=== PATIENT | female | born 1945 | race Caucasian/White ===

== ENCOUNTER 2022-10-14 15:45 | Observation (INO) ==
[2022-10-14] MEDS ORDERED: hydrOXYzine HCl 25 MG TAB PO STA (16:46)
--- NOTE | 2022-10-14 16:49 | Emergency Department Note ---
Impression & Plan Bipolar 2 disorder, Elevated troponin, UTI (urinary tract infection), uncomplicated, HTN (hypertension) ED Provider Note Provider: Thong Hurt MD DATE OF SERVICE: 10/14/2022 CHIEF COMPLAINT: Anxiety, hypertension HISTORY OF PRESENT ILLNESS: Patient is a 76-year-old female history of bipolar disorder as well as hypothyroidism presenting here today with her daughter reporting that since Nexium anxious increased episodes of anxiety. Has been eating well and losing some weight. Is a bit forgetful at times as well. No falls recently reported. Seen here yesterday in the emergency department. Daughter arrived from [place] today and brought her here for evaluation. Patient is unsure if she took a dose of the Atarax given yesterday at home. States her blood pressure is notably normal. States has had a few palpitations states this has been longstanding. Denies any suicidal or homicidal ideation right now. Recently about 2 weeks ago started on BuSpar and increased about a week ago initially thought it helped but not so sure now. More distant history of inpatient hospitalizations and suicide attempts. Denies again suicidal ideation now. Daughter later relates that the patient's apartment is in a very distal rate and unkept state. Daughter also relays short-term memory has been worsening PAST MEDICAL HISTORY: As noted above MEDICATIONS: Reviewed home medications at bedside SOCIAL HISTORY: Lives alone in [place] PHYSICAL EXAM: GENERAL: alert and oriented in no acute distress on stretcher Head: normocephalic and atraumatic EYES: No injection, discharge or icterus. NECK: Trachea midline. ENT: Mucous membranes pink and moist. LUNGS: Airway patent. No retractions. Breath sounds clear HEART: Regular rate and rhythm. No chest wall tenderness ABDOMEN: Soft and non-tender, without guarding or rebound. SKIN: Acyanotic, warm, dry, without rashes EXTREMITIES: Without swelling, tenderness or deformity NEUROLOGICAL: No focal deficits. No aphasia. No facial droop or slurred speech. Ambulatory. Psych: Somewhat anxious. Tearful at times. Denies SI or HI. Not responding to external stimuli. EK bpm normal sinus rhythm. No PVC or PAC. No acute ST segment elevation or depression with a QTC of 449. Patient's laboratory studies reviewed. Differential includes Mood disorder, infection, electrolyte abnormalities, cardiac sources, toxicologic, trauma, neurologic, as well as other pathologies. IMPRESSION/MEDICAL DECISION MAKING: Patient without any significant pain at this time and is well-appearing. Anxious however. Denies SI or HI. Seen with case resource manager. Daughter provides additional history at bedside. Dr. Alonso called during the H&P and offers to provide the patient with an appointment tomorrow morning to see her in the office if she goes home. Daughter questions the need for inpatient treatment. Reviewed blood work from yesterday and we completed some here today. Given some Atarax since her she took some earlier she does appear anxious. Thyroid function checked. EKG and troponin sent but I doubt this represents ACS only completed given her report of some palpitations. Doubt any significant ar rhythmia given evaluation today as well as yesterday. Urinalysis sent to exclude UTI contributing to symptoms. Not having focal neurological deficit or severe headache and no significant reported falls or anticoagulants do not feel that we need additional imaging of the head at this time. Blood pressure may be elevated some component also of her stress and anxiety she states she is not sleeping that well as well. Want to be cautious in this 76-year-old with too strong of antianxiety medications. Urinalysis could be contaminated but possibly represents a urinary tract infection. We will treat at this point. Given the troponin elevation with UTI and hypertension discussed with patient a nd daughter further medical evaluation here as well as possibly proceeding with psychiatric consultation while here. They were in agreement this plan. DIAGNOSIS: Anxiety, hypertension, UTI, elevated troponin DISPOSITION: Discharge Patient was agreeable with this plan. Discussed return precautions and advised follow up. Past Med/Surg History Medical History (Updated 10/14/22 @ 23:49 by Thong Hurt M.D.) Bipolar 2 disorder CKD (chronic kidney disease), stage III COPD (chronic obstructive pulmonary disease) Depression Emphysema lung "MILD" Glaucoma Herniated disc IN BACK Hypothyroidism Surgical History History of back surgery History of colonoscopy History of eye surgery CLOGGED TEAR DUCT / LEFT ? History of hysterectomy History of tonsillectomy Social History Smoking Status: Former smoker Tobacco Type: Cigarettes Cigarettes Per Day: 22 YRS AGO; Hx Alcohol Use: Yes (VERY MINIMAL) Preferred Language: Paraguayan Communication Ability: Effective Sheet [employer]inter Required: No Beliefs That Will Affect Care: None Current Living Situation: Alone Feels Safe at Home: Yes Assistive Devices: Contacts, Denture - Upper and Denture - Lower Allergies Allergies Allergy/AdvReac Type Severity Reaction Status Date / Time aripiprazole Allergy Unknown PARKINSON Verified 06/14/20 14:17 SYMPTOMS cortisone Allergy Unknown PRECIPITATED Verified 06/14/20 14:17 MANIC EPISODE/ STEROID PSYCHOSIS lithium Allergy Unknown SKIN Verified 06/14/20 14:17 RASHES, EXTREME DROWSINESS AND LETHARGY moxifloxacin Allergy Unknown HIVES/ Verified 06/14/20 14:17 DIARRHEA brimonidine AdvReac Unknown Verified 06/14/20 14:17 Home Meds Home Medications Medication Instructions Recorded Confirmed albuterol sulfate 90 mcg/actuation 2 inh inhalation Q4H PRN COPD 05/07/20 10/14/22 aerosol inhaler (ProAir HFA) aspirin 81 mg tablet,delayed 81 mg PO HS 05/07/20 10/14/22 release (Aspir-) atorvastatin 20 mg tablet 20 mg PO HS 05/07/20 10/14/22 benzonatate 100 mg capsule 100 mg PO UD PRN COUGHING 05/07/20 10/14/22 bimatoprost 0.01 % eye drops 1 drp ophthalmic (eye) HS 05/07/20 10/14/22 (Lumigan) calcium carbonate 600 mg-vitamin 1 tab PO BID 05/07/20 10/14/22 D3 20 mcg (800 unit) chewable tablet (Caltrate 600 plus D) dorzolamide 2 % eye drops 1 drp ophthalmic (eye) BID 05/07/20 10/14/22 fluoxetine 20 mg capsule (Prozac) 20 mg PO QAM 05/07/20 10/14/22 lamotrigine 200 mg tablet 200 mg PO HS 05/07/20 10/14/22 levothyroxine 25 mcg tablet 25 mcg PO QAM 05/07/20 10/14/22 trazodone 50 mg tablet 50 mg PO HS 05/07/20 10/14/22 umeclidinium 62.5 mcg-vilanterol 1 inh inhalation DAILY 05/07/20 10/14/22 25 mcg/actuation powdr for inhalation (Anoro Ellipta) acetaminophen 500 mg tablet 1,000 mg PO Q6H PRN Pain 06/14/20 10/14/22 (Tylenol Extra Strength) buspirone 10 mg tablet 10 mg PO BID 10/14/22 10/14/22 Previous Rx's Medication Instructions Recorded hydroxyzine HCl 25 mg tablet 25 mg PO TID PRN itching #30 tabs 10/13/22 Results & Data (ED) Vital Signs Vital Signs - 24 hr 10/14/22 15:52 10/14/22 16:01 10/14/22 16:01 Temperature 36.6 C Temperature Source Temporal Artery Scan Pulse Rate 82 Pulse Rate [Apical] Pulse Rate [Right Finger] Pulse Rhythm [Right Finger] Pulse Strength [Right Finger] Respiratory Rate 18 18 Respiratory Effort / Characteristics Non-Labored Spontaneous Non-Labored Respiratory Depth Normal Normal Respiratory Pattern Regular Regular Blood Pressure 199/96 H Blood Pressure [Left Arm] Blood Pressure Mean 130 Blood Pressure Mean [Left Arm] Blood Pressure Position Sitting Blood Pressure Position [Left Arm] Pulse Oximetry 97 Oxygen Delivery Method Room Air Room Air Sepsis Recent Fever Within 48 Hours No Sepsis New/Unexplained Change in Mental Status N/A Sepsis Action Taken by Nursing No Action Required 10/14/22 17:29 10/14/22 18:29 Temperature Temperature Source Pulse Rate Pulse Rate [Apical] 68 Pulse Rate [Right Finger] 57 L Pulse Rhythm [Right Finger] Regular Pulse Strength [Right Finger] Normal Respiratory Rate 16 16 Respiratory Effort / Characteristics Non-Labored Non-Labored Spontaneous Respiratory Depth Normal Normal Respiratory Pattern Regular Regular Blood Pressure Blood Pressure [Left Arm] 176/65 H 177/74 H Blood Pressure Mean Blood Pressure Mean [Left Arm] 102 108 Blood Pressure Position Blood Pressure Position [Left Arm] Lying Lying Pulse Oximetry 97 99 Oxygen Delivery Method Room Air Room Air Sepsis Recent Fever Within 48 Hours Sepsis New/Unexplained Change in Mental Status Sepsis Action Taken by Nursing Laboratory Data 10/14/22 17:05 10/14/22 17:05 Lab Results 10/14/22 10/14/22 10/14/22 Range/Units 16:08 16:08 17:05 WBC (4.8-10.8) K/ul RBC (3.93-5.22) M/uL Hgb (12.0-16.0) g/dl Hct (34.1-44.9) % MCV (80.0-100.0) fL MCH (25.0-34.0) pg MCHC (32.0-36.0) g/dL RDW Std Deviation (36.4-46.3) fL RDW Coeff of Isabella (11.5-14.5) % Plt Count (130-400) K/uL MPV (9.4-12.3) fL Immature Gran % (Auto) % Neut % (Auto) % Lymph % (Auto) % Roosevelt % (Auto) % Eos % (Auto) % Baso % (Auto) % Neut # (Auto) (1.4-6.5) K/uL Lymph # (Auto) (1.2-3.4) K/uL Roosevelt # (Auto) (0.24-0.82) K/uL Eos # (Auto) (0-0.50) K/uL Baso # (Auto) (0-0.2) K/uL Immature Gran # (Auto) (0.00-0.02) K/uL Sodium (136-145) mmol/L Potassium (3.5-5.1) mmol/L Chloride (98-107) mmol/L Carbon Dioxide (21-32) mmol/L Anion Gap (3-11) BUN (6-23) mg/dl Creatinine (0.6-1.2) mg/dl Est Cr Clr Drug Dosing ml/min Est GFR ( Amer) ml/min Est GFR (Non-Af Amer) ml/min BUN/Creatinine Ratio (10-20) Glucose (70-99(Fasting)) mg/dl Calcium (8.5-10.1) mg/dl Total Bilirubin (0.2-1.0) mg/dl AST (13-39) U/L ALT (7-52) U/L Alkaline Phosphatase (34-104) U/L Troponin I High Sens (0-14) pg/ml Total Protein (6.0-8.3) gm/dl Albumin (3.4-5.0) gm/dl Globulin (2.5-4.0) gm/dl Albumin/Globulin Ratio (0.9-2) TSH 1.774 (0.300-4.500) uIu/ml Urine Color Yellow Urine Appearance Clear (Clear) Urine pH 6.0 (4.5-7.5) Ur Specific F[place]on 1.021 (1.000-1.030) Urine Protein Trace H (Negative) Urine Glucose (UA) Negative (Negative) Urine Ketones Negative (Negative) Urine Blood Negative (Negative) Urine Nitrite Negative (Negative) Urine Bilirubin Negative (Negative) Urine Urobilinogen Negative (Negative) Ur Leukocyte Esterase 2+ H (Negative) Urine WBC (Auto) >30 H (0-5) /hpf Urine RBC (Auto) 0-4 (0-4) /hpf U Hyaline Cast (Auto) 10-30 H (0-5) /lpf U Epithel Cells (Auto) >30 H (0-5) /lpf Urine Bacteria (Auto) Negative (Negative) Salicylates (3.0-30) mg/dl Urine Opiates Screen Neg (Neg) Ur Methadone, Qual Neg (Neg) Acetaminophen (10-30) ug/ml Urine Barbiturates Neg (Neg) Ur Phencyclidine (PCP) Neg (Neg) U Amphetamin/Meth Scrn Neg (Neg) MDMA (Ecstasy) Screen Neg (Neg) U Benzodiazepines Scrn Neg (Neg) Ur Cocaine Metabolite Neg (Neg) U Marijuana (THC) Screen Neg (Neg) Ethyl Alcohol mg/dL (<10.0) mg/dl SARS-CoV-2, RNA, NAAT (NEGATIVE) 10/14/22 10/14/22 10/14/22 Range/Units 17:05 17:05 17:05 WBC 4.45 L (4.8-10.8) K/ul RBC 3.99 (3.93-5.22) M/uL Hgb 12.5 (12.0-16.0) g/dl Hct 37.6 (34.1-44.9) % MCV 94.2 (80.0-100.0) fL MCH 31.3 (25.0-34.0) pg MCHC 33.2 (32.0-36.0) g/dL RDW Std Deviation 39.2 (36.4-46.3) fL RDW Coeff of Isabella 11.5 (11.5-14.5) % Plt Count 225 (130-400) K/uL MPV 9.9 (9.4-12.3) fL Immature Gran % (Auto) 0.2 % Neut % (Auto) 65.0 % Lymph % (Auto) 25.2 % Roosevelt % (Auto) 9.2 % Eos % (Auto) 0.0 % Baso % (Auto) 0.4 % Neut # (Auto) 2.89 (1.4-6.5) K/uL Lymph # (Auto) 1.12 L (1.2-3.4) K/uL Roosevelt # (Auto) 0.41 (0.24-0.82) K/uL Eos # (Auto) 0.00 (0-0.50) K/uL Baso # (Auto) 0.02 (0-0.2) K/uL Immature Gran # (Auto) 0.01 (0.00-0.02) K/uL Sodium 137 (136-145) mmol/L Potassium 3.7 (3.5-5.1) mmol/L Chloride 102 (98-107) mmol/L Carbon Dioxide 26 (21-32) mmol/L Anion Gap 9 (3-11) BUN 15 (6-23) mg/dl Creatinine 1.10 (0.6-1.2) mg/dl Est Cr Clr Drug Dosing 36.4 ml/min Est GFR ( Amer) 55.7 ml/min Est GFR (Non-Af Amer) 48.1 ml/min BUN/Creatinine Ratio 13.6 (10-20) Glucose 139 H (70-99(Fasting)) mg/dl Calcium 9.4 (8.5-10.1) mg/dl Total Bilirubin 0.6 (0.2-1.0) mg/dl AST 28 (13-39) U/L ALT 19 (7-52) U/L Alkaline Phosphatase 68 (34-104) U/L Troponin I High Sens 53.3 H* (0-14) pg/ml Total Protein 7.3 (6.0-8.3) gm/dl Albumin 4.4 (3.4-5.0) gm/dl Globulin 2.9 (2.5-4.0) gm/dl Albumin/Globulin Ratio 1.5 (0.9-2) TSH (0.300-4.500) uIu/ml Urine Color Urine Appearance (Clear) Urine pH (4.5-7.5) Ur Specific [place] (1.000-1.030) Urine Protein (Negative) Urine Glucose (UA) (Negative) Urine Ketones (Negative) Urine Blood (Negative) Urine Nitrite (Negative) Urine Bilirubin (Negative) Urine Urobilinogen (Negative) Ur Leukocyte Esterase (Negative) Urine WBC (Auto) (0-5) /hpf Urine RBC (Auto) (0-4) /hpf U Hyaline Cast (Auto) (0-5) /lpf U Epithel Cells (Auto) (0-5) /lpf Urine Bacteria (Auto) (Negative) Salicylates < 3.0 L (3.0-30) mg/dl Urine Opiates Screen (Neg) Ur Methadone, Qual (Neg) Acetaminophen < 3 L (10-30) ug/ml Urine Barbiturates (Neg) Ur Phencyclidine (PCP) (Neg) U Amphetamin/Meth Scrn (Neg) MDMA (Ecstasy) Screen (Neg) U Benzodiazepines Scrn (Neg) Ur Cocaine Metabolite (Neg) U Marijuana (THC) Screen (Neg) Ethyl Alcohol mg/dL (<10.0) mg/dl SARS-CoV-2, RNA, NAAT (NEGATIVE) 10/14/22 10/14/22 Range/Units 17:05 17:05 WBC (4.8-10.8) K/ul RBC (3.93-5.22) M/uL Hgb (12.0-16.0) g/dl Hct (34.1-44.9) % MCV (80.0-100.0) fL MCH (25.0-34.0) pg MCHC (32.0-36.0) g/dL RDW Std Deviation (36.4-46.3) fL RDW Coeff of Isabella (11.5-14.5) % Plt Count (130-400) K/uL MPV (9.4-12.3) fL Immature Gran % (Auto) % Neut % (Auto) % Lymph % (Auto) % Roosevelt % (Auto) % Eos % (Auto) % Baso % (Auto) % Neut # (Auto) (1.4-6.5) K/uL Lymph # (Auto) (1.2-3.4) K/uL Roosevelt # (Auto) (0.24-0.82) K/uL Eos # (Auto) (0-0.50) K/uL Baso # (Auto) (0-0.2) K/uL Immature Gran # (Auto) (0.00-0.02) K/uL Sodium (136-145) mmol/L Potassium (3.5-5.1) mmol/L Chloride (98-107) mmol/L Carbon Dioxide (21-32) mmol/L Anion Gap (3-11) BUN (6-23) mg/dl Creatinine (0.6-1.2) mg/dl Est Cr Clr Drug Dosing ml/min Est GFR ( Amer) ml/min Est GFR (Non-Af Amer) ml/min BUN/Creatinine Ratio (10-20) Glucose (70-99(Fasting)) mg/dl Calcium (8.5-10.1) mg/dl Total Bilirubin (0.2-1.0) mg/dl AST (13-39) U/L ALT (7-52) U/L Alkaline Phosphatase (34-104) U/L Troponin I High Sens (0-14) pg/ml Total Protein (6.0-8.3) gm/dl Albumin (3.4-5.0) gm/dl Globulin (2.5-4.0) gm/dl Albumin/Globulin Ratio (0.9-2) TSH (0.300-4.500) uIu/ml Urine Color Urine Appearance (Clear) Urine pH (4.5-7.5) Ur Specific [place] (1.000-1.030) Urine Protein (Negative) Urine Glucose (UA) (Negative) Urine Ketones (Negative) Urine Blood (Negative) Urine Nitrite (Negative) Urine Bilirubin (Negative) Urine Urobilinogen (Negative) Ur Leukocyte Esterase (Negative) Urine WBC (Auto) (0-5) /hpf Urine RBC (Auto) (0-4) /hpf U Hyaline Cast (Auto) (0-5) /lpf U Epithel Cells (Auto) (0-5) /lpf Urine Bacteria (Auto) (Negative) Salicylates (3.0-30) mg/dl Urine Opiates Screen (Neg) Ur Methadone, Qual (Neg) Acetaminophen (10-30) ug/ml Urine Barbiturates (Neg) Ur Phencyclidine (PCP) (Neg) U Amphetamin/Meth Scrn (Neg) MDMA (Ecstasy) Screen (Neg) U Benzodiazepines Scrn (Neg) Ur Cocaine Metabolite (Neg) U Marijuana (THC) Screen (Neg) Ethyl Alcohol mg/dL < 10.0 (<10.0) mg/dl SARS-CoV-2, RNA, NAAT NEGATIVE (NEGATIVE) Administered Medications Aspirin (Aspirin 81 Mg Ectab) 81 mg PO HS [facility] Stop: 11/13/22 21:29 Last Admin: 10/14/22 22:16 Dose: 81 mg Documented By: ML Atorvastatin Calcium (Atorvastatin 20 Mg Tab) 20 mg PO HS [facility] Stop: 11/13/22 21:29 Last Admin: 10/14/22 22:16 Dose: 20 mg Documented By: ML Bimatoprost (Bimatoprost 0.01% Op Soln 2.5 Ml Btl) 1 drops OP HS [facility] Stop: 11/13/22 21:29 Last Admin: 10/14/22 22:16 Dose: 1 drops Documented By: ML Buspirone HCl (Buspirone 5 Mg Tab) 10 mg PO BID [facility] Stop: 11/13/22 21:59 Last Admin: 10/14/22 23:13 Dose: 10 mg Documented By: ML Dorzolamide HCl (Dorzolamide Hcl 2% Oph Soln 10 Ml Btl) 1 drops OP BID [facility] Stop: 11/13/22 21:29 Last Admin: 10/14/22 22:17 Dose: 1 drops Documented By: ML Enoxaparin Sodium (Enoxaparin Inj 40 Mg/0.4 Ml Syr) 40 mg SQ Q24H [facility] Stop: 11/13/22 21:59 Last Admin: 10/14/22 23:12 Dose: 40 mg Documented By: ML Lamotrigine (Lamotrigine 100 Mg Tab) 200 mg PO [facility] Stop: 11/13/22 21:29 Last Admin: 10/14/22 22:17 Dose: 200 mg Documented By: ML Trazodone HCl (Trazodone Hcl 50 Mg Tab) 50 mg PO [facility] Stop: 11/13/22 21:29 Last Admin: 10/14/22 22:18 Dose: 50 mg Documented By: ML Discontinued Medications Aspirin (Aspirin Chew 324 Mg) 324 mg PO NOW STA Stop: 10/14/22 18:38 Last Admin: 10/14/22 19:11 Dose: 324 mg Documented By: ML Hydralazine HCl (Hydralazine Hcl 20 Mg/Ml Vial) 10 mg IV NOW STA Stop: 01/03/23 20:29 Last Admin: 10/14/22 20:57 Dose: 10 mg Documented By: ML Hydroxyzine HCl (Hydroxyzine Hcl 25 Mg Tab) 25 mg PO NOW STA Stop: 10/14/22 16:47 Last Admin: 10/14/22 17:11 Dose: 25 mg Documented By: SR Ceftriaxone Sodium 1,000 mg/ (Dextrose) 50 mls @ 100 mls/hr IV NOW STA Stop: 10/14/22 19:06 Last Infusion: 10/14/22 20:49 Dose: 0 mls/hr Documented By: Admin: 10/14/22 20:00 Dose: 100 mls/hr Documented By: ML Discharge Plan Visit Data Chief Complaint: Anxiety Stated Complaint: ANXIETY, HIGH BLOOD PRESSURE, COGNITIVE IMPAIRMENT ED Provider: Thong Hurt Discharge Problem: Bipolar 2 disorder, Elevated troponin, UTI (urinary tract infection), uncomplicated, HTN (hypertension) Patient Disposition: Being Evaluated by Hospitalist Discharge Instructions Interventions: ED Discharge Assessment Last Done: 10/14/22 22:06
[2022-10-14 17:29] LABS: Basophils # (auto) 0.02 K/uL (0-0.2); Basophils % (auto) 0.4 %; Hematocrit (blood only) 37.6 % (34.1-44.9); Hemoglobin 12.5 g/dl (12.0-16.0); Immature Granulocytes # (auto) 0.01 K/uL (0.00-0.02); Immature Granulocytes % (auto) 0.2 %; Lymphocytes # (auto) 1.12 K/uL (1.2-3.4); Lymphocytes % (auto) 25.2 %; Mean Corpuscular Hemoglobin 31.3 pg (25.0-34.0); Mean Corpuscular Hgb Conc 33.2 g/dL (32.0-36.0); Mean Corpuscular Volume 94.2 fL (80.0-100.0); Mean Platelet Volume 9.9 fL (9.4-12.3); Monocytes # (auto) 0.41 K/uL (0.24-0.82); Monocytes % (auto) 9.2 %; Neutrophils # (auto) 2.89 K/uL (1.4-6.5); Platelet Count 225 K/uL (130-400); RDW Coefficient of Variation 11.5 % (11.5-14.5); RDW Standard Deviation 39.2 fL (36.4-46.3); Red Blood Count 3.99 M/uL (3.93-5.22); White Blood Count 4.45 K/ul (4.8-10.8)
[2022-10-14 17:38] LABS: Appearance Urine Clear (Clear); Bacteria Urine Automated Negative (Negative); Bilirubin Urine Negative (Negative); Blood Urine Negative (Negative); Color Urine Yellow; Epithelial Cell Urine Auto >30 /lpf (0-5); Glucose Urine UA Negative (Negative); Ketones Urine Negative (Negative); Leukocyte Esterase Urine 2+ (Negative); Nitrite Urine Negative (Negative); Protein Urine Trace (Negative); RBC Urine Automated 0-4 /hpf (0-4); Specific Gravity Urine 1.021 (1.000-1.030); Urobilinogen Urine Negative (Negative); WBC Urine Automated >30 /hpf (0-5)
[2022-10-14 17:59] LABS: Acetaminophen < 3 ug/ml (10-30); Salicylate < 3.0 mg/dl (3.0-30)
[2022-10-14 18:00] LABS: Albumin Globulin Ratio 1.5 (0.9-2); Albumin Level 4.4 gm/dl (3.4-5.0); BUN Creatinine Ratio 13.6 (10-20); Bilirubin,Total 0.6 mg/dl (0.2-1.0); Calcium 9.4 mg/dl (8.5-10.1); Creatinine Clr Calc Pharmacy 36.4 ml/min; Est GFR (African American) 55.7 ml/min; Est GFR (Non-African American) 48.1 ml/min; Globulin 2.9 gm/dl (2.5-4.0); Potassium 3.7 mmol/L (3.5-5.1); Total Protein 7.3 gm/dl (6.0-8.3)
[2022-10-14 18:05] LABS: Amphetamines+Metham, Urine Neg (Neg); Barbiturates, Urine Neg (Neg); Benzodiazepine, Urine Neg (Neg); Cocaine, Urine Neg (Neg); MDMA (Ecstacy), Urine Neg (Neg); Methadone, Urine Neg (Neg); Opiate, Urine Neg (Neg); Phencyclidine, Urine Neg (Neg)
[2022-10-14 18:14] LABS: Troponin I High Sensitivity 53.3 pg/ml (0-14)
[2022-10-14] MEDS ORDERED: ASPIRIN CHEW 324 MG PO STA (18:37)
[2022-10-14] MEDS ORDERED: cefTRIAXone SODIUM 1,000 MG in DEXTROSE 5% AD-VAN 50 ML IV STA (18:37)
--- NOTE | 2022-10-14 19:55 | History & Physical Report ---
Date of Service October 14, 2022 Assessment & Plan (1) Anxiety: (2) Bipolar 2 disorder: Plan: This is a 76-year-old female with PMH of hypothyroidism, COPD, CKD 3, bipolar 2 disorder, hyperlipidemia and other medical problems listed below who presents with increased episodes of anxiety over the past month. Anxiety exacerbated by computer hacking 5 weeks ago. Daughter concerned about her mother's state, ability to leave alone, control of bipolar d/o On lamictal 200mg HS, Prozac 20mg daily, Hydroxyzine 25mg TID PRN, Buspar 10mg BID newly added Consulting psychiatry to evaluate condition, medication. Discussed this with daughter. Patient without SI/HI or a/v hallucinations (3) Elevated blood pressure reading: Plan: No history of hypertension per patient or chart review BP initially 188/92 in setting of significant anxiety. Improved to 157/83 following 1 dose of hydralazine Continue to monitor BP closely, consider starting on hydrochlorothiazide or lisinopril in the a.m. (4) UTI (urinary tract infection), uncomplicated: (5) Elevated troponin: Plan: High-sensitivity troponin elevated at 53 in setting of uncontrolled blood pressure. Denies radha chest pain. No ST elevation on EKG. Trend troponin, monitor on telemetry (6) COPD (chronic obstructive pulmonary disease): Plan: Stable. Continue Anoro Ellipta, rescue albuterol inhaler as needed (7) Hypothyroidism: Plan: Continue levothyroxine (8) CKD (chronic kidney disease), stage III: Plan: Creatinine at baseline at 1.10. Monitor daily BMP DVT Ppx: SQ lovenox Code status: FULL PCP: Adam Dispo: Admitted to [facility]. Patient seen in collaboration with Dr. Jeter. Please see addendum. History of Present Illness Chief Complaint: Worsened anxiety, urinary symptoms Primary Care Provider: Kamille Medina MD This is a 76-year-old female with PMH of hypothyroidism, COPD, CKD 3, bipolar 2 disorder, hyperlipidemia and other medical problems listed below who presents with increased episodes of anxiety over the past month. The day after [employer], patient's computer was hacked which has given her considerable anxiety, particularly about her finances. Was seen in the ED yesterday due to having heart fluttering and feeling short of breath but was discharged home. Continue to feel poorly at home and daughter from [place] visited, bring her mom back for further evaluation. States that her mom lives alone and is usually more self-sufficient, clearer with her thinking and less forgetful. Is concerned about a general decline over the past few months and this is the first time she is seen in person. Patient endorses increased anxiety, poor appetite, more forgetfulness, feeling of her heart fluttering and some chest tightness. Denies any fever, chills, recent illness, lightheadedness, radha chest pain, nausea, vomiting, anjana pain, diarrhea or constipation. Does have increased urinary frequency and urine is darker in color, per daughter. History of bipolar disorder and follows with psychiatrist. Was started on BuSpar a few weeks ago and initially noted improvement but is not so sure now. Allergies Allergy/AdvReac Type Severity Reaction Status Date / Time aripiprazole Allergy Unknown PARKINSON Verified 06/14/20 14:17 SYMPTOMS cortisone Allergy Unknown PRECIPITATED Verified 06/14/20 14:17 MANIC EPISODE/ STEROID PSYCHOSIS lithium Allergy Unknown SKIN Verified 06/14/20 14:17 RASHES, EXTREME DROWSINESS AND LETHARGY moxifloxacin Allergy Unknown HIVES/ Verified 06/14/20 14:17 DIARRHEA brimonidine AdvReac Unknown Verified 06/14/20 14:17 Home Medications Medication Instructions Recorded Confirmed Type albuterol sulfate 90 mcg/actuation 2 inh inhalation Q4H PRN COPD 05/07/20 10/14/22 History aerosol inhaler (ProAir HFA) aspirin 81 mg tablet,delayed 81 mg PO HS 05/07/20 10/14/22 History release (Aspir-) atorvastatin 20 mg tablet 20 mg PO HS 05/07/20 10/14/22 History benzonatate 100 mg capsule 100 mg PO UD PRN COUGHING 05/07/20 10/14/22 History bimatoprost 0.01 % eye drops 1 drp ophthalmic (eye) HS 05/07/20 10/14/22 History (Boris) calcium carbonate 600 mg-vitamin 1 tab PO BID 05/07/20 10/14/22 History D3 20 mcg (800 unit) chewable tablet (Caltrate 600 plus D) dorzolamide 2 % eye drops 1 drp ophthalmic (eye) BID 05/07/20 10/14/22 History fluoxetine 20 mg capsule (Prozac) 20 mg PO QAM 05/07/20 10/14/22 History lamotrigine 200 mg tablet 200 mg PO HS 05/07/20 10/14/22 History levothyroxine 25 mcg tablet 25 mcg PO QAM 05/07/20 10/14/22 History trazodone 50 mg tablet 50 mg PO HS 05/07/20 10/14/22 History umeclidinium 62.5 mcg-vilanterol 1 inh inhalation DAILY 05/07/20 10/14/22 History 25 mcg/actuation powdr for inhalation (Anoro Ellipta) acetaminophen 500 mg tablet 1,000 mg PO Q6H PRN Pain 06/14/20 10/14/22 History (Tylenol Extra Strength) hydroxyzine HCl 25 mg tablet 25 mg PO TID PRN itching #30 tabs 10/13/22 10/14/22 Rx buspirone 10 mg tablet 10 mg PO BID 10/14/22 10/14/22 History Past Med/Surg History Medical History (Updated 10/14/22 @ 21:01 by Kita Zepeda PA-C) Bipolar 2 disorder CKD (chronic kidney disease), stage III COPD (chronic obstructive pulmonary disease) Depression Emphysema lung "MILD" Glaucoma Herniated disc IN BACK Hypothyroidism Surgical History History of back surgery History of colonoscopy History of eye surgery CLOGGED TEAR DUCT / LEFT ? History of hysterectomy History of tonsillectomy Social History Smoking Status: Former smoker Tobacco Type: Cigarettes Cigarettes Per Day: 22 YRS AGO; Hx Alcohol Use: Yes (VERY MINIMAL) Preferred Language: [place] Communication Ability: Effective Bowl Turner Required: No Beliefs That Will Affect Care: None Current Living Situation: Alone Feels Safe at Home: Yes Assistive Devices: Contacts, Denture - Upper and Denture - Lower Review of Systems Review of Systems: At least ten systems reviewed and negative except as noted in the HPI. Physical Exam Physical Exam: Please see Dr. Jeter's addendum for physical exam. Results & Data Results & Data ([facility]) Vital Signs (Past 12 Hours) Vital Signs Temp Pulse Pulse Pulse Resp BP BP 10/14/22 18:29 57 L 16 177/74 H 10/14/22 17:29 68 16 176/65 H 10/14/22 16:01 18 10/14/22 16:01 10/14/22 15:52 36.6 C 82 18 199/96 H Pulse Ox O2 Del Method 10/14/22 18:29 99 Room Air 10/14/22 17:29 97 Room Air 10/14/22 16:01 10/14/22 16:01 Room Air 10/14/22 15:52 97 Room Air Laboratory Results Short CBC 10/14/22 Range/Units 17:05 WBC 4.45 L (4.8-10.8) K/ul Hgb 12.5 (12.0-16.0) g/dl Hct 37.6 (34.1-44.9) % Plt Count 225 (130-400) K/uL BMP 10/14/22 17:05 Sodium 137 Potassium 3.7 Chloride 102 Carbon Dioxide 26 BUN 15 Creatinine 1.10 Glucose 139 H Calcium 9.4 Liver Function 10/14/22 Range/Units 17:05 Total Bilirubin 0.6 (0.2-1.0) mg/dl AST 28 (13-39) U/L ALT 19 (7-52) U/L Alkaline Phosphatase 68 (34-104) U/L Albumin 4.4 (3.4-5.0) gm/dl Urine 10/14/22 Range/Units 16:08 Urine Color Yellow Urine Appearance Clear (Clear) Urine pH 6.0 (4.5-7.5) Ur Specific [place] 1.021 (1.000-1.030) Urine Protein Trace H (Negative) Urine Glucose (UA) Negative (Negative) ECG Additional Comments: ECG reviewed. NSR, no significant change from ECG yesterday Supervising Physician Co-Signing Physician Notes Pt is a 76 y/o F with hx of Hypothyroidism, CKD III, Prediabetes, Bipolar II, COPD, HLD, Psoriasis admitted for elevated BP with worsening anxiety symptoms and elevated trop. PE: NAD, well developed Cardiac: Normal S1/S2, no murmur Lungs: CTA, no wheezing or crackles Abd: ND, NT,soft MSK: no LE edema Psych: AAOX3, appeared anxious A/P: Elevated BP with tropinemia: -pt does not take any HTN meds -EKG: no acute change -trend trop -admit to tele -EKG AM - if BP elevated then will consider starting ACEI or ARBs UTI: -UCx send -continue ceftriaxone Anxiety/Bipolar: -continue current meds and psych consultation Other chronic conditions: plan as above Agree with A/P by Kita Zepeda PA-C
[2022-10-14] MEDS ORDERED: hydrALAZINE HCL 20 MG/ML VIAL IV STA (20:28)
[2022-10-14] MEDS ORDERED: hydrOXYzine HCl 25 MG TAB PO PRN ×2 (21:07→22:00)
[2022-10-14] MEDS ORDERED: ALBUTEROL HFA 8 GM INHALER INH PRN (21:07)
[2022-10-14] MEDS ORDERED: BENZONATATE 100 MG CAPSULE PO PRN (21:07)
[2022-10-14] MEDS ORDERED: POLYETHYLENE (MIRALAX) 17 GM PACK PO PRN (22:05)
[2022-10-14] MEDS ORDERED: ACETAMINOPHEN 325 MG TAB PO PRN (22:05)
[2022-10-14] MEDS ORDERED: hydrALAZINE HCL 20 MG/ML VIAL IV PRN (22:14)
[2022-10-14] MEDS: ASPIRIN 81 MG ECTAB PO SCH (22:16)
[2022-10-14] MEDS: BIMATOPROST 0.01% OP SOLN 2.5 ML BTL OP SCH (22:16)
[2022-10-14] MEDS: ATORVASTATIN 20 MG TAB PO SCH (22:16)
[2022-10-14] MEDS: lamoTRIgine 100 MG TAB PO SCH (22:17)
[2022-10-14] MEDS: DORZOLAMIDE HCL 2% OPH SOLN 10 ML BTL OP SCH (22:17)
[2022-10-14] MEDS: traZODone HCL 50 MG TAB PO SCH (22:18)
[2022-10-14] MEDS: ENOXAPARIN INJ 40 MG/0.4 ML SYR SQ SCH (23:12)
[2022-10-14] MEDS: busPIRone 5 MG TAB PO SCH (23:13)
[2022-10-15] MEDS: LEVOTHYROXINE SODIUM 25 MCG TABLET PO SCH (06:29)
[2022-10-15 07:19] LABS: Hematocrit (blood only) 34.2 % (34.1-44.9); Hemoglobin 11.7 g/dl (12.0-16.0); Mean Corpuscular Hemoglobin 31.5 pg (25.0-34.0); Mean Corpuscular Hgb Conc 34.2 g/dL (32.0-36.0); Mean Corpuscular Volume 92.2 fL (80.0-100.0); Platelet Count 185 K/uL (130-400); RDW Coefficient of Variation 11.4 % (11.5-14.5); RDW Standard Deviation 38.7 fL (36.4-46.3); Red Blood Count 3.71 M/uL (3.93-5.22); White Blood Count 3.49 K/ul (4.8-10.8)
[2022-10-15 07:46] LABS: BUN Creatinine Ratio 11.2 (10-20); Calcium 8.8 mg/dl (8.5-10.1); Creatinine Clr Calc Pharmacy 40.9 ml/min; Est GFR (Non-African American) 55.3 ml/min; Potassium 3.3 mmol/L (3.5-5.1)
[2022-10-15] MEDS ORDERED: busPIRone 5 MG TAB PO SCH (09:00)
[2022-10-15] MEDS: FLUoxetine HCL 20 MG CAP PO SCH (09:27)
[2022-10-15] MEDS: CALCIUM 600MG + VIT D 400 IU TAB PO SCH ×2 (09:27→22:02)
[2022-10-15] MEDS: busPIRone 5 MG TAB PO SCH (09:28)
[2022-10-15] MEDS: DORZOLAMIDE HCL 2% OPH SOLN 10 ML BTL OP SCH ×2 (09:29→22:04)
[2022-10-15] MEDS: UMECLIDINIUM/VILANTEROL 62.5/25MCG 7 PUFFS/INHALER INH SCH (09:30)
--- NOTE | 2022-10-15 14:50 | Electrocardiogram Report ---
Test Reason : Blood Pressure : / mmHG Vent. Rate : 065 BPM Atrial Rate : 065 BPM P-R Int : 160 ms QRS Dur : 090 ms QT Int : 432 ms P-R-T Axes : 045 000 043 degrees QTc Int : 449 ms Normal sinus rhythm Cannot rule out Anterior infarct (cited on or before 14-OCT-2022) Abnormal ECG When compared with ECG of 13-OCT-2022 12:10, No significant change was found Confirmed by Chris Tello ([id number]) on 10/15/2022 2:49:50 PM Referred By: REFERRED SELF Confirmed By:Chris Tello
--- NOTE | 2022-10-15 15:16 | Hospitalist Progress Note ---
Date of Service October 15, 2022 Assessment & Plan (1) Anxiety: (2) Bipolar 2 disorder: Plan: This is a 76-year-old female with PMH of hypothyroidism, COPD, CKD 3, bipolar 2 disorder, hyperlipidemia and other medical problems listed below who presents with increased episodes of anxiety over the past month. Anxiety exacerbated by computer hacking 5 weeks ago. Daughter concerned about her mother's state, ability to leave alone, control of bipolar d/o On lamictal 200mg HS, Prozac 20mg daily, Hydroxyzine 25mg TID PRN, Buspar 10mg BID newly added Consulting psychiatry to evaluate condition, medication. Discussed this with daughter. Patient without SI/HI or a/v hallucinations (3) Elevated blood pressure reading: Plan: No history of hypertension per patient or chart review BP initially 188/92 in setting of significant anxiety. Improved to 157/83 following 1 dose of hydralazine Blood pressure continues to be high. Will start on losartan and hydrochlorothiazide combination. (4) UTI (urinary tract infection), uncomplicated: Plan: Urine culture positive for group B strep On ceftriaxone. Will complete 3 to 5-day course (5) Elevated troponin: Plan: High-sensitivity troponin 50s on admission; up trended to 150s and down trended. No complaint of chest pain. Will obtain echocardiogram. (6) COPD (chronic obstructive pulmonary disease): Plan: Stable. Continue Anoro Ellipta, rescue albuterol inhaler as needed (7) Hypothyroidism: Plan: Continue levothyroxine TSH within normal limits (8) CKD (chronic kidney disease), stage III: Plan: Creatinine at baseline at 1.10. Monitor daily BMP DVT Ppx: SQ lovenox Code status: FULL PCP: Adam Dispo: Admitted to [facility]. PT OT evaluation ordered. Discussed with daughter at bedside. Answered questions/queries. Admission and Anticipated Discharge Date Admission Date: October 14, 2022 Subjective Patient seen and examined in the emergency department. She is comfortably lying on the bed; not in any distress. Denies any chest pain or shortness of breath. Review of Systems Review of Systems: All systems reviewed & are unremarkable except as noted in Subjective Physical Exam Physical Exam: Constitutional: WD/WN, vitals as above, NAD, sitting up in bed, pleasant, conversing easily Respiratory: normal respiratory effort, lungs clear to auscultation, no wheeze, rales, rhonchi. Normal insp/exp effort, no accessory muscle use Cardiovascular: RRR, no murmur, no edema Vessels: no JVD or carotid bruit Chest: normal inspection of chest Abdomen: normal bowel sounds, soft, nontender, no hepatosplenomegaly Musculoskeletal: no cyanosis or clubbing, extremities motor strength 5/5 Skin: no rashes, warm and dry normal turgor Neurologic: PERRL, EOMI, accommodation nl, no face palsy, no dysarthria CN's II- XI intact bilaterally and moves all extremities Psychiatric: A+Ox3, euthymic affect Lymphatic: no cervical or axillary lymphadenopathy : deferred Results & Data Results & Data ([facility]) Vital Signs (Past 12 Hours) Vital Signs Temp Pulse Pulse Resp BP BP Pulse Ox 10/15/22 14:52 37.1 C 60 18 161/83 H 96 10/15/22 14:27 10/15/22 09:22 155/72 H 10/15/22 09:22 64 24 155/72 H 96 10/15/22 09:00 74 16 10/15/22 09:05 10/15/22 08:00 59 L 19 91 10/15/22 08:00 130/68 10/15/22 07:00 53 L 17 91 10/15/22 06:00 63 16 96 10/15/22 05:00 52 L 17 95 10/15/22 04:00 52 L 17 120/65 95 O2 Del Method 10/15/22 14:52 Room Air 10/15/22 14:27 Room Air 10/15/22 09:22 10/15/22 09:22 10/15/22 09:00 10/15/22 09:05 Room Air 10/15/22 08:00 10/15/22 08:00 10/15/22 07:00 10/15/22 06:00 10/15/22 05:00 10/15/22 04:00 Laboratory Results Laboratory Results WBC 3.49 K/ul (4.8-10.8) L 10/15/22 06:49 RBC 3.71 M/uL (3.93-5.22) L 10/15/22 06:49 Hgb 11.7 g/dl (12.0-16.0) L 10/15/22 06:49 Hct 34.2 % (34.1-44.9) 10/15/22 06:49 MCV 92.2 fL (80.0-100.0) 10/15/22 06:49 MCH 31.5 pg (25.0-34.0) 10/15/22 06:49 MCHC 34.2 g/dL (32.0-36.0) 10/15/22 06:49 RDW Std Deviation 38.7 fL (36.4-46.3) 10/15/22 06:49 RDW Coeff of [place]abella 11.4 % (11.5-14.5) L 10/15/22 06:49 Plt Count 185 K/uL (130-400) 10/15/22 06:49 MPV 10.0 fL (9.4-12.3) 10/15/22 06:49 Immature Gran % (Auto) 0.2 % 10/14/22 17:05 Neut % (Auto) 65.0 % 10/14/22 17:05 Lymph % (Auto) 25.2 % 10/14/22 17:05 [place] % (Auto) 9.2 % 10/14/22 17:05 Eos % (Auto) 0.0 % 10/14/22 17:05 Baso % (Auto) 0.4 % 10/14/22 17:05 Neut # (Auto) 2.89 K/uL (1.4-6.5) 10/14/22 17:05 Lymph # (Auto) 1.12 K/uL (1.2-3.4) L 10/14/22 17:05 [place] # (Auto) 0.41 K/uL (0.24-0.82) 10/14/22 17:05 Eos # (Auto) 0.00 K/uL (0-0.50) 10/14/22 17:05 Baso # (Auto) 0.02 K/uL (0-0.2) 10/14/22 17:05 Immature Gran # (Auto) 0.01 K/uL (0.00-0.02) 10/14/22 17:05 Sodium 138 mmol/L (136-145) 10/15/22 06:49 Potassium 3.3 mmol/L (3.5-5.1) L 10/15/22 06:49 Chloride 105 mmol/L (98-107) 10/15/22 06:49 Carbon Dioxide 26 mmol/L (21-32) 10/15/22 06:49 Anion Gap 7 (3-11) 10/15/22 06:49 BUN 11 mg/dl (6-23) 10/15/22 06:49 Creatinine 0.98 mg/dl (0.6-1.2) 10/15/22 06:49 Est Cr Clr Drug Dosing 40.9 ml/min 10/15/22 06:49 Est GFR ( Amer) 64.0 ml/min 10/15/22 06:49 Est GFR (Non-Af Amer) 55.3 ml/min 10/15/22 06:49 BUN/Creatinine Ratio 11.2 (10-20) 10/15/22 06:49 Glucose 99 mg/dl (70-99(Fasting)) 10/15/22 06:49 Calcium 8.8 mg/dl (8.5-10.1) 10/15/22 06:49 Total Bilirubin 0.6 mg/dl (0.2-1.0) 10/14/22 17:05 AST 28 U/L (13-39) 10/14/22 17:05 ALT 19 U/L (7-52) 10/14/22 17:05 Alkaline Phosphatase 68 U/L (34-104) 10/14/22 17:05 Troponin I High Sens 71.7 pg/ml (0-14) H* D 10/15/22 11:54 Total Protein 7.3 gm/dl (6.0-8.3) 10/14/22 17:05 Albumin 4.4 gm/dl (3.4-5.0) 10/14/22 17:05 Globulin 2.9 gm/dl (2.5-4.0) 10/14/22 17:05 Albumin/Globulin Ratio 1.5 (0.9-2) 10/14/22 17:05 TSH 1.774 uIu/ml (0.300-4.500) 10/14/22 17:05 Urine Color Yellow 10/14/22 16:08 Urine Appearance Clear (Clear) 10/14/22 16:08 Urine pH 6.0 (4.5-7.5) 10/14/22 16:08 Ur Specific [place] 1.021 (1.000-1.030) 10/14/22 16:08 Urine Protein Trace (Negative) H 10/14/22 16:08 Urine Glucose (UA) Negative (Negative) 10/14/22 16:08 Urine Ketones Negative (Negative) 10/14/22 16:08 Urine Blood Negative (Negative) 10/14/22 16:08 Urine Nitrite Negative (Negative) 10/14/22 16:08 Urine Bilirubin Negative (Negative) 10/14/22 16:08 Urine Urobilinogen Negative (Negative) 10/14/22 16:08 Ur Leukocyte Esterase 2+ (Negative) H 10/14/22 16:08 Urine WBC (Auto) >30 /hpf (0-5) H 10/14/22 16:08 Urine RBC (Auto) 0-4 /hpf (0-4) 10/14/22 16:08 U Hyaline Cast (Auto) 10-30 /lpf (0-5) H 10/14/22 16:08 U Epithel Cells (Auto) >30 /lpf (0-5) H 10/14/22 16:08 Urine Bacteria (Auto) Negative (Negative) 10/14/22 16:08 Salicylates < 3.0 mg/dl (3.0-30) L 10/14/22 17:05 Urine Opiates Screen Neg (Neg) 10/14/22 16:08 Ur Methadone, Qual Neg (Neg) 10/14/22 16:08 Acetaminophen < 3 ug/ml (10-30) L 10/14/22 17:05 Urine Barbiturates Neg (Neg) 10/14/22 16:08 Ur Phencyclidine (PCP) Neg (Neg) 10/14/22 16:08 U Amphetamin/Meth Scrn Neg (Neg) 10/14/22 16:08 MDMA (Ecstasy) Screen Neg (Neg) 10/14/22 16:08 U Benzodiazepines Scrn Neg (Neg) 10/14/22 16:08 Ur Cocaine Metabolite Neg (Neg) 10/14/22 16:08 U Marijuana (THC) Screen Neg (Neg) 10/14/22 16:08 Ethyl Alcohol mg/dL < 10.0 mg/dl (<10.0) 10/14/22 17:05 SARS-CoV-2, RNA, NAAT NEGATIVE (NEGATIVE) 10/14/22 17:05
[2022-10-15] MEDS ORDERED: LOSARTAN/HCTZ 50/12.5MG TAB PO SCH (15:30)
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
[2022-10-15] MEDS: ONDANSETRON INJ 2 MG/ML 2 ML VIAL IV PRN (19:33)
[2022-10-15] MEDS: cefTRIAXone SODIUM 1,000 MG in DEXTROSE 5% AD-VAN 50 ML IV SCH (19:33)
[2022-10-15] MEDS: ENOXAPARIN INJ 40 MG/0.4 ML SYR SQ SCH (22:01)
[2022-10-15] MEDS: traZODone HCL 50 MG TAB PO SCH (22:02)
[2022-10-15] MEDS: ATORVASTATIN 20 MG TAB PO SCH (22:02)
[2022-10-15] MEDS: lamoTRIgine 100 MG TAB PO SCH (22:02)
[2022-10-15] MEDS: BIMATOPROST 0.01% OP SOLN 2.5 ML BTL OP SCH (22:04)
[2022-10-15] MEDS: ASPIRIN 81 MG ECTAB PO SCH (23:08)
[2022-10-16] MEDS: LEVOTHYROXINE SODIUM 25 MCG TABLET PO SCH (05:42)
[2022-10-16 07:05] LABS: Basophils # (auto) 0.02 K/uL (0-0.2); Basophils % (auto) 0.6 %; Hemoglobin 11.7 g/dl (12.0-16.0); Immature Granulocytes # (auto) 0.01 K/uL (0.00-0.02); Immature Granulocytes % (auto) 0.3 %; Lymphocytes # (auto) 1.36 K/uL (1.2-3.4); Lymphocytes % (auto) 37.6 %; Mean Corpuscular Hemoglobin 30.9 pg (25.0-34.0); Mean Corpuscular Hgb Conc 33.4 g/dL (32.0-36.0); Mean Corpuscular Volume 92.3 fL (80.0-100.0); Mean Platelet Volume 10.3 fL (9.4-12.3); Monocytes # (auto) 0.33 K/uL (0.24-0.82); Monocytes % (auto) 9.1 %; Neutrophils % (auto) 52.4 %; Platelet Count 199 K/uL (130-400); RDW Coefficient of Variation 11.7 % (11.5-14.5); RDW Standard Deviation 39.6 fL (36.4-46.3); Red Blood Count 3.79 M/uL (3.93-5.22); White Blood Count 3.62 K/ul (4.8-10.8)
[2022-10-16 07:41] LABS: BUN Creatinine Ratio 10.7 (10-20); Calcium 9.9 mg/dl (8.5-10.1); Creatinine Clr Calc Pharmacy 33.1 ml/min; Est GFR (African American) 49.6 ml/min; Est GFR (Non-African American) 42.8 ml/min; Potassium 3.4 mmol/L (3.5-5.1)
[2022-10-16] MEDS: DORZOLAMIDE HCL 2% OPH SOLN 10 ML BTL OP SCH ×2 (10:19→19:55)
[2022-10-16] MEDS: UMECLIDINIUM/VILANTEROL 62.5/25MCG 7 PUFFS/INHALER INH SCH (10:20)
[2022-10-16] MEDS: CALCIUM 600MG + VIT D 400 IU TAB PO SCH ×2 (10:20→19:54)
[2022-10-16] MEDS: FLUoxetine HCL 20 MG CAP PO SCH (10:20)
--- NOTE | 2022-10-16 11:45 | Communication Note ---
Date of Service: October 16, 2022 patient has been cooperative with care, had some N over night. does not appear to have needed prn Ativan up to this point. Will follow.
--- NOTE | 2022-10-16 13:28 | Hospitalist Progress Note ---
Date of Service October 16, 2022 Assessment & Plan (1) Anxiety: (2) Bipolar 2 disorder: Plan: This is a 76-year-old female with PMH of hypothyroidism, COPD, CKD 3, bipolar 2 disorder, hyperlipidemia and other medical problems listed below who presents with increased episodes of anxiety over the past month. Anxiety exacerbated by computer hacking 5 weeks ago. Daughter concerned about her mother's state, ability to leave alone, control of bipolar d/o Was on lamictal 200mg HS, Prozac 20mg daily, Hydroxyzine 25mg TID PRN, Buspar 10mg BID newly added Psych on board; recommended to discontinue BuSpar and hydroxyzine; add Ativan as needed for anxiety. (3) Elevated blood pressure reading: Plan: No history of hypertension per patient or chart review BP initially 188/92 in setting of significant anxiety. Was given a dose of losartan/hydrochlorothiazide yesterday; slight bump in the creatinine. Blood pressure currently normal. Will monitor for now (4) UTI (urinary tract infection), uncomplicated: Plan: Urine culture positive for group B strep On ceftriaxone. Will complete 3 to 5-day course (5) Elevated troponin: Plan: High-sensitivity troponin 50s on admission; up trended to 150s and down trended. No complaint of chest pain. Echocardiogram was done which showed EF of 65 to 70% with grade 1 diastolic dysfunction. (6) COPD (chronic obstructive pulmonary disease): Plan: Stable. Continue Anoro Ellipta, rescue albuterol inhaler as needed (7) Hypothyroidism: Plan: Continue levothyroxine TSH within normal limits (8) CKD (chronic kidney disease), stage III: Plan: Creatinine at baseline at 1.10. Monitor daily BMP DVT Ppx: SQ lovenox Code status: FULL PCP: Adam Dispo: Admitted to [facility]. PT OT evaluation ordered. Discussed with daughter at bedside. Answered questions/queries. Admission and Anticipated Discharge Date Admission Date: October 14, 2022 Subjective Patient seen and examined at bedside. She is comfortable; not in any distress. She denies any fever, chills, chest pain or shortness of breath. Review of Systems Review of Systems: All systems reviewed & are unremarkable except as noted in Subjective Physical Exam Physical Exam: Constitutional: WD/WN, vitals as above, NAD, sitting up in bed, pleasant, conversing easily Respiratory: normal respiratory effort, lungs clear to auscultation, no wheeze, rales, rhonchi. Normal insp/exp effort, no accessory muscle use Cardiovascular: RRR, no murmur, no edema Vessels: no JVD or carotid bruit Chest: normal inspection of chest Abdomen: normal bowel sounds, soft, nontender, no hepatosplenomegaly Musculoskeletal: no cyanosis or clubbing, extremities motor strength 5/5 Skin: no rashes, warm and dry normal turgor Neurologic: PERRL, EOMI, accommodation nl, no face palsy, no dysarthria CN's II- XI intact bilaterally and moves all extremities Psychiatric: A+Ox3, euthymic affect Lymphatic: no cervical or axillary lymphadenopathy : deferred Results & Data Results & Data ([facility]) Vital Signs (Past 12 Hours) Vital Signs Temp Pulse Pulse Resp BP Pulse Ox O2 Del Method 10/16/22 12:05 36.8 C 66 18 127/81 93 Room Air 10/16/22 07:53 37.0 C 62 18 107/68 92 Room Air 10/16/22 05:38 68 18 111/58 L 93 Room Air 10/16/22 04:12 36.7 C 61 18 108/69 93 Room Air Laboratory Results Laboratory Results WBC 3.62 K/ul (4.8-10.8) L 10/16/22 06:08 RBC 3.79 M/uL (3.93-5.22) L 10/16/22 06:08 Hgb 11.7 g/dl (12.0-16.0) L 10/16/22 06:08 Hct 35.0 % (34.1-44.9) 10/16/22 06:08 MCV 92.3 fL (80.0-100.0) 10/16/22 06:08 MCH 30.9 pg (25.0-34.0) 10/16/22 06:08 MCHC 33.4 g/dL (32.0-36.0) 10/16/22 06:08 RDW Std Deviation 39.6 fL (36.4-46.3) 10/16/22 06:08 RDW Coeff of [place]abella 11.7 % (11.5-14.5) 10/16/22 06:08 Plt Count 199 K/uL (130-400) 10/16/22 06:08 MPV 10.3 fL (9.4-12.3) 10/16/22 06:08 Immature Gran % (Auto) 0.3 % 10/16/22 06:08 Neut % (Auto) 52.4 % 10/16/22 06:08 Lymph % (Auto) 37.6 % 10/16/22 06:08 [place] % (Auto) 9.1 % 10/16/22 06:08 Eos % (Auto) 0.0 % 10/16/22 06:08 Baso % (Auto) 0.6 % 10/16/22 06:08 Neut # (Auto) 1.90 K/uL (1.4-6.5) 10/16/22 06:08 Lymph # (Auto) 1.36 K/uL (1.2-3.4) 10/16/22 06:08 [place] # (Auto) 0.33 K/uL (0.24-0.82) 10/16/22 06:08 Eos # (Auto) 0.00 K/uL (0-0.50) 10/16/22 06:08 Baso # (Auto) 0.02 K/uL (0-0.2) 10/16/22 06:08 Immature Gran # (Auto) 0.01 K/uL (0.00-0.02) 10/16/22 06:08 Sodium 137 mmol/L (136-145) 10/16/22 06:08 Potassium 3.4 mmol/L (3.5-5.1) L 10/16/22 06:08 Chloride 104 mmol/L (98-107) 10/16/22 06:08 Carbon Dioxide 24 mmol/L (21-32) 10/16/22 06:08 Anion Gap 9 (3-11) 10/16/22 06:08 BUN 13 mg/dl (6-23) 10/16/22 06:08 Creatinine 1.21 mg/dl (0.6-1.2) H 10/16/22 06:08 Est Cr Clr Drug Dosing 33.1 ml/min 10/16/22 06:08 Est GFR ( Amer) 49.6 ml/min 10/16/22 06:08 Est GFR (Non-Af Amer) 42.8 ml/min 10/16/22 06:08 BUN/Creatinine Ratio 10.7 (10-20) 10/16/22 06:08 Glucose 94 mg/dl (70-99(Fasting)) 10/16/22 06:08 POC Glucose 96 mg/dl (70-99) 10/16/22 07:47 Calcium 9.9 mg/dl (8.5-10.1) 10/16/22 06:08 Total Bilirubin 0.6 mg/dl (0.2-1.0) 10/14/22 17:05 AST 28 U/L (13-39) 10/14/22 17:05 ALT 19 U/L (7-52) 10/14/22 17:05 Alkaline Phosphatase 68 U/L (34-104) 10/14/22 17:05 Troponin I High Sens 64.4 pg/ml (0-14) H* 10/15/22 18:44 Total Protein 7.3 gm/dl (6.0-8.3) 10/14/22 17:05 Albumin 4.4 gm/dl (3.4-5.0) 10/14/22 17:05 Globulin 2.9 gm/dl (2.5-4.0) 10/14/22 17:05 Albumin/Globulin Ratio 1.5 (0.9-2) 10/14/22 17:05 TSH 1.774 uIu/ml (0.300-4.500) 10/14/22 17:05 Urine Color Yellow 10/14/22 16:08 Urine Appearance Clear (Clear) 10/14/22 16:08 Urine pH 6.0 (4.5-7.5) 10/14/22 16:08 Ur Specific [place] 1.021 (1.000-1.030) 10/14/22 16:08 Urine Protein Trace (Negative) H 10/14/22 16:08 Urine Glucose (UA) Negative (Negative) 10/14/22 16:08 Urine Ketones Negative (Negative) 10/14/22 16:08 Urine Blood Negative (Negative) 10/14/22 16:08 Urine Nitrite Negative (Negative) 10/14/22 16:08 Urine Bilirubin Negative (Negative) 10/14/22 16:08 Urine Urobilinogen Negative (Negative) 10/14/22 16:08 Ur Leukocyte Esterase 2+ (Negative) H 10/14/22 16:08 Urine WBC (Auto) >30 /hpf (0-5) H 10/14/22 16:08 Urine RBC (Auto) 0-4 /hpf (0-4) 10/14/22 16:08 U Hyaline Cast (Auto) 10-30 /lpf (0-5) H 10/14/22 16:08 U Epithel Cells (Auto) >30 /lpf (0-5) H 10/14/22 16:08 Urine Bacteria (Auto) Negative (Negative) 10/14/22 16:08 Salicylates < 3.0 mg/dl (3.0-30) L 10/14/22 17:05 Urine Opiates Screen Neg (Neg) 10/14/22 16:08 Ur Methadone, Qual Neg (Neg) 10/14/22 16:08 Acetaminophen < 3 ug/ml (10-30) L 10/14/22 17:05 Urine Barbiturates Neg (Neg) 10/14/22 16:08 Ur Phencyclidine (PCP) Neg (Neg) 10/14/22 16:08 U Amphetamin/Meth Scrn Neg (Neg) 10/14/22 16:08 MDMA (Ecstasy) Screen Neg (Neg) 10/14/22 16:08 U Benzodiazepines Scrn Neg (Neg) 10/14/22 16:08 Ur Cocaine Metabolite Neg (Neg) 10/14/22 16:08 U Marijuana (THC) Screen Neg (Neg) 10/14/22 16:08 Ethyl Alcohol mg/dL < 10.0 mg/dl (<10.0) 10/14/22 17:05 SARS-CoV-2, RNA, NAAT NEGATIVE (NEGATIVE) 10/14/22 17:05
[2022-10-16] MEDS: cefTRIAXone SODIUM 1,000 MG in DEXTROSE 5% AD-VAN 50 ML IV SCH (19:53)
[2022-10-16] MEDS: lamoTRIgine 100 MG TAB PO SCH (19:54)
[2022-10-16] MEDS: ENOXAPARIN INJ 40 MG/0.4 ML SYR SQ SCH (19:55)
[2022-10-16] MEDS: BIMATOPROST 0.01% OP SOLN 2.5 ML BTL OP SCH (19:55)
[2022-10-16] MEDS: ASPIRIN 81 MG ECTAB PO SCH (19:55)
[2022-10-16] MEDS: ATORVASTATIN 20 MG TAB PO SCH (19:55)
[2022-10-16] MEDS: traZODone HCL 50 MG TAB PO SCH (19:58)
[2022-10-16] MEDS: ONDANSETRON INJ 2 MG/ML 2 ML VIAL IV PRN (22:28)
[2022-10-17] MEDS: LEVOTHYROXINE SODIUM 25 MCG TABLET PO SCH (06:29)
[2022-10-17 07:52] LABS: Basophils # (auto) 0.01 K/uL (0-0.2); Basophils % (auto) 0.3 %; Hemoglobin 11.2 g/dl (12.0-16.0); Immature Granulocytes # (auto) 0.01 K/uL (0.00-0.02); Immature Granulocytes % (auto) 0.3 %; Lymphocytes # (auto) 1.26 K/uL (1.2-3.4); Lymphocytes % (auto) 32.2 %; Mean Corpuscular Hemoglobin 31.4 pg (25.0-34.0); Mean Corpuscular Hgb Conc 33.9 g/dL (32.0-36.0); Mean Corpuscular Volume 92.4 fL (80.0-100.0); Monocytes # (auto) 0.41 K/uL (0.24-0.82); Monocytes % (auto) 10.5 %; Neutrophils # (auto) 2.22 K/uL (1.4-6.5); Neutrophils % (auto) 56.7 %; Platelet Count 162 K/uL (130-400); RDW Coefficient of Variation 11.4 % (11.5-14.5); RDW Standard Deviation 38.9 fL (36.4-46.3); Red Blood Count 3.57 M/uL (3.93-5.22); White Blood Count 3.91 K/ul (4.8-10.8)
[2022-10-17 08:14] LABS: BUN Creatinine Ratio 15.6 (10-20); Creatinine Clr Calc Pharmacy 36.7 ml/min; Est GFR (African American) 56.3 ml/min; Est GFR (Non-African American) 48.6 ml/min; Potassium 3.3 mmol/L (3.5-5.1)
[2022-10-17] MEDS: DORZOLAMIDE HCL 2% OPH SOLN 10 ML BTL OP SCH ×2 (09:48→20:27)
[2022-10-17] MEDS: CYANOCOBALAMIN (B-12) 500 MCG TABLET PO SCH (09:49)
[2022-10-17] MEDS: UMECLIDINIUM/VILANTEROL 62.5/25MCG 7 PUFFS/INHALER INH SCH (09:50)
[2022-10-17] MEDS: CALCIUM 600MG + VIT D 400 IU TAB PO SCH ×2 (09:50→20:27)
[2022-10-17] MEDS: FLUoxetine HCL 20 MG CAP PO SCH (09:51)
[2022-10-17] MEDS: LORazepam 0.5 MG TAB PO PRN ×2 (09:57→20:29)
--- NOTE | 2022-10-17 11:56 | Hospitalist Progress Note ---
Date of Service October 17, 2022 Assessment & Plan (1) Anxiety: (2) Bipolar 2 disorder: Plan: This is a 76-year-old female with PMH of hypothyroidism, COPD, CKD 3, bipolar 2 disorder, hyperlipidemia who presents with increased episodes of anxiety over the past month. Anxiety exacerbated by computer hacking 5 weeks ago. Daughter concerned about her mother's state, ability to leave alone, control of bipolar d/o Was on lamictal 200mg HS, Prozac 20mg daily, Hydroxyzine 25mg TID PRN, Buspar 10mg BID newly added Psych on board; recommended to discontinue BuSpar and hydroxyzine; add Ativan as needed for anxiety. (3) Elevated blood pressure reading: Plan: No history of hypertension per patient or chart review BP initially 188/92 in setting of significant anxiety. Blood pressure normalized. We will hold off on any antihypertensive at the moment (4) UTI (urinary tract infection), uncomplicated: Plan: Urine culture positive for group B strep On ceftriaxone. Will complete 5-day course (5) Elevated troponin: Plan: High-sensitivity troponin 50s on admission; up trended to 150s and down trended. No complaint of chest pain. Echocardiogram was done which showed EF of 65 to 70% with grade 1 diastolic dysfunction. Follow-up with primary care doctor. (6) COPD (chronic obstructive pulmonary disease): Plan: Stable. Continue Anoro Ellipta, rescue albuterol inhaler as needed (7) Hypothyroidism: Plan: Continue levothyroxine TSH within normal limits (8) Vitamin B12 deficiency: Plan: Serum vitamin B 12 level is 193. Can contribute to cognitive dysfunction. Started on oral vitamin B12 supplement with 2000 mcg. (9) CKD (chronic kidney disease), stage III: Plan: Creatinine at baseline at 1.10. Monitor daily BMP DVT Ppx: SQ lovenox Code status: FULL PCP: Adam Dispo: Patient is medically ready to be discharged. Unsafe condition at home as per daughter and case management. Her daughter is looking at personal correction. Plan to discharge when placement is available. Admission and Anticipated Discharge Date Admission Date: October 14, 2022 Subjective Patient seen and examined at bedside. She is comfortable; not in any distress. No complaint of fever, chills, chest pain, shortness of breath, abdominal pain or urinary symptoms. No overnight events. Review of Systems Review of Systems: All systems reviewed & are unremarkable except as noted in Subjective Physical Exam Physical Exam: Constitutional: WD/WN, vitals as above, NAD, sitting up in bed, pleasant, conversing easily Respiratory: normal respiratory effort, lungs clear to auscultation, no wheeze, rales, rhonchi. Normal insp/exp effort, no accessory muscle use Cardiovascular: RRR, no murmur, no edema Vessels: no JVD or carotid bruit Chest: normal inspection of chest Abdomen: normal bowel sounds, soft, nontender, no hepatosplenomegaly Musculoskeletal: no cyanosis or clubbing, extremities motor strength 5/5 Skin: no rashes, warm and dry normal turgor Neurologic: PERRL, EOMI, accommodation nl, no face palsy, no dysarthria CN's II- XI intact bilaterally and moves all extremities Psychiatric: A+Ox3, euthymic affect Lymphatic: no cervical or axillary lymphadenopathy : deferred Results & Data Results & Data ([facility]) Vital Signs (Past 12 Hours) Vital Signs Temp Pulse Pulse Resp BP Pulse Ox O2 Del Method 10/17/22 11:50 36.8 C 55 L 18 140/87 97 Room Air 10/17/22 07:58 36.8 C 58 L 18 113/55 L 93 Room Air 10/17/22 06:16 54 L 10/17/22 03:13 36.8 C 60 18 117/71 93 Room Air Laboratory Results Laboratory Results WBC 3.91 K/ul (4.8-10.8) L 10/17/22 07:36 RBC 3.57 M/uL (3.93-5.22) L 10/17/22 07:36 Hgb 11.2 g/dl (12.0-16.0) L 10/17/22 07:36 Hct 33.0 % (34.1-44.9) L 10/17/22 07:36 MCV 92.4 fL (80.0-100.0) 10/17/22 07:36 MCH 31.4 pg (25.0-34.0) 10/17/22 07:36 MCHC 33.9 g/dL (32.0-36.0) 10/17/22 07:36 RDW Std Deviation 38.9 fL (36.4-46.3) 10/17/22 07:36 RDW Coeff of Isabella 11.4 % (11.5-14.5) L 10/17/22 07:36 Plt Count 162 K/uL (130-400) 10/17/22 07:36 MPV 10.0 fL (9.4-12.3) 10/17/22 07:36 Immature Gran % (Auto) 0.3 % 10/17/22 07:36 Neut % (Auto) 56.7 % 10/17/22 07:36 Lymph % (Auto) 32.2 % 10/17/22 07:36 [place] % (Auto) 10.5 % 10/17/22 07:36 Eos % (Auto) 0.0 % 10/17/22 07:36 Baso % (Auto) 0.3 % 10/17/22 07:36 Neut # (Auto) 2.22 K/uL (1.4-6.5) 10/17/22 07:36 Lymph # (Auto) 1.26 K/uL (1.2-3.4) 10/17/22 07:36 [place] # (Auto) 0.41 K/uL (0.24-0.82) 10/17/22 07:36 Eos # (Auto) 0.00 K/uL (0-0.50) 10/17/22 07:36 Baso # (Auto) 0.01 K/uL (0-0.2) 10/17/22 07:36 Immature Gran # (Auto) 0.01 K/uL (0.00-0.02) 10/17/22 07:36 Sodium 136 mmol/L (136-145) 10/17/22 07:36 Potassium 3.3 mmol/L (3.5-5.1) L 10/17/22 07:36 Chloride 102 mmol/L (98-107) 10/17/22 07:36 Carbon Dioxide 27 mmol/L (21-32) 10/17/22 07:36 Anion Gap 7 (3-11) 10/17/22 07:36 BUN 17 mg/dl (6-23) 10/17/22 07:36 Creatinine 1.09 mg/dl (0.6-1.2) 10/17/22 07:36 Est Cr Clr Drug Dosing 36.7 ml/min 10/17/22 07:36 Est GFR ( Amer) 56.3 ml/min 10/17/22 07:36 Est GFR (Non-Af Amer) 48.6 ml/min 10/17/22 07:36 BUN/Creatinine Ratio 15.6 (10-20) 10/17/22 07:36 Glucose 100 mg/dl (70-99(Fasting)) H 10/17/22 07:36 POC Glucose 96 mg/dl (70-99) 10/16/22 07:47 Calcium 9.0 mg/dl (8.5-10.1) 10/17/22 07:36 Total Bilirubin 0.6 mg/dl (0.2-1.0) 10/14/22 17:05 AST 28 U/L (13-39) 10/14/22 17:05 ALT 19 U/L (7-52) 10/14/22 17:05 Alkaline Phosphatase 68 U/L (34-104) 10/14/22 17:05 Troponin I High Sens 64.4 pg/ml (0-14) H* 10/15/22 18:44 Total Protein 7.3 gm/dl (6.0-8.3) 10/14/22 17:05 Albumin 4.4 gm/dl (3.4-5.0) 10/14/22 17:05 Globulin 2.9 gm/dl (2.5-4.0) 10/14/22 17:05 Albumin/Globulin Ratio 1.5 (0.9-2) 10/14/22 17:05 Vitamin B12 193 pg/ml (180-914) 10/17/22 07:36 TSH 1.774 uIu/ml (0.300-4.500) 10/14/22 17:05 Urine Color Yellow 10/14/22 16:08 Urine Appearance Clear (Clear) 10/14/22 16:08 Urine pH 6.0 (4.5-7.5) 10/14/22 16:08 Ur Specific [place] 1.021 (1.000-1.030) 10/14/22 16:08 Urine Protein Trace (Negative) H 10/14/22 16:08 Urine Glucose (UA) Negative (Negative) 10/14/22 16:08 Urine Ketones Negative (Negative) 10/14/22 16:08 Urine Blood Negative (Negative) 10/14/22 16:08 Urine Nitrite Negative (Negative) 10/14/22 16:08 Urine Bilirubin Negative (Negative) 10/14/22 16:08 Urine Urobilinogen Negative (Negative) 10/14/22 16:08 Ur Leukocyte Esterase 2+ (Negative) H 10/14/22 16:08 Urine WBC (Auto) >30 /hpf (0-5) H 10/14/22 16:08 Urine RBC (Auto) 0-4 /hpf (0-4) 10/14/22 16:08 U Hyaline Cast (Auto) 10-30 /lpf (0-5) H 10/14/22 16:08 U Epithel Cells (Auto) >30 /lpf (0-5) H 10/14/22 16:08 Urine Bacteria (Auto) Negative (Negative) 10/14/22 16:08 Salicylates < 3.0 mg/dl (3.0-30) L 10/14/22 17:05 Urine Opiates Screen Neg (Neg) 10/14/22 16:08 Ur Methadone, Qual Neg (Neg) 10/14/22 16:08 Acetaminophen < 3 ug/ml (10-30) L 10/14/22 17:05 Urine Barbiturates Neg (Neg) 10/14/22 16:08 Ur Phencyclidine (PCP) Neg (Neg) 10/14/22 16:08 U Amphetamin/Meth Scrn Neg (Neg) 10/14/22 16:08 MDMA (Ecstasy) Screen Neg (Neg) 10/14/22 16:08 U Benzodiazepines Scrn Neg (Neg) 10/14/22 16:08 Ur Cocaine Metabolite Neg (Neg) 10/14/22 16:08 U Marijuana (THC) Screen Neg (Neg) 10/14/22 16:08 Ethyl Alcohol mg/dL < 10.0 mg/dl (<10.0) 10/14/22 17:05 SARS-CoV-2, RNA, NAAT NEGATIVE (NEGATIVE) 10/14/22 17:05
[2022-10-17] MEDS: ONDANSETRON INJ 2 MG/ML 2 ML VIAL IV PRN (15:37)
[2022-10-17] MEDS: cefTRIAXone SODIUM 1,000 MG in DEXTROSE 5% AD-VAN 50 ML IV SCH (20:25)
[2022-10-17] MEDS: ATORVASTATIN 20 MG TAB PO SCH (20:26)
[2022-10-17] MEDS: ASPIRIN 81 MG ECTAB PO SCH (20:26)
[2022-10-17] MEDS: lamoTRIgine 100 MG TAB PO SCH (20:27)
[2022-10-17] MEDS: BIMATOPROST 0.01% OP SOLN 2.5 ML BTL OP SCH (20:27)
[2022-10-17] MEDS: ENOXAPARIN INJ 40 MG/0.4 ML SYR SQ SCH (20:29)
[2022-10-17] MEDS: traZODone HCL 50 MG TAB PO SCH (20:29)
[2022-10-18] MEDS: LEVOTHYROXINE SODIUM 25 MCG TABLET PO SCH (07:31)
[2022-10-18 07:41] LABS: Basophils # (auto) 0.01 K/uL (0-0.2); Basophils % (auto) 0.3 %; Hematocrit (blood only) 32.1 % (34.1-44.9); Hemoglobin 10.8 g/dl (12.0-16.0); Immature Granulocytes # (auto) 0.01 K/uL (0.00-0.02); Immature Granulocytes % (auto) 0.3 %; Lymphocytes # (auto) 1.36 K/uL (1.2-3.4); Lymphocytes % (auto) 43.5 %; Mean Corpuscular Hemoglobin 31.6 pg (25.0-34.0); Mean Corpuscular Hgb Conc 33.6 g/dL (32.0-36.0); Mean Corpuscular Volume 93.9 fL (80.0-100.0); Mean Platelet Volume 10.1 fL (9.4-12.3); Monocytes # (auto) 0.29 K/uL (0.24-0.82); Monocytes % (auto) 9.3 %; Neutrophils # (auto) 1.46 K/uL (1.4-6.5); Neutrophils % (auto) 46.6 %; Platelet Count 150 K/uL (130-400); RDW Coefficient of Variation 11.5 % (11.5-14.5); RDW Standard Deviation 39.6 fL (36.4-46.3); Red Blood Count 3.42 M/uL (3.93-5.22); White Blood Count 3.13 K/ul (4.8-10.8)
[2022-10-18 08:02] LABS: Potassium 3.5 mmol/L (3.5-5.1)
[2022-10-18 08:28] LABS: BUN Creatinine Ratio 10.7 (10-20); Calcium 9.3 mg/dl (8.5-10.1); Creatinine Clr Calc Pharmacy 35.7 ml/min; Est GFR (African American) 54.5 ml/min
[2022-10-18] MEDS: CALCIUM 600MG + VIT D 400 IU TAB PO SCH ×2 (09:45→21:08)
[2022-10-18] MEDS: UMECLIDINIUM/VILANTEROL 62.5/25MCG 7 PUFFS/INHALER INH SCH (09:45)
[2022-10-18] MEDS: CYANOCOBALAMIN (B-12) 500 MCG TABLET PO SCH (09:45)
[2022-10-18] MEDS: FLUoxetine HCL 20 MG CAP PO SCH (09:45)
[2022-10-18] MEDS: DORZOLAMIDE HCL 2% OPH SOLN 10 ML BTL OP SCH ×2 (09:45→21:07)
[2022-10-18] MEDS: LORazepam 0.5 MG TAB PO PRN ×2 (09:46→21:06)
--- NOTE | 2022-10-18 10:30 | Hospitalist Progress Note ---
Date of Service October 18, 2022 Assessment & Plan (1) Anxiety: (2) Bipolar 2 disorder: Plan: This is a 76-year-old female with PMH of hypothyroidism, COPD, CKD 3, bipolar 2 disorder, hyperlipidemia who presents with increased episodes of anxiety over the past month. Anxiety exacerbated by computer hacking 5 weeks ago. Daughter concerned about her mother's state, ability to leave alone, control of bipolar d/o Was on lamictal 200mg HS, Prozac 20mg daily, Hydroxyzine 25mg TID PRN, Buspar 10mg BID newly added Psych on board; recommended to discontinue BuSpar and hydroxyzine; add Ativan as needed for anxiety. (3) Elevated blood pressure reading: Plan: No history of hypertension per patient or chart review BP initially 188/92 in setting of significant anxiety. Blood pressure normalized. We will hold off on any antihypertensive at the moment (4) UTI (urinary tract infection), uncomplicated: Plan: Urine culture positive for group B strep On ceftriaxone. Will complete 5-day course (5) Elevated troponin: Plan: High-sensitivity troponin 50s on admission; up trended to 150s and down trended. No complaint of chest pain. Echocardiogram was done which showed EF of 65 to 70% with grade 1 diastolic dysfunction. Follow-up with primary care doctor. (6) COPD (chronic obstructive pulmonary disease): Plan: Stable. Continue Anoro Ellipta, rescue albuterol inhaler as needed (7) Hypothyroidism: Plan: Continue levothyroxine TSH within normal limits (8) Vitamin B12 deficiency: Plan: Serum vitamin B 12 level is 193. Can contribute to cognitive dysfunction. Started on oral vitamin B12 supplement with 2000 mcg. (9) CKD (chronic kidney disease), stage III: Plan: Creatinine at baseline at 1.10. Monitor daily BMP DVT Ppx: SQ lovenox Code status: FULL PCP: Adam Dispo: Patient is medically ready to be discharged. Unsafe condition at home as per daughter and case management. Her daughter is looking at personal [facility]. Plan to discharge when placement is available. Admission and Anticipated Discharge Date Admission Date: October 14, 2022 Subjective Patient seen and examined at bedside. She is comfortably sitting up; not in any distress. She is alert oriented x3. No complaint of fever, chills, chest pain, abdomen pain or urinary symptoms. Review of Systems Review of Systems: All systems reviewed & are unremarkable except as noted in Subjective Physical Exam Physical Exam: Constitutional: WD/WN, vitals as above, NAD, sitting up in bed, pleasant, conversing easily Respiratory: normal respiratory effort, lungs clear to auscultation, no wheeze, rales, rhonchi. Normal insp/exp effort, no accessory muscle use Cardiovascular: RRR, no murmur, no edema Vessels: no JVD or carotid bruit Chest: normal inspection of chest Abdomen: normal bowel sounds, soft, nontender, no hepatosplenomegaly Musculoskeletal: no cyanosis or clubbing, extremities motor strength 5/5 Skin: no rashes, warm and dry normal turgor Neurologic: PERRL, EOMI, accommodation nl, no face palsy, no dysarthria CN's II- XI intact bilaterally and moves all extremities Psychiatric: A+Ox3, euthymic affect Lymphatic: no cervical or axillary lymphadenopathy : deferred Results & Data Results & Data ([facility]) Vital Signs (Past 12 Hours) Vital Signs Temp Pulse Pulse Resp BP BP Pulse Ox 10/18/22 07:55 36.9 C 70 19 135/75 91 10/18/22 06:00 51 L 10/18/22 03:24 36.4 C L 60 16 121/71 95 10/18/22 00:00 54 L O2 Del Method 10/18/22 07:55 Room Air 10/18/22 06:00 10/18/22 03:24 Room Air 10/18/22 00:00
[2022-10-18] MEDS: cefTRIAXone SODIUM 1,000 MG in DEXTROSE 5% AD-VAN 50 ML IV SCH (21:05)
[2022-10-18] MEDS: ENOXAPARIN INJ 40 MG/0.4 ML SYR SQ SCH (21:06)
[2022-10-18] MEDS: BIMATOPROST 0.01% OP SOLN 2.5 ML BTL OP SCH (21:07)
[2022-10-18] MEDS: ASPIRIN 81 MG ECTAB PO SCH (21:07)
[2022-10-18] MEDS: ATORVASTATIN 20 MG TAB PO SCH (21:08)
[2022-10-18] MEDS: lamoTRIgine 100 MG TAB PO SCH (21:09)
[2022-10-18] MEDS: traZODone HCL 50 MG TAB PO SCH (21:10)
[2022-10-18] MEDS: ONDANSETRON INJ 2 MG/ML 2 ML VIAL IV PRN (21:40)
[2022-10-19] MEDS: LEVOTHYROXINE SODIUM 25 MCG TABLET PO SCH (05:20)
[2022-10-19 06:14] LABS: Basophils # (auto) 0.01 K/uL (0-0.2); Basophils % (auto) 0.3 %; Hematocrit (blood only) 31.1 % (34.1-44.9); Hemoglobin 10.4 g/dl (12.0-16.0); Immature Granulocytes # (auto) 0.01 K/uL (0.00-0.02); Immature Granulocytes % (auto) 0.3 %; Lymphocytes % (auto) 39.3 %; Mean Corpuscular Hemoglobin 31.2 pg (25.0-34.0); Mean Corpuscular Hgb Conc 33.4 g/dL (32.0-36.0); Mean Corpuscular Volume 93.4 fL (80.0-100.0); Mean Platelet Volume 10.3 fL (9.4-12.3); Monocytes # (auto) 0.34 K/uL (0.24-0.82); Monocytes % (auto) 10.3 %; Neutrophils # (auto) 1.65 K/uL (1.4-6.5); Neutrophils % (auto) 49.8 %; Platelet Count 162 K/uL (130-400); RDW Coefficient of Variation 11.3 % (11.5-14.5); RDW Standard Deviation 38.6 fL (36.4-46.3); Red Blood Count 3.33 M/uL (3.93-5.22); White Blood Count 3.31 K/ul (4.8-10.8)
[2022-10-19 06:35] LABS: Calcium 9.3 mg/dl (8.5-10.1); Creatinine Clr Calc Pharmacy 36.7 ml/min; Est GFR (African American) 56.3 ml/min; Est GFR (Non-African American) 48.6 ml/min; Potassium 3.3 mmol/L (3.5-5.1)
[2022-10-19] MEDS: CALCIUM 600MG + VIT D 400 IU TAB PO SCH ×2 (09:34→20:18)
[2022-10-19] MEDS: CYANOCOBALAMIN (B-12) 500 MCG TABLET PO SCH (09:34)
[2022-10-19] MEDS: UMECLIDINIUM/VILANTEROL 62.5/25MCG 7 PUFFS/INHALER INH SCH (09:35)
[2022-10-19] MEDS: FLUoxetine HCL 20 MG CAP PO SCH (09:35)
[2022-10-19] MEDS: DORZOLAMIDE HCL 2% OPH SOLN 10 ML BTL OP SCH ×2 (09:35→20:19)
--- NOTE | 2022-10-19 10:21 | Hospitalist Progress Note ---
Date of Service October 19, 2022 Assessment & Plan (1) Anxiety: (2) Bipolar 2 disorder: Plan: This is a 76-year-old female with PMH of hypothyroidism, COPD, CKD 3, bipolar 2 disorder, hyperlipidemia who presents with increased episodes of anxiety over the past month. Anxiety exacerbated by computer hacking 5 weeks ago. Daughter concerned about her mother's state, ability to leave alone, control of bipolar d/o Was on lamictal 200mg HS, Prozac 20mg daily, Hydroxyzine 25mg TID PRN, Buspar 10mg BID newly added Psych on board; recommended to discontinue BuSpar and hydroxyzine; add Ativan as needed for anxiety. (3) Elevated blood pressure reading: Plan: No history of hypertension per patient or chart review BP initially 188/92 in setting of significant anxiety. Blood pressure normalized. We will hold off on any antihypertensive at the moment (4) UTI (urinary tract infection), uncomplicated: Plan: Urine culture positive for group B strep Completed 5 days of antibiotic (5) Elevated troponin: Plan: High-sensitivity troponin 50s on admission; up trended to 150s and down trended. No complaint of chest pain. Echocardiogram was done which showed EF of 65 to 70% with grade 1 diastolic dysfunction. Follow-up with primary care doctor. (6) COPD (chronic obstructive pulmonary disease): Plan: Stable. Continue Anoro Ellipta, rescue albuterol inhaler as needed (7) Hypothyroidism: Plan: Continue levothyroxine TSH within normal limits (8) Vitamin B12 deficiency: Plan: Serum vitamin B 12 level is 193. Can contribute to cognitive dysfunction. Started on oral vitamin B12 supplement with 2000 mcg. (9) Dementia: Plan: Seen by neurology on 10/19. Recommend MRI brain without contrast to rule out vascular dementia Obtain CK, ESR and Lyme antibody titer. Follow-up on results (10) CKD (chronic kidney disease), stage III: Plan: Creatinine at baseline at 1.10. Monitor daily BMP DVT Ppx: SQ lovenox Code status: FULL PCP: Adam Dispo: Patient undergoing neurological evaluation for dementia. She has MRI and other lab test pending. We will follow-up on results. Possible discharge tomorrow morning based on clinical, lab finding. Admission and Anticipated Discharge Date Admission Date: October 14, 2022 Subjective Patient seen and examined at bedside. She is alert oriented x3; not in any distress. Review of Systems Review of Systems: All systems reviewed & are unremarkable except as noted in Subjective Physical Exam Physical Exam: Constitutional: WD/WN, vitals as above, NAD, sitting up in bed, pleasant, conversing easily Respiratory: normal respiratory effort, lungs clear to auscultation, no wheeze, rales, rhonchi. Normal insp/exp effort, no accessory muscle use Cardiovascular: RRR, no murmur, no edema Vessels: no JVD or carotid bruit Chest: normal inspection of chest Abdomen: normal bowel sounds, soft, nontender, no hepatosplenomegaly Musculoskeletal: no cyanosis or clubbing, extremities motor strength 5/5 Skin: no rashes, warm and dry normal turgor Neurologic: PERRL, EOMI, accommodation nl, no face palsy, no dysarthria CN's II- XI intact bilaterally and moves all extremities Psychiatric: A+Ox3, euthymic affect Lymphatic: no cervical or axillary lymphadenopathy : deferred Results & Data Results & Data ([facility]) Vital Signs (Past 12 Hours) Vital Signs Temp Pulse Pulse Resp BP BP Pulse Ox 10/19/22 05:56 49 L 10/19/22 06:05 36.5 C 55 L 16 114/72 94 10/19/22 04:57 36.5 C 58 L 16 115/65 95 10/19/22 00:00 58 L 10/18/22 22:58 36.7 C 60 18 129/74 98 O2 Del Method 10/19/22 05:56 10/19/22 06:05 Room Air 10/19/22 04:57 Room Air 10/19/22 00:00 10/18/22 22:58 Room Air Laboratory Results Laboratory Results WBC 3.31 K/ul (4.8-10.8) L 10/19/22 05:21 RBC 3.33 M/uL (3.93-5.22) L 10/19/22 05:21 Hgb 10.4 g/dl (12.0-16.0) L 10/19/22 05:21 Hct 31.1 % (34.1-44.9) L 10/19/22 05:21 MCV 93.4 fL (80.0-100.0) 10/19/22 05:21 MCH 31.2 pg (25.0-34.0) 10/19/22 05:21 MCHC 33.4 g/dL (32.0-36.0) 10/19/22 05:21 RDW Std Deviation 38.6 fL (36.4-46.3) 10/19/22 05:21 RDW Coeff of Isabella 11.3 % (11.5-14.5) L 10/19/22 05:21 Plt Count 162 K/uL (130-400) 10/19/22 05:21 MPV 10.3 fL (9.4-12.3) 10/19/22 05:21 Immature Gran % (Auto) 0.3 % 10/19/22 05:21 Neut % (Auto) 49.8 % 10/19/22 05:21 Lymph % (Auto) 39.3 % 10/19/22 05:21 [place] % (Auto) 10.3 % 10/19/22 05:21 Eos % (Auto) 0.0 % 10/19/22 05:21 Baso % (Auto) 0.3 % 10/19/22 05:21 Neut # (Auto) 1.65 K/uL (1.4-6.5) 10/19/22 05:21 Lymph # (Auto) 1.30 K/uL (1.2-3.4) 10/19/22 05:21 Durham # (Auto) 0.34 K/uL (0.24-0.82) 10/19/22 05:21 Eos # (Auto) 0.00 K/uL (0-0.50) 10/19/22 05:21 Baso # (Auto) 0.01 K/uL (0-0.2) 10/19/22 05:21 Immature Gran # (Auto) 0.01 K/uL (0.00-0.02) 10/19/22 05:21 Sodium 138 mmol/L (136-145) 10/19/22 05:21 Potassium 3.3 mmol/L (3.5-5.1) L 10/19/22 05:21 Chloride 102 mmol/L (98-107) 10/19/22 05:21 Carbon Dioxide 30 mmol/L (21-32) 10/19/22 05:21 Anion Gap 6 (3-11) 10/19/22 05:21 BUN 12 mg/dl (6-23) 10/19/22 05:21 Creatinine 1.09 mg/dl (0.6-1.2) 10/19/22 05:21 Est Cr Clr Drug Dosing 36.7 ml/min 10/19/22 05:21 Est GFR ( Amer) 56.3 ml/min 10/19/22 05:21 Est GFR (Non-Af Amer) 48.6 ml/min 10/19/22 05:21 BUN/Creatinine Ratio 11.0 (10-20) 10/19/22 05:21 Glucose 91 mg/dl (70-99(Fasting)) 10/19/22 05:21 POC Glucose 96 mg/dl (70-99) 10/16/22 07:47 Calcium 9.3 mg/dl (8.5-10.1) 10/19/22 05:21 Total Bilirubin 0.6 mg/dl (0.2-1.0) 10/14/22 17:05 AST 28 U/L (13-39) 10/14/22 17:05 ALT 19 U/L (7-52) 10/14/22 17:05 Alkaline Phosphatase 68 U/L (34-104) 10/14/22 17:05 Troponin I High Sens 64.4 pg/ml (0-14) H* 10/15/22 18:44 Total Protein 7.3 gm/dl (6.0-8.3) 10/14/22 17:05 Albumin 4.4 gm/dl (3.4-5.0) 10/14/22 17:05 Globulin 2.9 gm/dl (2.5-4.0) 10/14/22 17:05 Albumin/Globulin Ratio 1.5 (0.9-2) 10/14/22 17:05 Vitamin B12 193 pg/ml (180-914) 10/17/22 07:36 TSH 1.774 uIu/ml (0.300-4.500) 10/14/22 17:05 Urine Color Yellow 10/14/22 16:08 Urine Appearance Clear (Clear) 10/14/22 16:08 Urine pH 6.0 (4.5-7.5) 10/14/22 16:08 Ur Specific Page 1.021 (1.000-1.030) 10/14/22 16:08 Urine Protein Trace (Negative) H 10/14/22 16:08 Urine Glucose (UA) Negative (Negative) 10/14/22 16:08 Urine Ketones Negative (Negative) 10/14/22 16:08 Urine Blood Negative (Negative) 10/14/22 16:08 Urine Nitrite Negative (Negative) 10/14/22 16:08 Urine Bilirubin Negative (Negative) 10/14/22 16:08 Urine Urobilinogen Negative (Negative) 10/14/22 16:08 Ur Leukocyte Esterase 2+ (Negative) H 10/14/22 16:08 Urine WBC (Auto) >30 /hpf (0-5) H 10/14/22 16:08 Urine RBC (Auto) 0-4 /hpf (0-4) 10/14/22 16:08 U Hyaline Cast (Auto) 10-30 /lpf (0-5) H 10/14/22 16:08 U Epithel Cells (Auto) >30 /lpf (0-5) H 10/14/22 16:08 Urine Bacteria (Auto) Negative (Negative) 10/14/22 16:08 Salicylates < 3.0 mg/dl (3.0-30) L 10/14/22 17:05 Urine Opiates Screen Neg (Neg) 10/14/22 16:08 Ur Methadone, Qual Neg (Neg) 10/14/22 16:08 Acetaminophen < 3 ug/ml (10-30) L 10/14/22 17:05 Urine Barbiturates Neg (Neg) 10/14/22 16:08 Ur Phencyclidine (PCP) Neg (Neg) 10/14/22 16:08 U Amphetamin/Meth Scrn Neg (Neg) 10/14/22 16:08 MDMA (Ecstasy) Screen Neg (Neg) 10/14/22 16:08 U Benzodiazepines Scrn Neg (Neg) 10/14/22 16:08 Ur Cocaine Metabolite Neg (Neg) 10/14/22 16:08 U Marijuana (THC) Screen Neg (Neg) 10/14/22 16:08 Ethyl Alcohol mg/dL < 10.0 mg/dl (<10.0) 10/14/22 17:05 SARS-CoV-2, RNA, NAAT NEGATIVE (NEGATIVE) 10/14/22 17:05
--- NOTE | 2022-10-19 11:01 | Neurology Consultation ---
Date of Consultation October 19, 2022 Assessment & Plan (1) Dementia: (2) Vitamin B12 deficiency: (3) Bipolar 2 disorder: (4) Anxiety: (5) HTN (hypertension): Plan this patient has a [id number] dementia on examination. The etiology of the dementia is not readily apparent but I suspect vascular. A senile dementia of the Alzheimer's type cannot be excluded particularly given the daughter's history that this has progressed rapidly. She went from taking care of herself very well to not being able to take care of herself much recently. On neurologic examination she has no focal findings, meningeal signs, or obvious encephalopathy. She has a history of bipolar 2 disorder and anxiety but I believe this is much improved today. She does not seem overly anxious. She has a history of hypertension which is controlled. Recommendations: 1. MRI of the brain with without contrast. 2. consider CK, ESR, Lyme antibody titer 3. Depending on the results I may consider a medication for memory such as memantine (which would not give her GI symptoms, and may actually help her mood). 4. I can follow up as an outpatient (in several weeks with PA ) Overall, I spent a total of 90 minutes with this case including review of records, direct evaluation patient at bedside, and discussion of the case with the patient and RN at bedside, patient's daughter via telephone, and doctor Dr. Aguilar including differential diagnosis and treatment options. History of Present Illness Reason for Consultation: Patient is a 76-year-old, who I was asked to see at the request of Dr. Aguilar, for neurologic consultation regarding possible dementia. Requesting Physician: Dr. Aguilar Attending Physician: Jhon Aguilar MD History of Present Illness Patient has a history of COPD ( former cigarette smoker quitting in her 50s), bipolar 2 disorder (which she claims started right after she got ), hypothyroidism, and chronic kidney disease. patient apparently was supposed to be on 81 milligram aspirin tablet daily but she tells me she has not taken that for quite a while. The patient knows her memory is not as good. I spoke to the patient's daughter, Jazzmine, via telephone (who lives in [place]), who says the patient has gone "downhill" for the last several months and most particularly in the last several weeks or so. She is not taking care of herself as much as she used to and she is getting more easily confused and forgetful. Patient tells me she cannot seem to operate her cell phone. She stopped driving several years ago. Currently he has no pain or headache, balance issues or incontinence of urine. She does not feel necessarily weak or numb in any particular limb although she has lost weight because she is not eating as much. She feels nauseated and a lack of appetite. The patient has been more anxious recently which triggered the admission October 14. Her blood pressure on admission was 199/96 and this has been controlled. Laboratory studies have been largely unremarkable except for urinary tract infection treated and B12 deficiency Apparently the patient has had a hard time chewing and swallowing and had decreased concentration recently. Nursing does not note any eating issues. Patient has seen Psychiatry who have made adjustments to medications. Allergies Allergy/AdvReac Type Severity Reaction Status Date / Time aripiprazole Allergy Unknown PARKINSON Verified 06/14/20 14:17 SYMPTOMS cortisone Allergy Unknown PRECIPITATED Verified 06/14/20 14:17 MANIC EPISODE/ STEROID PSYCHOSIS lithium Allergy Unknown SKIN Verified 06/14/20 14:17 RASHES, EXTREME DROWSINESS AND LETHARGY moxifloxacin Allergy Unknown HIVES/ Verified 06/14/20 14:17 DIARRHEA brimonidine AdvReac Unknown Verified 06/14/20 14:17 Home Medications Medication Instructions Recorded Confirmed Type albuterol sulfate 90 mcg/actuation 2 inh inhalation Q4H PRN COPD 05/07/20 10/14/22 History aerosol inhaler (ProAir HFA) aspirin 81 mg tablet,delayed 81 mg PO HS 05/07/20 10/14/22 History release (Aspir-) atorvastatin 20 mg tablet 20 mg PO HS 05/07/20 10/14/22 History benzonatate 100 mg capsule 100 mg PO UD PRN COUGHING 05/07/20 10/14/22 History bimatoprost 0.01 % eye drops 1 drp ophthalmic (eye) HS 05/07/20 10/14/22 History (Boris) calcium carbonate 600 mg-vitamin 1 tab PO BID 05/07/20 10/14/22 History D3 20 mcg (800 unit) chewable tablet (Caltrate 600 plus D) dorzolamide 2 % eye drops 1 drp ophthalmic (eye) BID 05/07/20 10/14/22 History fluoxetine 20 mg capsule (Prozac) 20 mg PO QAM 05/07/20 10/14/22 History lamotrigine 200 mg tablet 200 mg PO HS 05/07/20 10/14/22 History levothyroxine 25 mcg tablet 25 mcg PO QAM 05/07/20 10/14/22 History trazodone 50 mg tablet 50 mg PO HS 05/07/20 10/14/22 History umeclidinium 62.5 mcg-vilanterol 1 inh inhalation DAILY 05/07/20 10/14/22 History 25 mcg/actuation powdr for inhalation (Anoro Ellipta) acetaminophen 500 mg tablet 1,000 mg PO Q6H PRN Pain 06/14/20 10/14/22 History (Tylenol Extra Strength) hydroxyzine HCl 25 mg tablet 25 mg PO TID PRN itching #30 tabs 10/13/22 10/14/22 Rx buspirone 10 mg tablet 10 mg PO BID 10/14/22 10/14/22 History Patient History Medical History Bipolar 2 disorder CKD (chronic kidney disease), stage III COPD (chronic obstructive pulmonary disease) Depression Emphysema lung "MILD" Glaucoma Herniated disc IN BACK Hypothyroidism Surgical History History of back surgery History of colonoscopy History of eye surgery CLOGGED TEAR DUCT / LEFT ? History of hysterectomy History of tonsillectomy Family History Mother , in her late 70s of heart issues Heart disease Father , in his mid 70s of heart issues No problems noted. 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 Other Information That Helps Us Care for You: No Feels Safe at Home: Yes Safety Concerns: Feels Safe At This Time Assistive Devices: None Review of Systems Constitutional: + fatigue, + anorexia and + weight loss; no fever and no w eakness Eyes: no diplopia, no eye pain and no worsening vision Ear, Nose, Mouth, Throat: no ear pain, no tinnitus, no hearing loss, no dizzi ness, no snoring, no hoarseness and no dysphagia Respiratory: no cough and no dyspnea Cardiovascular: no chest pain, no palpitations and no lightheadedness Gastrointestinal: no abdominal pain, no nausea and no vomiting Genitourinary: no dysuria, no urinary frequency and no urinary incontinence Musculoskeletal: no back pain, no neck pain, no radicular pain, no joint pain and no myalgia Integumentary: no rash and no lesions Neurologic: + memory loss; no gait abnormality, no localized weakness, no generalized weakness, no tingling, no numbness, no tremor(s), no abnormal movements, no headache(s), no abnormal speech and no confusion Psychiatric: + anxiety; no depression, no irritability, no difficulty concentrating, no confusion and no hallucinations Endocrine: no fatigue and no flushing Hematologic / Lymphatic: no easy bleeding and no easy bruising Allergy / Immunological: no urticaria and no problem reported Exam (Neuro) Physical Exam: The patient is right-handed. The patient is awake, alert, and attentive. Speech is normal without any aphasia or dysarthria. The patient can name objects, repeat phrases, and has normal spontaneous speech. mood and affect are normal appropriate. Patient is oriented to name, age, place but does have trouble with fax both long-term, medium term, and short-term, showing a mild to moderate dementia. She is not significantly anxious currently. Pupils are 3 mm bilaterally and reactive to light. Extraocular eye muscles are intact without nystagmus. Visual acuity and visual ortiz seem normal grossly to confrontation. There are no deficits to sensation in the face in all 3 distributions of the fifth cranial nerve bilaterally. Corneal reflexes are positive bilaterally. Facial strength and symmetry was normal bilaterally. Hearing seems normal bilaterally. Palate moves well without asymmetry. There is normal sternocleidomastoid and trapezius (shoulder shrug) strength bilaterally. Tongue is midline with good strength bilaterally. Neck has a full range of motion without discomfort. There are no cervical bruits bilaterally. There are no cranial or ocular bruits. Heart is without murmur. There is a regular rhythm and rate. Cervical, thoracic, and lumbar spine are nontender to palpation. Gait is narrow based and slowed/cautious. She has arm swing and turns are reasonable. Stance with eyes open is normal. With outstretched arms there is no drift. There are no resting, postural, or action tremors. There is no ataxia with finger to nose testing. There is good facility in the hands. No other abnormal involuntary movements are noted. Motor strength is 5/5 diffusely in the arms bilaterally including deltoids, biceps, triceps, brachioradialis, wrist flexors and extensors, industrial ecologist, and intrinsic hand muscles. Motor strength is 5/5 diffusely in the legs bilaterally including hip flexors, quadriceps, hamstrings, gastrocnemius, tibialis anterior, tibialis posterior, and Peroneii muscles. Toe extensors are normal and there is good bulk in the extensor digitorum brevis muscles bilaterally. The limbs have good tone without rigidity or spasticity. There is no atrophy noted in the muscles. Muscle bulk is normal, there is no tenderness to palpation, no myotonia to percussion, and no fasciculations seen. Sensory examination is intact to touch and pin throughout all 4 limbs diffusely. Reflexes are 2/4 in the biceps, triceps, brachioradialis, and quadriceps tendons bilaterally. Achilles tendon reflexes are absent bilaterally. There is no clonus bilaterally. Toes are downgoing with plantar stimulation bilaterally. Peripheral pulses are present and of normal quality distally in all 4 limbs. There is no peripheral edema noted in the limbs. Results & Data ([facility]) Vital Signs (Past 12 Hours) Vital Signs Temp Pulse Pulse Resp BP BP Pulse Ox 10/19/22 05:56 49 L 10/19/22 06:05 36.5 C 55 L 16 114/72 94 10/19/22 04:57 36.5 C 58 L 16 115/65 95 10/19/22 00:00 58 L O2 Del Method 10/19/22 05:56 10/19/22 06:05 Room Air 10/19/22 04:57 Room Air 10/19/22 00:00 PG Care Time/CCT Total # of Minutes Spent Total Time Spent with Patient: Total time spent is greater than 50% in coordination of care (as documented) at patient's floor/unit and/or counseling patient: Coding Level of Care Code 92890 INT INP/OBS CARE MIN Diagnoses Dementia F03.90 Vitamin B12 deficiency E53.8 Bipolar 2 disorder F31.81 Anxiety F41.9 HTN (hypertension) I10 Time Spent (min) 90
--- NOTE | 2022-10-19 13:21 | Magnetic Resonance Report ---
Brain MRI WITHOUT CONTRAST HISTORY: Cognitive dysfunction, rule out vascular dementia TECHNIQUE: Multiplanar multisequence MRI of the brain was performed without the use of contrast. COMPARISON STUDY: Head CT 06/14/2020. FINDINGS: There is no mass, hematoma, midline shift, or acute infarct. The paranasal sinuses are hyun r. The mastoid air cells are clear. The ventricles and sulci demonstrate moderate age-related involut ional changes. Scattered foci of T2 hyperintensity seen within the periventricular and subcortical wh ite matter are nonspecific but suggestive of moderate microvascular ischemic changes. The major vascu lar flow voids at the skull base are well-maintained. 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 Evidence for prior bilateral lens replacement.. IMPRESSION: 1. No acute infarct or intracranial hemorrhage. 2. Moderate atrophy and microvascular ischemic changes. 3. 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 ACT 112: Negative or not required by law. Electronically signed by: Brennan Diamond M.D. 10/19/2022 1:19 PM
[2022-10-19 16:00] LABS: Lyme Ab IgG w/WB Rflx Negative (Negative); Lyme Ab IgM w/WB Rflx Negative (Negative)
[2022-10-19] MEDS: POTASSIUM CHLORIDE CRTAB 20 MEQ TABCR PO STA ×2 (16:29→16:35)
[2022-10-19] MEDS: ONDANSETRON INJ 2 MG/ML 2 ML VIAL IV PRN (17:25)
[2022-10-19] MEDS: ASPIRIN 81 MG ECTAB PO SCH (20:18)
[2022-10-19] MEDS: lamoTRIgine 100 MG TAB PO SCH (20:18)
[2022-10-19] MEDS: BIMATOPROST 0.01% OP SOLN 2.5 ML BTL OP SCH (20:19)
[2022-10-19] MEDS: traZODone HCL 50 MG TAB PO SCH (20:19)
[2022-10-19] MEDS: ATORVASTATIN 20 MG TAB PO SCH (20:19)
[2022-10-19] MEDS: ENOXAPARIN INJ 40 MG/0.4 ML SYR SQ SCH (21:54)
[2022-10-20] MEDS: LEVOTHYROXINE SODIUM 25 MCG TABLET PO SCH (06:09)
[2022-10-20] MEDS: CYANOCOBALAMIN (B-12) 500 MCG TABLET PO SCH (08:39)
[2022-10-20] MEDS: FLUoxetine HCL 20 MG CAP PO SCH (08:39)
[2022-10-20] MEDS: DORZOLAMIDE HCL 2% OPH SOLN 10 ML BTL OP SCH (08:39)
[2022-10-20] MEDS: CALCIUM 600MG + VIT D 400 IU TAB PO SCH (08:39)
[2022-10-20 08:40] LABS: Estimated Average Glucose 123 mg/dl; Hemoglobin A1C 5.9 % (4.5-5.6)
[2022-10-20] MEDS: UMECLIDINIUM/VILANTEROL 62.5/25MCG 7 PUFFS/INHALER INH SCH (08:40)
[2022-10-20 08:50] LABS: Chol HDL Ratio 3.9 (0-5)
--- NOTE | 2022-10-20 12:02 | Discharge Summary ---
Date of Service October 20, 2022 Admission HPI Per Admitting Provider This is a 76-year-old female with PMH of hypothyroidism, COPD, CKD 3, bipolar 2 disorder, hyperlipidemia and other medical problems listed below who presents with increased episodes of anxiety over the past month. The day after Thanksgiving, patient's computer was hacked which has given her considerable anxiety, particularly about her finances. Was seen in the ED yesterday due to having heart fluttering and feeling short of breath but was discharged home. Continue to feel poorly at home and daughter from [place] visited, bring her mom back for further evaluation. States that her mom lives alone and is usually more self-sufficient, clearer with her thinking and less forgetful. Is concerned about a general decline over the past few months and this is the first time she is seen in person. Patient endorses increased anxiety, poor appetite, more forgetfulness, feeling of her heart fluttering and some chest tightness. Denies any fever, chills, recent illness, lightheadedness, radha chest pain, nausea, vomiting, anjana pain, diarrhea or constipation. Does have increased urinary frequency and urine is darker in color, per daughter. History of bipolar disorder and follows with psychiatrist. Was started on BuSpar a few weeks ago and initially noted improvement but is not so sure now. Admission Exam Per Admitting Provider NAD, well developed Cardiac: Normal S1/S2, no murmur Lungs: CTA, no wheezing or crackles Abd: ND, NT,soft MSK: no LE edema Psych: AAOX3, appeared anxious Principal Diagnosis Anxiety Bipolar 2 disorder Urinary tract infection Demand ischemia Vitamin B12 deficiency Discharge Exam Constitutional: WD/WN, vitals as above, NAD, sitting up in bed, pleasant, conversing easily Respiratory: normal respiratory effort, lungs clear to auscultation, no wheeze, rales, rhonchi. Normal insp/exp effort, no accessory muscle use Cardiovascular: RRR, no murmur, no edema Vessels: no JVD or carotid bruit Chest: normal inspection of chest Abdomen: normal bowel sounds, soft, nontender, no hepatosplenomegaly Musculoskeletal: no cyanosis or clubbing, extremities motor strength 5/5 Skin: no rashes, warm and dry normal turgor Neurologic: PERRL, EOMI, accommodation nl, no face palsy, no dysarthria CN's II- XI intact bilaterally and moves all extremities Psychiatric: A+Ox3, euthymic affect Lymphatic: no cervical or axillary lymphadenopathy : deferred Discharge Data Allergies Allergy/AdvReac Type Severity Reaction Status Date / Time aripiprazole Allergy Unknown PARKINSON Verified 06/14/20 14:17 SYMPTOMS cortisone Allergy Unknown PRECIPITATED Verified 06/14/20 14:17 MANIC EPISODE/ STEROID PSYCHOSIS lithium Allergy Unknown SKIN Verified 06/14/20 14:17 RASHES, EXTREME DROWSINESS AND LETHARGY moxifloxacin Allergy Unknown HIVES/ Verified 06/14/20 14:17 DIARRHEA brimonidine AdvReac Unknown Verified 06/14/20 14:17 Consultations 10/14/22 18:37 ED Decision to Admit Stat 10/15/22 07:00 Consult Psychiatry Routine 10/19/22 08:00 Consult Neurology Routine Ordered Studies 10/19/22 11:29 MRI Brain [MR brain wo con] Routine Hospital Course (1) Anxiety: (2) Bipolar 2 disorder: This is a 76-year-old female with PMH of hypothyroidism, COPD, CKD 3, bipolar 2 disorder, hyperlipidemia who presents with increased episodes of anxiety over the past month. Anxiety exacerbated by computer hacking 5 weeks ago. Was on lamictal 200mg HS, Prozac 20mg daily, Hydroxyzine 25mg TID PRN, Buspar 10mg BID newly added Psych evaluated the patient during the hospitalization; recommended to discontinue BuSpar and hydroxyzine; add Ativan 0.25 mg daily as needed for anxiety. (3) Elevated blood pressure reading: No history of hypertension per patient or chart review BP initially 188/92 in setting of significant anxiety. Blood pressure normalized. later during the hospitalization. Need home blood pressure monitoring with primary care doctor. (4) UTI (urinary tract infection), uncomplicated: Urine culture positive for group B strep Completed 5 days of antibiotic (5) Elevated troponin: High-sensitivity troponin 50s on admission; up trended to 150s and down trended. No complaint of chest pain. Echocardiogram was done which showed EF of 65 to 70% with grade 1 diastolic dysfunction. Follow-up with primary care doctor. (6) Vitamin B12 deficiency: Serum vitamin B 12 level is 193. Can contribute to cognitive dysfunction. Started on oral vitamin B12 supplement with 2000 mcg. Need to repeat serum vitamin B12 level in 4 to 6 weeks. (7) Hypothyroidism: Continue levothyroxine TSH within normal limits (8) Dementia: Seen by neurology on 10/19. Recommend MRI brain without contrast to rule out vascular dementia MRI brain done on 10/19 did not show any acute infarct or hemorrhage. Moderate atrophy and microvascular ischemic changes noted. 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 Lyme disease test was negative. ESR within normal limits. Continue on aspirin and Lipitor. Follow-up with neurology as outpatient. (9) Prediabetes: Found to have A1c percentage of 5.9. Recommended dietary modification. Follow-up with primary care doctor. Patient discharged to [facility]. Prescription sent to the pharmacy. Total Time Total Time Spent Total Time Spent (In Minutes): 40 Total Time Includes: Examination of the Patient, Discharge Planning, Medication Reconciliation, Communication With Other Providers and Other Discharge Plan Discharge Items Patient Disposition: Personal Mcfp Reason For Visit: ANXIETY, TROP ELEVATION, BP Discharge Diagnosis: Anxiety Bipolar disorder Demand ischemia Urinary tract infection Vitamin B12 deficiency Mild cognitive dysfunction Activity: Resume your previous activity Non-emergency contact: Primary Care Provider Call non-emergency contact if: you have any medication questions and your symptoms worsen Follow-up/Referrals: Kamille Medina MD [Primary Care Provider] - (Date & Time 10/24/2022 11:00 AM Provider Bhargavi Anderson MD Department General Internal Medicine [facility] ) Diet: Regular Addtl Attending Provider Instructions: You were admitted here with anxiety. Medication changes are made as per recommendation by the psychiatric doctor. Please stop taking BuSpar and hydroxyzine. You are prescribed Ativan 0.25 mg daily as needed for anxiety. You are also found to have vitamin B12 deficiency for which you are prescribed the supplements. Your evaluated by neurology for dementia. Please continue to take aspirin and Lipitor. You were found to have prediabetes with A1c of 5.9%. Please decrease the intake of sugar in your diet. Need to follow-up with her primary care doctor to repeat HbA1c in the future. Please follow-up with your primary care doctor. You will have appointment set up for sometime later this week. Pending Studies at Discharge: No Stand-Alone Forms: [employer], Smoking Cessation Skilled Items Patient informed of condition?: Yes DNR: No Discharge Level of Care: Other Communicable Disease: No Discharge Prognosis: Stable Lines: None Urinary Catheter: No Medications and DC Order Prescriptions: New aspirin 81 mg Tablet,Delayed Release (Dr/Ec) 81 mg PO HS Qty: 30 0RF lorazepam 0.5 mg Tablet 0.25 mg PO DAILY PRN (Reason: anxiety) Qty: 10 0RF cyanocobalamin (vitamin B-12) 500 mcg Tablet 2,000 mcg PO QAM Qty: 120 0RF Continued atorvastatin 20 mg Tablet 20 mg PO HS Qty: 30 0RF lamotrigine 200 mg Tablet 200 mg PO HS Qty: 30 0RF trazodone 50 mg Tablet 50 mg PO HS Qty: 30 0RF levothyroxine 25 mcg Tablet 25 mcg PO QAM Qty: 30 0RF benzonatate 100 mg Capsule 100 mg PO UD PRN (Reason: COUGHING) Qty: 20 0RF albuterol sulfate [ProAir HFA] 90 mcg/actuation Hfa Aerosol Inhaler 2 inh INHALATION Q4H PRN (Reason: COPD) Qty: 8.5 0RF fluoxetine [Prozac] 20 mg Capsule 20 mg PO QAM Qty: 30 0RF dorzolamide 2 % Drops 1 drp OPHTHALMIC (EYE) BID Qty: 10 0RF Lumigan 0.01 % Drops 1 drp OPHTHALMIC (EYE) HS Qty: 7.5 0RF Caltrate 600 plus D 600 mg (1,500 mg)-800 unit Tablet,Chewable 1 tab PO BID Qty: 30 0RF Anoro Ellipta 62.5-25 mcg/actuation Blister With Device 1 inh INHALATION DAILY Qty: 60 0RF Discontinued aspirin [Aspir-81] 81 mg Tablet,Delayed Release (Dr/Ec) 81 mg PO HS acetaminophen [Tylenol Extra Strength] 500 mg Tablet 1,000 mg PO Q6H PRN (Reason: Pain) hydroxyzine HCl 25 mg tablet 25 mg PO TID PRN (Reason: itching) Qty: 30 0RF buspirone 10 mg tablet 10 mg PO BID Discharge Orders: Discharge Order (Routine); Ordered 10/20/22 Ordered By: Jhon Aguilar Admission Data Admit Date/Time: 10/14/22 19:54 Attending Provider: Jhon Aguilar Admit Provider: Chip Jeter Primary Care Provider: Kamille Medina Other Providers: Adelaida Hudson ; Jade Lund ; Chip Jeter ; Guero Whitfield Other Interventions: Discharge Summary Assessment (RN) Last Done: 10/20/22 13:08
[2022-10-23 19:58] LABS: CK Total 71 U/L (29-143); CK-MB 0 % (<5); CK-MM 100 % (95-100)
== END 2022-10-20 15:30 | disposition home or self-care (01) ==
LOC: ED 15:45 → INTOOBSV 19:54 → EDINP 19:54 → SUATTDRO 19:54 → 2N 22:06

== ENCOUNTER 2023-10-08 18:50 | Observation (INO) ==
--- NOTE | 2023-10-08 19:41 | ED Triage Note ---
Date of Service October 08, 2023 Provider in Triage Author: Alejo Butler A History of Present Illness This patient was briefly evaluated while in triage. An abbreviated physical exam was performed. This patient is a 77-year-old Female who presents to the ED for evaluation of elevated blood pressure. Has hx of HTN and CKD. Has anxiety with the elevated BP. Recently started on new meds. Symptoms for 2 or 3 weeks. Physical Exam Limited Triage Exam: VITALS: Vitals are noted on the nurse's note and reviewed by myself. Vital signs stable. GENERAL: Well-developed, well-nourished, white female, who is in no acute distress and resting comfortably. Patient is cooperative with the examination. HEART: Regular rate and rhythm without murmurs gallops or rubs. LUNGS: Clear to auscultation bilaterally without wheezes, rales or rhonchi. No retractions or accessory muscle use. NEURO: Patient was alert and oriented to person place and time. CN II through XII grossly intact. Initial orders for labs and / or imaging were placed and patient was placed in the waiting area until a bed is available. Please see further documentation for the full ED course. MDM / Impression Impression Impression: HTN (hypertension), Anxiety
--- NOTE | 2023-10-08 21:06 | XRay Report ---
SINGLE VIEW CHEST CLINICAL HISTORY: Atypical chest pain FINDINGS: A PA chest radiograph is compared to study dated 03/12/2010. The cardiomediastinal silhouette is unremarkable noting atherosclerotic calcification of the thoracic aorta. The lungs and pleural sp aces are clear. No pneumothorax is seen. The skeletal structures are osteopenic. The bony thorax is g rossly intact. Cholecystectomy clips are noted in the right upper quadrant. IMPRESSION: No active disease in the chest. ACT 112: Negative or not required by law. Electronically signed by: Shahbaz Watkins M.D. 10/08/2023 9:05 PM
[2023-10-08 21:07] LABS: Appearance Urine Clear (Clear); Bilirubin Urine Negative (Negative); Blood Urine Negative (Negative); Color Urine Yellow; Glucose Urine UA Negative (Negative); Ketones Urine Negative (Negative); Leukocyte Esterase Urine Negative (Negative); Nitrite Urine Negative (Negative); Protein Urine Negative (Negative); Specific Gravity Urine 1.009 (1.000-1.030); Urobilinogen Urine Negative (Negative)
[2023-10-08 21:25] LABS: Basophils # (auto) 0.01 K/uL (0.00-0.20); Basophils % (auto) 0.2 %; Hematocrit (blood only) 36.4 % (37.0-47.0); Hemoglobin 12.2 g/dl (12.0-16.0); Immature Granulocytes # (auto) 0.01 K/uL (0.01-0.20); Immature Granulocytes % (auto) 0.2 %; Lymphocytes # (auto) 1.43 K/uL (1.20-3.40); Mean Corpuscular Hemoglobin 31.4 pg (25.0-34.0); Mean Corpuscular Hgb Conc 33.5 g/dL (32.0-36.0); Mean Corpuscular Volume 93.6 fL (80.0-100.0); Mean Platelet Volume 9.3 fL (9.4-12.4); Monocytes # (auto) 0.43 K/uL (0.11-0.59); Neutrophils # (auto) 2.88 K/uL (1.40-6.50); Neutrophils % (auto) 60.6 %; Platelet Count 216 K/uL (130-400); RDW Coefficient of Variation 11.4 % (11.5-14.5); RDW Standard Deviation 38.8 fL (36.4-46.3); Red Blood Count 3.89 M/uL (4.20-5.40); White Blood Count 4.76 K/ul (4.8-10.8)
[2023-10-08 21:36] LABS: Albumin Globulin Ratio 1.6 (0.9-2); Albumin Level 4.7 gm/dl (3.4-5.0); BUN Creatinine Ratio 19.8 (10-20); Bilirubin,Total 0.5 mg/dl (0.2-1.0); Calcium 9.8 mg/dl (8.6-10.3); Creatinine Clr Calc Pharmacy 43.3 ml/min; Est GFR (African American) 69.5 ml/min; Globulin 2.9 gm/dl (2.5-4.0); Potassium 3.7 mmol/L (3.5-5.1); Total Protein 7.6 gm/dl (6.0-8.3)
[2023-10-08 21:42] LABS: Troponin I High Sensitivity 14.9 pg/ml (0-14)
[2023-10-08 21:51] LABS: Thyroid Stimulating Hormone 2.164 uIu/ml (0.300-4.500)
--- NOTE | 2023-10-09 00:26 | Emergency Department Note ---
Impression & Plan HTN (hypertension), Anxiety ED Provider Note ED Provider Note NAME: JUNE CASTILLO AGE:77 SEX: Female : 1945 ARRIVES VIA: Private vehicle INFORMANT: Patient, caregiver ED PROVIDER(s): Falguni Nur DO CHIEF COMPLAINT: High blood pressure, increased anxiety HPI: This is a 77-year-old female presents emergency department with caregiver at bedside due to concern for elevated blood pressure readings and increased anxiety. Caregiver states patient was recently started on clonidine in the hopes that would help with both blood pressure and anxiety, however after week of taking this medication they have not noticed any improvement in both. They state over the course of the last month checks of her blood pressure have shown numbers of 200s/100s fairly regularly. Patient is also had some triggering events that have increased her anxiety which is likely contributed to the elevated blood pressure, however now she seems anxious over knowing that her blood pressure is high additionally. No other change in medications or diet. No recent trauma, no recent illness. Patient states she has noticed some dizziness and feeling unsteady when she walks however that seems most noticeable after she takes the clonidine and they thought perhaps could be an adverse reaction. She has also noticed some urinary frequency although admits to trying to increase her water intake. PAST MEDICAL HISTORY:See Below PAST SURGICAL HISTORY:See Below FAMILY HISTORY:See Below SOCIAL HISTORY:See Below HOME MEDICATIONS:See Below ALLERGIES:See Below VITALS:See Below PHYSICAL EXAMINATION: GENERAL: alert, anxious appearing, well nourished, no distress, non-toxic EYE EXAM: normal conjunctiva, PERRL and EOM's grossly intact, no nystagmus OROPHARYNX: no exudate, no erythema, lips, buccal mucosa, and tongue normal and mucous membranes are moist NECK: supple, no nuchal rigidity, no adenopathy, non-tender LUNGS: Clear to auscultation. Normal chest wall mechanics, no w/r/r HEART: no murmurs, S1 normal and S2 normal ABDOMEN: abdomen soft, non-tender, normo-active bowel sounds, no masses, no rebound or guarding. BACK: Back is symmetrical on inspection and there is no deformity, no midline tenderness, no CVA tenderness. SKIN: no rashes, petechiae, orbruising UPPER EXTREMITIES: upper extremities are grossly normal. FROM, nml pulses b/l. LOWER EXTREMITIES: No pitting edema. FROM, nml pulses b/l. NEURO EXAM: Able to answer simple questions, confused to chronology of events and recent medical history, cranial nerves II-XII grossly intact, normal speech, no facial droop,nogross weakness of arms, no gross weakness of legs. Gross sensation intact. No ataxia. Vital Signs: reviewed and remarkable Differential Diagnosis: Hypertensive Urgency/Emergency, ACS, CHF, MOMO, nephrotic syndrome, noncompliance, medication ADR, ICH, CVA, dietary indiscretion, as well as others were considered MEDICAL DECISION MAKING: This is a 77-year-old female who presents emergency department due to concern for increased blood pressure. Caregiver at bedside states patient with elevated blood pressure readings over the course of the last month. Patient recently started on clonidine without improvement. Patient able to provide some history although does have some cognitive dysfunction. Patient noted to be hypertensive here although other vital signs stable. Labs drawn and sent, IV established, EKG and chest x-ray performed bedside interpreted by me and patient monitored on telemetry once a room was available. After discussion patient sent for CT of the head. Patient was given amlodipine to aid in blood pressure management and calls were made to [facility] to confirm her current blood pressure regimen. Records accompanying the patient indicated that she had also been started on lisinopril however this has not yet been given to the patient prior to her arrival here. Patient was then given a dose of lisinopril with marginal improvement in her blood pressure. While patient was largely asymptomatic she continued to have markedly elevated blood pressure readings. Due to advanced age and comorbidities, I discussed the case with the [facility] team for additional evaluation and management. Patient denied any other focal or ongoing complaints while monitored in the ER, no ectopy or dysrhythmia noted, and patient was ambulatory to the bathroom. Consultation(s): 0535: Discussed with Dr. Zepeda, [facility] team, for additional evaluation and mgmt. ER Treatment Provided: See below Diagnostics Interpreted By Me: -ECG: Sinus bradycardia 53, normal axis, normal intervals, biphasic appearing T wave in V2 and V3, slight ST depression noted in I, II, aVL; this is slightly more exaggerated compared to April 23, 2023 although these changes were present at that time -Cardiac Monitoring: An order was placed for continuous cardiac monitoring. The monitor shows a rate of 56 with sinus bradycardia rhythm. -Laboratory studies: As stated above and show below. -Imaging studies: X-ray Chest: A single view study of the chest was reviewed and was negative for cardiomegaly, focal infiltrate, effusion, pulmonary edema, or wide mediastinum. Triage Nursing Note Reviewed Prior/Outside Records Reviewed -facility records including medication list and recent blood pressure readings Past Med/Surg History Medical History CKD (chronic kidney disease), stage III Hypothyroidism Glaucoma Herniated disc IN BACK Bipolar 2 disorder Depression Emphysema lung "MILD" COPD (chronic obstructive pulmonary disease) Surgical History History of colonoscopy History of eye surgery CLOGGED TEAR DUCT / LEFT ? History of back surgery History of hysterectomy History of tonsillectomy Family History Mother , in her late 70s of heart issues Heart disease Father , in his mid 70s of heart issues No problems noted. 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 Feels Safe at Home: Yes Assistive Devices: None Allergies Allergies Allergy/AdvReac Type Severity Reaction Status Date / Time aripiprazole Allergy Unknown PARKINSON Verified 08/05/23 11:36 SYMPTOMS cortisone Allergy Unknown PRECIPITATED Verified 08/05/23 11:36 MANIC EPISODE/ STEROID PSYCHOSIS lithium Allergy Unknown SKIN Verified 08/05/23 11:36 RASHES, EXTREME DROWSINESS AND LETHARGY moxifloxacin Allergy Unknown HIVES/ Verified 08/05/23 11:36 DIARRHEA brimonidine AdvReac Unknown Verified 08/05/23 11:36 Home Meds Home Medications Medication Instructions Recorded Confirmed acetaminophen 650 mg 1,300 mg PO DAILY 11/17/22 10/09/23 tablet,extended release (Mapap Arthritis Pain) docusate sodium 100 mg capsule 100 mg PO DAILY PRN Constipation 11/17/22 04/23/23 famotidine 20 mg tablet 20 mg PO DAILY 11/17/22 10/09/23 fluocinonide 0.05 % topical 1 applic topical BID PRN as 11/17/22 10/09/23 solution directed wheat dextrin 3 gram/3.8 gram oral 1.5 g PO DAILY 11/17/22 04/23/23 powder (Benefiber Sugar Free (dextrin)) fluoxetine 10 mg capsule 10 mg PO DAILY 04/23/23 10/09/23 hydrochlorothiazide 12.5 mg tablet 12.5 mg PO DAILY 04/23/23 04/23/23 clonidine HCl 0.1 mg tablet 0.1 mg PO BID 10/09/23 10/09/23 lisinopril 10 mg tablet 10 mg PO DAILY 10/09/23 10/09/23 lisinopril 10 mg tablet mg 10/09/23 Previous Rx's Medication Instructions Recorded albuterol sulfate 90 mcg/actuation 2 inh inhalation Q4H PRN COPD #8.5 10/20/22 aerosol inhaler (ProAir HFA) grams aspirin 81 mg tablet,delayed 81 mg PO HS #30 tabs 10/20/22 release atorvastatin 20 mg tablet 20 mg PO HS #30 tabs 10/20/22 benzonatate 100 mg capsule 100 mg PO UD PRN COUGHING #20 caps 10/20/22 bimatoprost 0.01 % eye drops 1 drp ophthalmic (eye) HS #7.5 mL 10/20/22 (Lumigan) calcium carbonate 600 mg-vitamin 1 tab PO BID #30 tabs 10/20/22 D3 20 mcg (800 unit) chewable tablet (Caltrate 600 plus D) cyanocobalamin (vitamin B-12) 500 2,000 mcg (4 x 500 mcg) PO QAM 10/20/22 mcg tablet #120 tabs dorzolamide 2 % eye drops 1 drp ophthalmic (eye) BID #10 mL 10/20/22 fluoxetine 20 mg capsule (Prozac) 20 mg PO QAM #30 caps 10/20/22 lamotrigine 200 mg tablet 200 mg PO HS #30 tabs 10/20/22 levothyroxine 25 mcg tablet 25 mcg PO QAM #30 tabs 10/20/22 lorazepam 0.5 mg tablet 0.25 mg (1/2 x 0.5 mg) PO DAILY 10/20/22 PRN anxiety #10 tabs trazodone 50 mg tablet 50 mg PO HS #30 tabs 10/20/22 umeclidinium 62.5 mcg-vilanterol 1 inh inhalation DAILY #60 ea 10/20/22 25 mcg/actuation powdr for inhalation (Anoro Ellipta) memantine 5 mg tablet 5 mg PO BID #60 tabs 11/17/22 Results & Data (ED) Vital Signs Vital Signs - 24 hr 10/08/23 19:39 10/08/23 23:50 10/08/23 23:51 Temperature 37 C Temperature Source Temporal Artery Scan Pulse Rate 63 51 L 53 L Pulse Rate [Apical] Pulse Rate from SpO2 Sensor Respiratory Rate 18 16 Respiratory Effort / Characteristics Respiratory Depth Normal Blood Pressure 193/86 H Blood Pressure [Right Arm] Blood Pressure Mean 121 Blood Pressure Mean [Right Arm] Pulse Oximetry 96 100 Oxygen Delivery Method Room Air Room Air Sepsis Recent Fever Within 48 Hours No Sepsis New/Unexplained Change in Mental Status No Sepsis Action Taken by Nursing No Action Required 10/09/23 00:00 10/09/23 00:10 10/09/23 00:42 Temperature Temperature Source Pulse Rate 51 L 59 L Pulse Rate [Apical] Pulse Rate from SpO2 Sensor Respiratory Rate 16 15 Respiratory Effort / Characteristics Respiratory Depth Blood Pressure 218/106 H Blood Pressure [Right Arm] Blood Pressure Mean 143 Blood Pressure Mean [Right Arm] Pulse Oximetry 99 99 100 Oxygen Delivery Method Room Air Room Air Room Air Sepsis Recent Fever Within 48 Hours Sepsis New/Unexplained Change in Mental Status Sepsis Action Taken by Nursing 10/09/23 00:54 10/09/23 01:00 10/09/23 01:56 Temperature Temperature Source Pulse Rate 53 L 54 L Pulse Rate [Apical] Pulse Rate from SpO2 Sensor 75 Respiratory Rate 15 16 16 Respiratory Effort / Characteristics Respiratory Depth Blood Pressure 237/99 H 225/111 H 199/104 H Blood Pressure [Right Arm] Blood Pressure Mean 145 149 135 Blood Pressure Mean [Right Arm] Pulse Oximetry 99 99 94 Oxygen Delivery Method Room Air Room Air Room Air Sepsis Recent Fever Within 48 Hours Sepsis New/Unexplained Change in Mental Status Sepsis Action Taken by Nursing 10/09/23 02:00 10/09/23 02:30 10/09/23 03:00 Temperature Temperature Source Pulse Rate Pulse Rate [Apical] Pulse Rate from SpO2 Sensor 54 L 55 L Respiratory Rate 16 15 18 Respiratory Effort / Characteristics Respiratory Depth Blood Pressure 218/95 H 214/97 H 200/95 H Blood Pressure [Right Arm] Blood Pressure Mean 136 136 130 Blood Pressure Mean [Right Arm] Pulse Oximetry 98 97 Oxygen Delivery Method Room Air Room Air Sepsis Recent Fever Within 48 Hours Sepsis New/Unexplained Change in Mental Status Sepsis Action Taken by Nursing 10/09/23 03:50 10/09/23 03:51 10/09/23 04:00 Temperature Temperature Source Pulse Rate 59 L 62 Pulse Rate [Apical] 78 Pulse Rate from SpO2 Sensor Respiratory Rate 23 14 19 Respiratory Effort / Characteristics Non-Labored Respiratory Depth Normal Blood Pressure 190/105 H 196/94 H Blood Pressure [Right Arm] 190/105 H Blood Pressure Mean 133 128 Blood Pressure Mean [Right Arm] 133 Pulse Oximetry 97 98 98 Oxygen Delivery Method Room Air Room Air Room Air Sepsis Recent Fever Within 48 Hours Sepsis New/Unexplained Change in Mental Status Sepsis Action Taken by Nursing 10/09/23 04:30 10/09/23 04:49 10/09/23 04:50 Temperature Temperature Source Pulse Rate 60 62 Pulse Rate [Apical] 65 Pulse Rate from SpO2 Sensor Respiratory Rate 18 19 16 Respiratory Effort / Characteristics Respiratory Depth Blood Pressure 185/97 H 204/101 H Blood Pressure [Right Arm] 204/101 H Blood Pressure Mean 126 135 Blood Pressure Mean [Right Arm] 135 Pulse Oximetry 97 97 97 Oxygen Delivery Method Room Air Room Air Room Air Sepsis Recent Fever Within 48 Hours Sepsis New/Unexplained Change in Mental Status Sepsis Action Taken by Nursing 10/09/23 05:00 10/09/23 05:30 10/09/23 06:05 Temperature Temperature Source Pulse Rate 63 71 79 Pulse Rate [Apical] Pulse Rate from SpO2 Sensor Respiratory Rate 19 14 Respiratory Effort / Characteristics Respiratory Depth Blood Pressure 200/124 H 198/96 H Blood Pressure [Right Arm] Blood Pressure Mean 149 130 Blood Pressure Mean [Right Arm] Pulse Oximetry 97 97 Oxygen Delivery Method Room Air Room Air Sepsis Recent Fever Within 48 Hours Sepsis New/Unexplained Change in Mental Status Sepsis Action Taken by Nursing Laboratory Data 10/08/23 Unknown 10/08/23 Unknown Lab Results 10/08/23 10/09/23 Range/Units Unknown 00:47 WBC 4.76 L (4.8-10.8) K/ul RBC 3.89 L (4.20-5.40) M/uL Hgb 12.2 (12.0-16.0) g/dl Hct 36.4 L (37.0-47.0) % MCV 93.6 (80.0-100.0) fL MCH 31.4 (25.0-34.0) pg MCHC 33.5 (32.0-36.0) g/dL RDW Std Deviation 38.8 (36.4-46.3) fL RDW Coeff of Isabella 11.4 L (11.5-14.5) % Plt Count 216 (130-400) K/uL MPV 9.3 L (9.4-12.4) fL Immature Gran % (Auto) 0.2 % Neut % (Auto) 60.6 % Lymph % (Auto) 30.0 % Crittenden % (Auto) 9.0 % Eos % (Auto) 0.0 % Baso % (Auto) 0.2 % Neut # (Auto) 2.88 (1.40-6.50) K/uL Lymph # (Auto) 1.43 (1.20-3.40) K/uL Cr[place]enden # (Auto) 0.43 (0.11-0.59) K/uL Eos # (Auto) 0.00 (0.00-0.50) K/uL Baso # (Auto) 0.01 (0.00-0.20) K/uL Immature Gran # (Auto) 0.01 (0.01-0.20) K/uL Sodium 135 L (136-145) mmol/L Potassium 3.7 (3.5-5.1) mmol/L Chloride 101 (98-107) mmol/L Carbon Dioxide 23 (21-32) mmol/L Anion Gap 11 (3-11) BUN 18 (6-23) mg/dl Creatinine 0.91 (0.6-1.2) mg/dl Est Cr Clr Drug Dosing 43.3 ml/min Est GFR ( Amer) 69.5 ml/min Est GFR (Non-Af Amer) 60.0 ml/min BUN/Creatinine Ratio 19.8 (10-20) Glucose 94 (70-99(Fasting)) mg/dl Calcium 9.8 (8.6-10.3) mg/dl Total Bilirubin 0.5 (0.2-1.0) mg/dl AST 19 (13-39) U/L ALT 15 (7-52) U/L Alkaline Phosphatase 65 (34-104) U/L Troponin I High Sens 14.9 H 19.2 H D (0-14) pg/ml Total Protein 7.6 (6.0-8.3) gm/dl Albumin 4.7 (3.4-5.0) gm/dl Globulin 2.9 (2.5-4.0) gm/dl Albumin/Globulin Ratio 1.6 (0.9-2) Lipase 79 (11-82) U/L TSH 2.164 (0.300-4.500) uIu/ml Urine Color Yellow Urine Appearance Clear (Clear) Urine pH 7.0 (4.5-7.5) Ur Specific Dix 1.009 (1.000-1.030) Urine Protein Negative (Negative) Urine Glucose (UA) Negative (Negative) Urine Ketones Negative (Negative) Urine Blood Negative (Negative) Urine Nitrite Negative (Negative) Urine Bilirubin Negative (Negative) Urine Urobilinogen Negative (Negative) Ur Leukocyte Esterase Negative (Negative) Adenovirus (PCR) Not Detected (NotDetected) B. pertussis DNA (PCR) Not Detected (NotDetected) B.parapertussis DNA PCR Not Detected (NotDetected) C. pneumoniae DNA (PCR) Not Detected (NotDetected) Coronavirus OC43 (PCR) Not Detected (NotDetected) Coronavirus HKU1 (PCR) Not Detected (NotDetected) Coronavirus 229E (PCR) Not Detected (NotDetected) SARS-CoV-2 (PCR) Not Detected (NotDetected) Coronavirus NL63 (PCR) Not Detected (NotDetected) Human Metapneumovir PCR Not Detected (NotDetected) Influenza Type A (PCR) Not Detected (NotDetected) Influenza Type B (PCR) Not Detected (NotDetected) M. pneumoniae (PCR) Not Detected (NotDetected) Parainfluenza 1 (PCR) Not Detected (NotDetected) Parainfluenza 2 (PCR) Not Detected (NotDetected) Parainfluenza 3 (PCR) Not Detected (NotDetected) Parainfluenza 4 (PCR) Not Detected (NotDetected) RSV (PCR) Not Detected (NotDetected) Entero/Rhino (PCR) Not Detected (NotDetected) Administered Medications Sodium Chloride (Nss) 500 mls @ 80 mls/hr IV .[id number] AVELINA Stop: 11/08/23 02:59 Last Admin: 10/09/23 04:38 Dose: 80 mls/hr Documented By: KANCHAN Discontinued Medications Amlodipine Besylate (Amlodipine Besylate 5 Mg Tab) 5 mg PO NOW ONE Stop: 10/09/23 01:01 Last Admin: 10/09/23 01:24 Dose: 5 mg Documented By: KANCHAN Lisinopril (Lisinopril 10 Mg Tab) 10 mg PO NOW STA Stop: 10/09/23 03:01 Last Admin: 10/09/23 03:51 Dose: 10 mg Documented By: JUAN RAMON Imaging Data Radiologist's Impression: Chest X-Ray 10/08/23 19:42 SINGLE VIEW CHEST CLINICAL HISTORY: Atypical chest pain FINDINGS: A PA chest radiograph is compared to study dated 03/12/2010. The cardiomediastinal silhouette is unremarkable noting atherosclerotic calcification of the thoracic aorta. The lungs and pleural spaces are clear. No pneumothorax is seen. The skeletal structures are osteopenic. The bony thorax is grossly intact. Cholecystectomy clips are noted in the right upper quadrant. IMPRESSION: No active disease in the chest. ACT 112: Negative or not required by law. Electronically signed by: Shahbaz Watkins M.D. 10/08/2023 9:[address] 10/09/23 00:10 Exam(s): CT HEAD Without Contrast EXAM: CT Head Without Intravenous Contrast CLINICAL HISTORY: Reason for exam: dizzy,htn. TECHNIQUE: Axial computed tomography images of the head/brain without intravenous contrast. CTDI is 38.17 mGy and DLP is 624.41 mGy-cm. Automated exposure control was utilized for the study. A dose lowering technique was utilized adhering to the principles of ALARA. COMPARISON: Comparison made to prior brain MRI from October 19, 2022. FINDINGS: Brain: Unremarkable. No hemorrhage. Moderate nonspecific white matter changes. No edema. Ventricles: Unremarkable. No ventriculomegaly. Bones/joints: Hyperostosis frontalis interna. No acute fracture. Soft tissues: Bilateral lens replacements. Sinuses: Unremarkable as visualized. No acute sinusitis. Mastoid air cells: Unremarkable as visualized. No mastoid effusion. IMPRESSION: No evidence of acute intracranial pathology. Electronically signed by: Susan Polanco MD 10/09/23 04:05 AM Discharge Plan Visit Data Chief Complaint: Hypertension Stated Complaint: HYPERTENSION ED Provider: Falguni Nur Discharge Problem: HTN (hypertension), Anxiety Forms Stand Alone Forms: My [facility] Prescriptions Prescriptions: No Action docusate sodium 100 mg capsule 100 mg PO DAILY PRN (Reason: Constipation) fluocinonide 0.05 % solution 1 applic topical BID PRN (Reason: as directed) Benefiber Sugar Free (dextrin) 3 gram/3.8 gram powder 1.5 g PO DAILY Rx Instructions: mix into at least 4 oz water or juice before administering famotidine 20 mg tablet 20 mg PO DAILY acetaminophen [Mapap Arthritis Pain] 650 mg tablet extended release 1,300 mg PO DAILY memantine 5 mg tablet 5 mg PO BID Qty: 60 5RF clonidine HCl 0.1 mg tablet 0.1 mg PO BID lisinopril 10 mg tablet lisinopril 10 mg tablet 10 mg PO DAILY Rx Instructions: Has not yet started aspirin 81 mg Tablet,Delayed Release (Dr/Ec) 81 mg PO HS Qty: 30 0RF lorazepam 0.5 mg Tablet 0.25 mg PO DAILY PRN (Reason: anxiety) Qty: 10 0RF cyanocobalamin (vitamin B-12) 500 mcg Tablet 2,000 mcg PO QAM Qty: 120 0RF atorvastatin 20 mg Tablet 20 mg PO HS Qty: 30 0RF lamotrigine 200 mg Tablet 200 mg PO HS Qty: 30 0RF trazodone 50 mg Tablet 50 mg PO HS Qty: 30 0RF levothyroxine 25 mcg Tablet 25 mcg PO QAM Qty: 30 0RF benzonatate 100 mg Capsule 100 mg PO UD PRN (Reason: COUGHING) Qty: 20 0RF albuterol sulfate [ProAir HFA] 90 mcg/actuation Hfa Aerosol Inhaler 2 inh INHALATION Q4H PRN (Reason: COPD) Qty: 8.5 0RF fluoxetine [Prozac] 20 mg Capsule 20 mg PO QAM Qty: 30 0RF dorzolamide 2 % Drops 1 drp OPHTHALMIC (EYE) BID Qty: 10 0RF Lumigan 0.01 % Drops 1 drp OPHTHALMIC (EYE) HS Qty: 7.5 0RF Caltrate 600 plus D 600 mg (1,500 mg)-800 unit Tablet,Chewable 1 tab PO BID Qty: 30 0RF Anoro Ellipta 62.5-25 mcg/actuation Blister With Device 1 inh INHALATION DAILY Qty: 60 0RF fluoxetine 10 mg capsule 10 mg PO DAILY hydrochlorothiazide 12.5 mg tablet 12.5 mg PO DAILY Referrals Referrals: Keely [email or web address] [Primary Care Provider] -
[2023-10-09] MEDS ORDERED: amLODIPine BESYLATE 5 MG TAB PO ONE (01:00)
[2023-10-09 01:49] LABS: Adenovirus PCR Not Detected (NotDetected); Bordetella parapertussis PCR Not Detected (NotDetected); Bordetella pertussis PCR Not Detected (NotDetected); Chlamydia pneumoniae PCR Not Detected (NotDetected); Coronavirus 229E PCR Not Detected (NotDetected); Coronavirus CoV-2 (COVID19)PCR Not Detected (NotDetected); Coronavirus HKU1 PCR Not Detected (NotDetected); Coronavirus NL63 PCR Not Detected (NotDetected); Coronavirus OC43PCR Not Detected (NotDetected); Human Metapneumovirus PCR Not Detected (NotDetected); Influenza A PCR Not Detected (NotDetected); Influenza B PCR Not Detected (NotDetected); Mycoplasma pneumoniae PCR Not Detected (NotDetected); Parainfluenza Virus 1 PCR Not Detected (NotDetected); Parainfluenza Virus 2 PCR Not Detected (NotDetected); Parainfluenza Virus 3 PCR Not Detected (NotDetected); Parainfluenza Virus 4 PCR Not Detected (NotDetected); Respiratory Syncytial VirusPCR Not Detected (NotDetected); Rhinovirus/Enterovirus PCR Not Detected (NotDetected)
[2023-10-09] MEDS ORDERED: lisinopril 10 MG TAB PO STA (03:00)
--- NOTE | 2023-10-09 04:06 | CT Scan Report ---
Exam(s): CT HEAD Without Contrast EXAM: CT Head Without Intravenous Contrast CLINICAL HISTORY: Reason for exam: dizzy,htn. TECHNIQUE: Axial computed tomography images of the head/brain without intravenous contrast. CTDI is 38.17 mGy and DLP is 624.41 mGy-cm. Automated exposure control was utilized for the study. A dose lowering technique was utilized adhering to the principles of ALARA. COMPARISON: Comparison made to prior brain MRI from October 19, 2022. FINDINGS: Brain: Unremarkable. No hemorrhage. Moderate nonspecific white matter changes. No edema. Ventricles: Unremarkable. No ventriculomegaly. Bones/joints: Hyperostosis frontalis interna. No acute fracture. Soft tissues: Bilateral lens replacements. Sinuses: Unremarkable as visualized. No acute sinusitis. Mastoid air cells: Unremarkable as visualized. No mastoid effusion. IMPRESSION: No evidence of acute intracranial pathology. Electronically signed by: Susan Polanco MD 10/09/23 04:05 AM
[2023-10-09] MEDS: SODIUM CHLORIDE 0.9% 500 ML IV SCH ×2 (04:38→09:29)
[2023-10-09] MEDS ORDERED: MAGNESIUM SULFATE / D5W 1 GM/100 ML BAG IV ONE (05:45)
--- NOTE | 2023-10-09 06:38 | History & Physical Report ---
Date of Service October 09, 2023 Assessment & Plan (1) HTN (hypertension): Plan: Blood pressure poorly controlled over the last month. Patient with mild elevation of troponin at 19.2. No report of chest pain. No ischemic changes noted on EKG. -Admit to PCU -Check TSH, Cortisol, Aldosterone levels -Check renal artery duplex -Mg x 1gm IV -Continue Lisinopril 10mg po daily - dose given in ER -Initiate Amlodipine 5mg po daily -Will decrease Clonidine to 0.1mg po daily with plan to discontinue on discharge as medication is not helping BP or anxiety and she is developing side effects from this -Labetalol 10mg IV q 4 hours as needed for blood pressure >180/110 -Hydralazine 5mg IV q 4 hours as needed for blood pressure > 180/110 (2) Anxiety: Plan: Chronic. Patient reports increased anxiety which is likely causing elevated blood pressures as well -Continue home Fluoxetine 30mg po daily -Continue Ativan -Continue Trazodone qHS (3) Mild cognitive impairment: Plan: Chronic -Continue Memantine 5mg po BID -Frequent orientation, ambulation with assistance as tolerated, maintenance of sleep/wake cycle where able for delirium prevention (4) Hypothyroidism: Plan: Chronic -Check TSH -Continue Synthroid 25mcg po daily (5) COPD (chronic obstructive pulmonary disease): Plan: Chronic. Stable -Continue Anoro Ellipta -Continue Albuterol PRN (6) Bipolar 2 disorder: Plan: Chronic -Continue Lamictal 200mg po qHS History of Present Illness Chief Complaint: hypertension Primary Care Provider: [facility] Fabricio Nunez is a 77yo female presenting from [facility] with report of ongoing hypertension. Patient has had elevated blood pressures 180's - 200's systolic over the last several weeks. She has also been experien cing increased anxiety. She was started on Clonidine 0.1mg po BID on 10/01/23 in hopes of managing both hypertension and anxiety. She has been taking it as instructed but has not had any improvement in her blood pressure. She has begun having some orthostatic symptoms as well as mild dizziness. She was started on Lisinopril 10mg po daily on 10/08/23 prior to her arrival to the ER but has not yet taken this medication. She is overall a poor historian and does not offer many complaints. She denies headache, visual changes, chest pain, palpitations, back or flank pain, focal numbness/tingling/weakness or shortness of breath. No report of pain. No vomiting. She has been taking her medications as prescribed. In [facility] ER she is hypertensive 200/120's. ER Course: NSS x 500mL Lisinopril 10mg Amlodipine 5mg Allergies Allergy/AdvReac Type Severity Reaction Status Date / Time aripiprazole Allergy Unknown PARKINSON Verified 08/05/23 11:36 SYMPTOMS cortisone Allergy Unknown PRECIPITATED Verified 08/05/23 11:36 MANIC EPISODE/ STEROID PSYCHOSIS lithium Allergy Unknown SKIN Verified 08/05/23 11:36 RASHES, EXTREME DROWSINESS AND LETHARGY moxifloxacin Allergy Unknown HIVES/ Verified 08/05/23 11:36 DIARRHEA brimonidine AdvReac Unknown Verified 08/05/23 11:36 Home Medications Medication Instructions Recorded Confirmed Type albuterol sulfate 90 mcg/actuation 2 inh inhalation Q4H PRN COPD #8.5 10/20/22 10/09/23 Rx aerosol inhaler (ProAir HFA) grams aspirin 81 mg tablet,delayed 81 mg PO HS #30 tabs 10/20/22 10/09/23 Rx release atorvastatin 20 mg tablet 20 mg PO HS #30 tabs 10/20/22 10/09/23 Rx benzonatate 100 mg capsule 100 mg PO UD PRN COUGHING #20 caps 10/20/22 04/23/23 Rx bimatoprost 0.01 % eye drops 1 drp ophthalmic (eye) HS #7.5 mL 10/20/22 04/23/23 Rx (Lumigan) calcium carbonate 600 mg-vitamin 1 tab PO BID #30 tabs 10/20/22 04/23/23 Rx D3 20 mcg (800 unit) chewable tablet (Caltrate 600 plus D) cyanocobalamin (vitamin B-12) 500 2,000 mcg (4 x 500 mcg) PO QAM 10/20/22 10/09/23 Rx mcg tablet #120 tabs dorzolamide 2 % eye drops 1 drp ophthalmic (eye) BID #10 mL 10/20/22 10/09/23 Rx fluoxetine 20 mg capsule (Prozac) 20 mg PO QAM #30 caps 10/20/22 10/09/23 Rx lamotrigine 200 mg tablet 200 mg PO HS #30 tabs 10/20/22 10/09/23 Rx levothyroxine 25 mcg tablet 25 mcg PO QAM #30 tabs 10/20/22 10/09/23 Rx lorazepam 0.5 mg tablet 0.25 mg (1/2 x 0.5 mg) PO DAILY 10/20/22 10/09/23 Rx PRN anxiety #10 tabs trazodone 50 mg tablet 50 mg PO HS #30 tabs 10/20/22 10/09/23 Rx umeclidinium 62.5 mcg-vilanterol 1 inh inhalation DAILY #60 ea 10/20/22 10/09/23 Rx 25 mcg/actuation powdr for inhalation (Anoro Ellipta) acetaminophen 650 mg 1,300 mg PO DAILY 11/17/22 10/09/23 History tablet,extended release (Mapap Arthritis Pain) docusate sodium 100 mg capsule 100 mg PO DAILY PRN Constipation 11/17/22 04/23/23 History famotidine 20 mg tablet 20 mg PO DAILY 11/17/22 10/09/23 History fluocinonide 0.05 % topical 1 applic topical BID PRN as 11/17/22 10/09/23 History solution directed memantine 5 mg tablet 5 mg PO BID #60 tabs 11/17/22 10/09/23 Rx wheat dextrin 3 gram/3.8 gram oral 1.5 g PO DAILY 11/17/22 04/23/23 History powder (Benefiber Sugar Free (dextrin)) fluoxetine 10 mg capsule 10 mg PO DAILY 04/23/23 10/09/23 History hydrochlorothiazide 12.5 mg tablet 12.5 mg PO DAILY 04/23/23 04/23/23 History clonidine HCl 0.1 mg tablet 0.1 mg PO BID 10/09/23 10/09/23 History lisinopril 10 mg tablet 10 mg PO DAILY 10/09/23 10/09/23 History lisinopril 10 mg tablet mg 10/09/23 History Past Med/Surg History Medical History CKD (chronic kidney disease), stage III Hypothyroidism Glaucoma Herniated disc IN BACK Bipolar 2 disorder Depression Emphysema lung "MILD" COPD (chronic obstructive pulmonary disease) Surgical History History of colonoscopy History of eye surgery CLOGGED TEAR DUCT / LEFT ? History of back surgery History of hysterectomy History of tonsillectomy Family History Mother , in her late 70s of heart issues Heart disease Father , in his mid 70s of heart issues No problems noted. 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 Feels Safe at Home: Yes Assistive Devices: None Review of Systems Review of Systems: All systems reviewed & are unremarkable except as noted in HPI & below Physical Exam Physical Exam: General: patient anxious in appearance, answers some questions but is mostly quiet during encounter Skin: warm, dry, intact, no rashes or lesions HEENT: NC/AT, PERRL, EOMI, anicteric sclera, conjunctiva without injection, external ear normal to inspection and nontender, nares patent, moist mucus membranes, dentition intact, no oropharyngeal lesions, neck supple, trachea midline, no LAD, no thyromegaly, no JVD Heart: +S1/S2, regular, 2/6 DAISY across precordium. Blood pressure equal in bilateral UEs - 182/98 in LUE and 181/94 in RUE Lungs: equal air entry bilaterally, no rales/rhonchi/wheezes Abd: +BS, soft, NT/ND, no masses/organomegaly/ascites Ext: warm, 2+ pulses in UE/LE bilaterally, no clubbing/cyanosis or edema Neuro: nonfocal. 5/5 strength in UE/LE bilaterally Results & Data Results & Data Vital Signs (Past 12 Hours) Vital Signs Temp Pulse Pulse Resp BP BP Pulse Ox 10/09/23 06:05 79 10/09/23 05:30 71 14 198/96 H 97 10/09/23 05:00 63 19 200/124 H 97 10/09/23 04:50 65 16 204/101 H 97 10/09/23 04:49 62 19 204/101 H 97 10/09/23 04:30 60 18 185/97 H 97 10/09/23 04:00 62 19 196/94 H 98 10/09/23 03:51 59 L 14 190/105 H 98 10/09/23 03:50 78 23 190/105 H 97 10/09/23 03:00 18 200/95 H 97 10/09/23 02:30 15 214/97 H 10/09/23 02:00 16 218/95 H 98 10/09/23 01:56 16 199/104 H 94 10/09/23 01:00 54 L 16 225/111 H 99 10/09/23 00:54 53 L 15 237/99 H 99 10/09/23 00:42 100 10/09/23 00:10 59 L 15 99 10/09/23 00:00 51 L 16 218/106 H 99 10/08/23 23:51 53 L 10/08/23 23:50 51 L 16 100 10/08/23 19:39 37 C 63 18 193/86 H 96 O2 Del Method 10/09/23 06:05 10/09/23 05:30 Room Air 10/09/23 05:00 Room Air 10/09/23 04:50 Room Air 10/09/23 04:49 Room Air 10/09/23 04:30 Room Air 10/09/23 04:00 Room Air 10/09/23 03:51 Room Air 10/09/23 03:50 Room Air 10/09/23 03:00 Room Air 10/09/23 02:30 10/09/23 02:00 Room Air 10/09/23 01:56 Room Air 10/09/23 01:00 Room Air 10/09/23 00:54 Room Air 10/09/23 00:42 Room Air 10/09/23 00:10 Room Air 10/09/23 00:00 Room Air 10/08/23 23:51 10/08/23 23:50 Room Air 10/08/23 19:39 Room Air Laboratory Results Laboratory Results WBC 4.76 K/ul (4.8-10.8) L 10/08/23 Unknown RBC 3.89 M/uL (4.20-5.40) L 10/08/23 Unknown Hgb 12.2 g/dl (12.0-16.0) 10/08/23 Unknown Hct 36.4 % (37.0-47.0) L 10/08/23 Unknown MCV 93.6 fL (80.0-100.0) 10/08/23 Unknown MCH 31.4 pg (25.0-34.0) 10/08/23 Unknown MCHC 33.5 g/dL (32.0-36.0) 10/08/23 Unknown RDW Std Deviation 38.8 fL (36.4-46.3) 10/08/23 Unknown RDW Coeff of Isabella 11.4 % (11.5-14.5) L 10/08/23 Unknown Plt Count 216 K/uL (130-400) 10/08/23 Unknown MPV 9.3 fL (9.4-12.4) L 10/08/23 Unknown Immature Gran % (Auto) 0.2 % 10/08/23 Unknown Neut % (Auto) 60.6 % 10/08/23 Unknown Lymph % (Auto) 30.0 % 10/08/23 Unknown Anson % (Auto) 9.0 % 10/08/23 Unknown Eos % (Auto) 0.0 % 10/08/23 Unknown Baso % (Auto) 0.2 % 10/08/23 Unknown Neut # (Auto) 2.88 K/uL (1.40-6.50) 10/08/23 Unknown Lymph # (Auto) 1.43 K/uL (1.20-3.40) 10/08/23 Unknown Anson # (Auto) 0.43 K/uL (0.11-0.59) 10/08/23 Unknown Eos # (Auto) 0.00 K/uL (0.00-0.50) 10/08/23 Unknown Baso # (Auto) 0.01 K/uL (0.00-0.20) 10/08/23 Unknown Immature Gran # (Auto) 0.01 K/uL (0.01-0.20) 10/08/23 Unknown Sodium 135 mmol/L (136-145) L 10/08/23 Unknown Potassium 3.7 mmol/L (3.5-5.1) 10/08/23 Unknown Chloride 101 mmol/L (98-107) 10/08/23 Unknown Carbon Dioxide 23 mmol/L (21-32) 10/08/23 Unknown Anion Gap 11 (3-11) 10/08/23 Unknown BUN 18 mg/dl (6-23) 10/08/23 Unknown Creatinine 0.91 mg/dl (0.6-1.2) 10/08/23 Unknown Est Cr Clr Drug Dosing 43.3 ml/min 10/08/23 Unknown Est GFR ( Amer) 69.5 ml/min 10/08/23 Unknown Est GFR (Non-Af Amer) 60.0 ml/min 10/08/23 Unknown BUN/Creatinine Ratio 19.8 (10-20) 10/08/23 Unknown Glucose 94 mg/dl (70-99(Fasting)) 10/08/23 Unknown Calcium 9.8 mg/dl (8.6-10.3) 10/08/23 Unknown Total Bilirubin 0.5 mg/dl (0.2-1.0) 10/08/23 Unknown AST 19 U/L (13-39) 10/08/23 Unknown ALT 15 U/L (7-52) 10/08/23 Unknown Alkaline Phosphatase 65 U/L (34-104) 10/08/23 Unknown Troponin I High Sens 19.2 pg/ml (0-14) H D 10/09/23 00:47 Total Protein 7.6 gm/dl (6.0-8.3) 10/08/23 Unknown Albumin 4.7 gm/dl (3.4-5.0) 10/08/23 Unknown Globulin 2.9 gm/dl (2.5-4.0) 10/08/23 Unknown Albumin/Globulin Ratio 1.6 (0.9-2) 10/08/23 Unknown Lipase 79 U/L (11-82) 10/08/23 Unknown TSH 2.164 uIu/ml (0.300-4.500) 10/08/23 Unknown Urine Color Yellow 10/08/23 Unknown Urine Appearance Clear (Clear) 10/08/23 Unknown Urine pH 7.0 (4.5-7.5) 10/08/23 Unknown Ur Specific [place] 1.009 (1.000-1.030) 10/08/23 Unknown Urine Protein Negative (Negative) 10/08/23 Unknown Urine Glucose (UA) Negative (Negative) 10/08/23 Unknown Urine Ketones Negative (Negative) 10/08/23 Unknown Urine Blood Negative (Negative) 10/08/23 Unknown Urine Nitrite Negative (Negative) 10/08/23 Unknown Urine Bilirubin Negative (Negative) 10/08/23 Unknown Urine Urobilinogen Negative (Negative) 10/08/23 Unknown Ur Leukocyte Esterase Negative (Negative) 10/08/23 Unknown Adenovirus (PCR) Not Detected (NotDetected) 10/09/23 00:47 B. pertussis DNA (PCR) Not Detected (NotDetected) 10/09/23 00:47 B.parapertussis DNA PCR Not Detected (NotDetected) 10/09/23 00:47 C. pneumoniae DNA (PCR) Not Detected (NotDetected) 10/09/23 00:47 Coronavirus OC43 (PCR) Not Detected (NotDetected) 10/09/23 00:47 Coronavirus HKU1 (PCR) Not Detected (NotDetected) 10/09/23 00:47 Coronavirus 229E (PCR) Not Detected (NotDetected) 10/09/23 00:47 SARS-CoV-2 (PCR) Not Detected (NotDetected) 10/09/23 00:47 Coronavirus NL63 (PCR) Not Detected (NotDetected) 10/09/23 00:47 Human Metapneumovir PCR Not Detected (NotDetected) 10/09/23 00:47 Influenza Type A (PCR) Not Detected (NotDetected) 10/09/23 00:47 Influenza Type B (PCR) Not Detected (NotDetected) 10/09/23 00:47 M. pneumoniae (PCR) Not Detected (NotDetected) 10/09/23 00:47 Parainfluenza 1 (PCR) Not Detected (NotDetected) 10/09/23 00:47 Parainfluenza 2 (PCR) Not Detected (NotDetected) 10/09/23 00:47 Parainfluenza 3 (PCR) Not Detected (NotDetected) 10/09/23 00:47 Parainfluenza 4 (PCR) Not Detected (NotDetected) 10/09/23 00:47 RSV (PCR) Not Detected (NotDetected) 10/09/23 00:47 Entero/Rhino (PCR) Not Detected (NotDetected) 10/09/23 00:47 Impressions Chest X-Ray 10/08/23 19:42 SINGLE VIEW CHEST CLINICAL HISTORY: Atypical chest pain FINDINGS: A PA chest radiograph is compared to study dated 03/12/2010. The cardiomediastinal silhouette is unremarkable noting atherosclerotic calcification of the thoracic aorta. The lungs and pleural spaces are clear. No pneumothorax is seen. The skeletal structures are osteopenic. The bony thorax is grossly intact. Cholecystectomy clips are noted in the right upper quadrant. IMPRESSION: No active disease in the chest. ACT 112: Negative or not required by law. Electronically signed by: Shahbaz Watkins M.D. 10/08/2023 9:[address] 10/09/23 00:10 Exam(s): CT HEAD Without Contrast EXAM: CT Head Without Intravenous Contrast CLINICAL HISTORY: Reason for exam: dizzy,htn. TECHNIQUE: Axial computed tomography images of the head/brain without intravenous contrast. CTDI is 38.17 mGy and DLP is 624.41 mGy-cm. Automated exposure control was utilized for the study. A dose lowering technique was utilized adhering to the principles of ALARA. COMPARISON: Comparison made to prior brain MRI from October 19, 2022. FINDINGS: Brain: Unremarkable. No hemorrhage. Moderate nonspecific white matter changes. No edema. Ventricles: Unremarkable. No ventriculomegaly. Bones/joints: Hyperostosis frontalis interna. No acute fracture. Soft tissues: Bilateral lens replacements. Sinuses: Unremarkable as visualized. No acute sinusitis. Mastoid air cells: Unremarkable as visualized. No mastoid effusion. IMPRESSION: No evidence of acute intracranial pathology. Electronically signed by: Susan Polanco MD 10/09/23 04:05 AM ECG Additional Comments: EKG with sinus bradycardia, no acute ischemic changes PG Care Time/CCT Total # of Minutes Spent Total Time Spent with Patient: Total time spent is greater than 50% in coordination of care (as documented) at patient's floor/unit and/or counseling patient: Coding Level of Care Code 07290 INT INP/OBS CARE 3/75MIN Diagnoses HTN (hypertension) I10 Anxiety F41.9 Mild cognitive impairment G31.84 Hypothyroidism E03.9 COPD (chronic obstructive pulmonary disease) J44.9 Bipolar 2 disorder F31.81
[2023-10-09 06:53] LABS: Magnesium 1.9 mg/dl (1.7-2.4); Phosphorus 2.5 mg/dl (2.5-4.9)
[2023-10-09] MEDS ORDERED: hydrALAZINE HCL 20 MG/ML VIAL IV PRN ×3 (08:46→16:56)
--- NOTE | 2023-10-09 09:13 | Hospitalist Progress Note ---
Date of Service October 09, 2023 Assessment & Plan (1) HTN (hypertension): Plan: Blood pressure poorly controlled over the last month. Patient with mild elevation of troponin at 19.2. No report of chest pain. No ischemic changes noted on EKG. -Admit to PCU -Check TSH, Cortisol, Aldosterone levels -Check renal artery duplex -Mg x 1gm IV -Continue Lisinopril 10mg po daily - dose given in ER -Initiate Amlodipine 5mg po daily -Will decrease Clonidine to 0.1mg po daily with plan to discontinue on discharge as medication is not helping BP or anxiety and she is developing side effects from this 10/09 Changed to OBS Renal US ordered for further eval -- NEGATIVE for RADAMES as suspected Amlodipine 5mg daily, increased lisinopril to 20mg daily -Labetalol 10mg IV q 4 hours as needed for blood pressure >180/110 -Hydralazine 5mg IV q 4 hours as needed for blood pressure > 180/110 Discussed, patient NEWLY placed on clonidine for anxiety symptoms, likely contributing to rebound HTN. Discussed prn ativan, but also can trial Vistaril while inpatient and see if beneficial. monitor BP, likely dc tomorrow Of note, patient is [facility] PCP, prior seen inpatient by (2) Anxiety: Plan: Chronic, recently NOT controlled Continue home Fluoxetine 30mg po daily Continue Trazodone qHS Continue Ativan - takes maybe once daily --> discussed maybe 2-3 times a day but prevention of dependance and will attempt low dose vistaril while inpatient to see if effective Patient reports increased anxiety which is likely causing elevated blood pressures as well -- REASON FOR RECENTLY STARTING CLONIDINE, DISCONTINUED FOR NOW (3) Mild cognitive impairment: Plan: Chronic -Continue Memantine 5mg po BID -Frequent orientation, ambulation with assistance as tolerated, maintenance of sleep/wake cycle where able for delirium prevention B12 prior 180s earlier this year. will repeat. consider IM injections pending results (4) Hypothyroidism: Plan: Chronic TSH wnl -Continue Synthroid 25mcg po daily (5) COPD (chronic obstructive pulmonary disease): Plan: Chronic. Stable -Continue Anoro Ellipta -Continue Albuterol PRN (6) Bipolar 2 disorder: Plan: Chronic -Continue Lamictal 200mg po qHS Plan continued inpatient stay, monitor BP Supervising Physician Co-Signing Physician Notes The patient was not seen by me. The chart was reviewed. Case discussed with MIGUEL Borja. Agree with assessment and plan Subjective bridge note; admitted this morning Eval in room, family at bedside. No CP/headache/SOB reported. Does have significant anxiety at baseline, believes clonidine started by Dr Alonso in the past week. Salgado w/ anxiety contributing to elevated BP and vice versa. Has ativan, uses maybe once a day. BP 188/88 most recently. Discussed likely clonidine causing rebound hypertension, will discontinue. Discussed lisinopril increase and amlodipine. Discussed low dose Vistaril to help w/ anxiety symptoms. Physical Exam 2 Physical Exam: General: patient anxious in appearance, answers some questions but is mostly quiet during encounter, family at bedside Skin: warm, dry, intact, no rashes or lesions HEENT: NC/AT, PERRL, EOMI, anicteric sclera, conjunctiva without injection, external ear normal to inspection and nontender, nares patent, moist mucus membranes, dentition intact, no oropharyngeal lesions, neck supple, trachea midline, no LAD, no thyromegaly, no JVD Heart: +S1/S2, regular, 2/6 DAISY across precordium Lungs: equal air entry bilaterally, no rales/rhonchi/wheezes Abd: +BS, soft, NT/ND, no masses/organomegaly/ascites Ext: warm, 2+ pulses in UE/LE bilaterally, no clubbing/cyanosis or edema Neuro: nonfocal. 5/5 strength in UE/LE bilaterally Results & Data Results & Data Vital Signs (Past 12 Hours) Vital Signs Pulse Pulse Resp BP BP Pulse Ox O2 Del Method 10/09/23 08:24 60 20 195/88 H 98 Room Air 10/09/23 07:02 83 10/09/23 06:05 79 10/09/23 05:30 71 14 198/96 H 97 Room Air 10/09/23 05:00 63 19 200/124 H 97 Room Air 10/09/23 04:50 65 16 204/101 H 97 Room Air 10/09/23 04:49 62 19 204/101 H 97 Room Air 10/09/23 04:30 60 18 185/97 H 97 Room Air 10/09/23 04:00 62 19 196/94 H 98 Room Air 10/09/23 03:51 59 L 14 190/105 H 98 Room Air 10/09/23 03:50 78 23 190/105 H 97 Room Air 10/09/23 03:00 18 200/95 H 97 Room Air 10/09/23 02:30 15 214/97 H 10/09/23 02:00 16 218/95 H 98 Room Air 10/09/23 01:56 16 199/104 H 94 Room Air 10/09/23 01:00 54 L 16 225/111 H 99 Room Air 10/09/23 00:54 53 L 15 237/99 H 99 Room Air 10/09/23 00:42 100 Room Air 10/09/23 00:10 59 L 15 99 Room Air 10/09/23 00:00 51 L 16 218/106 H 99 Room Air 10/08/23 23:51 53 L 10/08/23 23:50 51 L 16 100 Room Air Laboratory Results 10/08/23 Unknown 10/08/23 Unknown Diagnostic Findings Chest X-Ray 10/08/23 19:42 SINGLE VIEW CHEST CLINICAL HISTORY: Atypical chest pain FINDINGS: A PA chest radiograph is compared to study dated 03/12/2010. The cardiomediastinal silhouette is unremarkable noting atherosclerotic calcification of the thoracic aorta. The lungs and pleural spaces are clear. No pneumothorax is seen. The skeletal structures are osteopenic. The bony thorax is grossly intact. Cholecystectomy clips are noted in the right upper quadrant. IMPRESSION: No active disease in the chest. ACT 112: Negative or not required by law. Electronically signed by: Shahbaz Watkins M.D. 10/08/2023 9:[address] 10/09/23 00:10 Exam(s): CT HEAD Without Contrast EXAM: CT Head Without Intravenous Contrast CLINICAL HISTORY: Reason for exam: dizzy,htn. TECHNIQUE: Axial computed tomography images of the head/brain without intravenous contrast. CTDI is 38.17 mGy and DLP is 624.41 mGy-cm. Automated exposure control was utilized for the study. A dose lowering technique was utilized adhering to the principles of ALARA. COMPARISON: Comparison made to prior brain MRI from October 19, 2022. FINDINGS: Brain: Unremarkable. No hemorrhage. Moderate nonspecific white matter changes. No edema. Ventricles: Unremarkable. No ventriculomegaly. Bones/joints: Hyperostosis frontalis interna. No acute fracture. Soft tissues: Bilateral lens replacements. Sinuses: Unremarkable as visualized. No acute sinusitis. Mastoid air cells: Unremarkable as visualized. No mastoid effusion. IMPRESSION: No evidence of acute intracranial pathology. Electronically signed by: Susan Polanco MD 10/09/23 04:05 AM Renal Artery Duplex 10/09/23 10:35 US duplex renal artery HISTORY: 77 years-old Female hypertesnion acute hypertension. COMPARISON: None TECHNIQUE: Multiple real-time sonographic images of the renal vascular structures were obtained assessing grayscale appearance, color spectral flow FINDINGS: Normal wave forms in the abdominal aorta, peak systolic velocities measuring up to 75 cm/s. Patent bilateral renal arteries and veins. No significantly elevated peak systolic velocities to suggest high-grade stenosis. Resistive indices measure up to 0.74 on the right and 0.75 on the left. IMPRESSION: No evidence of renal arterial stenosis. ACT 112: Negative or not required by law. The above report was generated using voice recognition software. It may contain grammatical, syntax or spelling errors. Electronically signed by: Ramon hCeung M.D. 10/09/2023 12:34 PM PG Care Time/CCT Total # of Minutes Spent Total Time Spent with Patient: Total time spent is greater than 50% in coordination of care (as documented) at patient's floor/unit and/or counseling patient: Coding Level of Care Code None Diagnoses HTN (hypertension) I10 Anxiety F41.9 Mild cognitive impairment G31.84 Hypothyroidism E03.9 COPD (chronic obstructive pulmonary disease) J44.9 Bipolar 2 disorder F31.81
[2023-10-09] MEDS: lisinopril 20 MG TAB PO SCH (09:31)
[2023-10-09] MEDS: amLODIPine BESYLATE 5 MG TAB PO SCH (09:31)
[2023-10-09] MEDS ORDERED: ACETAMINOPHEN 325 MG TAB PO PRN (09:56)
[2023-10-09] MEDS ORDERED: LABETALOL HCL IV 5 MG/ML 20ML IV PRN (09:56)
[2023-10-09] MEDS ORDERED: ONDANSETRON INJ 2 MG/ML 2 ML VIAL IV PRN (09:56)
[2023-10-09] MEDS ORDERED: LORazepam 0.5 MG TAB PO PRN (09:56)
[2023-10-09] MEDS ORDERED: cloNIDine HCL 0.1 MG TAB PO SCH (09:56)
[2023-10-09] MEDS ORDERED: lisinopril 10 MG TAB PO SCH (09:56)
[2023-10-09] MEDS ORDERED: ALBUTEROL HFA 8 GM INHALER INH PRN (09:56)
--- NOTE | 2023-10-09 11:10 | Electrocardiogram Report ---
Test Reason : Blood Pressure : / mmHG Vent. Rate : 053 BPM Atrial Rate : 053 BPM P-R Int : 166 ms QRS Dur : 096 ms QT Int : 474 ms P-R-T Axes : 078 046 087 degrees QTc Int : 444 ms Sinus bradycardia Poor R wave progression, consider anterior DC vs. lead placement vs. LVH Abnormal ECG When compared with ECG of 23-APR-2023 16:02, Nonspecific T wave abnormality no longer evident in Inferior leads Confirmed by Britton Brown ([id number]) on 10/09/2023 11:09:50 AM Referred By: [facility] Confirmed By:Modesto Brown
[2023-10-09] MEDS: UMECLIDINIUM/VILANTEROL 62.5/25MCG 7 PUFFS/INHALER INH SCH (12:31)
[2023-10-09] MEDS: DORZOLAMIDE HCL 2% OPH SOLN 10 ML BTL OP SCH ×2 (12:31→20:26)
[2023-10-09] MEDS: FAMOTIDINE 20 MG TAB PO SCH (12:31)
[2023-10-09] MEDS: LEVOTHYROXINE SODIUM 25 MCG TABLET PO SCH (12:32)
[2023-10-09] MEDS: FLUoxetine HCL 20 MG CAP PO SCH (12:32)
[2023-10-09] MEDS: MEMANTINE HCL 5 MG TAB PO SCH ×2 (12:32→20:25)
[2023-10-09] MEDS: FLUoxetine HCL 10 MG CAP PO SCH (12:32)
--- NOTE | 2023-10-09 12:35 | Ultrasound Report ---
US duplex renal artery HISTORY: 77 years-old Female hypertesnion acute hypertension. COMPARISON: None TECHNIQUE: Multiple real-time sonographic images of the renal vascular structures were obtained asses sing grayscale appearance, color spectral flow FINDINGS: Normal wave forms in the abdominal aorta, peak systolic velocities measuring up to 75 cm/s. Patent bi lateral renal arteries and veins. No significantly elevated peak systolic velocities to suggest high- grade stenosis. Resistive indices measure up to 0.74 on the right and 0.75 on the left. IMPRESSION: No evidence of renal arterial stenosis. ACT 112: Negative or not required by law. The above report was generated using voice recognition software. It may contain grammatical, syntax o r spelling errors. Electronically signed by: Ramon Cheung M.D. 10/09/2023 12:34 PM
--- OUTSIDE RECORDS SUMMARY | 2023-10-09 14:17 | External Medical Summary | Summary of Care ---
Author Name Unknown Organization [facility] Address [address] [address] Phone [phone] Care Team Providers Care Paediatric Surgeon Name Role Phone Kamille Medina MD Primary Care Provider + Reason for Visit * Reason Comments Outpatient Testing Encounter Details Date Type Department Care Team (Late st Contact Info) Description 09/16/2023 10:50 AM EST Laboratory Laboratory, [facility] [address] [facility] [id number] [facility] [address] [facility] [place] [id number] Stage 3a chronic kidney disease; Hypercalcemia Allergies Active Allergy Reactions Criticality Noted Date Comments Aripiprazole 08/25/2018 Aripiprazole 06/28/2013 Moxifloxacin Hcl In [place]acl 02/08/2010 Rash/severe diarrhea Cortisone Acetate 05/20/2010 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[place] 05/20/2010 Hives lethargic Moxifloxacin Hydrochloride 0 Hives diarrhea documented as of this encounter (statuses as of 09/16/2023) Medications Medication Sig Dispensed Refills Start Date End Date Status LAMOTRIGINE 200 MG PO TABS one tablet by mouth daily at bedtime 0 07/12/2012 Active TRAZODONE HCL 50 MG PO TABS one tablet at bedtime/DR Escobedo 30 Tab 5 10/17/2013 Active Bimatoprost 0.01 % Ophthalmic Solution Instill 1 Drop into both eyes at bedtime. 3 mL 12 05/07/2015 Active dorzolamide (TRUSOPT OCUMETER PLUS) 2 % ophthalmic solution Instill 1 Drop into both eyes in the morning and 1 Drop before bedtime. 0 06/26/2018 Active Acetaminophen ER 650 MG Oral Tablet Extended Release Take 2 Tablets by mouth in the morning and 2 Tablets before bedtime. 0 Active FLUoxetine HCl 20 MG Oral Capsule Take 1 Capsule by mouth in the morning. Take in addition to 10 mg capsule. 0 Active Zoster Vac Recomb Adjuvanted 50 MCG/0.5ML Intramuscular Suspension Reconstituted (Shingrix) Inject 0.5 mL into a large muscle now and repeat dose in 60 to 180 days 1 Each 1 02/13/2021 Active Anoro Ellipta 62.5-25 MCG/INH Inhalation Aerosol Powder Breath Activated (umeclidinium-vilante rol)Indications:COPD, group A, by GOLD 2017 classification ([facility]) INHALE 1 PUFF BY MOUTH EVERY DAY 60 Each 5 06/03/2022 Active Albuterol Sulfate HFA 108 (90 Base) MCG/ACT Inhalation Aerosol SolutionIndications:C OPD, group A, by GOLD 2017 classification ([facility]) INHALE 2 PUFFS BY MOUTH EVERY 4 HOURS NEEDED FOR SHORTNESS OF BREATH 18 g 11 06/05/2022 Active Levothyroxine Sodium 25 MCG Oral Tablet (Levoxyl)Indications: Acquired hypothyroidism TAKE 1 TABLET BY MOUTH EVERY DAY AT LEAST 30 MINUTES BEFORE BREAKFAST OR OTHER MEDS 90 Tablet 2 07/27/2022 Active Benefiber Oral PowderIndications:Con stipation, unspecified constipation type Take 1 Tbsf in a glass of water daily 245 g 5 10/24/2022 Active Memantine HCl 5 MG Oral Tablet (Namenda)Indications: Memory disturbance Take 1 Tablet by mouth 2 times a day with morning and evening meals. 30 Tablet 3 03/05/2023 Active Famotidine 20 MG Oral Tablet (Pepcid) Take 1 Tablet by mouth in the morning. 0 03/23/2023 Active Atorvastatin Calcium 20 MG Oral Tablet (Lipitor)Indications: Hyperlipidemia with target LDL less than 130 TAKE 1 TABLET BY MOUTH EVERY DAY 90 Tablet 0 04/15/2023 Active LORazepam 0.5 MG Oral Tablet (Ativan) Take 0.5 Tablets by mouth in the morning and 0.5 Tablets before bedtime. 1 Tablet 0 04/30/2023 Active Aspirin 81 MG Oral Tablet Chewable Take 1 Tablet by mouth in the morning. 0 Active Boost Oral Liquid Take by mouth daily. 0 Active Centrum Silver 50+Women Oral Tablet Take 1 Tablet by mouth in the morning. 0 Active CertaVite Senior/Antioxidant Oral Tablet Take 1 Tablet by mouth in the morning. 0 Active FLUoxetine HCl 10 MG Oral Capsule Take 1 Capsule by mouth in the morning. In addition to 20 mg capsule. 0 Active Polyethylene Glycol 3350 8.5 GM Oral Packet Take 8.5 g by mouth in the morning. Mix in 8 oz of orange juice or water. 0 Active Vitamin B-12 1000 MCG Oral Tablet (Cyanocobalamin) Take 2 Tablets by mouth in the morning. 0 Active Fluocinonide 0.05 % External Solution Apply topically to scalp and right ear every day as needed for psoriasis 60 mL 3 09/11/2023 Active Abrysvo 120 MCG/0.5ML Intramuscular Solution Reconstituted (RSV Pre-Fusion F A&B Vac Rcmb) Inject 0.5 mL into a large muscle once for 1 dose. 1 Each 0 09/15/2023 09/16/2023 Active Hospital, Clinic, or Other Facility Administered Medication Ordered Dose Route Frequency Start Date End Date Status albuterol sulfate (PROVENTIL) (2.5 MG/3ML) 0.083% inhalation solution 2.5 mgIndications:COPD, mild (HCC),Pulmonary emphysema, unspecified emphysema type (HCC) 2.5 mg NEBULIZER Q4H PRN 06/09/2017 Acti ve documented as of this encounter (statuses as of 09/16/2023) Active Problems Problem Noted Date Diagnosed Date Parkinson's syndrome 09/15/2023 Prediabetes 10/21/2021 Overview: Per Prediabetes protocol Stage 3a chronic kidney disease 08/20/2020 Overview: Per CKD protocol Non-rheumatic aortic sclerosis 07/02/2020 COPD, group B, by GOLD 2017 classification 10/24 Overview: Per COPD GOLD Classification Lumbar degenerative disc disease 09/29/2019 Osteoarthritis of spine with radiculopathy, lumb ar region 09/29/2019 Spondylolisthesis, lumbar region 09/29/2019 History of tobacco use 09/29/2019 Body mass index (BMI) of 27.0 to 27.9 in adult 1 10/25/2017 Overview: ICD-10 update of inactive term Acquired hypothyroidism 07/08/2018 Generalized osteoarthritis 03/19/2015 Psoriasis of scalp 03/13/2015 Bipolar 2 disorder Hyperlipidemia with target LDL less than 130 Overview: ICD-10 update of inactive term documented as of this encounter (statuses as of 09/16/2023) Resolved Problems Problem Noted Date Diagnosed Date Resolved Date Bipolar I disorder, most rec ent episode depressed 07/02/2020 01/04/2021 Lumbar spine pain 09/29/2019 01/04/2021 Radiculopathy, lumbar region 09/29/2019 01/04/2021 Prediabetes 08/22/2019 04/25/2021 Overview: Per Prediabetes protocol COPD, group A, by GOLD 2017 classification 03/21/2019 10/27/2019 Overview: Per COPD GOLD Classification Pain in right hip 07/21/2018 01/04/2021 Kidney disease, chronic, sta ge III (GFR 30-59 ml/min) 07/19/2018 08/23/2020 Overview: Per CKD protocol #1 Major depressive disorder wi th single episode, in partial remission 07/08/2018 01/04/2021 Encounter for examination fo r normal comparison and control in clinical research program 05/17/2018 05/14/2020 Overview: DO NOT DELETE [facility] DETECT Study: Project # [id number], Global Human Resources Director: Inocencio Dan, PhD. SUMMARY: Goal: Establish test characteristics (sensitivity, specificity, PPV, NPV) of a circulating tumor DNA (ctDNA)-based test for cancer. Hypothesis: Circulating tumor DNA (ctDNA) and elevated protein biomarkers (together, the marker panel) can be detected in asymptomatic individuals with early cancer. Specific Aim 1: Determine the prevalence of a positive marker panel test in a prospective clinical cohort of 10,000 asymptomatic women ages 65 to 75 years. Specific Aim 2: Determine the sensitivity, specificity, positive predictive value (PPV) and negative predictive value (NPV) of a marker panel test to identify histologically proven cancers that develop within 5-years of the marker panel evaluation. CONTACTS: During normal business hours, contact study staff at ; after hours Global Human Resources Director via the [facility] cloth shrinking machine operator . Please contact study team before resolving/deleting from patients problem list. Study phone number: [phone]. Diagnosis changed due to Research Module. Go to Snapshot for study details. Encounter for examination fo r normal comparison and control in clinical research program 05/17/2018 06/12/2022 Overview: DO NOT DELETE - [facility] Study: Project # [id number], Global Human Resources Director: Dominic Lockhart, MS, MPH. SUMMARY: Goal: Establish test characteristics (sensitivity, specificity, PPV, NPV) of a circulating tumor DNA (ctDNA)-based test for cancer. - Hypothesis: Circulating tumor DNA (ctDNA) and elevated protein biomarkers (together, the marker panel) can be detected in asymptomatic individuals with early cancer. - Specific Aim 1: Determine the prevalence of a positive marker panel test in a prospective clinical cohort of 10,000 asymptomatic women ages 65 to 75 years. - Specific Aim 2: Determine the sensitivity, specificity, positive predictive value (PPV) and negative predictive value (NPV) of a marker panel test to identify histologically proven cancers that develop within 5-years of the marker panel evaluation. - CONTACTS: During normal business hours, contact study staff at ; after hours Global Human Resources Director via the [facility] cloth shrinking machine operator . - Please contact study team before resolving/deleting from patients problem list. Study phone number: [phone]. Diagnosis changed due to Research Module. Go to Snapshot for study details. Abnormal lung function test 06/09/2017 08/02/2019 penitentiary current use of non -steroidal anti-inflammatories (NSAID) 03/19/2015 07/08/2018 Parkinson's syndrome 03/01/2013 016 Parkinson's disease 11/28/2011 07/12/20 12 Muscle weakness (generalized) 11/11/2011 01/04/2021 Major depressive disorder Overview: ICD-10 update of inactive term COPD with emphysema 07/08/20 18 Psoriatic arthropathy 2014 Major depressive disorder Overview: ICD-10 update of inactive term History of colonic polyps Overview: ICD-10 update of inactive term COPD, mild 03/23/2019 Overview: Per COPD GOLD Classification Hypothyroid 07/25/2016 documented as of this encounter (statuses as of 09/16/2023) Immunizations Name Administration Dates Next Due COVID-19 mRNA, LNP-s, No Pre serve, 2-Dose Series (Moderna) 12/10/2020,11/12/2020 COVID-19, mRNA, LNP-s, PF, B ooster, 100mcg/0.5mg (Moderna) 03/18/2022,08/29/2021 Pneumococcal Conjugate Vacc, 13 Valent (Prevnar) 01/01/2015 Pneumococcal Polysaccharide PPV23 (Pneumovax) 03/16/2010 RSV Vac., Bivalent, Perfusio n F, Pf,0.5 Ml (Abrysvo) 09/15/2023 SEASONAL INFLUENZA, PF, 6 M & Above, IM , (FLULAVAL or FLUZONE) 07/08/2018 Season Influenza, Quad, PF, Adjuvanted, 65+ Yrs, IM (FLUAD) 07/02/2020 Seasonal Influenza Virus Vac cine, Unspecified Formulation 06/20/2022,07/09/2021,07/02/2020,08/02,07/08/2018,07/18/2016,07/10/2015 ,06/20/2014,07/15/2013,07/12/2012,06/13,07/01/2010,11/20/2009 Seasonal Influenza, Quadriva lent Hd (Fluzone Hd) 06/20/2022,07/09/2021 Seasonal Influenza, Quadriva lent, No Preserve, IM 07/18/2016,07/10/2015 Seasonal Influenza, Split, I IV3, With Preserve, Inj 06/20/2014,07/15/2013,07/12/2012,07/08,07/01/2010 Seasonal Influenza, Trivalen t, Adjuvanted, 65+ yrs 08/02/2019 TDAP (age 10 and older)(Boostrix) 06/14/2020, Varicella Zoster Vaccine (Adult) 02/19/2021,02/2008 Zoster Vaccine Recombinant (Shingrix) 02/19/2021 ,09/19/2018,07/10/2018 documented as of this encounter Social History Tobacco Use Types Packs/Day Years Used Date Smoking Tobacco: Former Cigarettes 2 30 Q uit: 10/11/1999 Smokeless Tobacco: Never Comments:Quit 1998 Alcohol Use Standard Drinks/Week Comments Yes 0 (1 standard drink = 0.6 oz pur e alcohol) very rarely AUDIT-C Answer Date Recorded Q1: How often do you have a drink containing alc ohol? 2-4 times a month 02/12/2021 Q2: How many drinks containi ng alcohol do you have on a typical day when you are drinking? 1 or 2 02/12/2021 Q3: How often do you have si x or more drinks on one occasion? Not asked 02/12/2021 PHQ-2 Answer Date Recorded PHQ Adult Total Score 0 11/20/2022 Hunger Vital Sign Answer Date Recorded Worried About Running Out of Food in the Last Ye ar Never true 08/02/2019 Ran Out of Food in the Last Year Never true 08/02/2019 Sex and Gender Information Value Date Recorded Sex Assigned at Female 08/02/2019 10:15 AM EDT Gender Identity Female 08/02/2019 10:15 AM EDT Sexual Orientation Choose not to disclose 2018 10:15 AM EDT Job Start Date Occupation Industry Not on file Not on file Not on file documented as of this encounter Plan of Treatment Upcoming Encounters Date Type Department Care Team (Late st Contact Info) Description 03/23/2024 10:20 AM EDT Office Visit General Internal Medicine [facility] [address] [place] [address] Kamille Medina MD [address] [facility] [place] [address] Pending Results Name Type Priority Associated Diagnoses Date /Time BASIC METABOLIC PANEL Lab Routine Stage 3a chronic kidney disease 09/16/2023 10:51 AM EST PTH Lab Routine Hypercalcemia 09/16/2023 10:51 AM EST PHOSPHORUS Lab Routine Hypercalcemia 09/16/2023 10:51 AM EST Health Maintenance Due Date Last Done Comments Alpha-1 Antitrypsin 12/20/1963 DXA Scan 07/27/2021 07/27/2018, 06/12, 06/21/2013, Additional history exists COVID-19 Vaccine ( season) 2023 03/18/2022, 08/29/2021, 12/10/2020, Additional history exists Influenza Vaccine (FLU shot) (#1) 2023 06/20/2022, 06/20/2022, 07/09/2021, Additional history exists GFR 10/31/2023 04/30/2023, 02/0 06/2023, 10/02/2021, Additional history exists Albumin/Creatinine Ratio 11/20/2023 023, 07/02/2020, 01/17/2019 CKD PHOS USE SMARTSET 08651 11/20/2023 02/0 06/2023, 01/04/2021, 08/12/2019 Depression Screening 11/20/2023 11/20/2022 HbA1c 11/20/2023 11/20/2022, 09/12, 01/04/2021, Additional history exists CKD HGB USE SMARTSET 82867 04/30/202404/30, 04/30/2023, 11/20/2022, Additional history exists TSH 04/30/2024 04/30/2023, 02/0 06/2023, 10/02/2021, Additional history exists O2 ASSESSMENT COMPLETED IN PAST YEAR FOR COPD 06/12/2024 06/12/2023 DTaP,Tdap,and Td Vaccines (3 - Td or Tdap) 06/14/2030 06/14/2020, 07/10/2018 Pneumococcal Vaccine: 65+ Years Completed 01/01/2015, 03/16/2010 Zoster Vaccines Completed 02/19/2021, 02/09, 09/19/2018, Additional history exists COLONOSCOPY-EVERY 5 YRS AGES 18-100 Discontinued 06/12/2023, 06/12/2023, 03/24/2017, Additional history exists GARDASIL-HPV IMMUNIZATION SERIES Aged Out No longer eligible based on patient's age to complete this topic Hepatitis B Aged Out No longer eligi ble based on patient's age to complete this topic MENINGOCOCCAL (MENACTRA/MENVEO) Aged Out No longer eligible based on patient's age to complete this topic documented as of this encounter Medical Devices Not on filedocumented as of this encounter Visit Diagnoses Diagnosis Stage 3a chronic kidney disease Hypercalcemia documented in this encounter Advance Directives Documents on File Type Date Recorded Patient Mainspring Former Expl anation Power of Apricot Washer 12/08/2022 AGATA Ramirez PARENTAL ACCESS REQUEST Advance Directives and Living Will 07/25/2015 ADVANCE DIRECTIVE / LIVING WILL Power of Apricot Washer 07/25/2015 POWER OF A TTORNEY Care Teams Paediatric Surgeon Relationship Specialty Start Date End Date Kamille Medina MD [address] [facility] [place] [address] PCP - General 05/20/10 documented as of this encounter
--- OUTSIDE RECORDS SUMMARY | 2023-10-09 14:17 | External Medical Summary | Summary of Care ---
Author Name Unknown Organization [facility] Address [address] [facility] [place] [address] Phone [phone] Care Team Providers Care Parts Expediter Name Role Phone Prashant Medina MD Primary Care Provider + Reason for Visit * Reason Onset Date Comments Medication Refill 09/24/2023 Encounter Details Date Type Department Care Team (Late st Contact Info) Description 09/24/2023 Refill General Internal Medicine [facility] [place] [address] [place] [address] Prashant Medina MD [address] [place] [address] Allergies Active Allergy Reactions Criticality Noted Date Comments Aripiprazole 08/25/2018 Aripiprazole 06/28/2013 Moxifloxacin Hcl In Nacl 02/08/2010 Rash/severe diarrhea Cortisone Acetate 05/20/2010 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[place] 05/20/2010 Hives lethargic Moxifloxacin Hydrochloride 0 Hives diarrhea documented as of this encounter (statuses as of 09/24/2023) Medications Medication Sig Dispensed Refills Start Date [...] 62.5-25 MCG/INH Inhalation Aerosol Powder Breath Activated (umeclidinium-vilant randall)Indications:SITE IDENTIFICATION SPECIALIST D, group A, by GOLD 2017 classification ([facility]) INHALE 1 PUFF BY MOUTH EVERY DAY 60 Each 5 06/03/2022 Active Albuterol Sulfate HFA 108 (90 Base) MCG/ACT Inhalation Aerosol SolutionIndications: COPD, group A, by GOLD 2017 classification ([facility]) INHALE 2 PUFFS BY MOUTH EVERY 4 HOURS NEEDED FOR SHORTNESS OF BREATH 18 g 11 06/05/2022 Active Levothyroxine Sodium 25 MCG Oral Tablet (Levoxyl)Indications :Acquired hypothyroidism TAKE 1 TABLET BY MOUTH EVERY DAY AT LEAST 30 MINUTES BEFORE BREAKFAST OR OTHER MEDS 90 Tablet 2 07/27/2022 Active Benefiber Oral PowderIndications:Co nstipation, unspecified constipation type Take 1 Tbsf in a glass of water daily 245 g 5 10/24/2022 Active Memantine HCl 5 MG Oral Tablet (Namenda)Indications :Memory disturbance Take 1 Tablet by mouth 2 times a day with morning and evening meals. 30 Tablet 3 03/05/2023 Active Famotidine 20 MG Oral Tablet (Pepcid) Take 1 Tablet by mouth in the morning. 0 03/23/2023 Active Atorvastatin Calcium 20 MG Oral Tablet (Lipitor)Indications :Hyperlipidemia with target LDL less than 130 TAKE 1 TABLET BY MOUTH EVERY DAY 90 Tablet 0 04/15/2023 Active Aspirin 81 MG Oral Tablet Chewable [...] for psoriasis 60 mL 3 09/11/2023 Active LORazepam 0.5 MG Oral Tablet (Ativan) Take 0.5 Tablets by mouth in the morning and 0.5 Tablets before bedtime. 1 Tablet 0 09/24/2023 Active LORazepam 0.5 MG Oral Tablet (Ativan) Take 0.5 Tablets by mouth in the morning and 0.5 Tablets before bedtime. 1 Tablet 0 04/30/2023 3 Discontinue d(Refill) Hospital, Clinic, or Other Facility Administered Medication Ordered Dose Route Frequency Start Date End Date Status albuterol sulfate (PROVENTIL) (2.5 MG/3ML) 0.083% inhalation solution 2.5 mgIndications:COPD, mild (HCC),Pulmonary emphysema, unspecified emphysema type (HCC) 2.5 mg NEBULIZER Q4H PRN 06/09/2017 Acti ve documented as of this encounter (statuses as of 09/24/2023) Active Problems Problem Noted Date Diagnosed Date [...] as of this encounter (statuses as of 09/24/2023) Resolved Problems Problem Noted Date Diagnosed Date [...] program 05/17/2018 05/14/2020 Overview: DO NOT DELETE [facility] DETECT Study: Project # [id number], Trust Mail Clerk: Inocencio Dan, PhD. SUMMARY: Goal: Establish test [...] contact study staff at ; after hours Trust Mail Clerk via the [facility] tube mill operator . Please contact study team before resolving/deleting from patients problem list. Study phone number: [phone]. Diagnosis changed due to Research Module. Go to Snapshot for study details. Encounter for examination fo r normal comparison and control in clinical research program 05/17/2018 06/12/2022 Overview: DO NOT DELETE - [facility] DETECT Study: Project # [id number], Trust Mail Clerk: Dominic Lockhart, MS, MPH. SUMMARY: Goal: Establish [...] contact study staff at ; after hours Trust Mail Clerk via the [facility] hospital tube mill operator . - Please contact study team before resolving/deleting from patients problem list. Study phone number: [phone]. Diagnosis changed due to Research Module. Go to Snapshot for study details. Abnormal lung function test 06/09/2017 08/02/2019 intermediate accountant current use of non -steroidal anti-inflammatories (NSAID) [...] as of this encounter (statuses as of 09/24/2023) Immunizations Name Administration Dates Next Due COVID-19 mRNA, LNP-s, No Pre serve, 2-Dose Series (Moderna) 12/10/2020,11/12/2020 COVID-19, mRNA, LNP-s, PF, B ooster, 100mcg/0.5mg (Moderna) 03/18/2022,08/29/2021 Pneumococcal Conjugate Vacc, 13 Valent (Prevnar) 01/01/2015 Pneumococcal Polysaccharide PPV23 (Pneumovax) 03/16/2010 RSV Vac., Bivalent, Perfusio n F, Pf,0.5 Ml (Abrysvo) 09/15/2023 Season Influenza, Quad, PF, Adjuvanted, 65+ Yrs, IM (FLUAD) 07/02/2020 Seasonal Influenza Virus Vac cine, Unspecified Formulation 06/20/2022,07/09/2021,07/02/2020,08/02,07/08/2018,07/18/2016,07/10/2015 ,06/20/2014,07/15/2013,07/12/2012,06/13,07/01/2010,11/20/2009 Seasonal Influenza, PF, 6 M & above, IM , (FluLaval or Fluzone) 07/08/2018 Seasonal Influenza, Quadriva lent Hd (Fluzone Hd) [...] on file documented as of this encounter Miscellaneous Notes * Telephone Encounter - Prashant Medina MD - 09/24/2023 3:05 PM ESTSigned Prescriptions: Disp Refills LORazepam 0.5 MG Oral Tablet (Ativan) 1 Tabl*0 Sig: Take 0.5 Tablets by mouth in the morning and 0.5 Tablets before bedtime. Authorizing Provider: PRASHANT MEDINA * Telephone Encounter - Lilian Willoughby LPN - 09/24/2023 3:00 PM EST Pending Prescriptions: Disp Refills LORazepam 0.5 MG Oral Tablet (Ativan) 1 Tabl*0 Sig: Take 0.5 Tablets by mouth in the morning and 0.5 Tablets before bedtime. * Telephone Encounter - Bill Marion OSA - 09/24/2023 2:34 PM EST Did you pend patient's preferred pharmacy and medication before forwarding?yes Pharmacy: [facility] [address] Pending Prescriptions: Disp Refills LORazepam 0.5 MG Oral Tablet (Ativan) 1 Tabl*0 Sig: Take 0.5 Tablets by mouth in the morning and 0.5 Tablets before bedtime. Last Visit: 09/15/2023 (in office), Visit date not found (telemedicine) Next Visit: 03/23/2024 If no future appointments scheduled, and last appointment is greater than a year ago, please schedule patient for a follow-up appointment Last date the medication was ordered: 04/30/2023 Is this request for a controlled substance?No Urine Drug Screen:No results found for this or any previous visit. Patient Phone Numbers Labs: Lab Results Component Value Date/Time CREAT 0.9 09/16/2023 10:51 AM CREAT 1.0 08/12/2019 07:01 AM POTASSIUM 3.9 09/16/2023 10:51 AM POTASSIUM 4.1 08/12/2019 07:01 AM TSH 1.26 04/30/2023 11:47 AM TSH 3.51 08/12/2019 07:01 AM LDLCALC 115 04/30/2023 11:47 AM LDLCALC 68 07/12/2018 07:56 AM LDLDIRECT 93 08/12/2019 07:01 AM LDLDIRECT 85 04/25/2014 12:50 PM ALT 14 11/20/2022 10:25 AM ALT 19 08/12/2019 07:01 AM HGBA1C 5.5 11/20/2022 10:25 AM HGBA1C 5.8 (H) 08/12/2019 07:01 AM documented in this encounter Plan of Treatment Upcoming Encounters Date Type Department Care Team (Late st Contact Info) Description 03/23/2024 10:20 AM EDT Office Visit General Internal Medicine [facility] [address] [facility] [place] [address] Prashant Medina MD [address] [facility] [place] [id number] Health Maintenance Due Date Last Done Comments Alpha-1 Antitrypsin 12/20/1963 DXA Scan 07/27/2021 07/27/2018, 06/12, 06/21/2013, Additional history exists COVID-19 Vaccine ( season) 2023 03/18/2022, 08/29/2021, 12/10/2020, Additional history exists Influenza Vaccine (FLU shot) (#1) 2023 06/20/2022, 06/20/2022, 07/09/2021, Additional history exists Albumin/Creatinine Ratio 11/20/2023 023, 07/02/2020, 01/17/2019 Depression Screening 11/20/2023 11/20/2022 HbA1c 11/20/2023 11/20/2022, 09/12, 01/04/2021, Additional history exists GFR 03/17/2024 09/16/2023, 04/12, 11/20/2022, Additional history exists CKD HGB USE SMARTSET 42907 04/30/202404/30, 04/30/2023, 11/20/2022, Additional history exists TSH 04/30/2024 04/30/2023, 06/2023, 10/02/2021, Additional history exists O2 ASSESSMENT COMPLETED IN PAST YEAR FOR COPD 06/12/2024 06/12/2023 CKD PHOS USE SMARTSET 43189 09/16/202403/2023, 11/20/2022, 01/04/2021, Additional history exists DTaP,Tdap,and Td Vaccines (3 - Td or [...] Not on filedocumented as of this encounter Advance Directives Documents on File Type Date Recorded Patient Diesel Mechanic Helper Expl anation Power of Insurance Loss Adjuster 12/08/2022 AGATA Ramirez PARENTAL ACCESS REQUEST Advance Directives and Living Will 07/25/2015 ADVANCE DIRECTIVE / LIVING WILL Power of Insurance Loss Adjuster 07/25/2015 POWER OF A TTORNEY Care Teams Parts Expediter Relationship Specialty Start Date End Date Prashant Medina MD [address] [place] [address], [place] [id number] PCP - General 05/20/10 documented as of this encounter
--- OUTSIDE RECORDS SUMMARY | 2023-10-09 14:17 | External Medical Summary ---
Author Name Unknown Address Unknown Organization [id number]:[facility] - [address] [place] [address] Laboratory Report Ordering Provider Test Date Status ROSENDO CERDA 09/16/2023 10:51:01 Final Observation Date Value Abnormality Reference (Units ) Status Parathyrin.intact [Mass/volume] in Serum or Plasma 09/16/2023 10:51:01 31 15-65 (pg/mL) Final Performing Location [facility] - [address] [place] [address]
--- OUTSIDE RECORDS SUMMARY | 2023-10-09 14:17 | External Medical Summary ---
Author Name Unknown Address Unknown Organization [id number]:[facility] [place] [address] - [address] [place] [id number] Laboratory Report Ordering Provider Test Date Status ROSENDO CERDA 09/16/2023 10:51:01 Final Observation Date Value Abnormality Reference (Units ) Status BUN 09/16/2023 10:51:01 13 6-20 (mg/dL) Final Creatinine 09/16/2023 10:51:01 0.9 0.5-1.0 (mg/dL) Final Glomerular filtration rate/1.73 sq M.predicted [Volume Rate/Area] in Serum, Plasma or Blood by Creatinine-based formula (CKD-EPI) 09/16/2023 10:51:01 65 >=60 (mL/min) Final eGFR is calculated based on the CKD-EPI 2020 equation SODIUM 09/16/2023 10:51:01 138 135-146 (m mol/L) Final Potassium 09/16/2023 10:51:01 3.9 3.5-5.1 (m mol/L) Final Cl 09/16/2023 10:51:01 100 98-107 (mm ol/L) Final CO2 09/16/2023 10:51:01 25 22-32 (mmo l/L) Final Anion gap 09/16/2023 10:51:01 13 7-15 (mmol /L) Final Glucose 09/16/2023 10:51:01 98 70-120 (mg /dL) Final Calcium 09/16/2023 10:51:01 9.8 8.4-10.2 ( mg/dL) Final Performing Location [facility] [place] [address] [place] [id number]
--- OUTSIDE RECORDS SUMMARY | 2023-10-09 14:17 | External Medical Summary ---
Author Name Unknown Address Unknown Organization K01:[facility] - [address] [place] [address] Laboratory Report Ordering Provider Test Date Status PRASHANTROBBINS 09/16/2023 10:51:01 Final Observation Date Value Abnormality Reference (Units ) Status Phosphate 09/16/2023 10:51:01 3.3 2.5-4.8 (m g/dL) Final Performing Location [facility] - [address] [place] [address]
--- OUTSIDE RECORDS SUMMARY | 2023-10-09 14:18 | External Medical Summary | Summary of Care ---
Author Name Unknown Organization [facility] Address [address] [place] [address] Phone [phone] Care Team Providers Care Business Machines Teacher Name Role Phone Kamille Medina MD Primary Care Provider + Reason for Referral * Medication Prior Authorization - Pending Review Specialty Diagnoses / Procedures Referred By Valeria t Referred To Contact Kamille Medina MD [address] [place] [address] Referral ID Status Reason Start Date Expiration Date V isits Requested Visits Authorized [id number] Pending Review 999 999 Reason for Visit * Reason Comments Follow Up Pt here for a 6m f/u Encounter Details Date Type Department Care Team (Latest Contact Info) Description 09/15/2023 2:40 PM EST Office Visit General Internal Medicine [address] [place] [address] [place] [address] Kamille Medina MD 200 [facility] [place] [address] Acquired hypothyroidism*; Bipolar 2 disorder (HCC); Stage 3a chronic kidney disease; COPD, group B, by GOLD 2017 classification (HCC); Prediabetes; Hyperlipidemia with target LDL less than 130; Parkinson's disease without dyskinesia or fluctuating manifestations; Hypercalcemia Allergies Active Allergy Reactions Criticality Noted Date Comments Aripiprazole 08/25/2018 Aripiprazole 06/28/2013 Moxifloxacin Hcl In Nacl 02/08/2010 Rash/severe diarrhea Cortisone Acetate 05/20/2010 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[place] 05/20/2010 Hives lethargic Moxifloxacin Hydrochloride 0 Hives diarrhea documented as of this encounter (statuses as of 09/15/2023) Medications Medication Sig Dispensed Refills Start Date [...] MCG/INH Inhalation Aerosol Powder Breath Activated (umeclidinium-vilant randall)Indications: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 1 Each 0 09/15/2023 3 Active Loratadine 10 MG Oral Tablet (Claritin)Indication s:Dizziness,Post-amrik al drip Take 1 Tablet by mouth at bedtime. X 4 weeks 28 Tablet 0 04/30/2023 3 Discontinue d(Medicatio n List Clean Up) Caltrate 600+D Plus Minerals 600-800 MG-UNIT Oral Tablet Chewable Take by mouth 2 times a day. 0 3 Discontinue d(Patient preference/ discontinua tion) Docusate Sodium 100 MG Oral Capsule (Colace) Take 1 Capsule by mouth in the morning. May take 1 additional capsule by mouth as needed for constipation. 0 3 Discontinue d(Medicatio n List Clean Up) Hospital, Clinic, or Other Facility Administered Medication Ordered Dose Route Frequency Start Date End Date Status albuterol sulfate (PROVENTIL) (2.5 MG/3ML) 0.083% inhalation solution 2.5 mgIndications:COPD, mild (HCC),Pulmonary emphysema, unspecified emphysema type (HCC) 2.5 mg NEBULIZER Q4H PRN 06/09/2017 Acti ve documented as of this encounter (statuses as of 09/15/2023) Active Problems Problem Noted Date Diagnosed Date [...] as of this encounter (statuses as of 09/15/2023) Resolved Problems Problem Noted Date Diagnosed Date [...] program 05/17/2018 05/14/2020 Overview: DO NOT DELETE [facility] DETECT Study: Project # [id number], Centrifuge Separator Tender: Inocencio Dan, PhD. SUMMARY: Goal: Establish test [...] contact study staff at ; after hours Centrifuge Separator Tender via the [facility] [place] [facility] erecting crane operator . Please contact study team before resolving/deleting from patients problem list. Study phone number: [phone]. Diagnosis changed due to Research Module. Go to Snapshot for study details. Encounter for examination fo r normal comparison and control in clinical research program 05/17/2018 06/12/2022 Overview: DO NOT DELETE [facility] DETECT Study: Project # [id number], Centrifuge Separator Tender: Dominic Lockhart, MS, MPH. SUMMARY: Goal: Establish [...] contact study staff at ; after hours Centrifuge Separator Tender via the [facility] [place] hospital erecting crane operator . - Please contact study team before resolving/deleting from patients problem list. Study phone number: [phone]. Diagnosis changed due to Research Module. Go to Snapshot for study details. Abnormal lung function test 06/09/2017 08/02/2019 manager terminal current use of non -steroidal anti-inflammatories (NSAID) [...] as of this encounter (statuses as of 09/15/2023) Immunizations Name Administration Dates Next Due COVID-19 [...] 30 Q uit: 10/11/1999 Smokeless Tobacco: Never Tobacco Cessation:Counseling Given: Not Answered Comments:Quit 1998 Alcohol Use Standard Drinks/Week Comments [...] on file documented as of this encounter Last Filed Vital Signs Vital Sign Reading Time Taken Comments Blood Pressure 138/72 09/15/2023 2:42 PM EST Pulse 52 09/15/2023 2:42 PM EST Temperature 36.9 C (98.4 F) 09/15/2023 2:42 PM ES T Respiratory Rate 16 09/15/2023 2:42 PM EST Oxygen Saturation 97% 09/15/2023 2:42 PM EST Inhaled Oxygen Concentration - - Weight 59.8 kg (131 lb 14.4 oz) 09/15/2023 2:42 PM EST Height 162.6 cm (5' 4.02") 09/15/2023 2:42 PM ES T Body Mass Index 22.63 09/15/2023 2:42 PM EST documented in this encounter Progress Notes * Kamille Medina MD - 09/15/2023 2:51 PM EST HPI: Fabricio Nunez is a 77 year old female with medical problems as listed below who presents with: Chief Complaint Patient presents with Follow Up Pt here for a 6m f/u Patient is here for the recheck. Chart reviewed with the patient including current meds, last labs and HM. No acute event since we saw patient last time including no recent fall or injuries. Discussed labs, has hypercalcemia. Discussed hydration and not taking calcium supplements. States lorazepam use. States meds helping her and prefers continuing. No drowsiness. Denies any chestpain/sob/palpitation/swealling in the legs. denies any cough/sob/wheezing/chestpain. Denies nausea,vomiting, diarrhoea, constipation, abdominal pain or blood in stool. Denies heart burn. Has good appetite. Patient Active Problem List Diagnosis Code Bipolar 2 disorder ([facility]) F31.81 Hyperlipidemia with target LDL less than 130 E78.5 Psoriasis of scalp L40.9 Generalized osteoarthritis M15.9 Acquired hypothyroidism E03.9 Body mass index (BMI) of 27.0 to 27.9 in adult Z68.27 Lumbar degenerative disc disease M51.36 Osteoarthritis of spine with radiculopathy, lumbar region M47.26 Spondylolisthesis, lumbar region M43.16 History of tobacco use Z87.891 COPD, group B, by GOLD 2017 classification ([facility]) J44.9 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 Stage 3a chronic kidney disease N18.31 Prediabetes R73.03 Parkinson's syndrome G20.A1 Current Outpatient Medications Medication Sig Dispense Refill LAMOTRIGINE 200 MG PO TABS one tablet by mouth daily at bedtime TRAZODONE HCL 50 MG PO TABS one tablet at bedtime/DR Escobedo 30 Tab 5 Bimatoprost 0.01 % Ophthalmic Solution Instill 1 Drop into both eyes at bedtime. 3 mL 12 dorzolamide (TRUSOPT OCUMETER PLUS) 2 % ophthalmic solution Instill 1 Drop into both eyes in the morning and 1 Drop before bedtime. FLUoxetine HCl 20 MG Oral Capsule Take 1 Capsule by mouth in the morning. Take in addition to 10 mgcapsule. Anoro Ellipta 62.5-25 MCG/INH Inhalation Aerosol Powder Breath Activated (umeclidinium-vilanterol) INHALE 1 PUFF BY MOUTH EVERY DAY 60 Each 5 Levothyroxine Sodium 25 MCG Oral Tablet (Levoxyl) TAKE 1 TABLET BY MOUTH EVERY DAY AT LEAST 30 MINUTES BEFORE BREAKFAST OR OTHER MEDS 90 Tablet 2 Benefiber Oral Powder Take 1 Tbsf in a glass of water daily 245 g 5 Memantine HCl 5 MG Oral Tablet (Namenda) Take 1 Tablet by mouth 2 times a day with morning and evening meals. 30 Tablet 3 Famotidine 20 MG Oral Tablet (Pepcid) Take 1 Tablet by mouth in the morning. Atorvastatin Calcium 20 MG Oral Tablet (Lipitor) TAKE 1 TABLET BY MOUTH EVERY DAY 90 Tablet 0 LORazepam 0.5 MG Oral Tablet (Ativan) Take 0.5 Tablets by mouth in the morning and 0.5 Tablets before bedtime. 1 Tablet 0 Aspirin 81 MG Oral Tablet Chewable Take 1 Tablet by mouth in the morning. Boost Oral Liquid Take by mouth daily. Centrum Silver 50+Women Oral Tablet Take 1 Tablet by mouth in the morning. FLUoxetine HCl 10 MG Oral Capsule Take 1 Capsule by mouth in the morning. In addition to 20 mg capsule. Polyethylene Glycol 3350 8.5 GM Oral Packet Take 8.5 g by mouth in the morning. Mix in 8 oz of orange juice or water. Vitamin B-12 1000 MCG Oral Tablet (Cyanocobalamin) Take 2 Tablets by mouth in the morning. Acetaminophen ER 650 MG Oral Tablet Extended Release Take 2 Tablets by mouth in the morning and 2 Tablets before bedtime. Zoster Vac Recomb Adjuvanted 50 MCG/0.5ML Intramuscular Suspension Reconstituted (Shingrix) Inject 0.5 mL into a large muscle now and repeat dose in 60 to 180 days 1 Each 1 Albuterol Sulfate HFA 108 (90 Base) MCG/ACT Inhalation Aerosol Solution INHALE 2 PUFFS BY MOUTH EVERY 4 HOURS NEEDED FOR SHORTNESS OF BREATH 18 g 11 Caltrate 600+D Plus Minerals 600-800 MG-UNIT Oral Tablet Chewable Take by mouth 2 times a day. CertaVite Senior/Antioxidant Oral Tablet Take 1 Tablet by mouth in the morning. Fluocinonide 0.05 % External Solution Apply topically to scalp and right ear every day as needed for psoriasis 60 mL 3 Current Facility-Administered Medications Medication Dose Route Frequency Provider Last Rate Last Admin albuterol sulfate (PROVENTIL) (2.5 MG/3ML) 0.083% inhalation solution 2.5 mg 2.5 mg Nebulizer Q4H PRN Ale Santana CRNP 2.5 mg at 12/09/22 1331 The patient's medication list was reviewed and updated as needed. Review of patient's allergies indicates: Allergen Reactions Abilify [Aripiprazole] Aripiprazole Avelox [Moxifloxacin Hcl In Nacl] Rash/severe diarrhea Cortisone Acetate 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[place] Hives lethargic Moxifloxacin Hydrochloride Hives diarrhea Past Medical History: Diagnosis Date Abnormal lung function test 06/09/2017 Acquired hypothyroidism 07/08/2018 Benign neoplasm of colon 03/2012 adenomatous polyps repeat in 3yrs Bipolar I disorder, most recent episode depressed (HCC) COPD (chronic obstructive pulmonary disease) (HCC) COPD, mild (HCC) Depressive disorder, not elsewhere classified Emphysema Hyperlipidemia LDL goal < 130 Hypothyroid Major depressive disorder with single episode, in partial remission (HCC) 07/08/2018 Non-rheumatic aortic sclerosis 07/02/2020 Personal history of colonic polyps 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 Stage 3a chronic kidney disease 08/20/2020 Per CKD protocol Social History Socioeconomic History Marital status: Number of children: 1 Years of education: 22 Occupational History 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 Tobacco Use Smoking status: Former Packs/day: 2.00 Years: 30.00 Additional pack years: 0.00 Total pack years: 60.00 Types: Cigarettes Quit date: 10/11/1999 Years since quittin.9 Smokeless tobacco: Never Tobacco comments: Quit 1998 Vaping Use Vaping Use: Never used Substance and Sexual Activity Alcohol use: Yes Comment: very rarely Drug use: No Sexual activity: Yes Other Topics Concern Seat Belt Yes Social Determinants of Health Food Insecurity: No Food Insecurity (08/02/2019) Hunger Vital Sign Worried About Running Out of Food in the Last Year: Never true Ran Out of Food in the Last Year: Never true Family History Problem Relation Age of Onset Breast Cancer Mother 77 Other (Other) Mother chf Other (psoriasis) Father Other (rheumatoid arthritis) Father All system negative except as per hpi. OBJECTIVE: BP 138/72 (BP Site: Left Arm, BP Position: Sitting, BP Cuff Size: Regular) | Pulse 52 | Temp 36.9 C (98.4 F) (Tympanic) | Resp 16 | Ht 1.626 m (5' 4.02") | Wt 59.8 kg (131 lb 14.4 oz) | SpO2 97% | BMI 22.63 kg/m | BSA 1.64 m PHYSICAL EXAM: HEENT: PERRLA, EOMI, anicteric sclera, b/l tympanic membrane is pearly white, no erythema, no pharyngeal erythema, no lymphadenopathy, neck supple CVS: RRR, no murmurs, rubs or gallops, s1 s 2normal. RESP: clear to auscultation, no wheezing or crackles ABD: soft, NT/ND EXT: no edema, cyanosis, peripheral pulses palpable bilaterally No large joint swelling, no redness, range of motion normal. Skin normal. Gait normal. Mood stable No focal weakness ASSESSMENT AND PLAN: Acquired hypothyroidism (Primary) On levoxyl. Bipolar 2 disorder (HCC) Stage 3a chronic kidney disease - BASIC METABOLIC PANEL; Future; Expected date: 09/15/2023 Advised hydration, avoid nsaids. COPD, group B, by GOLD 2017 classification (HCC) Continue anoro. Helps. Well controlled. Prediabetes Hyperlipidemia with target LDL less than 130 Parkinson's disease without dyskinesia or fluctuating manifestations Stable. Hypercalcemia - PTH; Future; Expected date: 09/15/2023 - PHOSPHORUS; Future; Expected date: 09/15/2023 - XR CHEST 2 VIEWS Other orders - Abrysvo 120 MCG/0.5ML Intramuscular Solution Reconstituted (RSV Pre-Fusion F A&B Vac [facility]); Inject 0.5 mL into a large muscle once for 1 dose. Follow Up: Return in about 6 months (around 03/16/2024) for Return with Physician. | For: Return withPhysician | Check-out note: Nonfasting labs soon any day this week. Kamille Medina MD documented in this encounter Nursing Notes * Leatha Reis LPN - 09/15/2023 3:25 PM EST Pre-Administration Time Out Procedure Performed: Yes Patient Identified (Ask Name/Date of ): Yes Does the patient have a fever greater than 101 degrees today? No Patient allergic to latex? No Has the patient ever fainted after receiving an injection? No VFC Stock: No Injection(s) verified: Yes, Injection Name: RSV Verified Side and Site: Yes Verified Shot(s) with Parent(s)/Patient: Yes documented in this encounter Plan of Treatment Scheduled Orders Name Type Priority Associated Diagnoses Orde r Schedule BASIC METABOLIC PANEL Lab Routine Stage 3a chronic kidney disease Expected: 09/15/2023 (Approximate), Expires: 09/14/2024 PTH Lab Routine Hypercalcemia Expected: 09/15/2023 (Approximate), Expires: 09/14/2024 PHOSPHORUS Lab Routine Hypercalcemia Expected: 09/15/2023 (Approximate), Expires: 09/14/2024 XR CHEST 2 VIEWS Medical Imaging Routine Hypercalcemia Ordered: 09/15/2023 Health Maintenance Due Date Last Done Comments Alpha-1 Antitrypsin 12/20/1963 DXA Scan 07/27/2021 07/27/2018, 06/12, 06/21/2013, Additional history exists COVID-19 Vaccine ( season) 2023 03/18/2022, 08/29/2021, 12/10/2020, Additional history exists Influenza Vaccine (FLU shot) (#1) 2023 06/20/2022, 06/20/2022, 07/09/2021, Additional history exists GFR 10/31/2023 04/30/2023, 02/0 06/2023, 10/02/2021, Additional history exists Albumin/Creatinine Ratio 11/20/2023 023, 07/02/2020, 01/17/2019 CKD PHOS USE SMARTSET 62541 11/20/2023 02/0 06/2023, 01/04/2021, 08/12/2019 Depression Screening 11/20/2023 11/20/2022 HbA1c 11/20/2023 11/20/2022, 09/12, 01/04/2021, Additional history exists CKD HGB USE SMARTSET 78951 04/30/202404/30, 04/30/2023, 11/20/2022, Additional history exists TSH [...] as of this encounter Visit Diagnoses Diagnosis Acquired hypothyroidism- Primary Unspecified hypothyroidism Bipolar 2 disorder (HCC) Other bipolar disorders Stage 3a chronic kidney disease COPD, group B, by GOLD 2017 classification (HCC) Prediabetes Other abnormal glucose Hyperlipidemia with target LDL less than 130 Other and unspecified hyperlipidemia Parkinson's disease without dyskinesia or fluctuating manifestations Hypercalcemia documented in this encounter Advance Directives Documents on File Type Date Recorded Patient Hydraulic Corrugating Machine Operator Expl anation Power of Roping Tender 12/08/2022 AGATA Ramirez PARENTAL ACCESS REQUEST Advance Directives and Living Will 07/25/2015 ADVANCE DIRECTIVE / LIVING WILL Power of Roping Tender 07/25/2015 POWER OF A TTORNEY Care Teams Business Machines Teacher Relationship Specialty Start Date End Date Kamille Medina MD [address] [place] [address] PCP - General 05/20/10 documented as of this encounter
--- OUTSIDE RECORDS SUMMARY | 2023-10-09 14:18 | External Medical Summary | Summary of Care ---
Author Name Unknown Organization [facility] Address [address] [place] [address] Phone [phone] Care Team Providers Care Professor Of Art Name Role Phone Kamille Medina MD Primary Care Provider + Reason for Referral * Medication Prior Authorization - Pending Review Specialty Diagnoses / Procedures Referred By Valeria t Referred To Contact Kamille Medina MD [address] [place] [address] Referral ID Status Reason Start Date Expiration Date V isits Requested Visits Authorized [id number] Pending Review 999 999 Reason for Visit * Reason Comments Follow Up Pt here for a 6m f/u Encounter Details Date Type Department Care Team (Latest Contact Info) Description 09/15/2023 2:40 PM EST Office Visit General Internal Medicine [address] [place] [address] [place] [address] Kamille Medina MD 200 [facility] [place] [address] Acquired hypothyroidism*; Bipolar 2 disorder (HCC); Stage 3a chronic kidney disease; COPD, group B, by GOLD 2017 classification (HCC); Prediabetes; Hyperlipidemia with target LDL less than 130; Parkinson's disease without dyskinesia or fluctuating manifestations; Hypercalcemia Allergies Active Allergy Reactions Criticality Noted Date Comments Aripiprazole 08/25/2018 Aripiprazole 06/28/2013 Moxifloxacin Hcl In Nacl 02/08/2010 Rash/severe diarrhea Cortisone Acetate 05/20/2010 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[place] 05/20/2010 Hives lethargic Moxifloxacin Hydrochloride 0 Hives [...] MCG/INH Inhalation Aerosol Powder Breath Activated (umeclidinium-vilant randall)Indications:CLINICAL NURSING INTERN D, group A, by GOLD 2017 classification ([facility]) INHALE 1 PUFF BY MOUTH EVERY DAY 60 Each 5 06/03/2022 Active Albuterol Sulfate HFA 108 (90 Base) MCG/ACT Inhalation Aerosol SolutionIndications: COPD, group A, by GOLD 2017 classification ([facility]) INHALE 2 PUFFS BY MOUTH [...] Solution Reconstituted (RSV Pre-Fusion F A&B Vac [facility]) Inject 0.5 mL into a large muscle [...] 05/17/2018 05/14/2020 Overview: DO NOT DELETE [facility] DETECT Study: Project # [id number], City Manager: Inocencio Dan, PhD. SUMMARY: Goal: Establish test [...] contact study staff at ; after hours City Manager via the [facility] fiberglass container winding operator . Please contact study team before resolving/deleting from patients problem list. Study phone number: [phone]. Diagnosis changed due to Research Module. Go to Snapshot for study details. Encounter for examination fo r normal comparison and control in clinical research program 05/17/2018 06/12/2022 Overview: DO NOT DELETE [facility] DETECT Study: Project # [id number], City Manager: Dominic Lockhart, MS, MPH. SUMMARY: Goal: Establish [...] contact study staff at ; after hours City Manager via the [facility] fiberglass container winding operator . - Please contact study team before resolving/deleting from patients problem list. Study phone number: [phone]. Diagnosis changed due to Research Module. Go to Snapshot for study details. Abnormal lung function test 06/09/2017 08/02/2019 intermediate designer current use of non -steroidal anti-inflammatories (NSAID) [...] (Prevnar) 01/01/2015 Pneumococcal Polysaccharide PPV23 (Pneumovax) 03/16/2010 SEASONAL INFLUENZA, PF, 6 M & Above, [...] Problem List Diagnosis Code Bipolar 2 disorder ([facility]) F31.81 Hyperlipidemia with target LDL less than 130 E78.5 Psoriasis of scalp L40.9 Generalized osteoarthritis M15.9 Acquired hypothyroidism E03.9 Body mass index (BMI) of 27.0 to 27.9 in adult Z68.27 Lumbar degenerative disc disease M51.36 Osteoarthritis of spine with radiculopathy, lumbar region M47.26 Spondylolisthesis, lumbar region M43.16 History of tobacco use Z87.891 COPD, group B, by GOLD 2017 classification ([facility]) J44.9 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 Stage 3a [...] Nacl] Rash/severe diarrhea Cortisone Acetate 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[place] Hives lethargic Moxifloxacin Hydrochloride Hives diarrhea Past [...] Personal history of colonic polyps Psoriatic arthropathy (HCC) 1998 Stage 3a chronic kidney disease 08/20/2020 Per CKD protocol Social History Socioeconomic History Marital status: Number of children: 1 Years of education: 22 Occupational History 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 Helps. Well controlled. Prediabetes Hyperlipidemia [...] Kamille Medina MD documented in this encounter Plan of Treatment [...] 07/09/2021, Additional history exists GFR 10/31/2023 04/30/2023, 020 06/2023, 10/02/2021, Additional history exists Albumin/Creatinine Ratio 11/20/2023 023, 07/02/2020, 01/17/2019 CKD PHOS USE SMARTSET 65315 11/20/20230 06/2023, 01/04/2021, 08/12/2019 Depression Screening 11/20/2023 11/20/2022 HbA1c 11/20/2023 11/20/2022, 09/12, 01/04/2021, Additional history exists CKD HGB USE SMARTSET [id number] 04/30/202404/30, 04/30/2023, 11/20/2022, Additional history exists TSH 04/30/2024 04/30/2023, 020 06/2023, 10/02/2021, Additional history exists O2 ASSESSMENT [...] Documents on File Type Date Recorded Patient Laminating Press Operator Expl anation Power of Infant Childcare Provider 12/08/2022 AGATA Ramirez PARENTAL ACCESS REQUEST Advance Directives and Living Will 07/25/2015 ADVANCE DIRECTIVE / LIVING WILL Power of Infant Childcare Provider 07/25/2015 POWER OF A TTORNEY Care Teams Professor Of Art Relationship Specialty Start Date End Date Kamille Medina MD [address] [place] [address], [place] [address] PCP - General 05/20/10 documented as of this encounter
--- OUTSIDE RECORDS SUMMARY | 2023-10-09 14:18 | External Medical Summary | Summary of Care ---
Author Name Unknown Organization [facility] Address [address] [place] [address] Phone [phone] Care Team Providers Care Wire Wheeler Name Role Phone Kamille Medina MD Primary Care Provider + Reason for Referral * Medication Prior Authorization - Pending Review Specialty Diagnoses / Procedures Referred By Valeria t Referred To Contact Kamille Medina MD [address] [place] [address] Referral ID Status Reason Start Date Expiration Date V isits Requested Visits Authorized [id number] Pending Review 999 999 Reason for Visit * Reason Comments Follow Up Pt here for a 6m f/u Encounter Details Date Type Department Care Team (Latest Contact Info) Description 09/15/2023 2:40 PM EST Office Visit General Internal Medicine [place] [address] [place] [address] Kamille Medina MD [address] [facility] [place] [address] Acquired hypothyroidism*; Bipolar 2 disorder (HCC); Stage 3a chronic kidney disease; COPD, group B, by GOLD 2017 classification (HCC); Prediabetes; Hyperlipidemia with target LDL less than 130; Parkinson's disease without dyskinesia or fluctuating manifestations; Hypercalcemia Allergies Active Allergy Reactions Criticality Noted Date Comments Aripiprazole 08/25/2018 Aripiprazole 06/28/2013 Moxifloxacin Hcl In Nacl 02/08/2010 Rash/severe diarrhea Cortisone Acetate 05/20/2010 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[place] 05/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] 05/17/2018 05/14/2020 Overview: DO NOT DELETE [facility] [place] DETECT Study: Project # [id number], Metal Fabricator Welder: Inocencio Dan, PhD. SUMMARY: Goal: Establish test [...] contact study staff at ; after hours Metal Fabricator Welder via the [facility] hospital power saw operator . Please contact study team before resolving/deleting from patients problem list. Study phone number: [phone]. Diagnosis changed due to Research Module. Go to Snapshot for study details. Encounter for examination fo r normal comparison and control in clinical research program 05/17/2018 06/12/2022 Overview: DO NOT DELETE [facility] [place] DETECT Study: Project # [id number], Metal Fabricator Welder: Dominic Lockahrt, MS, MPH. SUMMARY: Goal: Establish test characteristics [...] contact study staff at ; after hours Metal Fabricator Welder via the [facility] hospital power saw operator . - Please contact study team before resolving/deleting from patients problem list. Study phone number: [phone]. Diagnosis changed due to Research Module. Go to Snapshot for study details. Abnormal lung function test 06/09/2017 08/02/2019 technician terminal and repeater current use of non -steroidal anti-inflammatories (NSAID) [...] Problem List Diagnosis Code Bipolar 2 disorder ([facility]) F31.81 Hyperlipidemia with target LDL less than 130 E78.5 Psoriasis of scalp L40.9 Generalized osteoarthritis M15.9 Acquired hypothyroidism E03.9 Body mass index (BMI) of 27.0 to 27.9 in adult Z68.27 Lumbar degenerative disc disease M51.36 Osteoarthritis of spine with radiculopathy, lumbar region M47.26 Spondylolisthesis, lumbar region M43.16 History of tobacco use Z87.891 COPD, group B, by GOLD 2017 classification ([facility]) J44.9 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 [...] Nacl] Rash/severe diarrhea Cortisone Acetate 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[place] Hives lethargic Moxifloxacin Hydrochloride Hives diarrhea Past [...] Personal history of colonic polyps 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 Stage 3a chronic kidney disease 08/20/2020 Per CKD protocol Social History Socioeconomic History Marital status: Number of children: 1 Years of education: 22 Occupational History 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 Tobacco Use Smoking status: Former Packs/day: 2.00 [...] in this encounter Nursing Notes * Leatha Ries LPN - 09/15/2023 3:25 PM EST Pre-Administration [...] Care Team (Late st Contact Info) Description 09/15/2023 3:35 PM EST [facility] [address] [place] [address] Arrived 03/23/2024 10:20 AM EDT Office Visit General Internal Medicine [place] [address] [facility] [place] [address] Kamille Medina MD [address] [facility] [place] [address] Scheduled Orders Name Type Priority Associated Diagnoses [...] 07/09/2021, Additional history exists GFR 10/31/2023 04/30/2023, 02/06/2023, 10/02/2021, Additional history exists Albumin/Creatinine Ratio 11/20/2023 023, 07/02/2020, 01/17/2019 CKD PHOS USE SMARTSET 28790 11/20/2023/0 06/2023, 01/04/2021, 08/12/2019 Depression Screening 11/20/2023 11/20/2022 HbA1c 11/20/2023 11/20/2022, 09/12, 01/04/2021, Additional history exists CKD HGB USE SMARTSET 98343 04/30/202404/30, 04/30/2023, 11/20/2022, Additional history exists TSH [...] Documents on File Type Date Recorded Patient Seating Captain Expl anation Power of Forest Pathology Professor 12/08/2022 AGATA Ramirez PARENTAL ACCESS REQUEST Advance Directives and Living Will 07/25/2015 ADVANCE DIRECTIVE / LIVING WILL Power of Forest Pathology Professor 07/25/2015 POWER OF A TTORNEY Care Teams Wire Wheeler Relationship Specialty Start Date End Date Kamille Medina MD [address] [place], [place] [address] PCP - General 05/20/10 documented as of this encounter
--- OUTSIDE RECORDS SUMMARY | 2023-10-09 14:18 | External Medical Summary | Summary of Care ---
Author Name Unknown Organization [facility] Address [address] [facility] [place] [address] Phone [phone] Care Team Providers Care Inspection And Testing Supervisor Name Role Phone Kamille Medina MD Primary Care Provider + Reason for Visit * Reason Onset Date Comments Medication Refill 09/14/2023 Encounter Details Date Type Department Care Team (Late st Contact Info) Description 09/14/2023 Refill General Internal Medicine [facility] [place] [address] [place] [address] Kamille Medina MD [address] [place] [address] Allergies Active Allergy Reactions Criticality Noted Date Comments Aripiprazole 08/25/2018 Aripiprazole 06/28/2013 Moxifloxacin Hcl In Nacl 02/08/2010 Rash/severe diarrhea Cortisone Acetate 05/20/2010 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[place] 05/20/2010 Hives lethargic Moxifloxacin Hydrochloride 0 Hives diarrhea documented as of this encounter (statuses as of 09/14/2023) Medications Medication Sig Dispensed Refills Start Date [...] rol)Indications:COPD, group A, by GOLD 2017 classification ([facility]) INHALE 1 PUFF BY MOUTH EVERY DAY 60 Each 5 06/03/2022 Active Albuterol Sulfate HFA 108 (90 Base) MCG/ACT Inhalation Aerosol SolutionIndications:C OPD, group A, by GOLD 2017 classification ([facility]) INHALE 2 PUFFS BY MOUTH EVERY 4 [...] before bedtime. 1 Tablet 0 04/30/2023 Active Loratadine 10 MG Oral Tablet (Claritin)Indications :Dizziness,Post-nasal drip Take 1 Tablet by mouth at bedtime. X 4 weeks 28 Tablet 0 04/30/2023 Active Aspirin 81 MG Oral Tablet Chewable Take 1 Tablet by mouth in the morning. 0 Active Boost Oral Liquid Take by mouth daily. 0 Active Caltrate 600+D Plus Minerals 600-800 MG-UNIT Oral Tablet Chewable Take by mouth 2 times a day. 0 Active Centrum Silver 50+Women Oral Tablet Take 1 Tablet by mouth in the morning. 0 Active CertaVite Senior/Antioxidant Oral Tablet Take 1 Tablet by mouth in the morning. 0 Active Docusate Sodium 100 MG Oral Capsule (Colace) Take 1 Capsule by mouth in the morning. May take 1 additional capsule by mouth as needed for constipation. 0 Active FLUoxetine HCl 10 MG Oral [...] for psoriasis 60 mL 3 09/11/2023 Active Hospital, Clinic, or Other Facility Administered Medication Ordered Dose Route Frequency Start Date End Date Status albuterol sulfate (PROVENTIL) (2.5 MG/3ML) 0.083% inhalation solution 2.5 mgIndications:COPD, mild (HCC),Pulmonary emphysema, unspecified emphysema type (HCC) 2.5 mg NEBULIZER Q4H PRN 06/09/2017 Acti ve documented as of this encounter (statuses as of 09/14/2023) Active Problems Problem Noted Date Diagnosed Date Prediabetes 10/21/2021 Overview: Per Prediabetes protocol Stage [...] as of this encounter (statuses as of 09/14/2023) Resolved Problems Problem Noted Date Diagnosed Date [...] program 05/17/2018 05/14/2020 Overview: DO NOT DELETE [facility] DETECT Study: Project # [id number], Mash Filter Cloth Changer: Inocencio Dan, PhD. SUMMARY: Goal: Establish test [...] contact study staff at ; after hours Mash Filter Cloth Changer via the [facility] sheet pile driver operator . Please contact study team before resolving/deleting from patients problem list. Study phone number: [phone]. Diagnosis changed due to Research Module. Go to Snapshot for study details. Encounter for examination fo r normal comparison and control in clinical research program 05/17/2018 06/12/2022 Overview: DO NOT DELETE - [facility] JODI Study: Project # [id number], Mash Filter Cloth Changer: Dominic Lockhart, MS, MPH. SUMMARY: Goal: Establish [...] contact study staff at ; after hours Mash Filter Cloth Changer via the [facility] sheet pile driver operator . - Please contact study team before resolving/deleting from patients problem list. Study phone number: [phone]. Diagnosis changed due to Research Module. Go to [employer] for study details. Abnormal lung function test 06/09/2017 08/02/2019 terminal clerk current use of non -steroidal anti-inflammatories (NSAID) [...] as of this encounter (statuses as of 09/14/2023) Immunizations Name Administration Dates Next Due COVID-19 [...] encounter Miscellaneous Notes * Telephone Encounter - Leatha Reis LPN - 09/14/2023 3:03 PM EST Duplicate script sent in on 09/11/23 * Telephone Encounter - Bill Marion OSA - 09/14/2023 1:04 PM EST Refill Authorization Request Did you pend patient's preferred pharmacy and medication before forwarding?yes Pharmacy: [facility] [address] Pending Prescriptions: Disp Refills Fluocinonide 0.05 % External Solution 60 mL 3 Sig: Apply topically to scalp and right ear every day as needed for psoriasis Last Visit: 05/27/2023 (in office), Visit date not found (telemedicine) Next Visit: 09/15/2023 If no future appointments scheduled, and last appointment is greater than a year ago, please schedule patient for a follow-up appointment Last date the medication was ordered: 09/11/2023 Is this request for a controlled substance?No Urine Drug Screen:No results found for this or any previous visit. Patient Phone Numbers Labs: Lab Results Component Value Date/Time CREAT 1.2 (H) 04/30/2023 11:47 AM CREAT 1.0 08/12/2019 07:01 AM POTASSIUM 3.7 04/30/2023 11:47 AM POTASSIUM 4.1 08/12/2019 07:01 AM TSH [...] Team (Late st Contact Info) Description 09/15/2023 2:40 PM EST Office Visit General Internal Medicine [place] [address] [place] [address] [address] Kamille Medina MD [address] [place] [address] Health Maintenance Due Date Last Done Comments Alpha-1 Antitrypsin 12/20/1963 DXA Scan 07/27/2021 07/27/2018, 06/12, 06/21/2013, Additional history exists COVID-19 Vaccine ( - 2022-24 season) 2023 03/18/2022, 08/29/2021, 12/10/2020, Additional history exists Influenza Vaccine (FLU shot) (#1) 2023 06/20/2022, 06/20/2022, 07/09/2021, Additional history exists GFR 10/31/2023 04/30/2023, 02/0 06/2023, 10/02/2021, Additional history exists Albumin/Creatinine Ratio 11/20/2023 023, 07/02/2020, 01/17/2019 CKD PHOS USE SMARTSET 82138 11/20/2023 02/0 06/2023, 01/04/2021, 08/12/2019 Depression Screening 11/20/2023 11/20/2022 HbA1c 11/20/2023 11/20/2022, 09/12, 01/04/2021, Additional history exists CKD HGB USE SMARTSET 98272 04/30/202404/30, 04/30/2023, 11/20/2022, Additional history exists TSH [...] Documents on File Type Date Recorded Patient Pump Installer Expl anation Power of Screen Printer 12/08/2022 SOFIAGESKYLER R PARENTAL ACCESS REQUEST Advance Directives and Living Will 07/25/2015 ADVANCE DIRECTIVE / LIVING WILL Power of Screen Printer 07/25/2015 POWER OF A TTORNEY Care Teams Inspection And Testing Supervisor Relationship Specialty Start Date End Date Kamille Medina MD [address] [place] [address] PCP - General 05/20/10 documented as of this encounter
--- OUTSIDE RECORDS SUMMARY | 2023-10-09 14:19 | External Medical Summary | Summary of Care ---
Author Name Unknown Organization [facility] Address [address] [place] [address] Phone [phone] Care Team Providers Care Manager Occupational Name Role Phone Kamille Medina MD Primary Care Provider + Reason for Visit * Reason Onset Date Comments Test Results 05/15/2023 Encounter Details Date Type Department Care Team Description 05/15/2023 Telephone General Internal Medicine [facility] [address] [place] [address] Kamille Medina MD [address] [facility] [address] Test Results Allergies Active Allergy Reactions Severity Noted Date Comments Aripiprazole 08/25/2018 Aripiprazole 06/28/2013 Moxifloxacin Hcl In Nacl 02/08/2010 Rash/severe diarrhea Cortisone Acetate 05/20/2010 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[place] 05/20/2010 Hives lethargic Moxifloxacin Hydrochloride 0 Hives diarrhea documented as of this encounter (statuses as of 05/18/2023) Medications Medication Sig Dispensed Refills Start Date End Date Status CALTRATE 600+D 600-400 MG-UNIT PO TABS Take by mouth daily. 0 03/03/2011 Active LAMOTRIGINE 200 MG PO TABS one tablet [...] in the morning. 0 Active FLUoxetine HCl 20 MG Oral Capsule Take 1 Capsule by mouth in the morning. 0 Active Zoster Vac Recomb Adjuvanted 50 MCG/0.5ML Intramuscular Suspension Reconstituted (Shingrix) Inject 0.5 mL into a large muscle now and repeat dose in 60 to 180 days 1 Each 1 02/13/2021 Active Anoro Ellipta 62.5-25 MCG/INH Inhalation Aerosol Powder Breath Activated (umeclidinium-vilante rol)Indications:COPD, group A, by GOLD 2017 classification ([facility]) INHALE 1 PUFF BY MOUTH EVERY DAY 60 Each 5 06/03/2022 Active Albuterol Sulfate HFA 108 (90 Base) MCG/ACT Inhalation Aerosol SolutionIndications:C OPD, group A, by GOLD 2017 classification ([facility]) INHALE 2 PUFFS BY MOUTH [...] evening meals. 30 Tablet 3 03/05/2023 Active Cyanocobalamin 500 MCG Oral Tablet DAILY IN THE MORNING 0 10/20/2022 Active Famotidine 20 MG Oral Tablet (Pepcid) 0 03/23/2023 Active Fluocinonide 0.05 % External Solution 0 03/31/2023 Active hydrOXYzine HCl 25 MG Oral Tablet 1 Tablet. 0 10/13/2022 Active Atorvastatin Calcium 20 MG Oral Tablet (Lipitor)Indications: Hyperlipidemia with target LDL less than 130 TAKE 1 TABLET BY MOUTH EVERY DAY 90 Tablet 0 04/15/2023 Active hydroCHLOROthiazide 12.5 MG Oral Tablet (Hydrodiuril) Take 1 Tablet by mouth in the morning. Per pt/her cousin--was prescribed by Dr beata Riggs--need to clarify start date from them. 1 Tablet 0 04/30/2023 Active LORazepam 0.5 MG Oral Tablet (Ativan) Take 0.5 Tablets by mouth 2 times a day as needed for Anxiety. 1 Tablet 0 04/30/2023 Active Loratadine 10 MG Oral Tablet (Claritin)Indications :Dizziness,Post-nasal drip Take 1 Tablet by mouth at bedtime. X 4 weeks 28 Tablet 0 04/30/2023 Active Hospital, Clinic, or Other Facility Administered Medication Ordered Dose Route Frequency Start Date End Date Status albuterol sulfate (PROVENTIL) (2.5 MG/3ML) 0.083% inhalation solution 2.5 mgIndications:COPD, mild (HCC),Pulmonary emphysema, unspecified emphysema type (HCC) 2.5 mg NEBULIZER Q4H PRN 06/09/2017 Acti ve documented as of this encounter (statuses as of 05/18/2023) Active Problems Problem Noted Date Prediabetes 10/21/2021 Overview: Per Prediabetes protocol Stage 3a chronic kidney disease 08/20/20 20 Overview: Per CKD protocol Non-rheumatic aortic sclerosis 0 COPD, group B, by GOLD 2017 classificati on 10/24/2019 Overview: Per COPD GOLD Classification Lumbar degenerative disc disease 019 Osteoarthritis of spine with radiculopat hy, lumbar region 09/29/2019 Spondylolisthesis, lumbar region 019 History of tobacco use 09/29/2019 Body mass index (BMI) of 27.0 to 27.9 in adult 08/25/2018 Overview: ICD-10 update of inactive term Acquired hypothyroidism 07/08/2018 Generalized osteoarthritis 03/19/2015 Psoriasis of scalp 03/13/2015 Bipolar 2 disorder Hyperlipidemia with target LDL less than 130 Overview: ICD-10 update of inactive term documented as of this encounter (statuses as of 05/18/2023) Resolved Problems Problem Noted Date Resolved Date Bipolar I disorder, most recent episode depresse d 07/02/2020 01/04/2021 Lumbar spine pain 09/29/2019 01/04/2021 Radiculopathy, lumbar region 09/29/2019 Prediabetes 08/22/2019 04/25/2021 Overview: Per Prediabetes protocol COPD, group A, by GOLD 2017 classification 03/2110/27/2019 Overview: Per COPD GOLD Classification Pain in right hip 07/21/2018 01/04/2021 Kidney disease, chronic, stage III (GFR 30-59 ml /min) 07/19/2018 08/23/2020 Overview: Per CKD protocol #1 Major depressive disorder wi th single episode, in partial remission 07/08/2018 01/04/2021 Encounter for examination fo r normal comparison and control in clinical research program 05/17/2018 05/14/2020 Overview: DO NOT DELETE [facility] DETECT Study: Project # [id number], Ergonomist: Inocencio Dan, PhD. SUMMARY: Goal: Establish test [...] contact study staff at ; after hours Ergonomist via the [facility] levers lace machine operator . Please contact study team before resolving/deleting from patients problem list. Study phone number: [phone]. Diagnosis changed due to Research Module. Go to Snapshot for study details. Encounter for examination fo r normal comparison and control in clinical research program 05/17/2018 06/12/2022 Overview: DO NOT DELETE [facility] Study: Project # [id number], Ergonomist: Dominic Lockhart, MS, MPH. SUMMARY: Goal: Establish [...] contact study staff at ; after hours Ergonomist via the [facility] levers lace machine operator . - Please contact study team before resolving/deleting from patients problem list. Study phone number: [phone]. Diagnosis changed due to Research Module. Go to Snapshot for study details. 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 current use of non -steroidal anti-inflammatories (NSAID) 03/19/2015 07/08/2018 Parkinson's syndrome 03/01/2013 01/11/2016 Parkinson's disease 11/28/2011 07/12/2012 Muscle weakness (generalized) 11/11/2011 Major depressive disorder 2017 Overview: ICD-10 update of inactive term COPD with emphysema 07/08/2018 Psoriatic arthropathy 03/13/2015 Major depressive disorder 2017 Overview: ICD-10 update of inactive term History of colonic polyps 2017 Overview: ICD-10 update of inactive term COPD, mild 03/23/2019 Overview: Per COPD GOLD Classification Hypothyroid 07/25/2016 documented as of this encounter (statuses as of 05/18/2023) Immunizations Name Administration Dates Next Due COVID-19 mRNA, LNP-s, No Pre serve, 2-Dose Series (Moderna) 12/10/2020,11/12/2020 Covid-19 Mrna, Lnp-s, No Pre serve, Booster (Moderna) 03/18/2022,08/29/2021 Pneumococcal Conjugate Vacc, 13 Valent (Prevnar) 01/01/2015 Pneumococcal Polysaccharide PPV23 (Pneumovax) 03/16/2010 Seasonal Influenza Virus Vac cine, Unspecified Formulation 06/20/2022,07/09/2021,07/02/2020,08/02,07/08/2018,07/18/2016,07/10/2015 ,06/20/2014,07/15/2013,07/12/2012,06/13,07/01/2010,11/20/2009 Seasonal Influenza, Quadriva lent Hd (Fluzone Hd) 06/20/2022,07/09/2021 Seasonal Influenza, Quadriva lent, No Preserve, 6 Mons & Above, IM 07/08/2018 Seasonal Influenza, Quadriva lent, No Preserve, Adjuvanted, 65+ Yrs, IM 07/02/2020 Seasonal Influenza, Quadriva lent, No Preserve, IM [...] 0.6 oz pur e alcohol) very rarely Alcohol Habits Answer Date Recorded How often do you have a drink containing alcohol ? 2-4 times a month 02/12/2021 How many drinks containing a lcohol do you have on a typical day when you are drinking? 1 or 2 02/12/2021 How often do you have six or more drinks on one occasion? Not asked 02/12/2021 Food Insecurity Answer Date Recorded Within the past 12 months, y ou worried that your food would run out before you got money to buy more. Never true 08/02/2019 Within the past 12 months, t he food you bought just didn't last and you didn't have money to get more. Never true 08/02/2019 Sex Assigned at Date Recorded Female 08/02/2019 10:15 AM EDT Job Start Date Occupation Industry Not on file Not on file Not on file documented as of this encounter Miscellaneous Notes * Telephone Encounter - Kamille Medina MD - 05/18/2023 8:20 AM EDT Patient needs to stop stopping calcium, vit D and multivitamins based on last labs. Please fax this message. * Telephone Encounter - Dominic Hawkins LPN - 05/15/2023 3:11 PM EDT Provider to address: Kamille Medina MD; Isabela Mars MD Reason for Call: Test Results Contact: Telephone Call Contact Type: Test Results Outcome: Spoke with nursing staff at [facility]. They need an order stating that the pt is not to take the Ca and Vit D and any MVI's she is taking faxed to [phone]. Total Time including non face to face (minutes): 5 * Telephone Encounter - Dominic Hawkins LPN - 05/15/2023 3:11 PM EDT ----- Message from Isabela Mars MD sent at 05/15/2023 9:41 AM EDT ----- Vitamin-D high 62, ionized calcium and PTH could not be added on, to have it done at upcoming appointment with -. Stop Calcium with D and any MV if taking. documented in this encounter Plan of Treatment Upcoming Encounters Date Type Specialty Care Team Description 05/27/2023 Office Visit Internal Medicine Kamille Medina MD [address] [facility] [place] [address] 06/12/2023 Hospital Encounter Endoscopy Dior Navarro MD [address] [place] [address] 06/12/2023 Surgery Endoscopy Dior Navarro MD [address] [place] [address] COLONOSCOPY FLEXIBLE PROXIMAL DIAGNOSTIC 07/20/2023 Office Visit Gastroenterology Maggi Calles CRNP [address] [place] [address] 07/27/2023 Nutrition Services Nutrition Services Susu Patel RDN [address] [place] [address] 09/15/2023 Office Visit Internal Medicine Kamille Medina MD [address] [place] [address] Scheduled Procedures Name Priority Associated Diagnoses Date/Ti me COLONOSCOPY FLEXIBLE PROXIMAL DIAGNOSTIC Recall History of colon polyps Special screening for malignant neoplasms, colon 06/12/2023 8:00 AM EDT Health Maintenance Due Date Last Done Comments Alpha-1 Antitrypsin 12/20/1963 DXA Scan 07/27/2021 07/27/2018, 06/12, 06/21/2013, Additional history exists COLONOSCOPY-EVERY 5 YRS AGES 18-100 03/24/2022 03/24/2017, 03/24/2017, 08/20/2015, Additional history exists COVID-19 Vaccine (5 - Moderna series) 05/13/2022 03/18/2022, 08/29/2021, 12/10/2020, Additional history exists Influenza Vaccine (FLU shot) (#1) 2023 06/20/2022, 06/20/2022, 07/09/2021, Additional history exists GFR 10/31/2023 04/30/2023, 02/0 06/2023, 10/02/2021, Additional history exists Albumin/Creatinine Ratio 11/20/2023 023, 07/02/2020, 01/17/2019 CKD PHOS USE SMARTSET [id number] 11/20/2023 02/0 06/2023, 01/04/2021, 08/12/2019 Depression Screening, Annual for Pts 12 and Over 11/20/2023 11/20/2022 HbA1c 11/20/2023 11/20/2022, 09/12, 01/04/2021, Additional history exists CKD HGB USE SMARTSET [id number] 04/30/202404/30, 04/30/2023, 11/20/2022, Additional history exists O2 ASSESSMENT COMPLETED IN PAST YEAR FOR COPD 04/30/2024 04/30/2023 TSH 04/30/2024 04/30/2023, 02/0 06/2023, 10/02/2021, Additional history exists DTaP,Tdap,and Td Vaccines (3 - Td or Tdap) 06/14/2030 06/14/2020, 07/10/2018 Pneumococcal Vaccine: 65+ Years Completed 01/01/2015, 03/16/2010 Zoster Vaccines Completed 02/19/2021, 02/09, 09/19/2018, Additional history exists Hepatitis C Screening Completed 11/20/2022 , 11/20/2022, 11/20/2022 GARDASIL-HPV IMMUNIZATION SERIES Aged Out No longer [...] Documents on File Type Date Recorded 

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
--- OUTSIDE RECORDS SUMMARY | 2023-10-09 14:19 | External Medical Summary | Summary of Care ---
Author Name Unknown Organization [facility] Address [address] [facility] [place] [address] Phone [phone] Care Team Providers Care Pedicab Driver Name Role Phone Kamille Medina MD Primary Care Provider + Reason for Visit * Reason Onset Date Comments FYI 05/07/2023 Encounter Details Date Type Department Care Team (Late st Contact Info) Description 05/07/2023 Telephone General Internal Medicine [facility] [place] [address] [place] [address] Kamille Medina MD [address] [place] [address] FYI Allergies Active Allergy Reactions Criticality Noted Date Comments Aripiprazole 08/25/2018 Aripiprazole 06/28/2013 Moxifloxacin Hcl In Nacl 02/08/2010 Rash/severe diarrhea Cortisone Acetate 05/20/2010 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[place] 05/20/2010 Hives lethargic Moxifloxacin Hydrochloride 0 Hives diarrhea documented as of this encounter (statuses as of 08/06/2023) Medications Medication Sig Dispensed Refills Start Date [...] A, by GOLD 2017 classification ([facility]) INHALE 1 PUFF BY MOUTH EVERY DAY 60 Each 5 06/03/2022 Active Albuterol Sulfate HFA 108 (90 Base) MCG/ACT Inhalation Aerosol SolutionIndications:C OPD, group A, by GOLD 2017 classification ([facility]) INHALE 2 PUFFS BY MOUTH EVERY [...] as of this encounter (statuses as of 08/06/2023) Active Problems Problem Noted Date Diagnosed Date [...] as of this encounter (statuses as of 08/06/2023) Resolved Problems Problem Noted Date Diagnosed Date [...] 05/14/2020 Overview: DO NOT DELETE [facility] DETECT Study: Project # [id number], Medicaid Plan Compliance Director: Inocencio Dan, PhD. SUMMARY: Goal: Establish [...] contact study staff at ; after hours Medicaid Plan Compliance Director via the [facility] sammying machine operator . Please contact study team before resolving/deleting from patients problem list. Study phone number: [phone]. Diagnosis changed due to Research Module. Go to Snapshot for study details. Encounter for examination fo r normal comparison and control in clinical research program 05/17/2018 06/12/2022 Overview: DO NOT DELETE [facility] DETECT Study: Project # [id number], Medicaid Plan Compliance Director: Dominic Lockhart, MS, MPH. SUMMARY: Goal: [...] contact study staff at ; after hours Medicaid Plan Compliance Director via the [facility] sammying machine operator . - Please contact study team before resolving/deleting from patients problem list. Study phone number: [phone]. Diagnosis changed due to Research Module. Go to Snapshot for study details. Abnormal lung function test 06/09/2017 08/02/2019 remote computer terminal operator current use of non -steroidal anti-inflammatories (NSAID) [...] as of this encounter (statuses as of 08/06/2023) Immunizations Name Administration Dates Next Due COVID-19 [...] 0.6 oz pur e alcohol) very rarely PHQ-2 Answer Date Recorded PHQ Adult Total Score 0 11/20/2022 Sex and Gender Information Value Date Recorded Sex Assigned at Female 08/02/2019 10:15 AM EDT Gender Identity Female 08/02/2019 10:15 AM EDT Sexual Orientation Choose not to disclose 2018 10:15 AM EDT Job Start Date Occupation Industry Not on file Not on file Not on file documented as of this encounter Miscellaneous Notes * Telephone Encounter - HONG Dacosta - 05/07/2023 10:42 AM EDT Stephie Smith's mobile has been changed to primary phone number (signed medical release authorization). Patient recently becoming distressed by phone calls from clinic. documented in this encounter Plan of Treatment Upcoming Encounters Date Type Department Care Team (Late st Contact Info) Description 09/15/2023 2:40 PM EST Office Visit General Internal Medicine [facility] [place] [address] [facility] [place] [address] Kamille Medina MD [address] [facility] [place] [address] Health Maintenance Due Date Last Done Comments Alpha-1 Antitrypsin 12/20/1963 DXA Scan 07/27/2021 07/27/2018, 06/12, 06/21/2013, Additional history exists COVID-19 Vaccine ( season) 2023 03/18/2022, 08/29/2021, 12/10/2020, Additional history exists Influenza Vaccine (FLU shot) (#1) 2023 06/20/2022, 06/20/2022, 07/09/2021, Additional history exists GFR 10/31/2023 04/30/2023, 02/06/2023, 10/02/2021, Additional history exists Albumin/Creatinine Ratio 11/20/2023 023, 07/02/2020, 01/17/2019 CKD PHOS USE SMARTSET 46912 11/20/2023 02/0 06/2023, 01/04/2021, 08/12/2019 Depression Screening 11/20/2023 11/20/2022 HbA1c 11/20/2023 11/20/2022, 09/12, 01/04/2021, Additional history exists CKD HGB USE SMARTSET 59149 04/30/202404/30, 04/30/2023, 11/20/2022, Additional history exists TSH [...] Documents on File Type Date Recorded Patient Medical Office Technician Expl anation Power of Portrait Consultant 12/08/2022 AGATA Ramirez PARENTAL ACCESS REQUEST Advance Directives and Living Will 07/25/2015 ADVANCE DIRECTIVE / LIVING WILL Power of Portrait Consultant 07/25/2015 POWER OF A TTORNEY Care Teams Pedicab Driver Relationship Specialty Start Date End Date Kamille Medina MD [address] [place] [address] PCP - General 05/20/10 documented as of this encounter
--- OUTSIDE RECORDS SUMMARY | 2023-10-09 14:19 | External Medical Summary | Summary of Care ---
Author Name Unknown Organization [facility] Address [address] [place] [address] Phone [phone] Care Team Providers Care Coagulating Bath Mixer Name Role Phone Kamille Medina MD Primary Care Provider + Reason for Visit * Auth/Cert Specialty Diagnoses / Procedures Referred By Valeria warren Referred To Contact Diagnoses History of colon polyps Special screening for malignant neoplasms, colon History of colon polyps [Z86.010] Special screening for malignant neoplasms, colon [Z12.11] Procedures COLONOSCOPY, DIAGNOSTIC (RECTUM) COLONOSCOPY FLEXIBLE PROXIMAL DIAGNOSTIC Referral ID Status Reason Start Date Expiration Date Visits Re quested Visits Authorized [id number] Encounter Details Date Type Department Care Team Description 06/12/2023 Hospital Encounter ENDO [facility], Endoscopy Room [facility] [address] [place] [phone] Dior Navarro MD [address] [place] [id number] Colonoscopy Allergies Active Allergy Reactions Severity Noted Date Comments Aripiprazole 08/25/2018 Aripiprazole 06/28/2013 Moxifloxacin Hcl In Nacl 02/08/2010 Rash/severe diarrhea Cortisone Acetate 05/20/2010 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[place] 05/20/2010 Hives lethargic Moxifloxacin Hydrochloride 0 Hives diarrhea documented as of this encounter (statuses as of 06/12/2023) Medications Medication Sig Dispensed Refills Start Date [...] rol)Indications:COPD, group A, by GOLD 2017 classification ([facility]) INHALE 1 PUFF BY MOUTH EVERY DAY 60 Each 5 06/03/2022 Active Albuterol Sulfate HFA 108 (90 Base) MCG/ACT Inhalation Aerosol SolutionIndications:C OPD, group A, by GOLD 2017 classification ([facility]) INHALE 2 PUFFS BY MOUTH EVERY [...] water daily 245 g 5 10/24/2022 Active Additional Information Patient not taking.Reported on 06/09/2023 Memantine HCl 5 MG Oral Tablet (Namenda)Indications: [...] by mouth in the morning. 0 Active documented as of this encounter (statuses as of 06/12/2023) Active Problems Problem Noted Date Prediabetes 10/21/2021 [...] as of this encounter (statuses as of 06/12/2023) Resolved Problems Problem Noted Date Resolved Date [...] program 05/17/2018 05/14/2020 Overview: DO NOT DELETE [facility] DETECT Study: Project # [id number], Family Court Justice: Inocencio Dan, PhD. SUMMARY: Goal: Establish test [...] contact study staff at ; after hours Family Court Justice via the [facility] semaphore operator . Please contact study team before resolving/deleting from patients problem list. Study phone number: [phone]. Diagnosis changed due to Research Module. Go to Snapshot for study details. Encounter for examination fo r normal comparison and control in clinical research program 05/17/2018 06/12/2022 Overview: DO NOT DELETE - [facility] Study: Project # [id number], Family Court Justice: Dominic Lockhart, MS, MPH. SUMMARY: Goal: Establish [...] contact study staff at ; after hours Family Court Justice via the [facility] semaphore operator . - Please contact study team before resolving/deleting from patients problem list. Study phone number: [phone]. Diagnosis changed due to Research Module. Go to Snapshot for study details. Abnormal lung function test 06/09/201707/13 roasterman current use of non -steroidal anti-inflammatories (NSAID) [...] as of this encounter (statuses as of 06/12/2023) Immunizations Name Administration Dates Next Due COVID-19 mRNA, LNP-s, No Pre serve, 2-Dose Series (Moderna) 12/10/2020,11/12/2020 Covid-19 Mrna, Lnp-s, No Pre serve, Booster (Moderna) 03/18/2022,08/29/2021 Pneumococcal Conjugate Vacc, 13 Valent (Prevnar) 01/01/2015 Pneumococcal Polysaccharide PPV23 (Pneumovax) 03/16/2010 Season Influenza, Quad, PF, Adjuvanted, 65+ Yrs, IM (FLUAD) 07/02/2020 Seasonal Influenza Virus Vac cine, Unspecified Formulation 06/20/2022,07/09/2021,07/02/2020,08/02,07/08/2018,07/18/2016,07/10/2015 ,06/20/2014,07/15/2013,07/12/2012,06/13,07/01/2010,11/20/2009 Seasonal Influenza, PF, 6 mo ns & Above, IM , (Flulaval) 07/08/2018 Seasonal Influenza, Quadriva lent Hd (Fluzone [...] Sign Reading Time Taken Comments Blood Pressure 130/58 06/12/2023 8:58 AM EDT Pulse 52 06/12/2023 8:58 AM EDT Temperature 36.1 C (97 F) 06/12/2023 8:58 AM EDT Respiratory Rate 18 06/12/2023 8:58 AM EDT Oxygen Saturation 99% 06/12/2023 8:58 AM EDT Inhaled Oxygen Concentration - - Weight 57.6 kg (127 lb) 06/12/2023 7:13 AM EDT Height 162.6 cm (5' 4.02") 06/12/2023 7:13 AM ED T Body Mass Index 21.79 06/12/2023 7:13 AM EDT documented in this encounter H&P Notes * Dior Navarro MD - 06/12/2023 8:03 AM EDT Endoscopy Pre-Procedure Assessment Name: Fabricio Nunez Date: 06/12/2023 Time: 8:04 AM Procedure(s): Colonoscopy; with Indication(s) of colon polyp surveillance Endoscopy Pre-Procedure Assessment: Prior to the procedure, the patient is identified. The patient's history, medications and allergieshave been reviewed. The patient is competent. The risks and benefits of the proposed procedure and the planned sedation have been discussed with the patient. All questions have been answered and informed consent for the procedure has been obtained. Prior to Admission medications Medication Sig Last Dose Discont. Aspirin 81 MG Oral Tablet Chewable Take 1 Tablet by mouth in the morning. 06/11/2023 Boost Oral Liquid Take by mouth daily. 06/09/2023 Caltrate 600+D Plus Minerals 600-800 MG-UNIT Oral Tablet Chewable Take by mouth 2 times a day. 06/11/2023 Centrum Silver 50+Women Oral Tablet Take 1 Tablet by mouth in the morning. 06/11/2023 CertaVite Senior/Antioxidant Oral Tablet Take 1 Tablet by mouth in the morning. 06/11/2023 Docusate Sodium 100 MG Oral Capsule (Colace) Take 1 Capsule by mouth in the morning. May take 1 additional capsule by mouth as needed for constipation. 06/11/2023 FLUoxetine HCl 10 MG Oral Capsule Take 1 Capsule by mouth in the morning. In addition to 20 mg capsule. 06/11/2023 Polyethylene Glycol 3350 8.5 GM Oral Packet Take 8.5 g by mouth in the morning. Mix in 8 oz of orange juice or water. 06/12/2023 Vitamin B-12 1000 MCG Oral Tablet (Cyanocobalamin) Take 2 Tablets by mouth in the morning. 06/09/2023 LORazepam 0.5 MG Oral Tablet (Ativan) Take 0.5 Tablets by mouth in the morning and 0.5 Tablets before bedtime. 06/11/2023 Atorvastatin Calcium 20 MG Oral Tablet (Lipitor) TAKE 1 TABLET BY MOUTH EVERY DAY 06/11/2023 Fluocinonide 0.05 % External Solution Apply topically to scalp and right ear every day as needed for psoriasis Past Month Memantine HCl 5 MG Oral Tablet (Namenda) Take 1 Tablet by mouth 2 times a day with morning and evening meals. 06/11/2023 Levothyroxine Sodium 25 MCG Oral Tablet (Levoxyl) TAKE 1 TABLET BY MOUTH EVERY DAY AT LEAST 30 MINUTES BEFORE BREAKFAST OR OTHER MEDS 06/11/2023 Anoro Ellipta 62.5-25 MCG/INH Inhalation Aerosol Powder Breath Activated (umeclidinium-vilanterol) INHALE 1 PUFF BY MOUTH EVERY DAY 06/11/2023 Zoster Vac Recomb Adjuvanted 50 MCG/0.5ML Intramuscular Suspension Reconstituted (Shingrix) Inject 0.5 mL into a large muscle now and repeat dose in 60 to 180 days Unknown FLUoxetine HCl 20 MG Oral Capsule Take 1 Capsule by mouth in the morning. Take in addition to 10 mgcapsule. 06/11/2023 Acetaminophen ER 650 MG Oral Tablet Extended Release Take 2 Tablets by mouth in the morning and 2 Tablets before bedtime. 06/09/2023 dorzolamide (TRUSOPT OCUMETER PLUS) 2 % ophthalmic solution Instill 1 Drop into both eyes in the morning and 1 Drop before bedtime. 06/11/2023 Bimatoprost 0.01 % Ophthalmic Solution Instill 1 Drop into both eyes at bedtime. 06/11/2023 TRAZODONE HCL 50 MG PO TABS one tablet at bedtime/DR Escobedo 06/08/2023 LAMOTRIGINE 200 MG PO TABS one tablet by mouth daily at bedtime 06/11/2023 Loratadine 10 MG Oral Tablet (Claritin) Take 1 Tablet by mouth at bedtime. X 4 weeks Over 30 Days Famotidine 20 MG Oral Tablet (Pepcid) Take 1 Tablet by mouth in the morning. Patient not taking: Reported on 06/09/2023 Not Taking Benefiber Oral Powder Take 1 Tbsf in a glass of water daily Patient not taking: Reported on 06/09/2023 Not Taking Albuterol Sulfate HFA 108 (90 Base) MCG/ACT Inhalation Aerosol Solution INHALE 2 PUFFS BY MOUTH EVERY 4 HOURS NEEDED FOR SHORTNESS OF BREATH Over 30 Days Review of patient's allergies indicates: Allergen Reactions Abilify [Aripiprazole] Aripiprazole Avelox [Moxifloxacin Hcl In Nacl] Rash/severe diarrhea Cortisone Acetate 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[place] Hives lethargic Moxifloxacin Hydrochloride Hives diarrhea BP 147/58 | Pulse 47 | Temp 36 C (96.8 F) (Tympanic) | Resp 18 | Ht 1.626 m (5' 4.02") | Wt 57.6 kg (127 lb) | BMI 21.79 kg/m | BSA 1.61 m Physical Exam: Mental Status Examination: alert and oriented. Airway Examination: normal oropharyngeal airway and neck mobility. Respiratory Examination: clear to auscultation. CV Examination: normal. ASA Grade: II - A patient with mild systemic disease. Abdomen: negative This patient has undergone a preprocedural evaluation. A determination has been made to proceed with the planned procedure under [facility] procedural guidelines and the [facility] Non-Emergent, Elective Medical Services and Treatment Recommendations (published on 01-17-20). The community and hospital prevalence of COVID-19 has been discussed as well as this patient's specific risks associated with SARS-CoV-19 infection. Based upon the clinical acuity and patient-specific care considerations, this procedure is deemed a Tier II - Intermediate acuity treatment or service with either progression or the threat of progressive disease related to the delay in treatment. Not providing the service has the potential for increasing morbidity or mortality. After reviewing the risks and benefits, the patient is deemed in satisfactory condition to undergo the procedure. The anesthesia plan is to use general anesthesia. Dior Navarro MD 06/12/2023 documented in this encounter Procedure Notes * Kamille Medina MD - 06/12/2023 8:12 AM EDTAssociated Order(s): COL[facility]OSCOPY [facility] Patient Name: Fabricio Nunez Procedure Date: 06/12/2023 8:12 AM Date of : 1945 Admit Type: Outpatient Note Status: Finalized Date of : 1945 Admit Type: Outpatient Age: 77 Room: Endo 2 Gender: Female Note Status: Finalized Procedure: Colonoscopy Indications: High risk colon cancer surveillance: Personal history of colonic polyps, Last colonoscopy: March 2017 Providers: Dior Navarro MD (Doctor) Referring MD: Kamille Medina MD (Referring MD) Medicines: See the Anesthesia note for documentation of the administered medications Complications: No immediate complications. Procedure: Pre-Anesthesia Assessment: - ASA Grade Assessment: II - A patient with mild systemic disease. - Prior to the procedure, a History and Physical was performed, and patient medication allergies have been reviewed. The patient's tolerance of previous anesthesia has been reviewed. - Respiratory Examination: clear to auscultation. - CV Examination: normal. - The risks and benefits of the procedure and the sedation options and risks were discussed with the patient. All questions were answered and informed consent was obtained. - Patient identification and proposed procedure were verified prior to the procedure by the physician, the nurse and the compounding pharmacy technician. The procedure was verified in the pre-procedure area in the procedure room. - The medication list for this patient has been reviewed prior to the procedure and has been determined that the patient may proceed with the planned study. Any medication changes made as a result of the findings of this procedure have been discussed with the patient and/or videotape sales representative at the time of discharge from the facility. After I obtained informed consent, the scope was passed under direct vision. All instruments were visually inspected immediately before and after removal from the patient to ensure they are fully intact. Throughout the procedure, the patient's blood pressure, pulse, and oxygen saturations were monitored continuously. The PCF-H180AL [id number] was introduced through the anus and advanced to the terminal ileum. The patient tolerated the procedure well. The quality of the bowel preparation was good. The colonoscopy was performed with moderate difficulty due to a tortuous colon. Findings & Specimens: The perianal and digital rectal examinations were normal. A few small-mouthed diverticula were found in the sigmoid colon. Two sessile polyps were found in the transverse colon and ascending colon. The polyps were 3 to 4 mm in size. These polyps were removed with a cold snare. Resection and retrieval were complete. The exam was otherwise without abnormality. Impression: - Diverticulosis in the sigmoid colon. - Two 3 to 4 mm polyps in the transverse colon and in the ascending colon, removed with a cold snare. Resected and retrieved. - The examination was otherwise normal. Recommendation: - Discharge patient to home. Dior Navarro MD 06/12/2023 8:49:24 AM This report has been signed electronically. documented in this encounter Nursing Notes * Idalia Camarena RN - 06/12/2023 9:30 AM EDT Patient is alert, pain free, and tolerating po fluids prior to discharge. Patient has been visited by Dr. Navarro. Dr. Navarro will call the patient later to discuss the procedure. Patient has received and demonstrates understanding of discharge instructions. Patient is transported via w/c to private auto accompanied by endo staff. * Idalia Camarena RN - 06/12/2023 8:43 AM EDT Patient transferred to post endo s/p colonoscopy. Patient sleeping. No s/s of pain. Respirations are even and unlabored on room air. NSR/SB in the 50s on the monitor. Abdomen soft and non distended. Vital signs stable. * Radhika Spear RN - 06/12/2023 8:42 AM EDT Specimen(s) and location(s) verified with physician post procedure 8:43 AM Radhika Spear RN See anesthesia record for medication administered during procedure. Radhika Spear RN Pre cleaning of scope at the bedside started by information technology professor. Mid abdominal pressure given per Dr. Navarro to assist with scope advancement. Pt tolerated well * Wendi Pierre RN - 06/12/2023 7:28 AM EDT The following pt discharge instructions reviewed with pt prior to prodedure: No driving today. No alcohol today. No signing of legal documents. Rest as much as possible today and can return to normal activities tomorrow. No operating any heavy equipment today. Diet as tolerated. Pt verbalized understanding. documented in this encounter Plan of Treatment Upcoming Encounters Date Type Specialty Care Team Description 07/20/2023 Office Visit Gastroenterology Stevan, Maggi Salim, LACY [address] [place] [id number] 07/27/2023 Nutrition Services Nutrition Services Jorge Susu Johnen, RDN [address] [place] [id number] 07/28/2023 Office Visit Pulmonary Rafael Romero, DO [address] [place] [address] 09/15/2023 Office Visit Internal Medicine Kamille Medina MD [address] [place] [address] Pending Results Name Type Priority Associated Diagnoses Date /Time SURGICAL PATHOLOGY Pathology Routine History of colon polyps Special screening for malignant neoplasms, colon 06/12/2023 8:41 AM EDT Scheduled Orders Name Type Priority Associated Diagnoses Orde r Schedule SURGICAL PATHOLOGY Pathology Routine History of colon polyps Special screening for malignant neoplasms, colon Release Upon Ordering for 1 Occurrences starting 06/12/2023, 1 completed Scheduled Procedures Name Priority Associated Diagnoses Date/Ti me COLONOSCOPY FLEXIBLE PROXIMAL DIAGNOSTIC Recall History of colon polyps Special screening for malignant neoplasms, colon 06/12/2023 8:10 AM EDT Health Maintenance Due Date Last Done Comments Alpha-1 Antitrypsin 12/20/1963 DXA Scan 07/27/2021 07/27/2018, 06/12, 06/21/2013, Additional history exists COVID-19 Vaccine (5 - Moderna series) 05/13/2022 03/18/2022, 08/29/2021, 12/10/2020, Additional history exists Influenza Vaccine (FLU shot) (#1) 2023 06/20/2022, 06/20/2022, 07/09/2021, Additional history exists GFR 10/31/2023 04/30/2023, 02/0 06/2023, 10/02/2021, Additional history exists Albumin/Creatinine Ratio 11/20/20232 023, 07/02/2020, 01/17/2019 CKD PHOS USE SMARTSET 90819 11/20/2023 02/0 06/2023, 01/04/2021, 08/12/2019 Depression Screening, Annual for Pts 12 and Over 11/20/2023 11/20/2022 HbA1c 11/20/2023 11/20/2022, 1211/2020, 01/04/2021, Additional history exists CKD HGB USE SMARTSET 38198 04/30/202404/30, 04/30/2023, 11/20/2022, Additional history exists TSH 04/30/2024 04/30/2023, 020 06/2023, 10/02/2021, Additional history exists O2 ASSESSMENT COMPLETED IN PAST YEAR FOR COPD 05/27/2024 06/12/2023 COLONOSCOPY-EVERY 5 YRS AGES 18-100 06/12/2028 06/12/2023, 03/24/2017, 03/24/2017, Additional history exists DTaP,Tdap,and Td Vaccines (3 [...] Not on filedocumented as of this encounter Procedures Procedure Name Priority Date/Time Associated Diagnosis Comments COLONOSCOPY 06/12/2023 8:12 AM EDT documented in this encounter Results * COLONOSCOPY (06/12/2023 8:12 AM EDT) 06/12/2023 8:12 AM EDT Procedure Note Kamille Medina MD - 06/12/2023 8:12 AM EDT [facility] Patient Name: Fabricio Nunez Procedure Date: 06/12/2023 8:12 AM Date of : 1945 Admit Type: Outpatient Note Status:Finalized Date of : 1945 Admit Type: Outpatient Age: 77 Room: Endo 2 Gender: Female Note Status: Finalized Procedure: Colonoscopy Indications: High risk colon cancer surveillance: Personalhistory of colonic polyps, Last colonoscopy: March 2017 Providers: Dior Navarro MD (Doctor) Referring MD: Kamille Medina MD (Referring MD) Medicines: See the Anesthesia note for documentation of theadministered medications Complications: No immediate complications. Procedure: Pre-Anesthesia Assessment: - ASA Grade Assessment: II - A patient with mildsystemic disease. - Prior to the procedure, a History and Physicalwas performed, and patient medication allergies have been reviewed. Thepatient's tolerance of previous anesthesia has been reviewed. - Respiratory Examination: clear to auscultation. - CV Examination: normal. - The risks and benefits of the procedure and thesedation options and risks were discussed with the patient. All questions wereanswered and informed consent was obtained. - Patient identification and proposed procedurewere verified prior to the procedure by the physician, the nurse and the compounding pharmacy technician.The procedure was verified in the pre-procedure area in the procedure room. - The medication list for this patient has beenreviewed prior to the procedure and has been determined that the patient may proceedwith the planned study. Any medication changes made as a result of the findingsof this procedure have been discussed with the patient and/or videotape sales representative atthe time of discharge from the facility. After I obtained informed consent, the scope waspassed under direct vision. All instruments were visually inspected immediatelybefore and after removal from the patient to ensure they are fully intact. Throughout the procedure, the patient's bloodpressure, pulse, and oxygen saturations were monitored continuously. The PCF-H180AL [id number] introduced through the anus and advanced to the terminal ileum. The patienttolerated the procedure well. The quality of the bowel preparation was good. Thecolonoscopy was performed with moderate difficulty due to a tortuous colon. Findings & Specimens: The perianal and digital rectal examinations were normal. A few small-mouthed diverticula were found in the sigmoid colon. Two sessile polyps were found in the transverse colon and ascendingcolon. The polyps were 3 to 4 mm in size. These polyps were removed with a cold snare. Resection andretrieval were complete. The exam was otherwise without abnormality. Impression: - Diverticulosis in the sigmoid colon. - Two 3 to 4 mm polyps in the transverse colon andin the ascending colon, removed with a cold snare. Resected and retrieved. - The examination was otherwise normal. Recommendation: - Discharge patient to home. Dior Navarro MD 06/12/2023 8:49:24 AM This report has been signed electronically. Kamille Medina MD [facility] documented in this encounter Visit Diagnoses Diagnosis History of colon polyps Personal history of colonic polyps Special screening for malignant neoplasms, colon documented in this encounter Administered Medications Inactive Administered Medications - up to 3 most recent administrations Medication Order MAR Action Action Date Dose Rate Site isolyte-S pH 7.4 infusion Intravenous, at 100 mL/hr, Plasma-LYTE 148, isolyte-S, and isolyte-S pH 7.4 are considered equivalent - including for MAR barcode scanning., CONTINUOUS, Starting on Thu06/12/23 at 0745, Until Thu06/12/23 at 1336, Pre-Op documented in this encounter Active and Recently Administered Medications Times are shown in EDT. Continuous Medication Order 06/10/2023 06/11/2023 06/12/2023 isolyte-S pH 7.4 infusion Intravenous, at 100 mL/hr, Plasma-LYTE 148, isolyte-S, and isolyte-S pH 7.4 are considered equivalent - including for MAR barcode scanning., CONTINUOUS, Starting on Thu06/12/23 at 0745, Until Thu06/12/23 at 1336, Pre-Op 0745 (Due)0844 (Anes Intra-Op Fluid - Provider: Sherley Benitez CRNA) documented in this encounter Advance Directives Documents on File Type Date Recorded Patient Pharmacy Clerk Expl anation Power of Congregational Care Pastor 12/08/2022 AGATA Ramirez PARENTAL ACCESS REQUEST Advance Directives and Living Will 07/25/2015 ADVANCE DIRECTIVE / LIVING WILL Power of Congregational Care Pastor 07/25/2015 POWER OF A TTORNEY Care Teams Coagulating Bath Mixer Relationship Specialty Start Date End Date Kamille Medina MD [address] [place] [address] PCP - General 05/20/10 documented as of this encounter
--- OUTSIDE RECORDS SUMMARY | 2023-10-09 14:19 | External Medical Summary | Summary of Care ---
Author Name Unknown Organization [facility] Address [address] [facility] [place] [address] Phone [phone] Care Team Providers Care Demographer Name Role Phone Prashant Medina MD Primary Care Provider + Encounter Details Date Type Department Care Team (Late st Contact Info) Description 09/11/2023 Refill General Internal Medicine [facility] [address] [place] [address] Prashant Medina MD [address] [place] [address] Allergies Active Allergy Reactions Criticality Noted Date Comments Aripiprazole 08/25/2018 Aripiprazole 06/28/2013 Moxifloxacin Hcl In Nacl 02/08/2010 Rash/severe diarrhea Cortisone Acetate 05/20/2010 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[place] 05/20/2010 Hives lethargic Moxifloxacin Hydrochloride 0 Hives diarrhea documented as of this encounter (statuses as of 09/11/2023) Medications Medication Sig Dispensed Refills Start Date [...] MCG/INH Inhalation Aerosol Powder Breath Activated (umeclidinium-vilant randall)Indications:LEAD CASE 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 D, group A, by GOLD 2017 classification ([facility]) INHALE 1 PUFF BY MOUTH EVERY DAY 60 Each 5 06/03/2022 Active Albuterol Sulfate HFA 108 (90 Base) MCG/ACT Inhalation Aerosol SolutionIndications: COPD, group A, by GOLD 2017 classification ([facility]) INHALE 2 PUFFS BY MOUTH EVERY [...] 04/30/2023 Active Loratadine 10 MG Oral Tablet (Claritin)Indication [...] for psoriasis 60 mL 3 09/11/2023 Active Fluocinonide 0.05 % External Solution Apply topically to scalp and right ear every day as needed for psoriasis 0 03/31/2023 3 Discontinue d(Refill) Hospital, Clinic, or Other Facility Administered Medication Ordered Dose Route Frequency Start Date End Date Status albuterol sulfate (PROVENTIL) (2.5 MG/3ML) 0.083% inhalation solution 2.5 mgIndications:COPD, mild (HCC),Pulmonary emphysema, unspecified emphysema type (HCC) 2.5 mg NEBULIZER Q4H PRN 06/09/2017 Acti ve documented as of this encounter (statuses as of 09/11/2023) Active Problems Problem Noted Date Diagnosed Date [...] as of this encounter (statuses as of 09/11/2023) Resolved Problems Problem Noted Date Diagnosed Date [...] program 05/17/2018 05/14/2020 Overview: DO NOT DELETE [facility] DET[facility] Study: Project # [id number], Director Corporate Sales: Inocencio Dan, PhD. SUMMARY: Goal: Establish test [...] contact study staff at ; after hours Director Corporate Sales via the [facility] wood dowel machine operator . Please contact study team before resolving/deleting from patients problem list. Study phone number: [phone]. Diagnosis changed due to Research Module. Go to Snapshot for study details. Encounter for examination fo r normal comparison and control in clinical research program 05/17/2018 06/12/2022 Overview: DO NOT DELETE - [facility] Study: Project # [id number], Director Corporate Sales: Dominic Lockhart, MS, MPH. SUMMARY: Goal: Establish [...] contact study staff at ; after hours Director Corporate Sales via the [facility] hospital wood dowel machine operator . - Please contact study team before resolving/deleting from patients problem list. Study phone number: [phone]. Diagnosis changed due to Research Module. Go to Snapshot for study details. 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 Rx pended. documented in this encounter Plan of Treatment Upcoming Encounters Date Type Department Care Team (Late st Contact Info) Description 09/15/2023 2:40 PM EST Office Visit General Internal Medicine [address] [place] [address] Prashant Medina MD [address] [place] [address] Health Maintenance Due Date Last Done Comments Alpha-1 Antitrypsin 12/20/1963 DXA Scan 07/27/2021 07/27/2018, 06/12, 06/21/2013, Additional history exists COVID-19 Vaccine ( season) 2023 03/18/2022, 08/29/2021, 12/10/2020, Additional history exists Influenza Vaccine (FLU shot) (#1) 2023 06/20/2022, 06/20/2022, 07/09/2021, Additional history exists GFR 10/31/2023 04/30/2023, 06/2023, 10/02/2021, Additional history exists Albumin/Creatinine Ratio 11/20/2023 023, 07/02/2020, 01/17/2019 CKD PHOS USE SMARTSET 54213 11/20/20230 06/2023, 01/04/2021, 08/12/2019 Depression Screening 11/20/2023 11/20/2022 HbA1c 11/20/2023 11/20/2022, 12/11/2020, 01/04/2021, Additional history exists CKD HGB USE SMARTSET 62842 04/30/202404/30, 04/30/2023, 11/20/2022, Additional history exists TSH [...] Documents on File Type Date Recorded Patient Senior Account Executive Expl anation Power of Clinical Social Worker 12/08/2022 AGATA Ramirez PARENTAL ACCESS REQUEST Advance Directives and Living Will 07/25/2015 ADVANCE DIRECTIVE / LIVING WILL Power of Clinical Social Worker 07/25/2015 POWER OF A TTORNEY Care Teams Demographer Relationship Specialty Start Date End Date Prashant Medina MD [address] [facility] [place] [address] PCP - General 05/20/10 documented as of this encounter
--- OUTSIDE RECORDS SUMMARY | 2023-10-09 14:19 | External Medical Summary | Summary of Care ---
Author Name Unknown Organization [facility] Address [address] [facility] [place] [address] Phone [phone] Care Team Providers Care Curb Attendant Name Role Phone Kamille Medina MD Primary Care Provider + Reason for Visit * Reason Comments Medical Nutrition Therapy Follow Up Encounter Details Date Type Department Care Team Description 07/27/2023 Nutrition Services Dewayne Mariano [address] [place] [address] Susu Patel RDN [address] [place] [address] Dietary counseling and surveillance*; Adequate nutrition Allergies Active Allergy Reactions Severity Noted Date Comments Aripiprazole 08/25/2018 Aripiprazole 06/28/2013 Moxifloxacin Hcl In Nacl 02/08/2010 Rash/severe diarrhea Cortisone Acetate 05/20/2010 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[place] 05/20/2010 Hives lethargic Moxifloxacin Hydrochloride 0 Hives diarrhea documented as of this encounter (statuses as of 07/27/2023) Medications Medication Sig Dispensed Refills Start Date [...] rol)Indications:COPD, group A, by GOLD 2017 classification ([facility]) INHALE 1 PUFF BY MOUTH EVERY DAY 60 Each 5 06/03/2022 Active Albuterol Sulfate HFA 108 (90 Base) MCG/ACT Inhalation Aerosol SolutionIndications:C OPD, group A, by GOLD 2017 classification ([facility]) INHALE 2 PUFFS BY MOUTH EVERY 4 [...] as of this encounter (statuses as of 07/27/2023) Active Problems Problem Noted Date Prediabetes 10/21/2021 [...] as of this encounter (statuses as of 07/27/2023) Resolved Problems Problem Noted Date Resolved Date [...] DELETE [facility] DETECT Study: Project # [id number], Drawing Tracer: Inocencio Dan, PhD. SUMMARY: Goal: Establish test [...] contact study staff at ; after hours Drawing Tracer via the [facility] hospital photocomposing machine operator . Please contact study team before resolving/deleting from patients problem list. Study phone number: [phone]. Diagnosis changed due to Research Module. Go to Snapshot for study details. Encounter for examination fo r normal comparison and control in clinical research program 05/17/2018 06/12/2022 Overview: DO NOT DELETE - [facility] Study: Project # [id number], Drawing Tracer: Dominic Lockhart, MS, MPH. SUMMARY: Goal: Establish [...] contact study staff at ; after hours Drawing Tracer via the [facility] hospital photocomposing machine operator . - Please contact study team before resolving/deleting from patients problem list. Study phone number: [phone]. Diagnosis changed due to Research Module. Go to [employer] for study details. Abnormal lung function test 06/09/201707/13 senior care current use of non -steroidal anti-inflammatories (NSAID) [...] as of this encounter (statuses as of 07/27/2023) Immunizations Name Administration Dates Next Due COVID-19 [...] Sign Reading Time Taken Comments Blood Pressure - - Pulse - - Temperature - - Respiratory Rate - - Oxygen Saturation - - Inhaled Oxygen Concentration - - Weight 61.9 kg (136 lb 6.4 oz) 07/27/2023 3:40 P M EDT Height 162.6 cm (5' 4.02") 07/27/2023 3:40 PM ED T Body Mass Index 23.4 07/27/2023 3:40 PM EDT documented in this encounter Patient Instructions * Patient Instructions* Susu Patel RDN - 07/27/2023 4:13 PM EDT Patient will continue with present meal regimen as doing. documented in this encounter Progress Notes * Susu Patel RDN - 07/27/2023 3:40 PM EDT NUTRITION FOLLOW-UP NOTE - OUTPATIENT [facility] Name: Fabricio Nunez Location: [facility] Date: 07/27/2023 Time: 3:40 PM Patient was identified by name and date. Patient was seen [id number] in the clinic. Reason for Nutrition Follow-up: general good nutrition NUTRITION ASSESSMENT: Client History Patient is a 77 year old female being seen for above. She lives at [facility] living [facility]. States she is in process of moving to a small apartment with eventual goal to reside at [facility] or the [facility] facility. Patient prefers to be called "Brett". Support System: cousin Barriers to Learning: confused at times Special Education Needs: None Physical Activity: walking most every day Food/Nutrition-Related History Describes typical diet history/24 hr recall Breakfast: 2 cups of coffee with sweetener and creamer, cheese omelet, fruit, raisin toast-dry, cranberry juice Snacks: none Lunch: yogurt and fruit, fish & chips, salad with olives, tomatoes, avocado with raspberry vinaigrette dressing, water Snacks: sometimes cookies-27 calories each or pretzels, sometimes Boost Dinner: fish & chips or seafood salad with shrimp, sometimes dessert-blended jello with whippedtopping or ice cream, water Snacks: occasionally Boost Drinks: water Restaurant meals: once or twice a week, either lunch or dinner Alcohol: Infrequent Tobacco Use: No Using Boost supplement less now, couple times a week. Diet Recall/Food Logs Indicate: AREAS FOR IMPROVEMENT: Inadequate fluid intake POSITIVE: Portion control Uses calorie free beverages Good meal distribution Adequate calorie intake Adequate protein intake Food and Nutrient Intake and other pertinent information: Patient reports she is eating better. Also notes less anxiety; states she was told by her psych provider that she had a degree of PTSD, and reports her provider helped her to work through this. Patient states she had a colonoscopy on June 12; states 2 polyps were removed. Patient denies GI issues or bowel problems. Patient continues to complain of quality of many of her meals at the facility where she resides. Medications Changes/Updates: discontinued blood pressure medication per pt report. Patient states she is no longer taking Benefiber or Miralax or colace. Nutrition-Focused Physical Findings Overall appearance: WNWD Anthropometric Measurements Current Weight: Wt Readings from Last 1 Encounters: 07/27/23 61.9 kg (136 lb 6.4 oz) Wt Readings from Last 4 Encounters: 07/27/23 61.9 kg (136 lb 6.4 oz) 07/20/23 62.4 kg (137 lb 8 oz) 06/12/23 57.6 kg (127 lb) 05/27/23 57.7 kg (127 lb 1.6 oz) Weight Change: increased by 9 pounds in the past month, desired BMI Readings from Last 1 Encounters: 07/27/23 23.40 kg/m Biochemical Data, Medical Tests, and Procedures Latest Reference Range & Units 04/30/23 11:47 Triglycerides <=174 mg/dL 197 (H) Cholesterol <200 mg/dL 205 (H) Non-HDL Cholesterol <=159 mg/dL 154 HDL Cholesterol >49 mg/dL 51 LDL Cholesterol <=129 mg/dL 115 (H): Data is abnormally high Above levels reviewed. Patient also aware. Previous Nutrition Diagnosis: Suboptimal oral intake related to Inadequate protein intake with increased anxiety as evidenced by Reported diet and/or activity recall Unintentional weight loss related to decreased oral intake as evidenced by weight loss of 4+ lbs inpast 4 months per Epic review. Progress towards goals: Patient will continue consuming at least 1 serving of Boost supplement daily. Partially MET. Patient now consuming this only twice a week. States she asked GI provider if she needed to continue drinking this-he said no. Patient will take MVI for older adults daily. MET per pt report Patient will continue consuming a high-protein food at each main meal-eggs, cheese, fish. MET Patient will continue drinking at least 40 ounces daily. MET per pt report CURRENT NUTRITION DIAGNOSIS No nutrition diagnosis at this time. NUTRITION INTERVENTION: NUTRITION EDUCATION Initial/brief nutrition education NUTRITION COUNSELING Strategies Nutrition Prescription: Diet: Good Nutrition Daily Calorie Needs: 4111-4059 Kcals Daily Protein Needs: 60 Grams protein Current Goals: Patient will continue with present meal regimen as doing. Dietitian Action: Encouraged patient to continue with present level of activity. Discussed recommended diet for diverticular disease. Encouraged her to avoid hard seeds, and to use caution with consumption of corn. States she doesn't eat much of this. Reviewed rationale for this diet. She denies GIsymptoms. Suggested that she use Miralax PRN for constipation, but states she doesn't have this issu e. States her appetite has improved. Notes she eats a cheese omelet most mornings for breakfast, and also consumes a high-protein food at most meals. She verbalizes no concerns at this time. Recommendations to Ordering Provider: Continue current plan of nutrition care. NUTRITION MONITORING AND EVALUATION: The following will be monitored and evaluated at the next visit: None Plan: Patient declined F/U visit; dietitian phone # given for future reference. 45 minutes Medical Nutrition Therapy Time In: 1537 (07/27/23 1651) Time Out: 1616 (07/27/23 1651) 15 min (8-22 min) 30 min (23-37 min) 45 min (38-52 min) 60 min (53-67 min) 75 min (68-82 min) 90 min (83-97 min) 105 min (98-113 min) Susu Patel RDN [facility] documented in this encounter Plan of Treatment Upcoming Encounters Date Type Specialty Care Team Description 07/28/2023 Office Visit Pulmonary Rafael Romeor, [address] [facility] [address] 09/15/2023 Office Visit Internal Medicine Kamille Medina MD [address] [place] [address] Health Maintenance Due Date Last Done Comments Alpha-1 Antitrypsin 12/20/1963 DXA Scan 07/27/2021 07/27/2018, 06/12, 06/21/2013, Additional history exists COVID-19 Vaccine (2022- season) 2023 03/18/2022, 08/29/2021, 12/10/2020, Additional history exists Influenza Vaccine (FLU shot) (#1) 2023 06/20/2022, 06/20/2022, 07/09/2021, Additional history exists GFR 10/31/2023 04/30/2023, 02/0 06/2023, 10/02/2021, Additional history exists Albumin/Creatinine Ratio 11/20/2023 023, 07/02/2020, 01/17/2019 CKD PHOS USE SMARTSET 82917 11/20/20230 06/2023, 01/04/2021, 08/12/2019 Depression Screening 11/20/2023 11/20/2022 HbA1c 11/20/2023 11/20/2022, 09/12, 01/04/2021, Additional history exists CKD HGB USE SMARTSET 54572 04/30/202404/30, 04/30/2023, 11/20/2022, Additional history exists TSH [...] as of this encounter Visit Diagnoses Diagnosis Dietary counseling and surveillance- Primary Dietary surveillance and counseling Adequate nutrition documented in this encounter Advance Directives Documents on File Type Date Recorded Patient Ethnology Teacher Expl anation Power of Immigration Case Worker 12/08/2022 AGATA Ramirez PARENTAL ACCESS REQUEST Advance Directives and Living Will 07/25/2015 ADVANCE DIRECTIVE / LIVING WILL Power of Immigration Case Worker 07/25/2015 POWER OF A TTORNEY Care Teams Curb Attendant Relationship Specialty Start Date End Date Kamille Medina MD [address] [place] [address] PCP - General 05/20/10 documented as of this encounter
--- OUTSIDE RECORDS SUMMARY | 2023-10-09 14:19 | External Medical Summary | Summary of Care ---
Author Name Unknown Organization [facility] Address [address] [facility] [place] [place] [address] Phone [phone] Care Team Providers Care Analyst Geochemical Prospecting Name Role Phone Kamille Medina MD Primary Care Provider + Reason for Visit * Reason Onset Date Comments Test Results 05/15/2023 Encounter Details Date Type Department Care Team Description 05/15/2023 Telephone General Internal Medicine [facility] [address] [place] [address] Kamille Medina MD [address] [facility] [address] Test Results Allergies Active Allergy Reactions Severity Noted Date Comments Aripiprazole 08/25/2018 Aripiprazole 06/28/2013 Moxifloxacin Hcl In Nacl 02/08/2010 Rash/severe diarrhea Cortisone Acetate 05/20/2010 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[place] 05/20/2010 Hives lethargic Moxifloxacin Hydrochloride 0 Hives diarrhea documented as of this encounter (statuses as of 05/26/2023) Medications Medication Sig Dispensed Refills Start Date [...] 62.5-25 MCG/INH Inhalation Aerosol Powder Breath Activated (umeclidinium-vilan terol)Indications:C OPD, group A, by GOLD 2017 classification ([facility]) INHALE 1 PUFF BY MOUTH EVERY DAY 60 Each 5 06/03/2022 Active Albuterol Sulfate HFA 108 (90 Base) MCG/ACT Inhalation Aerosol SolutionIndications :COPD, group A, by GOLD 2017 classification ([facility]) INHALE 2 PUFFS BY MOUTH EVERY 4 HOURS NEEDED FOR SHORTNESS OF BREATH 18 g 11 06/05/2022 Active Levothyroxine Sodium 25 MCG Oral Tablet (Levoxyl)Indication s:Acquired hypothyroidism TAKE 1 TABLET BY MOUTH EVERY DAY AT LEAST 30 MINUTES BEFORE BREAKFAST OR OTHER MEDS 90 Tablet 2 07/27/2022 Active Benefiber Oral PowderIndications:C onstipation, unspecified constipation type Take 1 Tbsf in a glass of water daily 245 g 5 10/24/2022 Active Memantine HCl 5 MG Oral Tablet (Namenda)Indication s:Memory disturbance Take 1 Tablet by mouth 2 [...] Active Atorvastatin Calcium 20 MG Oral Tablet (Lipitor)Indication s:Hyperlipidemia with target LDL less than 130 TAKE [...] 04/30/2023 Active Loratadine 10 MG Oral Tablet (Claritin)Indicatio ns:Dizziness,Post-n emeli drip Take 1 Tablet by mouth at bedtime. X 4 weeks 28 Tablet 0 04/30/2023 Active CALTRATE 600+D 600-400 MG-UNIT PO TABS Take by mouth daily. 0 03/03/2011 05/26/20 23 Discontinued Hospital, Clinic, or Other Facility Administered Medication Ordered Dose Route Frequency Start Date End Date Status albuterol sulfate (PROVENTIL) (2.5 MG/3ML) 0.083% inhalation solution 2.5 mgIndications:COPD, mild (HCC),Pulmonary emphysema, unspecified emphysema type (HCC) 2.5 mg NEBULIZER Q4H PRN 06/09/2017 Acti ve documented as of this encounter (statuses as of 05/26/2023) Active Problems Problem Noted Date Prediabetes 10/21/2021 [...] as of this encounter (statuses as of 05/26/2023) Resolved Problems Problem Noted Date Resolved Date [...] DELETE [facility] DETECT Study: Project # [id number], Energy Conservation Engineer: Inocencio Dan, PhD. SUMMARY: Goal: Establish test [...] contact study staff at ; after hours Energy Conservation Engineer via the [facility] hospital catalyst operator gasoline . Please contact study team before resolving/deleting from patients problem list. Study phone number: [phone]. Diagnosis changed due to Research Module. Go to Snapshot for study details. Encounter for examination fo r normal comparison and control in clinical research program 05/17/2018 06/12/2022 Overview: DO NOT DELETE - [facility] Study: Project # [id number], Energy Conservation Engineer: Dominic Lockhart, MS, MPH. SUMMARY: Goal: Establish [...] contact study staff at ; after hours Energy Conservation Engineer via the [facility] hospital catalyst operator gasoline . - Please contact study team before resolving/deleting from patients problem list. Study phone number: [phone]. Diagnosis changed due to Research Module. Go to Snapshot for study details. Abnormal lung function test 06/09/201707/13 snf current use of non -steroidal anti-inflammatories (NSAID) [...] as of this encounter (statuses as of 05/26/2023) Immunizations Name Administration Dates Next Due COVID-19 [...] as of this encounter Miscellaneous Notes * Addendum Note - Sharon Membreno LPN - 05/26/2023 9:34 AM EDTAddended by: SHARON MEMBRENO on: 05/26/2023 09:34 AM Modules accepted: Orders * Telephone Encounter - Sharon Membreno LPN - 05/26/2023 9:34 AM EDT D/c order faxed. Confirmation received. * Telephone Encounter - Kamille Medina MD [...] Results Outcome: Spoke with nursing staff at [facility]. They need an order stating that the pt is not to take the Ca and Vit D and any MVI's she is taking faxed to [phone]. Total Time including non face to face [...] Office Visit Internal Medicine Kamille Medina MD [address] [place] [address], [place] [address] 06/12/2023 Hospital Encounter Endoscopy Dior Navarro MD [address] [place] [address] 06/12/2023 Surgery Endoscopy Dior Navarro MD [address] [place] [address] COLONOSCOPY FLEXIBLE PROXIMAL DIAGNOSTIC 07/20/2023 Office Visit Gastroenterology Maggi Calles CRNP [address] [place] [address] 07/27/2023 Nutrition Services Nutrition Services Susu Patel RDN [address] [place] [address] 09/15/2023 Office Visit Internal Medicine Kamille Medina MD [address] [place] [address] Scheduled Procedures Name Priority Associated Diagnoses Date/Ti [...] 023, 07/02/2020, 01/17/2019 CKD PHOS USE SMARTSET 47591 11/20/2023 02/0 06/2023, 01/04/2021, 08/12/2019 Depression Screening, Annual for Pts 12 and Over 11/20/2023 11/20/2022 HbA1c 11/20/2023 11/20/2022, 09/12, 01/04/2021, Additional history exists CKD HGB USE SMARTSET 00366 04/30/202404/30, 04/30/2023, 11/20/2022, Additional history exists O2 ASSESSMENT COMPLETED IN PAST YEAR FOR COPD 04/30/2024 04/30/2023 TSH 04/30/2024 04/30/2023, 06/2023, 10/02/2021, Additional history exists DTaP,Tdap,and Td [...] Documents on File Type Date Recorded Patient Volunteer Services Director Expl anation Power of Personal Protection Specialist 12/08/2022 AGATA Ramirez PARENTAL ACCESS REQUEST Advance Directives and Living Will 07/25/2015 ADVANCE DIRECTIVE / LIVING WILL Power of Personal Protection Specialist 07/25/2015 POWER OF A TTORNEY Care Teams Analyst Geochemical Prospecting Relationship Specialty Start Date End Date Kamille Medina MD [address] [place] [address] [place] [address] PCP - General 05/20/10 documented as of this encounter
--- OUTSIDE RECORDS SUMMARY | 2023-10-09 14:19 | External Medical Summary | Summary of Care ---
Author Name Unknown Organization [facility] Address [address] [place] [address] Phone [phone] Care Team Providers Care Law Firm Partner Name Role Phone Kamille Medina MD Primary Care Provider + Reason for Visit * Reason Comments eRx-Medication Refill Encounter Details Date Type Department Care Team (Late st Contact Info) Description 01/07/2023 Refill General Internal Medicine [facility] [place] [address] [place] [address] [facility] [address] [facility] [address] Hyperlipidemia with target LDL less than 130 Allergies Active Allergy Reactions Criticality Noted Date Comments Aripiprazole 08/25/2018 Aripiprazole 06/28/2013 Moxifloxacin Hcl In Nacl 02/08/2010 Rash/severe diarrhea Cortisone Acetate 05/20/2010 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Alva 05/20/2010 Hives lethargic Moxifloxacin Hydrochloride 0 Hives diarrhea documented as of this encounter (statuses as of 08/11/2023) Medications Medication Sig Dispensed Refills Start Date End Date Status LAMOTRIGINE 200 MG PO TABS one tablet by mouth daily at bedtime 0 2 Active TRAZODONE HCL 50 MG PO TABS one tablet at bedtime/DR Escobedo 30 Tab 5 4 Active Bimatoprost 0.01 % Ophthalmic Solution Instill 1 Drop into both eyes at bedtime. 3 mL 12 5 Active dorzolamide (TRUSOPT OCUMETER PLUS) 2 % ophthalmic solution Instill 1 Drop into both eyes in the morning and 1 Drop before bedtime. 0 8 Active Acetaminophen ER 650 MG Oral Tablet [...] 60 to 180 days 1 Each 1 1 Active Anoro Ellipta 62.5-25 MCG/INH Inhalation Aerosol Powder Breath Activated (umeclidinium-vilan terol)Indications:C OPD, group A, by GOLD 2017 classification ([facility]) INHALE 1 PUFF BY MOUTH EVERY DAY 60 Each 5 2 Active Albuterol Sulfate HFA 108 (90 Base) MCG/ACT Inhalation Aerosol SolutionIndications :COPD, group A, by GOLD 2017 classification ([facility]) INHALE 2 PUFFS BY MOUTH EVERY 4 HOURS NEEDED FOR SHORTNESS OF BREATH 18 g 11 2 Active Levothyroxine Sodium 25 MCG Oral Tablet (Levoxyl)Indication s:Acquired hypothyroidism TAKE 1 TABLET BY MOUTH EVERY DAY AT LEAST 30 MINUTES BEFORE BREAKFAST OR OTHER MEDS 90 Tablet 2 2 Active Benefiber Oral PowderIndications:C onstipation, unspecified constipation type Take 1 Tbsf in a glass of water daily 245 g 5 3 Active CALTRATE 600+D 600-400 MG-UNIT PO TABS Take by mouth daily. 0 1 05/26/20 23 Discontinued Fluocinonide 0.05 % External SolutionIndications :Psoriasis vulgaris APPLY TO SCALP AND RIGHT EAR DAILY NEEDED FOR FLARES 60 mL 4 0 03/05/20 23 Discontinued Atorvastatin Calcium 20 MG Oral Tablet (Lipitor)Indication s:Hyperlipidemia with target LDL less than 130 TAKE 1 TABLET BY MOUTH EVERY DAY 90 Tablet 2 2 01/08/20 23 Discontinued Famotidine 20 MG Oral TabletIndications:G astroesophageal reflux disease, unspecified whether esophagitis present Take 1 Tablet by mouth in the morning. 90 Tablet 3 3 03/05/20 23 Discontinued Aspirin 81 MG Oral Tablet Chewable Take 1 Tablet by mouth in the morning. with food.. 100 Tablet 5 3 03/05/20 23 Discontinued Docusate Sodium 100 MG Oral Capsule (Colace)Indications :Constipation, unspecified constipation type Take 1 Capsule by mouth in the morning. medical assistant instructor give extra if constipation. 60 Capsule 11 3 03/05/20 23 Discontinued Atorvastatin Calcium 20 MG Oral Tablet (Lipitor)Indication s:Hyperlipidemia with target LDL less than 130 TAKE 1 TABLET BY MOUTH EVERY DAY 90 Tablet 0 3 04/15/20 23 Discontinued Hospital, Clinic, or Other Facility Administered Medication Ordered Dose Route Frequency Start Date End Date Status albuterol sulfate (PROVENTIL) (2.5 MG/3ML) 0.083% inhalation solution 2.5 mgIndications:COPD, mild (HCC),Pulmonary emphysema, unspecified emphysema type (HCC) 2.5 mg NEBULIZER Q4H PRN 06/09/2017 Acti ve documented as of this encounter (statuses as of 08/11/2023) Active Problems Problem Noted Date Diagnosed Date [...] as of this encounter (statuses as of 08/11/2023) Resolved Problems Problem Noted Date Diagnosed Date [...] program 05/17/2018 05/14/2020 Overview: DO NOT DELETE [facility] DETECT Study: Project # [id number], Director Chemistry: Inocencio Dan, PhD. SUMMARY: Goal: Establish test [...] study staff at ; after hours Director Chemistry via the [facility] hospital prototype machine operator . Please contact study team before resolving/deleting from patients problem list. Study phone number: [phone]. Diagnosis changed due to Research Module. Go to Snapshot for study details. Encounter for examination fo r normal comparison and control in clinical research program 05/17/2018 06/12/2022 Overview: DO NOT DELETE - [facility] JODI Study: Project # [id number], Director Chemistry: Dominic Lockhart, MS, MPH. SUMMARY: Goal: Establish [...] study staff at ; after hours Director Chemistry via the [facility] hospital prototype machine operator . - Please contact study team before resolving/deleting from patients problem list. Study phone number: [phone]. Diagnosis changed due to Research Module. Go to Snapshot for study details. 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 Placed call to patient to advise. Pt had ordered labs completed on 04/30/23; no follow-up is needed. Thank you, Theresa Sibley [place] [facility]er [facility] ([facility] ( [facility]) 08/11/2023, 4:08 PM * Telephone Encounter - Arie Baum [facility] - 01/07/2023 10:58 AM EDTSigned Prescriptions: Disp Refills Atorvastatin Calcium 20 MG Oral Tablet (Li*90 Tab*0 Sig: TAKE 1 TABLET BY MOUTH EVERY DAYAuthorizing Provider: KAMILLE MEDINA User: ARIE DUENAS- * Telephone Encounter - Arie Baum [facility] - 01/07/2023 10:57 AM EDT Provided 90 days supply with 0 refill(s) until upcoming appointment. Per refill protocol patient should have Lipid panel on file within past year. Reviewed AMP report, Care Gaps/Health Maintenance, medications list, and for any routine labs typically ordered for this patient. Lab orders placed. Please contact patient to advise of labs ordered for blood draw. Fasting is not required. Advise toobtain labs before her scheduled office visit 03/05/2023. Thank You, Arie Duenas [facility] Staff Pharmacist Pharmacy Refill Call Center 01/07/2023, 10:57 AM * Telephone Encounter - Arie Baum [facility] - 01/07/2023 10:56 AM EDT Pending Prescriptions: Disp Refills Atorvastatin Calcium 20 MG Oral Tablet (L*90 Tab*2 Sig: TAKE 1 TABLET BY MOUTH EVERY DAY Last Visit: 11/20/2022 (in office), Visit date not found (telemedicine) Next Visit: 03/05/2023 If no future appointments scheduled, and last appointment is greater than a year ago, please schedule patient for a follow-up appointment Last date the medication was ordered: 03/18/22 Pharmacy: [id number] [facility] Is this request for a controlled substance? No Urine Drug Screen:No results found for this or any previous visit. Patient Phone Numbers Labs: Lab Results Component Value Date/Time CREAT 1.1 (H) 11/20/2022 10:25 AM CREAT 1.0 08/12/2019 07:01 AM POTASSIUM 4.2 11/20/2022 10:25 AM POTASSIUM 4.1 08/12/2019 07:01 AM TSH 0.89 11/20/2022 10:25 AM TSH 3.51 08/12/2019 07:01 AM LDLCALC 65 10/02/2021 01:25 PM LDLCALC 68 07/12/2018 07:56 AM LDLDIRECT 93 [...] Office Visit General Internal Medicine [facility] [place] [address] [place] [address] Kamille Medina MD [address] [facility] [place] [address] Health Maintenance Due Date Last Done Comments Alpha-1 Antitrypsin 12/20/1963 DXA Scan 07/27/2021 07/27/2018, 06/12, 06/21/2013, Additional history exists COVID-19 Vaccine ( season) 2023 03/18/2022, 08/29/2021, 12/10/2020, Additional history exists Influenza Vaccine (FLU shot) (#1) 2023 06/20/2022, 06/20/2022, 07/09/2021, Additional history exists GFR 10/31/2023 04/30/2023, 02/0 06/2023, 10/02/2021, Additional history exists Albumin/Creatinine Ratio 11/20/2023 023, 07/02/2020, 01/17/2019 CKD PHOS USE SMARTSET 92779 11/20/2023 02/0 06/2023, 01/04/2021, 08/12/2019 Depression Screening 11/20/2023 11/20/2022 HbA1c 11/20/2023 11/20/2022, 09/12, 01/04/2021, Additional history exists CKD HGB USE SMARTSET 89130 04/30/202404/30, 04/30/2023, 11/20/2022, Additional history exists TSH [...] Not on filedocumented as of this encounter Results * (ABNORMAL) LIPID PANEL WITH DIRECT LDL IF TG IS HIGH (04/30/2023 11:47 AM EDT) Triglycerides 197(H) <=174 mg/dL 04/30/2023 5:36 PM EDT LAB[facility]ORY [facility] Comment: Triglyceride Reference Ranges (mg/dL): <150 Acceptable 150-174 Borderline high 175-499 High >=500 Very high Cholesterol 205(H) <200 mg/dL 04/30/2023 5:36 PM EDT [facility]ORY [facility] Comment: Total Cholesterol Reference Ranges (mg/dL): <200 Desirable 200-239 Borderline high >=240 High HDL Cholesterol 51 >49 mg/dL 5:36 PM EDT LAB[facility]ORY [facility] Comment: HDL Cholesterol Reference Ranges (mg/dL): >=60 High (Desirable) <50 Low (Undesirable) For Females <40 Low (Undesirable) For Males Non-HDL Cholesterol 154 <=159 mg/dL 04/30/2023 5:36 PM EDT LABOR[facility]ORY [facility] Comment: Non-HDL Cholesterol Reference Range (mg/dL): <100 Target level for high risk ASCVD patient <130 Optimal for general population 130-159 Near optimal for general population 160-189 Borderline High 190-219 High >=220 Very High LDL Cholesterol 115 <=129 mg/dL 04/30/2023 5:36 PM EDT LABORATORY [facility] Comment: LDL Cholesterol Reference Ranges (mg/dL): <70 Target level for high risk ASCVD patient <100 Optimal for general population 100-129 Near optimal for general population 130-159 Borderline high 160-189 High >=190 Very high Blood Venous blood specimen / Unknown Venipuncture / Unknown 04/30/2023 11:47 AM EDT 04/30/2023 11:47 AM EDT Arie Baum [facility] LAB BLOOD ORDERABLES LABORATORY [facility] [address] [place] [address] documented in this encounter Visit Diagnoses Diagnosis Hyperlipidemia with target LDL less than 130 Other and unspecified hyperlipidemia documented in this encounter Advance Directives Documents on File Type Date Recorded Patient Oceanographer Geological Expl anation Power of Instrumental Music Teacher 12/08/2022 AGATA Ramirez PARENTAL ACCESS REQUEST Advance Directives and Living Will 07/25/2015 ADVANCE DIRECTIVE / LIVING WILL Power of Instrumental Music Teacher 07/25/2015 POWER OF A TTORNEY Care Teams Law Firm Partner Relationship Specialty Start Date End Date Kamille Medina MD [address] [place] [address] PCP - General 05/20/10 documented as of this encounter
--- OUTSIDE RECORDS SUMMARY | 2023-10-09 14:19 | External Medical Summary | Summary of Care ---
Author Name Unknown Organization [facility] [address] [address] Phone [phone] Care Team Providers Care Wire Coater Name Role Phone Kamille Medina MD Primary Care Provider + Reason for Visit * Reason Comments Follow Up Follow up after scop e on 06/12/2023 and 3 month follow up for change in bowel s and poor appetite, hx of polyps. Encounter Details Date Type Department Care Team Description 07/20/2023 Office Visit Gastroenterology, [facility] [address] [place] [address] Maggi Calles CRNP [address] [place] [address] Chronic constipation* Allergies Active Allergy Reactions Severity Noted Date Comments Aripiprazole 08/25/2018 Aripiprazole 06/28/2013 Moxifloxacin Hcl In Nacl 02/08/2010 Rash/severe diarrhea Cortisone Acetate 05/20/2010 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[place] 05/20/2010 Hives lethargic Moxifloxacin Hydrochloride 0 Hives diarrhea documented as of this encounter (statuses as of 07/20/2023) Medications Medication Sig Dispensed Refills Start Date [...] rol)Indications:COPD, group A, by GOLD 2017 classification ([facility] [...] as of this encounter (statuses as of 07/20/2023) Active Problems Problem Noted Date Prediabetes 10/21/2021 [...] as of this encounter (statuses as of 07/20/2023) Resolved Problems Problem Noted Date Resolved Date [...] 05/17/2018 05/14/2020 Overview: [facility] DE[facility] Study: Project # [id number], Hardware Engineer: Inocencio Dan, PhD. SUMMARY: Goal: Establish [...] contact study staff at ; after hours Hardware Engineer via the [facility] asphalt heater operator . Please contact study team before resolving/deleting from patients problem list. Study phone number: [phone]. Diagnosis changed due to Research Module. Go to Snapshot for study details. Encounter for examination fo r normal comparison and control in clinical research program 05/17/2018 06/12/2022 Overview: DO NOT DELETE - [facility] Study: Project # [id number], Hardware Engineer: Dominic Lockhart, MS, MPH. SUMMARY: Goal: [...] contact study staff at ; after hours Hardware Engineer via the [facility] asphalt heater operator . - Please contact study team before resolving/deleting from patients problem list. Study phone number: [phone]. Diagnosis changed due to Research Module. Go to Snapshot for study details. Abnormal lung function test 06/09/201707/13 retirement current use of non -steroidal anti-inflammatories (NSAID) [...] as of this encounter (statuses as of 07/20/2023) Immunizations Name Administration Dates Next Due COVID-19 [...] Sign Reading Time Taken Comments Blood Pressure 126/66 07/20/2023 9:40 AM EDT Pulse 58 07/20/2023 9:40 AM EDT Temperature 36.4 C (97.5 F) 07/20/2023 9:40 AM ED T Respiratory Rate - - Oxygen Saturation 96% 07/20/2023 9:40 AM EDT Inhaled Oxygen Concentration - - Weight 62.4 kg (137 lb 8 oz) 07/20/2023 9:40 AM EDT Height - - Body Mass Index 23.59 06/12/2023 7:13 AM EDT documented in this encounter Progress Notes * Maggi LACY Rodas - 07/20/2023 9:36 AM EDT DATE OF SERVICE: 07/20/23 REFERRING PHYSICIAN: Kamille Medina MD CC: Fecal incontinence 07/20/23: Pt was having formed stools, but now consistency softer again. She's bothered by this. Rene Miralax 1 capful daily + Colace 100mg daily + Benefiber 2 tsp daily. Denies any abd pain, n/v, cramping, rectal bleeding. 04/06/23: Pt previously seen by LACY Phelps (see HPIs below). Has suspected pelvic floor dysfunction and constipation. She was doing well for the last 6 years on Miralax,having good formed stools w . But then February 20, had dinner at friend's house, then started having abnormal stools again. Some formed stools that are long and others flaky. Some stool leakage with urination. She denies any rectal bleeding or dark tarry stools. Denies abd pain, n/v. Worried she may have stool incontinence and wears Depends but she never has incontinence. No nocturnal diarrhea as well. She stopped Miralax because of symptoms. Hx of [facility] admission in October for anxiety and also had UTI. Recent UA negative. Office Visit 06/02/17: Pt was seen and evaluated. Chart reviewed. Had colonoscopy about 2 months agowith pathology with nonspecific chronic inflammation - pt was not symptomatic and doubt pathology was significant for IBD. She tells me she has been feeling well. She has been moving her bowels regularly once daily without any straining, black or bloody stools or abdominal pain. She is using miralax once daily and has noted that this has significantly improved her bowel function. She has no concerns she would like to address today. She is not having any upper GI symptoms. Colonoscopy - Diverticulosis in the sigmoid colon.Two 3 to 4 mm polyps in the transverse colon and in the ascending colon, removed with a cold snare. Resected and retrieved.The examination was otherwise normal. A. Colon, polyps, polypectomy: Hyperplastic polyp, two fragments, see comment. Colonoscopy 03/24/17: The perianal and digital rectal examinations were normal. There was a scar in the rectum. This was biopsied. Hypertrophy of anal papilla. Other keys normal colon. Due to the pt'scomplaint of diarrhea, random bx taken from throughout the colon. The ileum was normal. Biopsies were non-specific at pt was no longer having diarrhea CT ABD/PELV 02/16/17: No evidence of acute pathology in the abdomen/pelvis. Moderate stool burden. KUB 02/12/17: Stool throughout the colon which may be suggestive of constipation. No air-filled dilated loops of small bowel to suggest bowel obstruction. Stool studies 02/04/17: C.diff negative, culture negative, giardia negative Colonoscopy 08/20/15: The perianal and digital rectal examinations were normal. Small AVM in cecum. Scar in rectum, without evidence of recurrent polyp. Hypertrophy of anal papilla. Remainder of colonwas normal, but exam limited by prep quality. Recommendation: Discharge pt home. Repeat exam in 1 year; pre- medicate with phenergan and Reglan given pt's complaint of nausea. Pt reports incidentally that she has incomplete evacuation after BM. She often has to digitize to facilitate BM. Consider fiber + Miralax, use of squatty potty; if no relief with lifestyle changes, would ask PCP to consider patch sander referral for eval for rectocele. Colonoscopy 03/17/12: Preparation of the colon was fair. One 3 mm polyp in the cecum. Resected and retrieved. One 2 mm polyp in the descending colon. Resected and retrieved Flex Sig 08/06/11:One 3 mm polyp in the rectum (benign appearing). Resected and retrieved Colonoscopy 01/29/11: One 3 mm polyp in the rectum (benign appearing) The examination was otherwise normal. Office Visit 02/12/17: Ms. Nunez is a 71 year old female with PMH significant for ?pelvic floor dysfunction, constipation, depression, COPD and others listed below who presents in the office for evaluation of diarrhea. She was last seen in the office by Dr. Navarro for constipation was instructed to use a squatty potty, Miralax and fiber. Her stools were moving better, with less straining and less digital stimulation. About a week ago she had a change in her bowel movements. There were loose stools with urgency associated with a lot of mucous. There was never any watery diarrhea. No incontinence. No black or bloody stools. No upper GI symptoms. There was some abdominal pain at this time. She was seen by Dr. Cutler on 02/04/17 who completed serological work up and stool studies. This was unremarkable besides ESR 35. She took imodium about four days ago, she thinks she has taken 6 tablets total. She has not had any bowel movements at all since Thursday. Presently, there is right abdominal and back pain. No radiation of pain. No other abdominal pain. No nausea. No vomiting. She has not passed any gas since Thursday. There is decreased appetite. She is eating small portions of bananas, tea and toast daily. Today she denies fever, chills, chest pain, SOB, nausea, vomiting. Past Medical History: Diagnosis Date Abnormal lung [...] of colonic polyps Psoriatic arthropathy (HCC) 1998 Family History Problem Relation Age of Onset Breast Cancer Mother 77 Other (Other) Mother chf Other (psoriasis) Father Other (rheumatoid arthritis) Father Past Surgical History: Procedure Laterality Date CATARACT SURGERY,COMPLEX 2013 COLONOSCOPY W/ BIOPSY (RECTUM) 01/29/2011 po,lyp x 1 otherwise normal COLONOSCOPY, DIAGNOSTIC (RECTUM) 03/17/2012 adenomatous polyps repeat in 3yrs COLONOSCOPY, DIAGNOSTIC (RECTUM) 08/20/2015 cecal AVM, poor prep, repeat 1 yr/COLONOSCOPY FLEXIBLE PROXIMAL DIAGNOSTIC performed by Dior Navarro MD at [facility] COLONOSCOPY, DIAGNOSTIC (RECTUM) 03/24/2017 mild microscopic inflammation, repeat 5 yrs/COLONOSCOPY FLEXIBLE PROXIMAL DIAGNOSTIC performed by Dior Navarro MD at [facility] COLONOSCOPY, DIAGNOSTIC (RECTUM) 06/12/2023 diverticulosis/biopsies normal/COLONOSCOPY FLEXIBLE PROXIMAL DIAGNOSTIC performed by Dior Navarro MD at [facility] INCISE SPINAL COLUMN/NERVE 03/14/2010 lumbar 5 LAPAROSCOPY; CHOLECYSTECTOMY 10/1992 PARTIAL HYSTERECTOMY 1980 Hysterectomy Partial ND LASER SURGERY OF EYE Left 05/08/2020 for glaucoma SIGMOIDOSCOPY W/TUMOR REMOVAL 08/06/2011 recurrent rectal polyp, APC'd, repeat in 6 months Social History Tobacco Use Smoking status: Former Packs/day: 2.00 Years: 30.00 Pack years: 60.00 Types: Cigarettes Quit date: 10/11/1999 Years since quittin.7 Smokeless tobacco: Never Tobacco comments: Quit 1998 Vaping Use Vaping Use: Never used Substance Use Topics Alcohol use: Yes Comment: very rarely Drug use: No Review of patient's allergies indicates: Allergen Reactions Abilify [Aripiprazole] Aripiprazole Avelox [Moxifloxacin Hcl In Nacl] Rash/severe diarrhea Cortisone Acetate 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[place] Hives lethargic Moxifloxacin Hydrochloride Hives diarrhea Current [...] Tbsf in a glass of water daily (Patient not taking: Reported on 06/09/2023) 245 g 5 Memantine HCl 5 MG Oral Tablet (Namenda) Take 1 Tablet by mouth 2 times a day with morning and evening meals. 30 Tablet 3 Famotidine 20 MG Oral Tablet (Pepcid) Take 1 Tablet by mouth in the morning. (Patient not taking: Reported on 06/09/2023) Fluocinonide 0.05 % External Solution Apply topically [...] LACY Lowry 2.5 mg at 12/09/22 1331 REVIEW OF SYSTEMS: See HPI above; All other findings negative. EXAM: Filed Vitals: 07/20/23 0940 BP: 126/66 Pulse: 58 Temp: 36.4 C (97.5 F) SpO2: 96% Weight: 62.4 kg (137 lb 8 oz) GENERAL: Well developed and well nourished in no acute distress. SKIN: No rashes, ulcers, jaundice or spider angiomata. HEENT: Normocephalic, sclera clear NECK: Supple, trachea midline, no JVD. LUNGS: Clear to auscultation bilaterally, no respiratory distress or accessory muscles used. HEART: Regular rate & rhythm, no murmurs and no gallops. ABDOMEN: Normal bowel sounds, soft and nontender. EXTREMITIES: No palmar erythema, no ankle edema, no skin discoloration, no clubbing, no cyanosis. NEURO: No lateralizing findings. Sensory/Motor grossly normal. ASSESSMENT AND PLAN: Fabricio Nunez is a 77 year old female w history of ?pelvic floor dysfunction and constipation, currently reports having looser consistency stools that is bothering her. Colonoscopy recently unremarkable except for findings of benign polyp. - DC Colace - May decrease Miralax to 1/2 capful daily if stools still loose. - Benefiber 2 tsp daily. RETURN TO CLINIC: [facility] documented in this encounter Nursing Notes * Genie Batista LPN - 07/20/2023 9:43 AM EDT Patient identified by name and date of . Chief Complaint Patient presents with Follow Up Follow up after scope on 06/12/2023 and 3 month follow up for change in bowel s and poor appetite, hxof polyps. documented in this encounter Plan of Treatment Upcoming Encounters Date Type Specialty Care Team Description 07/27/2023 Nutrition Services Nutrition Services Susu Patel RDN [address] [place] [address] 07/28/2023 [facility] Visit [facility] [address] [facility] [address] 09/15/2023 Office Visit Internal Medicine Kamille Medina MD [address] [facility] [place] [address] Health Maintenance Due Date Last Done Comments Alpha-1 Antitrypsin [birth year]20/1963 DXA Scan 07/27/2021 07/27/2018, 06/12, 06/21/2013, Additional history exists COVID-19 Vaccine ( season) 2023 03/18/2022, 08/29/2021, 12/10/2020, Additional history exists Influenza Vaccine (FLU shot) (#1) 2023 06/20/2022, 06/20/2022, 07/09/2021, Additional history exists GFR 10/31/2023 04/30/2023, /0 06/2023, 10/02/2021, Additional history exists Albumin/Creatinine Ratio 11/20/2023 023, 07/02/2020, 01/17/2019 CKD PHOS USE SMARTSET 33673 11/20/20230 06/2023, 01/04/2021, 08/12/2019 Depression Screening 11/20/2023 11/20/2022 HbA1c 11/20/2023 11/20/2022, 09/12, 01/04/2021, Additional history exists CKD HGB USE SMARTSET 42091 04/30/202404/30, 04/30/2023, 11/20/2022, Additional history exists TSH [...] as of this encounter Visit Diagnoses Diagnosis Chronic constipation- Primary Unspecified constipation documented in this encounter Advance Directives Documents on File Type Date Recorded Patient Projection Engineer Expl anation Power of Director [employer] 12/08/2022 AGATA Ramirez PARENTAL ACCESS REQUEST Advance Directives and Living Will 07/25/2015 ADVANCE DIRECTIVE / LIVING WILL Power of Director [employer] 07/25/2015 POWER OF A TTORNEY Care Teams Wire Coater Relationship Specialty Start Date End Date Kamille Medina MD [address] [place] [address] PCP - General 05/20/10 documented as of this encounter
--- OUTSIDE RECORDS SUMMARY | 2023-10-09 14:19 | External Medical Summary | Summary of Care ---
Author Name Unknown Organization [facility] Address [address] [place] [address] Phone [phone] Care Team Providers Care Air Technician Name Role Phone Kamille Medina MD Primary Care Provider + Reason for Visit * Reason Comments Follow Up Encounter Details Date Type Department Care Team Description 05/27/2023 Office Visit General Internal Medicine [facility] 200 [facility] [place] [address] Kamille Medina MD 200 [facility] [address] Bipolar 2 disorder (HCC)*; Stage 3a chronic kidney disease; COPD, group B, by GOLD 2017 classification (HCC); Acquired hypothyroidism; Hyperlipidemia with target LDL less than 130; Psoriasis of scalp Allergies Active Allergy Reactions Severity Noted Date Comments Aripiprazole 08/25/2018 Aripiprazole 06/28/2013 Moxifloxacin Hcl In Nacl 02/08/2010 Rash/severe diarrhea Cortisone Acetate 05/20/2010 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[place] 05/20/2010 Hives lethargic Moxifloxacin Hydrochloride 0 Hives diarrhea documented as of this encounter (statuses as of 05/27/2023) Medications Medication Sig Dispensed Refills Start Date [...] MCG/INH Inhalation Aerosol Powder Breath Activated (umeclidinium-vilant randall)Indications: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 In addition to 20 mg capsule. 0 Active Polyethylene Glycol 3350 8.5 GM Oral Packet Take 8.5 g by mouth in the morning. Mix in 8 oz of orange juice or water. 0 Active Vitamin B-12 1000 MCG Oral Tablet (Cyanocobalamin) Take 2 Tablets by mouth in the morning. 0 Active Cyanocobalamin 500 MCG Oral Tablet DAILY IN THE MORNING 0 10/20/2022 3 Discontinue d(Medicatio n List Clean Up) hydrOXYzine HCl 25 MG Oral Tablet 1 Tablet. 0 10/13/2022 3 Discontinue d(Medicatio n List Clean Up) hydroCHLOROthiazide 12.5 MG Oral Tablet (Hydrodiuril) Take 1 Tablet by mouth in the morning. Per pt/her cousin--was prescribed by Dr beata Riggs--need to clarify start date from them. 1 Tablet 0 04/30/2023 3 Discontinue d(Patient preference/ discontinua tion) Hospital, Clinic, or Other Facility Administered Medication Ordered Dose Route Frequency Start Date End Date Status albuterol sulfate (PROVENTIL) (2.5 MG/3ML) 0.083% inhalation solution 2.5 mgIndications:COPD, mild (HCC),Pulmonary emphysema, unspecified emphysema type (HCC) 2.5 mg NEBULIZER Q4H PRN 06/09/2017 Acti ve documented as of this encounter (statuses as of 05/27/2023) Active Problems Problem Noted Date Prediabetes 10/21/2021 Overview: Per Prediabetes protocol Stage 3a chronic kidney disease 08/20/20 Overview: Per CKD protocol Non-rheumatic aortic sclerosis [...] as of this encounter (statuses as of 05/27/2023) Resolved Problems Problem Noted Date Resolved Date [...] program 05/17/2018 05/14/2020 Overview: DO NOT DELETE [facility] DETECT Study: Project # [id number], Senior Developer: Inocencio Dan, PhD. SUMMARY: Goal: Establish test [...] contact study staff at ; after hours Senior Developer via the [facility] hospital shelf drier operator . Please contact study team before resolving/deleting from patients problem list. Study phone number: [phone]. Diagnosis changed due to Research Module. Go to Snapshot for study details. Encounter for examination fo r normal comparison and control in clinical research program 05/17/2018 06/12/2022 Overview: DO NOT DELETE - [facility] DETECT Study: Project # [id number], Senior Developer: Dominic Lockhart, MS, MPH. SUMMARY: Goal: Establish [...] contact study staff at ; after hours Senior Developer via the [facility] hospital shelf drier operator . - Please contact study team before resolving/deleting from patients problem list. Study phone number: [phone]. Diagnosis changed due to Research Module. Go to Snapshot for study details. Abnormal lung function test 06/09/201707/13 meterman current use of non -steroidal anti-inflammatories (NSAID) [...] as of this encounter (statuses as of 05/27/2023) Immunizations Name Administration Dates Next Due COVID-19 [...] Sign Reading Time Taken Comments Blood Pressure 170/78 05/27/2023 10:19 AM EDT Pulse 52 05/27/2023 10:19 AM EDT Temperature 36.1 C (96.9 F) 05/27/2023 10:19 AM E DT Respiratory Rate 16 05/27/2023 10:19 AM EDT Oxygen Saturation 97% 05/27/2023 10:19 AM EDT Inhaled Oxygen Concentration - - Weight 57.7 kg (127 lb 1.6 oz) 05/27/2023 10:19 AM EDT Height - - Body Mass Index 22.51 04/20/2023 2:20 PM EDT documented in this encounter Progress Notes * Kamille Medina MD - 05/27/2023 10:41 AM EDT HPI: Fabricio Nunez is a 77 year old female who presents with: Chief Complaint Patient presents with Follow Up Patient is here for the recheck. Chart reviewed with the patient including current meds, last labs and HM. No acute event since we saw patient last time including no recent fall or injuries. As per dr. Mars at last Er follow up: EKG-sinus bradycardia at 53 beats per minute, T-wave inversions anteriorly unchanged from EKGs 11/10/[address] head-chronic microvascular ischemic changes no acute findings, pituitary see cyst better seen onMRI from October 2022. Labs-WBC 2.95, HB 10.5, platelets 184, normal LFT, BMP except sodium 135, ca 9.6TSH 1.24, magnesium2. Was given meclizine 25 mg 6 tabs Blood pressures in the office previously have been normal. HOLD HCTZ, labs today. Start Claritin daily for postnasal drainage, was given meclizine 25 mg 6 tablets in the ED, will given new prescription for 12.5 mg three times daily p.r.n. vertigo Cramps in feet when sleeps at night. Constipation and diarrhoea, scheduled for colonoscopy next month and sees GI. Discussed hydration, diet mikki high protein Discussed vaccinations. Will get new covid vaccine once out and get flu shot in July. Has high bp today. Meds reviewed. Feels dizzy at times. Discussed orthostasis and how hydration helps and take her own time. 8. Anxiety+ mikki goes out. Discussed higher dose of prozac lately and lorazepam as needed, to discuss with dr. Alonso. 8. As had high calcium discussed holding HCTZ. 10. Discussed not to check bp all the time or daily. Patient Active Problem List Diagnosis Code Bipolar 2 disorder ([facility]) F31.81 Hyperlipidemia with target LDL less than 130 E78.5 Psoriasis of scalp L40.9 Generalized osteoarthritis M15.9 Acquired hypothyroidism E03.9 Body mass index (BMI) of 27.0 to 27.9 in adult Z68.27 Lumbar degenerative disc disease M51.36 Osteoarthritis of spine with radiculopathy, lumbar region M47.26 Spondylolisthesis, lumbar region M43.16 History of tobacco use Z87.891 COPD, group B, by GOLD 2017 classification ([facility]) J44.9 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 Stage 3a chronic kidney disease N18.31 Prediabetes R73.03 Current Outpatient Medications Medication Sig Dispense Refill [...] BY MOUTH EVERY DAY 90 Tablet 0 hydroCHLOROthiazide 12.5 MG Oral Tablet (Hydrodiuril) Take 1 Tablet by mouth in the morning. Per pt/her cousin--was prescribed by Dr beata Riggs--need to clarify start date from them. 1 Tablet 0 LORazepam 0.5 MG Oral Tablet (Ativan) Take 0.5 Tablets by mouth 2 times a day as needed for Anxiety. 1 Tablet 0 Loratadine 10 MG Oral [...] constipation. FLUoxetine HCl 10 MG Oral Capsule (PROzac) Take 1 Capsule by mouth in the morning. In addition to 20 mg capsule. Polyethylene Glycol 3350 8.5 GM Oral Packet Take 8.5 g by mouth in the morning. Mix in 8 oz of orange juice or water. Vitamin B-12 1000 MCG Oral Tablet (Cyanocobalamin) Take 2 Tablets by mouth in the morning. Zoster Vac Recomb Adjuvanted 50 MCG/0.5ML Intramuscular Suspension Reconstituted (Shingrix) Inject 0.5 mL into a large muscle now and repeat dose in 60 to 180 days 1 Each 1 Current Facility-Administered Medications Medication Dose Route Frequency Provider Last Rate Last Admin albuterol sulfate (PROVENTIL) (2.5 MG/3ML) 0.083% inhalation solution 2.5 mg 2.5 mg Nebulizer Q4H PRN LACY Lowry 2.5 mg at 12/09/22 1331 The patient's medication list was reviewed and updated as needed. 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 OBJECTIVE: BP 170/78 | Pulse 52 | Temp 36.1 C (96.9 F) (Tympanic) | Resp 16 | Wt 57.7 kg (127 lb 1.6 oz) |SpO2 97% | BMI 22.51 kg/m | BSA 1.6 m PHYSICAL EXAM: HEENT: PERRLA, EOMI, anicteric [...] stable No focal weakness ASSESSMENT AND PLAN: Bipolar 2 disorder (HCC) (Primary) On Prozac 20 mg and 10 mg po daily( 30 mg orally daily) Stage 3a chronic kidney disease Avoid Nsaids, hydration, low salt diet. COPD, group B, by GOLD 2017 classification (HCC) On Anoro. Albuterol as needed. Acquired hypothyroidism On levothyroxine. Hyperlipidemia with target LDL less than 130 On statin. Psoriasis of scalp Flucinonide solution as needed. Bp is borderline high. Advised low salt, hydration. Discussed HCTZ to hold based on last labs which showed hypercalcemia. Follow Up: Return in about 3 months (around 08/27/2023). Kamille Medina MD documented in this encounter Nursing Notes * Krista Gordillo LPN - 05/27/2023 10:18 AM EDT Patient presents for 2 [address] follow up. Saw Dr. Mars in April and was recommended to F/u with Dr. Medina. documented in this encounter Plan of Treatment Upcoming Encounters Date Type Specialty Care Team Description 06/12/2023 Hospital Encounter Endoscopy Dior Navarro MD [address] [place] [address] 06/12/2023 Surgery Endoscopy Dior Navarro MD [address] [place] [address] COLONOSCOPY FLEXIBLE PROXIMAL DIAGNOSTIC 07/20/2023 Office Visit Gastroenterology Maggi Calles CRNP [address] [place] [address] 07/27/2023 Nutrition Services Nutrition Services Susu Patel RDN [address] [place] [address] 09/15/2023 Office Visit Internal Medicine Kamille Medina MD 200 [facility] [place] [address] Scheduled Procedures Name Priority Associated Diagnoses Date/Ti [...] 023, 07/02/2020, 01/17/2019 CKD PHOS USE SMARTSET 43728 11/20/2023 02/0 06/2023, 01/04/2021, 08/12/2019 Depression Screening, Annual for Pts 12 and Over 11/20/2023 11/20/2022 HbA1c 11/20/2023 11/20/2022, 09/12, 01/04/2021, Additional history exists CKD HGB USE SMARTSET 07322 04/30/202404/30, 04/30/2023, 11/20/2022, Additional history exists O2 [...] as of this encounter Visit Diagnoses Diagnosis Bipolar 2 disorder (HCC)- Primary Other bipolar disorders Stage 3a chronic kidney disease COPD, group B, by GOLD 2017 classification (HCC) Acquired hypothyroidism Unspecified hypothyroidism Hyperlipidemia with target LDL less than 130 Other and unspecified hyperlipidemia Psoriasis of scalp Other psoriasis History of colon polyps Personal history of colonic polyps Special screening for malignant neoplasms, colon documented in this encounter Advance Directives Documents on File Type Date Recorded Patient Per Diem Physical Therapist Assistant Expl anation Power of Home Care Administrator 12/08/2022 AGATA Ramirez PARENTAL ACCESS REQUEST Advance Directives and Living Will 07/25/2015 ADVANCE DIRECTIVE / LIVING WILL Power of Home Care Administrator 07/25/2015 POWER OF A TTORNEY Care Teams Air Technician Relationship Specialty Start Date End Date Kamille Medina MD 200 [facility] [place] [address] PCP - General 05/20/10 documented as of this encounter"
--- OUTSIDE RECORDS SUMMARY | 2023-10-09 14:20 | External Medical Summary | Summary of Care ---
Author Name Unknown Organization [facility] Address [address] [place] [address] Phone [phone] Care Team Providers Care Weatherization Installer Name Role Phone Kamille Medina MD Primary Care Provider + Reason for Visit * Reason Onset Date Comments Test Results 05/02/2023 Encounter Details Date Type Department Care Team Description 05/02/2023 Telephone General Internal Medicine [facility] [place] 200 [facility] [place] [address] Isabela Mars MD 200 [facility] [facility] [address] Test Results Allergies Active Allergy Reactions Severity Noted Date Comments Aripiprazole 08/25/2018 Aripiprazole 06/28/2013 Moxifloxacin Hcl In Nacl 02/08/2010 Rash/severe diarrhea Cortisone Acetate 05/20/2010 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[place] 05/20/2010 Hives lethargic Moxifloxacin Hydrochloride 0 Hives diarrhea documented as of this encounter (statuses as of 05/07/2023) Medications Medication Sig Dispensed Refills Start Date [...] group A, by GOLD 2017 classification ([facility]) INHALE 1 PUFF BY MOUTH EVERY DAY 60 Each 5 06/03/2022 Active Albuterol Sulfate HFA 108 (90 Base) MCG/ACT Inhalation Aerosol SolutionIndications:C OPD, group A, by GOLD 2017 classification ([facility]) INHALE 2 PUFFS BY MOUTH EVERY 4 [...] as of this encounter (statuses as of 05/07/2023) Active Problems Problem Noted Date Prediabetes 10/21/2021 [...] as of this encounter (statuses as of 05/07/2023) Resolved Problems Problem Noted Date Resolved Date [...] 05/17/2018 05/14/2020 Overview: DO NOT DELETE [facility] DETECT Study: Project # [id number], Control System Manager: Inocencio Dan, PhD. SUMMARY: Goal: Establish [...] contact study staff at ; after hours Control System Manager via the [facility] ear machine operator . Please contact study team before resolving/deleting from patients problem list. Study phone number: [phone]. Diagnosis changed due to Research Module. Go to Snapshot for study details. Encounter for examination fo r normal comparison and control in clinical research program 05/17/2018 06/12/2022 Overview: DO NOT DELETE - [facility] JOD[facility] Study: Project # [id number], Control System Manager: Dominic Lockhart, MS, MPH. SUMMARY: Goal: [...] contact study staff at ; after hours Control System Manager via the [facility] ear machine operator . - Please contact study team before resolving/deleting from patients problem list. Study phone number: [phone]. Diagnosis changed due to Research Module. Go [...] as of this encounter (statuses as of 05/07/2023) Immunizations Name Administration Dates Next Due COVID-19 [...] Telephone Encounter - Kamille Medina MD - 05/07/2023 10:29 AM EDT Noted. * Telephone Encounter - HONG Pierce - 05/05/2023 9:41 AM EDT Advised pt. * Telephone Encounter - Isabela Mars MD - 05/04/2023 4:04 PM EDT Per other encounter she was started on HCTZ by provider at [facility] on 12/30/2022, --recent calcium was high, vitamin-D added on was high at 62, looks like ionized calcium and PTH could not be added Stop HCTZ in view of high calcium and history of low sodium. Monitor blood pressure daily, call PCP in 1 week with log of blood pressure readings, if greater than 150/90 she may need to be started on amlodipine. Keep appt PCP 05/27-Saroj. * Telephone Encounter - Dominic Hawkins LPN - 05/02/2023 2:56 PM EDT Provider to address: Isabela Mars MD Reason for Call: Test Results Contact: Telephone Call Contact Type: Test Results Outcome: patient informed and voiced understanding. Total Time including non face to face (minutes): 5 * Telephone Encounter - Dominic Hawkins LPN - 05/02/2023 2:56 PM EDT ----Isabela Mars MD---- "Normal TSH, CBC, BMP with a normal sodium, calcium high at 11. Add on ion ca,vitamin-D and PTH, continue to stay off HCTZ" documented in this encounter Plan of Treatment Upcoming Encounters Date Type Specialty Care Team Description 05/27/2023 Office Visit Internal Medicine Kamille Medina MD [address] [place] [address], [place] [address] 06/12/2023 Hospital Encounter Endoscopy Dior Navarro MD [address] [place] [address] 06/12/2023 Surgery Endoscopy Dior Navarro MD [address] [place] [address] COLONOSCOPY FLEXIBLE PROXIMAL DIAGNOSTIC 07/20/2023 Office Visit Gastroenterology Maggi Calles CRNP [address] [place] [address] 07/27/2023 Nutrition Services Nutrition Services Susu Patel RDN [address] [place] [address] 09/15/2023 Office Visit Internal Medicine Kamille Medina MD [address] [place] [address] Scheduled Procedures Name Priority Associated Diagnoses Date/Ti [...] 023, 07/02/2020, 01/17/2019 CKD PHOS USE SMARTSET 71606 11/20/2023 02/0 06/2023, 01/04/2021, 08/12/2019 Depression Screening, Annual for Pts 12 and Over 11/20/2023 11/20/2022 HbA1c 11/20/2023 11/20/2022, 09/12, 01/04/2021, Additional history exists CKD HGB USE SMARTSET 53947 04/30/202404/30, 04/30/2023, 11/20/2022, Additional history exists O2 [...] Documents on File Type Date Recorded Patient Paint Roller Covers Supervisor Expl anation Power of Screw Driver Operator 12/08/2022 AGATA Ramirez PARENTAL ACCESS REQUEST Advance Directives and Living Will 07/25/2015 ADVANCE DIRECTIVE / LIVING WILL Power of Screw Driver Operator 07/25/2015 POWER OF A TTORNEY Care Teams Weatherization Installer Relationship Specialty Start Date End Date Kamille Medina MD [address] [place] [address] PCP - General 05/20/10 documented as of this encounter
--- OUTSIDE RECORDS SUMMARY | 2023-10-09 14:20 | External Medical Summary | Summary of Care ---
Author Name Unknown Organization [facility] Address [address] [place] [address] Phone [phone] Care Team Providers Care Naphthalene Operator Helper Name Role Phone Kamille Medina MD Primary Care Provider + Reason for Visit * Reason Onset Date Comments Advice 05/06/2023 Order clarificat ion Encounter Details Date Type Department Care Team Description 05/06/2023 Telephone General Internal Medicine [facility] [address] [place] [address] Kamille Medina MD [address] [facility] [address] Advice (Order clarification ) Allergies Active Allergy Reactions Severity Noted Date Comments Aripiprazole 08/25/2018 Aripiprazole 06/28/2013 Moxifloxacin Hcl In Nacl 02/08/2010 Rash/severe diarrhea Cortisone Acetate 05/20/2010 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[place] 05/20/2010 Hives lethargic Moxifloxacin Hydrochloride 0 Hives diarrhea documented as of this encounter (statuses as of 05/06/2023) Medications Medication Sig Dispensed Refills Start Date [...] rol)Indications:COPD, group A, by GOLD 2017 classification ([facility]) INHALE 1 PUFF BY MOUTH EVERY DAY 60 Each 5 06/03/2022 Active Albuterol Sulfate HFA 108 (90 Base) MCG/ACT Inhalation Aerosol SolutionIndications:C OPD, group A, by GOLD 2017 classification ([facility]) INHALE 2 PUFFS BY MOUTH EVERY 4 [...] as of this encounter (statuses as of 05/06/2023) Active Problems Problem Noted Date Prediabetes 10/21/2021 [...] as of this encounter (statuses as of 05/06/2023) Resolved Problems Problem Noted Date Resolved Date [...] NOT DELETE [facility] DETECT Study: Project # [id number], Rig Hand: Inocencio Dan, PhD. SUMMARY: Goal: Establish test [...] contact study staff at ; after hours Rig Hand via the [facility] printer slotter operator . Please contact study team before resolving/deleting from patients problem list. Study phone number: [phone]. Diagnosis changed due to Research Module. Go to Snapshot for study details. Encounter for examination fo r normal comparison and control in clinical research program 05/17/2018 06/12/2022 Overview: DO NOT DELETE - [facility] JODI Study: Project # [id number], Rig Hand: Dominic Lockhart, MS, MPH. SUMMARY: Goal: Establish [...] contact study staff at ; after hours Rig Hand via the [facility] printer slotter operator . - Please contact study team before resolving/deleting from patients problem list. Study phone number: [phone]. Diagnosis changed due to Research Module. Go to Snapshot for study details. Abnormal lung function test 06/09/201707/13 assisted current use of non -steroidal anti-inflammatories (NSAID) [...] as of this encounter (statuses as of 05/06/2023) Immunizations Name Administration Dates Next Due COVID-19 [...] encounter Miscellaneous Notes * Telephone Encounter - Daniella Hendricks LPN - 05/06/2023 12:33 PM EDT Reason for Call: Advice (Order clarification ) Contact: Telephone Call Contact Type: Follow-up Outcome: Reviewed chart with Sameera ([facility]) Read her the message from 05/02/23 TE and she asked that I fax a copy of it to her to [phone] -errl with confirmation it was received Total Time including non face to face (minutes): 10 * Telephone Encounter - Leticia Singh CMA - 05/06/2023 11:37 AM EDT Called, left message for Sameera to return call. * Telephone Encounter - HONG Rodrigues - 05/06/2023 10:12 AM EDT Sameera calling to get clarification on the order that was received for hydrochlorothiazide 12.5 MG. Please call back as soon as possible to discuss. documented in this encounter Plan of Treatment Upcoming Encounters Date Type Specialty Care Team Description 05/27/2023 Office Visit Internal Medicine Kamille Medina MD 200 [place] [place] [address] 06/12/2023 Hospital Encounter Endoscopy Dior Navarro MD [address] [place] [address] 06/12/2023 Surgery Endoscopy Dior Navarro MD [address] [place] [address] COLONOSCOPY FLEXIBLE PROXIMAL DIAGNOSTIC 07/20/2023 Office Visit Gastroenterology Maggi Calles CRNP [address] [place] [address] 07/27/2023 Nutrition Services Nutrition Services Susu Patel, SUSIE [address] [place] [address] 09/15/2023 Office Visit Internal Medicine Kamille Medina MD [address] [place] [place] [address] Scheduled Procedures Name Priority Associated Diagnoses Date/Ti [...] 023, 07/02/2020, 01/17/2019 CKD PHOS USE SMARTSET 37733 11/20/2023 02/0 06/2023, 01/04/2021, 08/12/2019 Depression Screening, Annual for Pts 12 and Over 11/20/2023 11/20/2022 HbA1c 11/20/2023 11/20/2022, 09/12, 01/04/2021, Additional history exists CKD HGB USE SMARTSET 46953 04/30/202404/30, 04/30/2023, 11/20/2022, Additional history exists O2 [...] Documents on File Type Date Recorded Patient Metal Furnace Operator Expl anation Power of Orthotics Assistant 12/08/2022 AGATA Ramirez PARENTAL ACCESS REQUEST Advance Directives and Living Will 07/25/2015 ADVANCE DIRECTIVE / LIVING WILL Power of Orthotics Assistant 07/25/2015 POWER OF A TTORNEY Care Teams Naphthalene Operator Helper Relationship Specialty Start Date End Date Kamille Medina MD 200 [place] [address] PCP - General 05/20/10 documented as of this encounter
--- OUTSIDE RECORDS SUMMARY | 2023-10-09 14:20 | External Medical Summary | Summary of Care ---
Author Name Unknown Organization [facility] Address [address] [place] [address] Phone [phone] Care Team Providers Care Special Weapons Unit Officer Name Role Phone Kamille Medina MD Primary Care Provider + Reason for Visit * Reason Comments Outpatient Testing Encounter Details Date Type Department Care Team Description 04/30/2023 Laboratory Laboratory [place] [place] [facility] [address] [place] [address] [place], Lab Scenery [address] [facility] [place] [address] Hyperlipidemia with target LDL less than 130; Hyponatremia; Leukopenia, unspecified type; Hypercalcemia Allergies Active Allergy Reactions Severity Noted Date Comments Aripiprazole 08/25/2018 Aripiprazole 06/28/2013 Moxifloxacin Hcl In Nacl 02/08/2010 Rash/severe diarrhea Cortisone Acetate 05/20/2010 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[place] 05/20/2010 Hives lethargic Moxifloxacin Hydrochloride 0 Hives [...] rol)Indications:COPD, group A, by GOLD 2017 classification ([facility]) INHALE 1 PUFF BY MOUTH EVERY DAY 60 Each 5 06/03/2022 Active Albuterol Sulfate HFA 108 (90 Base) MCG/ACT Inhalation Aerosol SolutionIndications:C OPD, group A, by GOLD 2017 classification ([facility]) INHALE 2 PUFFS BY MOUTH [...] program 05/17/2018 05/14/2020 Overview: [facility] NOT DELETE [facility] Study: Project # [id number], Blanking Press Operator: Inocencio Dan, PhD. SUMMARY: Goal: Establish test [...] contact study staff at ; after hours Blanking Press Operator via the [facility] hospital continuous loft operator . Please contact study team before resolving/deleting from patients problem list. Study phone number: [phone]. Diagnosis changed due to Research Module. Go to Snapshot for study details. Encounter for examination fo r normal comparison and control in clinical research program 05/17/2018 06/12/2022 Overview: DO NOT DELETE - [facility] JODI Study: Project # [id number], Blanking Press Operator: Dominic Lockhart, MS, MPH. SUMMARY: Goal: Establish [...] contact study staff at ; after hours Blanking Press Operator via the [facility] hospital continuous loft operator . - Please contact study team before resolving/deleting from patients problem list. Study phone number: [phone]. Diagnosis changed due to Research Module. Go to Snapshot for study details. Abnormal lung function test 06/09/201707/13 long term care social worker current use of non -steroidal anti-inflammatories (NSAID) [...] as of this encounter Miscellaneous Notes * Result Encounter Note - Isabela Mars MD - 05/02/2023 1:09 PM EDT Normal TSH, CBC, BMP with a normal sodium, calcium high at 11. Add on ion ca,vitamin-D and PTH, continue to stay off HCTZ documented in this encounter Plan of Treatment Upcoming Encounters Date Type Specialty Care Team Description 05/27/2023 Office Visit Internal Medicine Kamille Medina MD [address] [place] [facility] [place] [address] 06/12/2023 Hospital Encounter Endoscopy Dior Navarro MD [address] [place] [address] 06/12/2023 Surgery Endoscopy Dior Navarro MD [address] [place] [address] COLONOSCOPY FLEXIBLE PROXIMAL DIAGNOSTIC 07/20/2023 Office Visit Gastroenterology Maggi Calles CRNP [address] [place] [address] 07/27/2023 Nutrition Services Nutrition Services Susu Patel, RDN [address] [place] [address] 09/15/2023 Office Visit Internal Medicine Kamille Medina MD [address] [place] [address] Scheduled Procedures Name Priority Associated Diagnoses Date/Ti [...] 023, 07/02/2020, 01/17/2019 CKD PHOS USE SMARTSET 32296 11/20/20230 06/2023, 01/04/2021, 08/12/2019 Depression Screening, Annual for Pts 12 and Over 11/20/2023 11/20/2022 HbA1c 11/20/2023 11/20/2022, 09/12, 01/04/2021, Additional history exists CKD HGB USE SMARTSET 52223 04/30/202404/30, 04/30/2023, 11/20/2022, Additional history exists O2 ASSESSMENT COMPLETED IN PAST YEAR FOR COPD 04/30/2024 04/30/2023 TSH 04/30/2024 04/30/2023, 02/06/2023, 10/02/2021, Additional history exists DTaP,Tdap,and Td Vaccines [...] Procedure Name Priority Date/Time Associated Diagnosis Comments ANEMIA REFLEX CHEMISTRY HOLD Routine 04/30/2023 11:47 AM EDT Leukopenia, unspecified type ANEMIA CBC Routine 04/30/2023 11:47 AM EDT Leukopenia, unspecified type DIFFERENTIAL, AUTOMATED Routine 04/30/2023 11:47 AM EDT Leukopenia, unspecified type CBC WITH WBC DIFFERENTIAL AND ANEMIA REFLEX WORKUP Routine 04/30/2023 11:47 AM EDT Leukopenia, unspecified type LIPID PANEL WITH DIRECT LDL IF TG IS HIGH Routine 04/30/2023 11:47 AM EDT Hyperlipidemia with target LDL less than 130 25-HYDROXY VITAMIN D Routine 04/30/2023 11:47 AM EDT Hypercalcemia BASIC METABOLIC PANEL Routine 04/30/2023 11:47 AM EDT Hyponatremia TSH Routine 04/30/2023 11:47 AM EDT Leukopenia, unspecified type documented in this encounter Results * 25-HYDROXY VITAMIN D (04/30/2023 11:47 AM EDT) 25-Hydroxy Vitamin D 62 >19 ng/mL 05/02/2023 2:06 PM EDT LABORATORY [facility] Blood Venous blood specimen / Unknown Venipuncture / Unknown 04/30/2023 11:47 AM EDT 04/30/2023 11:47 AM EDT Narrative LABORATORY [facility] - 05/02/2023 2:06 PM EDT Deficient: <20 ng/mL Insufficient: 20-29 ng/mL Recommended/Optimum:30-50 ng/mL Vitamin D intoxication is rare. If suspicious of Vitamin D toxicity, evaluation of serum Calcium and PTH is recommended. Isabela Mars MD LAB BLOOD ORDERABLES Performing Organization Address [facility] Co de [place] [address] * TSH (04/30/2023 11:47 AM EDT) TSH 1.26 0.27 - 4.20 uIU/mL 04/30/2023 7:35 PM EDT LAB[facility]ATORY [facility] Blood Venous blood specimen / Unknown Venipuncture / Unknown 04/30/2023 11:47 AM EDT 04/30/2023 11:47 AM EDT Isabela Mars MD LAB BLOOD ORDERABLES Performing Organization Address City/[facility] Co de Phone Number LABORATORY [facility] [address] [place] [address] * ANEMIA REFLEX CHEMISTRY HOLD (04/30/2023 11:47 AM EDT) Blood Venous blood specimen / Unknown Venipuncture / Unknown 04/30/2023 11:47 AM EDT 04/30/2023 11:47 AM EDT Isabela Mars MD LAB BLOOD ORDERABLES [facility] [address] [place] [address] * DIFFERENTIAL, AUTOMATED (04/30/2023 11:47 AM EDT) WBC 4.26 4.00 - 10.80 K/uL 04/30/2023 6:21 PM EDT [facility] Neutrophils % 64.8 40.0 - 75.0 % 04/30/2023 6:21 PM EDT [facility] Lymphocytes % 26.3 18.0 - 42.0 % 04/30/2023 6:21 PM EDT [facility] Monocytes % 8.5 1.0 - 11.0 % 04/30/2023 6:21 PM EDT [facility] Eosinophils % 0.0 0.0 - 6.0 % 04/30/2023 6:21 PM EDT [facility] Basophils % 0.2 0.0 - 2.0 % 04/30/2023 6:21 PM EDT [facility] Immature Granulocytes % 0.2 0.0 - 2.0 % 04/30/2023 6:21 PM EDT [facility] Absolute Neutrophils 2.76 1.80 - 7.70 K/uL 04/30/2023 6:21 PM EDT [facility] Absolute Lymphocytes 1.12 1.00 - 4.80 K/ul 04/30/2023 6:21 PM EDT [facility] Absolute Monocytes 0.36 0.00 - 1.10 K/uL 04/30/2023 6:21 PM EDT [facility] Absolute Eosinophils 0.00 0.00 - 0.70 K/uL 04/30/2023 6:21 PM EDT [facility] Absolute Basophils 0.01 0.00 - 0.20 K/uL 04/30/2023 6:21 PM EDT [facility] Absolute Immature Granulocytes 0.01 0.00 - 0.20 K/uL 04/30/2023 6:21 PM EDT [facility] Blood Venous blood specimen / Unknown Venipuncture / Unknown 04/30/2023 11:47 AM EDT 04/30/2023 11:47 AM EDT Isabela Mars MD LAB BLOOD ORDERABLES Performing Organization Address City/State/[facility] Co de Phone Number LAB[facility] [address] [place] [address] * ANEMIA CBC (04/30/2023 11:47 AM EDT) WBC 4.26 4.00 - 10.80 K/uL 04/30/2023 6:21 PM EDT [facility] RBC 3.67 3.85 - 5.15 M/uL 04/30/2023 6:21 PM EDT [facility] HGB 12.0 12.0 - 15.3 g/dL 04/30/2023 6:21 PM EDT [facility] Comment: Anemia reflex testing triggers on a HGB < 12.0 for Females and HGB < 13.0 for Males in accordance with the WHO Anemia Guidelines Anemia reflex testing triggers on a HGB < 12.0 for Females and HGB < 13.0 for Males in accordance with the WHO Anemia Guidelines HCT 36.5 36.0 - 45.2 % 04/30/2023 6:21 PM EDT [facility] MCV 99.5 81.5 - 97.5 fL 04/30/2023 6:21 PM EDT [facility] MCH 32.7 27.0 - 34.0 pg 04/30/2023 6:21 PM EDT [facility] MCHC 32.9 32.0 - 36.0 g/dL 04/30/2023 6:21 PM EDT [facility] RDW 13.5 11.5 - 15.5 % 04/30/2023 6:21 PM EDT [facility] PLT 250 140 - 400 K/uL 04/30/2023 6:21 PM EDT [facility] MPV 9.9 6.6 - 11.1 fL 04/30/2023 6:21 PM EDT [facility] nRBCs 0 <=0 /100 WBCs 04/30/2023 6:21 PM EDT [facility] Blood Venous blood specimen / Unknown Venipuncture / Unknown 04/30/2023 11:47 AM EDT 04/30/2023 11:47 AM EDT Isabela Mars MD LAB BLOOD ORDERABLES LABORATORY [facility] [address] [place] [address] * (ABNORMAL) BASIC METABOLIC PANEL (04/30/2023 11:47 AM EDT) BUN 16 6 - 20 mg/dL 04/30/2023 12:57 PM EDT [facility] Creatinine 1.2(H) 0.5 - 1.0 mg/dL 04/30/2023 12:57 PM EDT [address] Estimated Glomerular Filtration Rate 44(L) >=60 mL/min 04/30/2023 12:57 PM EDT [facility]- Comment:eGFR is calculated b ased on the CKD-EPI 2020 equation Sodium 138 135 - 146 mmol/L 04/30/2023 12:57 PM EDT [facility]- Potassium 3.7 3.5 - 5.1 mmol/L 04/30/2023 12:57 PM EDT [facility]- Chloride 98 98 - 107 mmol/L 04/30/2023 12:57 PM EDT [place] [address]- CO2 27 22 - 32 mmol/L 04/30/2023 12:57 PM EDT [facility]- Anion Gap 13 7 - 15 mmol/L 04/30/2023 12:57 PM EDT [facility]- Glucose 104 70 - 120 mg/dL 04/30/2023 12:57 PM EDT [facility]- Calcium 11.0(H) 8.4 - 10.2 mg/dL 04/30/2023 12:57 PM EDT [facility]- Blood Venous blood specimen / Unknown Venipuncture / Unknown 04/30/2023 11:47 AM EDT 04/30/2023 11:47 AM EDT Isabela Mars MD LAB BLOOD ORDERABLES [facility]- [address] [place] [address] * (ABNORMAL) LIPID PANEL WITH DIRECT LDL IF TG IS HIGH (04/30/2023 11:47 AM EDT) Triglycerides 197(H) <=174 mg/dL 04/30/2023 5:36 PM EDT LABORATORY [facility] Comment: Triglyceride Reference Ranges (mg/dL): <150 Acceptable 150-174 Borderline high 175-499 High >=500 Very high Cholesterol 205(H) <200 mg/dL 04/30/2023 5:36 PM EDT LABORATORY [facility] Comment: Total Cholesterol Reference Ranges (mg/dL): <200 Desirable 200-239 Borderline high >=240 High HDL Cholesterol 51 >49 mg/dL 5:36 PM EDT LABORATORY [facility] Comment: HDL Cholesterol Reference Ranges (mg/dL): >=60 High (Desirable) <50 Low (Undesirable) For Females <40 Low (Undesirable) For Males Non-HDL Cholesterol 154 <=159 mg/dL 04/30/2023 5:36 PM EDT LAB[facility]ORY [facility] Comment: Non-HDL Cholesterol Reference Range (mg/dL): <100 Target level for high risk ASCVD patient <130 Optimal for general population 130-159 Near optimal for general population 160-189 Borderline High 190-219 High >=220 Very High LDL Cholesterol 115 <=129 mg/dL 04/30/2023 5:36 PM EDT LAB[facility]ATORY [facility] Comment: LDL Cholesterol Reference Ranges (mg/dL): <70 Target level for high risk ASCVD patient <100 Optimal for general population 100-129 Near optimal for general population 130-159 Borderline high 160-189 High >=190 Very high Blood Venous blood specimen / Unknown Venipuncture / Unknown 04/30/2023 11:47 AM EDT 04/30/2023 11:47 AM EDT Ney Baum [facility] LAB BLOOD ORDERABLES LAB[facility]ATORY [facility] [address] [place] [address] documented in this encounter Visit Diagnoses Diagnosis Hyperlipidemia with target LDL less than 130 Other and unspecified hyperlipidemia Hyponatremia Hyposmolality and/or hyponatremia Leukopenia, unspecified type Hypercalcemia History of colon polyps Personal history of colonic polyps Special screening for malignant neoplasms, colon documented in this encounter Advance Directives Documents on File Type Date Recorded 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
--- OUTSIDE RECORDS SUMMARY | 2023-10-09 14:20 | External Medical Summary | Summary of Care ---
Author Name Unknown Organization [facility] Address [address] [place] [address] Phone [phone] Care Team Providers Care Certified Hearing Instrument Dispenser Name Role Phone Kamille Medina MD Primary Care Provider + Reason for Visit * Reason Onset Date Comments Test Results 05/06/2023 Encounter Details Date Type Department Care Team Description 05/06/2023 Telephone General Internal Medicine [facility] [place] [address] [place] [address] Kamille Medina MD [address] [facility] [place] [address] Test Results Allergies Active Allergy Reactions Severity Noted Date Comments Aripiprazole 08/25/2018 Aripiprazole 06/28/2013 Moxifloxacin Hcl In Nacl 02/08/2010 Rash/severe diarrhea Cortisone Acetate 05/20/2010 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[place] 05/20/2010 Hives lethargic Moxifloxacin Hydrochloride 0 Hives [...] 05/17/2018 05/14/2020 Overview: DO NOT DELETE [facility] DETECT Study: Project # [id number], Portrait Consultant: Inocencio Dan, PhD. SUMMARY: Goal: Establish test [...] contact study staff at ; after hours Portrait Consultant via the [facility] hospital muck operator . Please contact study team before resolving/deleting from patients problem list. Study phone number: [phone]. Diagnosis changed due to Research Module. Go to Snapshot for study details. Encounter for examination fo r normal comparison and control in clinical research program 05/17/2018 06/12/2022 Overview: DO NOT DELETE - [facility] JODI Study: Project # [id number], Portrait Consultant: Dominic Lockhart, MS, MPH. SUMMARY: Goal: Establish [...] contact study staff at ; after hours Portrait Consultant via the [facility] hospital muck operator . - Please contact study team before resolving/deleting from patients problem list. Study phone number: [phone]. Diagnosis changed due to Research Module. Go to Snapshot for study details. Abnormal lung function test 06/09/201707/13 [facility] current use of non -steroidal anti-inflammatories (NSAID) [...] Encounter - Daniella Hendricks LPN - 05/06/2023 4:04 PM EDT Reason for Call: Test Results Contact: Telephone Call Contact Type: Test Results Outcome: results are a duplicate (see TE 05/02) I did review the message again and confirmed that she is not taking HCTZ Total Time including non face to face (minutes): 5 * Telephone Encounter - HONG Altman - 05/06/2023 3:57 PM EDT Stephie, cousin, calling back to nurse. Patient is with her to give permission to speak. Transferred to [facility]. * Telephone Encounter - Leticia Singh CMA - 05/06/2023 1:13 PM EDT Called, left message for patient to return call. * Telephone Encounter - Leticia Signh CMA - 05/06/2023 1:11 PM EDT ----- Message from Isabela Mars MD sent at 05/02/2023 1:09 PM EDT ----- Normal TSH, CBC, BMP with a normal sodium, calcium high at 11. Add on ion ca,vitamin-D and PTH, continue to stay off HCTZ documented in this encounter Plan of Treatment Upcoming Encounters Date Type Specialty Care Team Description 05/27/2023 Office Visit Internal Medicine Kamille Medina MD [address] [place] [address] 06/12/2023 Hospital Encounter Endoscopy Dior Navarro MD [address] [place] [address] 06/12/2023 Surgery Endoscopy Dior Navarro MD [address] [place] [address] COLONOSCOPY FLEXIBLE PROXIMAL DIAGNOSTIC 07/20/2023 Office Visit Gastroenterology Maggi Calles CRNP [address] [place] [address] 07/27/2023 Nutrition Services Nutrition Services Susu Patel RDN [address] [place] [address] 09/15/2023 Office Visit Internal Medicine Kamille Medina MD [address] [place] [address] Scheduled Procedures Name Priority Associated Diagnoses Date/Ti [...] 023, 07/02/2020, 01/17/2019 CKD PHOS USE SMARTSET 60012 11/20/2023 02/0 06/2023, 01/04/2021, 08/12/2019 Depression Screening, Annual for Pts 12 and Over 11/20/2023 11/20/2022 HbA1c 11/20/2023 11/20/2022, 09/12, 01/04/2021, Additional history exists CKD HGB USE SMARTSET 09369 04/30/202404/30, 04/30/2023, 11/20/2022, Additional history exists O2 [...] Documents on File Type Date Recorded Patient Hadoop Architect Expl anation Power of Perinatal Technician 12/08/2022 AGATA Ramirez PARENTAL ACCESS REQUEST Advance Directives and Living Will 07/25/2015 ADVANCE DIRECTIVE / LIVING WILL Power of Perinatal Technician 07/25/2015 POWER OF A TTORNEY Care Teams Certified Hearing Instrument Dispenser Relationship Specialty Start Date End Date Kamille Medina MD [address] [place] [address] PCP - General 05/20/10 documented as of this encounter
--- OUTSIDE RECORDS SUMMARY | 2023-10-09 14:20 | External Medical Summary | Summary of Care ---
Author Name Unknown Organization [facility] Address [address] [facility] [place] [address] Phone [phone] Care Team Providers Care Computer Game Programmer Name Role Phone Kamille Medina MD Primary Care Provider + Reason for Visit * Reason Onset Date Comments Test Results 05/15/2023 Encounter Details Date Type Department Care Team Description 05/15/2023 Telephone General Internal Medicine [facility] [address] [place] [address] [facility]ille [facility]ina MD [address] [facility] [address] Test Results Allergies Active Allergy Reactions Severity Noted Date Comments Aripiprazole 08/25/2018 Aripiprazole 06/28/2013 Moxifloxacin Hcl In Nacl 02/08/2010 Rash/severe diarrhea Cortisone Acetate 05/20/2010 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[place] 05/20/2010 Hives lethargic Moxifloxacin Hydrochloride 0 Hives diarrhea documented as of this encounter (statuses as of 05/15/2023) Medications Medication Sig Dispensed Refills Start Date [...] A, by GOLD 2017 classification ([facility]) INHALE 1 PUFF BY MOUTH EVERY DAY 60 Each 5 06/03/2022 Active Albuterol Sulfate HFA 108 (90 Base) MCG/ACT Inhalation Aerosol SolutionIndications:C OPD, group A, by GOLD 2017 classification ([facility]) INHALE 2 PUFFS BY MOUTH [...] as of this encounter (statuses as of 05/15/2023) Active Problems Problem Noted Date Prediabetes 10/21/2021 [...] as of this encounter (statuses as of 05/15/2023) Resolved Problems Problem Noted Date Resolved Date [...] DELETE [facility] DETECT Study: Project # [id number], Densitometrist: Inocencio Dan, PhD. SUMMARY: Goal: Establish test [...] contact study staff at ; after hours Densitometrist via the [facility] naphthalene operator helper . Please contact study team before resolving/deleting from patients problem list. Study phone number: [phone]. Diagnosis changed due to Research Module. Go to Snapshot for study details. Encounter for examination fo r normal comparison and control in clinical research program 05/17/2018 06/12/2022 Overview: DO NOT DELETE [facility] Study: Project # [id number], Densitometrist: Dominic Lockhart, MS, MPH. SUMMARY: Goal: Establish [...] contact study staff at ; after hours Densitometrist via the [facility] hospital naphthalene operator helper . - Please contact study team before resolving/deleting from patients problem list. Study phone number: [phone]. Diagnosis changed due to Research Module. Go to Snapshot for study details. Abnormal lung function test 06/09/201707/13 technician terminal and repeater current use of [...] as of this encounter (statuses as of 05/15/2023) Immunizations Name Administration Dates Next Due COVID-19 [...] encounter Miscellaneous Notes * Telephone Encounter - Dominic Hawkins LPN - 05/15/2023 3:11 PM EDT Provider to address: Kamille Medina MD; Isabela Mars MD Reason for Call: Test Results Contact: Telephone Call Contact Type: Test Results Outcome: Spoke with nursing staff at [facility]. They need an order stating that the pt is not to take the Ca and Vit D and any MVI's she is taking faxed to [phone]. Total Time including non face to face [...] Medicine Kamille Medina MD [address] [place] [address] 06/12/2023 Hospital Encounter Endoscopy Dior Navarro MD [address] [place] [address] 06/12/2023 Surgery Endoscopy Dior Navarro MD [address] [place] [address] COLONOSCOPY FLEXIBLE PROXIMAL DIAGNOSTIC 07/20/2023 Office Visit Gastroenterology Maggi Calles CRNP [address] [place] [address] 07/27/2023 Nutrition Services Nutrition Services Susu Patel, SUSIE [address] [place] [address] 09/15/2023 Office Visit Internal Medicine Kamille Medina MD [address] [place] [address] Scheduled Procedures Name Priority Associated Diagnoses Date/Ti [...] 023, 07/02/2020, 01/17/2019 CKD PHOS USE SMARTSET 98393 11/20/2023 02/0 06/2023, 01/04/2021, 08/12/2019 Depression Screening, Annual for Pts 12 and Over 11/20/2023 11/20/2022 HbA1c 11/20/2023 11/20/2022, 09/12, 01/04/2021, Additional history exists CKD HGB USE SMARTSET 11657 04/30/202404/30, 04/30/2023, 11/20/2022, Additional history exists O2 [...] Documents on File Type Date Recorded Patient Home Health Caregiver Expl anation Power of Test Architect 12/08/2022 AGATA Ramirez PARENTAL ACCESS REQUEST Advance Directives and Living Will 07/25/2015 ADVANCE DIRECTIVE / LIVING WILL Power of Test Architect 07/25/2015 POWER OF A TTORNEY Care Teams Computer Game Programmer Relationship Specialty Start Date End Date Kamille Medina MD [address] [facility] [place] [address] PCP - General 05/20/10 documented as of this encounter
--- OUTSIDE RECORDS SUMMARY | 2023-10-09 14:21 | External Medical Summary ---
Author Name Unknown Address Unknown Organization K01:[facility] [place] [address] [facility] [address] Laboratory Report Ordering Provider Test Date Status UZMAJATINDER 04/30/2023 11:47:48 Final Observation Date Value Abnormality Reference (Units ) Status SYNC LEUKOCYTES IN BLOOD BY AUTOMATED COUNT 04/30/2023 11:47:48 4.26 4.00-10.80 (K/uL) Final Segs 04/30/2023 11:47:48 64.8 40.0-75.0 (%) Final Lymphs % 04/30/2023 11:47:48 26.3 18.0-42.0 (%) Final Monos 04/30/2023 11:47:48 8.5 1.0-11.0 (%) Final Eosinophils 04/30/2023 11:47:48 0.0 0.0-6.0 (%) Final Basos 04/30/2023 11:47:48 0.2 0.0-2.0 (%) Final Immature Granulocyte, Percent 04/30/2023 11:47:48 0.2 0.0-2.0 (%) Final Absolute Segs 04/30/2023 11:47:48 2.76 1.80-7.70 (K/uL) Final Lymphs, absolute 04/30/2023 11:47:48 1.12 1.00-4.80 (K/ul) Final Monos, Abs 04/30/2023 11:47:48 0.36 0.00-1.10 (K/uL) Final Eos, Abs 04/30/2023 11:47:48 0.00 0.00-0.70 (K/uL) Final Basos, Abs 04/30/2023 11:47:48 0.01 0.00-0.20 (K/uL) Final Immature Granulocytes, Number 04/30/2023 11:47:48 0.01 0.00-0.20 (K/uL) Final Performing Location [facility] [place] [address] [facility] [address]
--- OUTSIDE RECORDS SUMMARY | 2023-10-09 14:21 | External Medical Summary ---
Author Name Unknown Address Unknown Organization K01:LABORATORY [facility] - [address] [place] [address] Laboratory Report Ordering Provider Test Date Status JATINDER GUSMAN 04/30/2023 11:47:48 Final Observation Date Value Abnormality Reference (Units ) Status TSH 04/30/2023 11:47:48 1.26 0.27-4.20 (uIU/mL) Final Performing Location [facility]ORY [facility] - [address] [place] [address]
--- OUTSIDE RECORDS SUMMARY | 2023-10-09 14:21 | External Medical Summary | Summary of Care ---
Author Name Unknown Organization [facility] Address [address] [place] [address] Phone [phone] Care Team Providers Care Route Returner Name Role Phone Kamille Medina MD Primary Care Provider + Reason for Visit * Reason Onset Date Comments Home Health 05/04/2023 [facility] Encounter Details Date Type Department Care Team Description 05/04/2023 Telephone General Internal Medicine [facility] [address] [place] [address] [facility] [address] [facility] [address] [facility] Allergies Active Allergy Reactions Severity Noted Date Comments Aripiprazole 08/25/2018 Aripiprazole 06/28/2013 Moxifloxacin Hcl In Nacl 02/08/2010 Rash/severe diarrhea Cortisone Acetate 05/20/2010 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[place] 05/20/2010 Hives lethargic Moxifloxacin Hydrochloride 0 Hives diarrhea documented as of this encounter (statuses as of 05/04/2023) Medications Medication Sig Dispensed Refills Start Date [...] A, by GOLD 2017 classification ([facility]) INHALE 1 PUFF BY MOUTH EVERY DAY 60 Each 5 06/03/2022 Active Albuterol Sulfate HFA 108 (90 Base) MCG/ACT Inhalation Aerosol SolutionIndications:C OPD, group A, by GOLD 2017 classification ([facility]) INHALE 2 PUFFS BY MOUTH EVERY 4 [...] as of this encounter (statuses as of 05/04/2023) Active Problems Problem Noted Date Prediabetes 10/21/2021 [...] as of this encounter (statuses as of 05/04/2023) Resolved Problems Problem Noted Date Resolved Date [...] program 05/17/2018 05/14/2020 Overview: DO NOT DELETE [facility] DETECT Study: Project # [id number], Churn Tender: Inocencio Dan, PhD. SUMMARY: Goal: Establish [...] contact study staff at ; after hours Churn Tender via the [facility] centrifugal station operator . Please contact study team before resolving/deleting from patients problem list. Study phone number: [phone]. Diagnosis changed due to Research Module. Go to Snapshot for study details. Encounter for examination fo r normal comparison and control in clinical research program 05/17/2018 06/12/2022 Overview: DO NOT DELETE - [facility] JODI Study: Project # [id number], Churn Tender: Dominic Lockhart, MS, MPH. SUMMARY: Goal: [...] contact study staff at ; after hours Churn Tender via the [facility] hospital centrifugal station operator . - Please contact study team before resolving/deleting from patients problem list. Study phone number: [phone]. Diagnosis changed due to Research Module. Go to Snapshot for study details. Abnormal lung function test 06/09/201707/13 intermission coordinator current use of non -steroidal anti-inflammatories (NSAID) [...] as of this encounter (statuses as of 05/04/2023) Immunizations Name Administration Dates Next Due COVID-19 [...] encounter Miscellaneous Notes * Telephone Encounter - Isabela Mars MD - 05/04/2023 4:07 PM EDT Noted, see other addended encounter. * Telephone Encounter - Philomena Duke LPN - 05/04/2023 3:02 PM EDT Provider to address: form question Reason for Call: Home Health ([facility]) Contact: Telephone Call Contact Type: Follow-up Outcome: Sameera calling from [facility]. December 30 of this year is when the HCTZ started. So, at the bottom of the form it says to hold the HCTZ medication. Asking for Clarification. Did the doctor want to stop the as needed dose? She has routine order daily of 12.5 mg of the HCTZ. Please advise and call her back. Total Time including non face to face (minutes): 10 * Telephone Encounter - HONG Hylton - 05/04/2023 2:56 PM EDT Reason for patient's call: Sameera from [facility] called in regards to ptsMedication. Caller was transferred to [facility] at the nurse line. Thank you documented in this encounter Plan of Treatment Upcoming Encounters Date Type Specialty Care Team Description 05/27/2023 Office Visit Internal Medicine Kamille Medina MD [address] [place] [address] 06/12/2023 Hospital Encounter Endoscopy Dior Navarro MD [address] [place] [address] 06/12/2023 Surgery Endoscopy Dior Navarro MD [address] [place] [address] COLONOSCOPY FLEXIBLE PROXIMAL DIAGNOSTIC 07/20/2023 Office Visit Gastroenterology Maggi Calles CRNP [address] [place] [address] 07/27/2023 Nutrition Services Nutrition Services Susu Patel RDN [address] [place] [address] 09/15/2023 Office Visit Internal Medicine Kamille Medina MD [address] [place] [address] Scheduled Procedures Name Priority Associated Diagnoses Date/Ti [...] 023, 07/02/2020, 01/17/2019 CKD PHOS USE SMARTSET 91393 11/20/20230 06/2023, 01/04/2021, 08/12/2019 Depression Screening, Annual for Pts 12 and Over 11/20/2023 11/20/2022 HbA1c 11/20/2023 11/20/2022, 09/12, 01/04/2021, Additional history exists CKD HGB USE SMARTSET 64050 04/30/202404/30, 04/30/2023, 11/20/2022, Additional history exists O2 [...] Documents on File Type Date Recorded Patient Mid Level Net Developer Expl anation Power of Microbiology Quality Control Technician 12/08/2022 AGATA Ramirez PARENTAL ACCESS REQUEST Advance Directives and Living Will 07/25/2015 ADVANCE DIRECTIVE / LIVING WILL Power of Microbiology Quality Control Technician 07/25/2015 POWER OF A TTORNEY Care Teams Route Returner Relationship Specialty Start Date End Date Kamille Medina MD [address] [place] [address] [id number] PCP - General 05/20/10 documented as of this encounter
--- OUTSIDE RECORDS SUMMARY | 2023-10-09 14:21 | External Medical Summary | Summary of Care ---
Author Name Unknown Organization [facility] Address [address] [place] [address] Phone [phone] Care Team Providers Care Disciplinary Hearing Officer Name Role Phone Kamille Medina MD Primary Care Provider + Reason for Visit * Reason Comments Hospital Follow-Up Encounter Details Date Type Department Care Team Description 04/30/2023 Office Visit General Internal Medicine [facility] [place] [address] [facility] [place] [phone] Isbaela Mars MD [address] [facility] [address] Dizziness*; Post-nasal drip; Non-rheumatic aortic sclerosis; Bipolar 2 disorder (HCC); Acquired hypothyroidism; HTN, goal below 150/90; Leukopenia, unspecified type; Hyponatremia Allergies Active Allergy Reactions Severity Noted Date Comments Aripiprazole 08/25/2018 Aripiprazole 06/28/2013 Moxifloxacin Hcl In Nacl 02/08/2010 Rash/severe diarrhea Cortisone Acetate 05/20/2010 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[place] 05/20/2010 Hives lethargic Moxifloxacin Hydrochloride 0 Hives diarrhea documented as of this encounter (statuses as of 04/30/2023) Medications Medication Sig Dispensed Refills Start Date End Date Status CALTRATE 600+D 600-400 MG-UNIT PO TABS Take by mouth daily. 0 1 Active LAMOTRIGINE 200 MG PO TABS one [...] 62.5-25 MCG/INH Inhalation Aerosol Powder Breath Activated (umeclidinium-bethel nterol)Indications :COPD, group A, by GOLD 2017 classification ([facility]) INHALE 1 PUFF BY MOUTH EVERY DAY 60 Each 5 2 Active Albuterol Sulfate HFA 108 (90 Base) MCG/ACT Inhalation Aerosol SolutionIndication s:COPD, group A, by GOLD 2017 classification ([facility]) INHALE 2 PUFFS BY MOUTH EVERY 4 HOURS NEEDED FOR SHORTNESS OF BREATH 18 g 11 2 Active Levothyroxine Sodium 25 MCG Oral Tablet (Levoxyl)Indicatio ns:Acquired hypothyroidism TAKE 1 TABLET BY MOUTH EVERY DAY AT LEAST 30 MINUTES BEFORE BREAKFAST OR OTHER MEDS 90 Tablet 2 2 Active Benefiber Oral PowderIndications: Constipation, unspecified constipation type Take 1 Tbsf in a glass of water daily 245 g 5 3 Active Memantine HCl 5 MG Oral Tablet (Namenda)Indicatio ns:Memory disturbance Take 1 Tablet by mouth 2 times a day with morning and evening meals. 30 Tablet 3 3 Active Cyanocobalamin 500 MCG Oral Tablet DAILY IN THE MORNING 0 3 Active Famotidine 20 MG Oral Tablet (Pepcid) 0 3 Active Fluocinonide 0.05 % External Solution 0 3 Active hydrOXYzine HCl 25 MG Oral Tablet 1 Tablet. 0 3 Active Atorvastatin Calcium 20 MG Oral Tablet (Lipitor)Indicatio ns:Hyperlipidemia with target LDL less than 130 TAKE 1 TABLET BY MOUTH EVERY DAY 90 Tablet 0 3 Active hydroCHLOROthiazid e 12.5 MG Oral Tablet (Hydrodiuril) Take 1 Tablet by mouth in the morning. Per pt/her cousin--was prescribed by Dr beata Riggs--need to clarify start date from them. 1 Tablet 0 3 Active LORazepam 0.5 MG Oral Tablet (Ativan) Take 0.5 Tablets by mouth 2 times a day as needed for Anxiety. 1 Tablet 0 3 Active Loratadine 10 MG Oral Tablet (Claritin)Indicati ons:Dizziness,Post -nasal drip Take 1 Tablet by mouth at bedtime. X 4 weeks 28 Tablet 0 3 Active hydroCHLOROthiazid e 12.5 MG Oral Tablet (Hydrodiuril) 0 3 04/30/20 23 Discontinued LORazepam 0.5 MG Oral Tablet (Ativan) 0 3 04/30/20 23 Discontinued(Med ication List Clean Up) LORazepam 0.5 MG Oral Tablet (Ativan) 0.5 Tablets. 0 3 04/30/20 23 Discontinued Hospital, Clinic, or Other Facility Administered Medication Ordered Dose Route Frequency Start Date End Date Status albuterol sulfate (PROVENTIL) (2.5 MG/3ML) 0.083% inhalation solution 2.5 mgIndications:COPD, mild (HCC),Pulmonary emphysema, unspecified emphysema type (HCC) 2.5 mg NEBULIZER Q4H PRN 06/09/2017 Acti ve documented as of this encounter (statuses as of 04/30/2023) Active Problems Problem Noted Date Prediabetes 10/21/2021 [...] as of this encounter (statuses as of 04/30/2023) Resolved Problems Problem Noted Date Resolved Date [...] program 05/17/2018 05/14/2020 Overview: DO NOT DELETE [facility] DETECT Study: Project # [id number], Bronc Buster: Inocencio Dan, PhD. SUMMARY: Goal: Establish test [...] contact study staff at ; after hours Bronc Buster via the [facility] sludge control operator . Please contact study team before resolving/deleting from patients problem list. Study phone number: [phone]. Diagnosis changed due to Research Module. Go to [employer] for study details. Encounter for examination fo r normal comparison and control in clinical research program 05/17/2018 06/12/2022 Overview: DO NOT DELETE - [facility] Study: Project # [id number], Bronc Buster: Dominic Lockhart, MS, MPH. SUMMARY: Goal: Establish [...] contact study staff at ; after hours Bronc Buster via the [facility] sludge control operator . - Please contact study team before resolving/deleting from patients problem list. Study phone number: [phone]. Diagnosis changed due to Research Module. Go to [employer] for study details. Abnormal lung function test 06/09/201707/13 loan auditor current use of non -steroidal anti-inflammatories (NSAID) [...] as of this encounter (statuses as of 04/30/2023) Immunizations Name Administration Dates Next Due COVID-19 [...] Sign Reading Time Taken Comments Blood Pressure 136/68 04/30/2023 10:47 AM EDT Pulse 58 04/30/2023 10:47 AM EDT Temperature 36.5 C (97.7 F) 04/30/2023 1 0:47 AM EDT Respiratory Rate 16 04/30/2023 10:4 7 AM EDT Oxygen Saturation 98% 04/30/2023 10: 47 AM EDT Inhaled Oxygen Concentration - - Weight 58.4 kg (128 lb 12.8 oz) 023 10:47 AM EDT Height - - Body Mass Index 22.82 04/20/2023 2:20 PM EDT documented in this encounter Progress Notes * Isabela Mars MD - 04/30/2023 10:11 AM EDT SUBJECTIVE: Fabricio Nunez is a 77 year old female. Chief Complaint Patient presents with Hospital Follow-Up Nursing Notes: Stephani Casey LPN 04/30/23 1012 Signed Fabricio Nunez presents for hospital recheck. Medications & HM reviewed. Concerns of higher blood pressures and adjusting/ starting Blood pressure medication Was at ER last week For dizziness WBC was low in the hospital. Dr stated it was chronic and has a history of low WBC but patient has never been told that before. Is still having dizziness. Wondering if it is caused by medications, prozac was recently increased and wondering if that is the cause. Daughter is wondering if she is being over medicated meds in general Used to take miralax but is currently on benefiber but stools are soft. All test she has had done have been negative. Not hosp fu --only ER f/u HPI: Patient with a problem list as below presents today for ER follow-up from 04/23/2023. States onThursday the she had dizziness, they checked her blood pressure at [facility] has been running in the 140/80 range. They gave her ativan as felt it may be related to anxiety. Dizziness persisted and sent to the ED for evaluation, ER records not available at this time. Cousin who is with her today states they did lab work which was normal other than a slightly abnormal white cell count, CT of the head did not reveal any abnormalities, was discharged on meclizine three times daily p.r.n., patient has been getting it twice a day. States get dizziness when she stands up. No symptoms suggestive of vertigo. No unilateral weakness or numbness of the extremities. No nausea vomiting or diarrhea. But states has loose stools since taking Benefiber. Was on miralax in past Daughter had felt sx may be related to recent increase in dose of Prozac from 20 to 30 mg by her psychiatrist Dr. Whitman on 04/16/2023 Reviewed medications, HCTZ has not been prescribed by PCP, states that was prescribed by provider at [facility], unsure of the date when it was started there is 2 orders 1 for 12.5 mg daily and another 1 for 12.5 mg as needed if blood pressures greater than 140/90 BP Readings from Last 5 Encounters: 04/06/23 142/76 03/05/23 98/60 12/09/22 128/76 11/20/22 138/64 10/24/22 118/60 Wt Readings from Last 6 Encounters: 04/20/23 58.5 kg (128 lb 14.4 oz) 04/06/23 59.7 kg (131 lb 11.2 oz) 03/05/23 62.5 kg (137 lb 11.2 oz) 12/17/22 61 kg (134 lb 6.4 oz) 12/09/22 60.8 kg (134 lb 0.6 oz) 11/20/22 57.8 kg (127 lb 8 oz) TSH Results: Lab Results Component Value Date/Time TSH - [facility] 0.89 11/20/2022 10:25 AM TSH - [facility] 1.49 10/02/2021 01:25 PM TSH - [facility] 1.78 01/04/2021 08:55 AM TSH - [facility] 3.51 08/12/2019 07:01 AM TSH - [facility] 2.49 07/12/2018 07:56 AM TSH - [facility] 2.14 10/28/2016 09:20 AM Hemoglobin Results: Lab Results Component Value Date/Time HGB - [facility] 11.4 (L) 11/20/2022 10:25 AM HGB - [facility] 10.8 (L) 10/24/2022 12:11 PM HGB - [facility] 11.5 (L) 10/02/2021 01:25 PM HGB - [facility] 12.3 02/05/2017 08:19 AM HGB - [facility] 12.4 05/10/2015 01:37 PM HGB - [facility] 12.4 11/14/2014 01:08 PM Patient Active Problem List Diagnosis Code Bipolar 2 disorder (HCC) F31.81 Hyperlipidemia with target LDL less than 130 E78.5 Psoriasis of scalp L40.9 Generalized osteoarthritis M15.9 Acquired hypothyroidism E03.9 Body mass index (BMI) of 27.0 to 27.9 in adult Z68.27 Lumbar degenerative disc disease M51.36 Osteoarthritis of spine with radiculopathy, lumbar region M47.26 Spondylolisthesis, lumbar region M43.16 History of tobacco use Z87.891 COPD, group B, by GOLD 2017 classification ([facility]) J44.9 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 Stage 3a chronic kidney disease N18.31 Prediabetes R73.03 Current Outpatient Medications Medication Sig Dispense Refill CALTRATE 600+D 600-400 MG-UNIT PO TABS Take by mouth daily. LAMOTRIGINE 200 MG PO TABS one tablet [...] 2 Tablets by mouth in the morning. FLUoxetine HCl 20 MG Oral Capsule Take 1 Capsule by mouth in the morning. Anoro Ellipta 62.5-25 MCG/INH Inhalation Aerosol Powder Breath Activated (umeclidinium-vilanterol) INHALE 1 PUFF BY MOUTH EVERY DAY 60 Each 5 Albuterol Sulfate HFA 108 (90 Base) MCG/ACT Inhalation Aerosol Solution INHALE 2 PUFFS BY MOUTHEVERY 4 HOURS NEEDED FOR SHORTNESS OF BREATH [...] morning and evening meals. 30 Tablet 3 Cyanocobalamin 500 MCG Oral Tablet DAILY IN THE MORNING Famotidine 20 MG Oral Tablet (Pepcid) Fluocinonide 0.05 % External Solution hydrOXYzine HCl 25 MG Oral Tablet 1 Tablet. Atorvastatin Calcium 20 MG Oral Tablet (Lipitor) [...] as needed for Anxiety. 1 Tablet 0 Zoster Vac Recomb Adjuvanted 50 MCG/0.5ML Intramuscular Suspension Reconstituted (Shingrix) Inject 0.5 mL into a large muscle now and repeat dose in 60 to 180 days 1 Each 1 Current Facility-Administered Medications Medication Dose Route Frequency Provider Last Rate Last Admin albuterol sulfate (PROVENTIL) (2.5 MG/3ML) 0.083% inhalation solution 2.5 mg 2.5 mg Nebulizer Q4H PRN LACY Lowry 2.5 mg at 12/09/22 1331 Review of patient's allergies indicates: Allergen Reactions Abilify [Aripiprazole] Aripiprazole Avelox [Moxifloxacin Hcl In Nacl] Rash/severe diarrhea Cortisone Acetate 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[place] Hives lethargic Moxifloxacin Hydrochloride Hives diarrhea OBJECTIVE: There were no vitals taken for this visit. Blood pressure 136/68, pulse 58, temperature 36.5 C (97.7 F), temperature source Tympanic, resp. rate 16, weight 58.4 kg (128 lb 12.8 oz), SpO2 98 %. PHYSICAL EXAM: General: alert, healthy, no distress, well nourished and well developed Eyes: conjunctiva non-injected, sclera white, gaze conjugate, EOMI, PERRLA, no nystagmus Ears: pinna normal shape and color, canals patent and TM - nml Nose: no mucosal erythema, no mucosal edema and no purulent discharge Mouth: no exudate, uvula moves centrally, minimal erythema sites a postnasal drainage, brown coating tongue tongue Neck: supple, no adenopathy, no bruits, thyroid normal size, non-tender, without nodularity Heart: regular rate & rhythm, no gallops /murmurs. Lungs: lungs clear to auscultation Neuro: alert, gait normal, motor normal, Neg cerebellar signs. ASSESSMENT/PLAN: Dizziness (Primary) - 3 POSITIONAL BLOOD PRESSURE-- Filed Vitals: 04/30/23 1040 04/30/23 1041 04/30/23 1043 04/30/23 1047 BP: 136/68 140/70 137/72 136/68 Pulse: 54 58 68 58 Temp: 36.5 C (97.7 F) TempSrc: Tympanic Resp: 16 Weight: 58.4 kg (128 lb 12.8 oz) SpO2: 98% BP Cuff Size: Regular Regular Regular BP Position: Supine Sitting Standing BP Site: Left Arm Left Arm Left Arm Post-nasal drip Non-rheumatic aortic sclerosis Bipolar 2 disorder (HCC) Acquired hypothyroidism HTN, goal below 150/90 Leukopenia, unspecified type - CBC WITH WBC DIFFERENTIAL AND ANEMIA REFLEX WORKUP; Future; Expected date: 04/30/2023 Hyponatremia - BASIC METABOLIC PANEL; Future; Expected date: 04/30/2023 HCTZ has not been prescribed by PCP, states that was prescribed by provider at [facility], unsure of the date when it was started; there is 2 orders 1 for 12.5 mg daily and another 1 for 12.5 mg as needed if blood pressures greater than 140/90 Obtained ER reports. EKG-sinus bradycardia at 53 beats per minute, [...] 12.5 mg three times daily p.r.n. vertigo 40 min total time spent with patient, time spent reviewing subspecialty notes, diagnostic studies done, follow-up orders/medication refills,over 1/2 time spent in counseling, coordinating care. Follow Up: Return in 2 weeks (on 05/14/2023), or if symptoms worsen or fail to improve, for Return with Physician. | For: Return with Physician | Check-out note: With PCP (This note was completed using the dictation program Fluency Direct. As such, there may be misspellings, word substitutions, or other variations that should not change the essence of the clinical content of this encounter note. If there is need for further clarification, please direct questions to the provider listed above.) Patient and / caregiver verbalize understanding of above instructions and agrees with plan of care. Isabela Mars MD 04/30/2023 documented in this encounter Nursing Notes * Stephani Casey LPN - 04/30/2023 9:49 AM EDT Fabricio Nunez presents for hospital recheck. Medications & HM reviewed. Concerns of higher blood pressures and adjusting/ starting Blood pressure medication Was at ER last week For dizziness WBC was low in the hospital. Dr stated it was chronic and has a history of low WBC but patient has never been told that before. Is still having dizziness. Wondering if it is caused by medications, prozac was recently increased and wondering if that is the cause. Daughter is wondering if she is being over medicated meds in general Used to take miralax but is currently on benefiber but stools are soft. All test she has had done have been negative. documented in this encounter Plan of Treatment Upcoming Encounters Date Type Specialty Care Team Description 05/27/2023 Office Visit Internal Medicine Kamille Medina MD [address] [place] [address] 06/12/2023 Hospital Encounter Endoscopy Dior Navarro MD [address] [place] [address] 06/12/2023 Surgery Endoscopy Dior Navarro MD [address] [place] [address] COLONOSCOPY FLEXIBLE PROXIMAL DIAGNOSTIC 07/20/2023 Office Visit Gastroenterology Maggi Calles CRNP [address] [place] [address] 07/27/2023 Nutrition Services Nutrition Services Susu Patel RDN [address] [place] [address] 09/15/2023 Office Visit Internal Medicine Kamille Medina MD [address] [place] [address] Pending Results Name Type Priority Associated Diagnoses Date /Time CBC WITH WBC DIFFERENTIAL AND ANEMIA REFLEX WORKUP Lab Routine Leukopenia, unspecified type 04/30/2023 11:47 AM EDT Scheduled Orders Name Type Priority Associated Diagnoses Orde r Schedule 3 POSITIONAL BLOOD PRESSURE Procedures Routine Dizziness Ordered: 04/30/2023 CBC WITH WBC DIFFERENTIAL AND ANEMIA REFLEX WORKUP Lab Routine Leukopenia, unspecified type Expected: 04/30/2023 (Approximate), Expires: 04/30/2024 Scheduled Procedures Name Priority Associated Diagnoses Date/Ti [...] 07/09/2021, Additional history exists GFR 10/31/2023 04/30/2023, 0 06/2023, 10/02/2021, Additional history exists Albumin/Creatinine Ratio 11/20/2023 023, 07/02/2020, 01/17/2019 CKD HGB USE SMARTSET 50282 11/20/202311/20, 11/20/2022, 10/24/2022, Additional history exists CKD PHOS USE SMARTSET 41138 11/20/2023 02/0 06/2023, 01/04/2021, 08/12/2019 Depression Screening, Annual for Pts 12 and Over 11/20/2023 11/20/2022 HbA1c 11/20/2023 11/20/2022, 09/12, 01/04/2021, Additional history exists TSH 11/20/2023 11/20/2022, 09/12, 01/04/2021, Additional history exists O2 ASSESSMENT COMPLETED IN PAST YEAR FOR COPD 04/06/2024 04/30/2023 DTaP,Tdap,and Td Vaccines (3 - Td or [...] as of this encounter Results * (ABNORMAL) BASIC METABOLIC PANEL (04/30/2023 11:47 AM EDT) BUN 16 6 - 20 mg/dL 04/30/2023 12:57 PM EDT [facility]02 Creatinine 1.2(H) 0.5 - 1.0 mg/dL 04/30/2023 12:57 PM EDT [facility] Estimated Glomerular Filtration Rate 44(L) >=60 mL/min 04/30/2023 12:57 PM EDT [facility] Comment:eGFR is calculated b ased on the CKD-EPI 2020 equation Sodium 138 135 - 146 mmol/L 04/30/2023 12:57 PM EDT [facility]02 Potassium 3.7 3.5 - 5.1 mmol/L 04/30/2023 12:57 PM EDT [facility] 56- Chloride 98 98 - 107 mmol/L 04/30/2023 12:57 PM EDT [facility] 56 CO2 27 22 - 32 mmol/L 04/30/2023 12:57 PM EDT [facility] 56- Anion Gap 13 7 - 15 mmol/L 04/30/2023 12:57 PM EDT [facility] 56- Glucose 104 70 - 120 mg/dL 04/30/2023 12:57 PM EDT [facility] 56 Calcium 11.0(H) 8.4 - 10.2 mg/dL 04/30/2023 12:57 PM EDT [facility] 56- Blood Venous blood specimen / Unknown Venipuncture / Unknown 04/30/2023 11:47 AM EDT 04/30/2023 11:47 AM EDT Isabela Mars MD LAB BLOOD ORDERABLES [facility] [address] [place] [address] documented in this encounter Visit Diagnoses Diagnosis Dizziness- Primary Dizziness and giddiness Post-nasal drip Postnasal drip Non-rheumatic aortic sclerosis Atherosclerosis of aorta Bipolar 2 disorder (HCC) Other bipolar disorders Acquired hypothyroidism Unspecified hypothyroidism HTN, goal below 150/90 Leukopenia, unspecified type Hyponatremia Hyposmolality and/or hyponatremia History of colon polyps Personal history of colonic polyps Special screening for malignant neoplasms, colon documented in this encounter Advance Directives Documents on File Type Date Recorded 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
--- OUTSIDE RECORDS SUMMARY | 2023-10-09 14:21 | External Medical Summary | Summary of Care ---
Author Name Unknown Organization [facility] Address [address] [place] [address] Phone [phone] Care Team Providers Care Hotel Attendant Name Role Phone Kamille Medina MD Primary Care Provider + Reason for Visit * Reason Onset Date Comments Medication Refill 04/24/2023 Encounter Details Date Type Department Care Team Description 04/24/2023 Refill General Internal Medicine [facility] [address] [place] [address] Kamille Medina MD [address] [place] [address] Allergies Active Allergy Reactions Severity Noted Date Comments Aripiprazole 08/25/2018 Aripiprazole 06/28/2013 Moxifloxacin Hcl In Nacl 02/08/2010 Rash/severe diarrhea Cortisone Acetate 05/20/2010 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[place] 05/20/2010 Hives lethargic Moxifloxacin Hydrochloride 0 Hives diarrhea documented as of this encounter (statuses as of 04/24/2023) Medications Medication Sig Dispensed Refills Start Date [...] rol)Indications:COPD, group A, by GOLD 2017 classification ([facility]) INHALE 1 PUFF BY MOUTH EVERY DAY 60 Each 5 06/03/2022 Active Albuterol Sulfate HFA 108 (90 Base) MCG/ACT Inhalation Aerosol SolutionIndications:C OPD, group A, by GOLD 2017 classification ([facility]) INHALE 2 PUFFS BY MOUTH EVERY 4 [...] water daily 245 g 5 10/24/2022 Active hydroCHLOROthiazide 12.5 MG Oral Tablet (Hydrodiuril) 0 12/30/2022 Active Memantine HCl 5 MG Oral Tablet [...] Oral Tablet 1 Tablet. 0 10/13/2022 Active LORazepam 0.5 MG Oral Tablet (Ativan) 0 03/31/2023 Active LORazepam 0.5 MG Oral Tablet (Ativan) 0.5 Tablets. 0 10/20/2022 Active Atorvastatin Calcium 20 MG Oral Tablet (Lipitor)Indications: Hyperlipidemia with target LDL less than 130 TAKE 1 TABLET BY MOUTH EVERY DAY 90 Tablet 0 04/15/2023 Active Hospital, Clinic, or Other Facility Administered Medication Ordered Dose Route Frequency Start Date End Date Status albuterol sulfate (PROVENTIL) (2.5 MG/3ML) 0.083% inhalation solution 2.5 mgIndications:COPD, mild (HCC),Pulmonary emphysema, unspecified emphysema type (HCC) 2.5 mg NEBULIZER Q4H PRN 06/09/2017 Acti ve documented as of this encounter (statuses as of 04/24/2023) Active Problems Problem Noted Date Prediabetes 10/21/2021 [...] as of this encounter (statuses as of 04/24/2023) Resolved Problems Problem Noted Date Resolved Date [...] 05/17/2018 05/14/2020 Overview: DO NOT DELETE [facility] DETECT Study: Project # [id number], Manager Medical Writing: Inocencio Dan, PhD. SUMMARY: Goal: Establish test [...] contact study staff at ; after hours Manager Medical Writing via the [facility] hospital scraper loader operator . Please contact study team before resolving/deleting from patients problem list. Study phone number: [phone]. Diagnosis changed due to Research Module. Go to Snapshot for study details. Encounter for examination fo r normal comparison and control in clinical research program 05/17/2018 06/12/2022 Overview: DO NOT DELETE [employer] DETECT Study: Project # [id number], Manager Medical Writing: Dominic Lockhart, MS, MPH. SUMMARY: Goal: Establish [...] contact study staff at ; after hours Manager Medical Writing via the [facility] hospital scraper loader operator . - Please contact study team before resolving/deleting from patients problem list. Study phone number: [phone]. Diagnosis changed due to Research Module. Go to Snapshot for study details. 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 use of non -steroidal anti-inflammatories (NSAID) [...] as of this encounter (statuses as of 04/24/2023) Immunizations Name Administration Dates Next Due COVID-19 [...] Encounters Date Type Specialty Care Team Description 04/30/2023 Office Visit Internal Medicine Isabela Mars MD [address] [place] [address] 06/12/2023 Hospital Encounter Endoscopy Dior Navarro MD [address] [place] [address] 06/12/2023 Surgery Endoscopy Dior Navarro MD [address] [place] [address] COLONOSCOPY FLEXIBLE PROXIMAL DIAGNOSTIC 07/20/2023 Office Visit Gastroenterology Maggi Calles CRNP [address] [place] [address] 07/27/2023 Nutrition Services Nutrition Services Susu Patel RDN [address] [place] [address] 09/15/2023 Office Visit Internal Medicine Kamille Medina MD [address] [place] [address] Scheduled Procedures Name Priority Associated Diagnoses Date/Ti [...] 05/13/2022 03/18/2022, 08/29/2021, 12/10/2020, Additional history exists GFR 05/20/2023 11/20/2022, 09/12, 04/04/2021, Additional history exists Influenza Vaccine (FLU shot) (#1) 2023 06/20/2022, 06/20/2022, 07/09/2021, Additional history exists Albumin/Creatinine Ratio 11/20/2023 023, 07/02/2020, 01/17/2019 CKD HGB USE SMARTSET 67969 11/20/202311/20, 11/20/2022, 10/24/2022, Additional history exists CKD PHOS USE SMARTSET 70994 11/20/2023 02/0 06/2023, 01/04/2021, 08/12/2019 Depression Screening, Annual for Pts 12 and Over 11/20/2023 11/20/2022 HbA1c 11/20/2023 11/20/2022, 09/12, 01/04/2021, Additional history exists TSH 11/20/2023 11/20/2022, 09/12, 01/04/2021, Additional history exists O2 ASSESSMENT COMPLETED IN PAST YEAR FOR COPD 04/06/2024 04/06/2023 DTaP,Tdap,and Td Vaccines (3 - Td or [...] Documents on File Type Date Recorded Patient Manager Of Medical Expl anation Power of Carver Hand 12/08/2022 AGATA R PARENTAL ACCESS REQUEST Advance Directives and Living Will 07/25/2015 ADVANCE DIRECTIVE / LIVING WILL Power of Carver Hand 07/25/2015 POWER OF A TTORNEY Care Teams Hotel Attendant Relationship Specialty Start Date End Date Kamille Medina MD [address] [place] [address] PCP - General 05/20/10 documented as of this encounter
--- OUTSIDE RECORDS SUMMARY | 2023-10-09 14:21 | External Medical Summary ---
Author Name Unknown Address Unknown Organization K01:[facility]AT[facility] - [address] [facility] [address] Laboratory Report Ordering Provider Test Date Status DYLON SARGENT 04/30/2023 11:47:48 Final Observation Date Value Abnormality Reference (Units ) Status Triglyceride 04/30/2023 11:47:48 197 Above high normal <=174 (mg/dL) Final Triglyceride Reference Range s (mg/dL):
<150 Acceptable
150-174 Borderline high
175-499 High
>=500 Very high Cholesterol 04/30/2023 11:47:48 205 Above high normal <200 (mg/dL) Final Total Cholesterol Reference Ranges (mg/dL):
<200 Desirable
200-239 Borderline high
>=240 High HDL 04/30/2023 11:47:48 51 >49 (mg/dL ) Final HDL Cholesterol Reference Ra nges (mg/dL):
>=60 High (Desirable)
<50 Low (Undesirable) For Females
<40 Low (Undesirable) For Males NON-HDL CHOLESTEROL 04/30/2023 11:47:48 154 <=159 (mg/dL) Final Non-HDL Cholesterol Referenc e Range (mg/dL):
<100 Target level for high risk ASCVD patient
<130 Optimal for general population
130-159 Near optimal for general population
160-189 Borderline High
190-219 High
>=220 Very High LDL, (calculated) 04/30/2023 11:47:48 115 <= 129 (mg/dL) Final LDL Cholesterol Reference Ra nges (mg/dL):
<70 Target level for high risk ASCVD patient
<100 Optimal for general population
100-129 Near optimal for general population
130-159 Borderline high
160-189 High
>=190 Very high Performing Location [facility] - [address] [facility] [address]
--- OUTSIDE RECORDS SUMMARY | 2023-10-09 14:21 | External Medical Summary | Summary of Care ---
Author Name Unknown Organization [facility] Address [address] [place] [address] Phone [phone] Care Team Providers Care Air Carrier Inspector Name Role Phone Kamille Medina MD Primary Care Provider + Reason for Visit * Reason Onset Date Comments Advice 05/06/2023 Order clarificat ion Encounter Details Date Type Department Care Team Description 05/06/2023 Telephone General Internal Medicine [facility] [address] [place] [address] Kamille Medina MD [address] [facility] [address] Advice (Order clarification ) Allergies Active Allergy Reactions Severity Noted Date Comments Aripiprazole 08/25/2018 Aripiprazole 06/28/2013 Moxifloxacin Hcl In Nacl 02/08/2010 Rash/severe diarrhea Cortisone Acetate 05/20/2010 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[place] 05/20/2010 Hives lethargic Moxifloxacin Hydrochloride 0 Hives [...] rol)Indications:COPD, group A, by GOLD 2017 classification ([facility]) INHALE 1 PUFF BY MOUTH EVERY DAY 60 Each 5 06/03/2022 Active Albuterol Sulfate HFA 108 (90 Base) MCG/ACT Inhalation Aerosol SolutionIndications:C OPD, group A, by GOLD 2017 classification ([facility]) INHALE 2 PUFFS BY MOUTH EVERY 4 [...] morning. Per pt/her cousin--was prescribed by Dr beaat Riggs--need to clarify start date from them. [...] program 05/17/2018 05/14/2020 Overview: DO NOT DELETE [facility] Study: Project # [id number], Books Salesperson: Inocencio Dan, PhD. SUMMARY: Goal: Establish test [...] contact study staff at ; after hours Books Salesperson via the [facility] hospital track broom operator . Please contact study team before resolving/deleting from patients problem list. Study phone number: [phone]. Diagnosis changed due to Research Module. Go to Snapshot for study details. Encounter for examination fo r normal comparison and control in clinical research program 05/17/2018 06/12/2022 Overview: DO NOT DELETE - [facility] Study: Project # [id number], Books Salesperson: Dominic Lockhart, MS, MPH. SUMMARY: Goal: Establish [...] contact study staff at ; after hours Books Salesperson via the [facility] hospital track broom operator . - Please contact study team before resolving/deleting from patients problem list. Study phone number: [phone]. Diagnosis changed due to Research Module. Go to Snapshot for study details. Abnormal lung function test 06/09/201707/13 [facility]P current use of non -steroidal anti-inflammatories (NSAID) [...] encounter Miscellaneous Notes * Telephone Encounter - Leticia Singh CMA [...] Visit Internal Medicine Kamille Medina MD [address] [place] [address] 06/12/2023 Hospital Encounter Endoscopy Dior Navarro MD [address] [place] [address] 06/12/2023 Surgery Endoscopy Dior Navarro MD [address] [place] [address] COLONOSCOPY FLEXIBLE PROXIMAL DIAGNOSTIC 07/20/2023 Office Visit Gastroenterology Maggi Calles CRNP [address] [place] [address] 07/27/2023 Nutrition Services Nutrition Services Susu Patel RDN [address] [address] 09/15/2023 Office Visit Internal Medicine Kamille Medina MD [address] [place] [address] Scheduled Procedures Name Priority Associated Diagnoses Date/Ti [...] 023, 07/02/2020, 01/17/2019 CKD PHOS USE SMARTSET 92746 11/20/2023/0 06/2023, 01/04/2021, 08/12/2019 Depression Screening, Annual for Pts 12 and Over 11/20/2023 11/20/2022 HbA1c 11/20/2023 11/20/2022, 1211/2020, 01/04/2021, Additional history exists CKD HGB USE SMARTSET 41018 04/30/202404/30, 04/30/2023, 11/20/2022, Additional history exists O2 [...] Documents on File Type Date Recorded Patient Food Editor Expl anation Power of Trial Examiner 12/08/2022 AGATA Ramirez PARENTAL ACCESS REQUEST Advance Directives and Living Will 07/25/2015 ADVANCE DIRECTIVE / LIVING WILL Power of Trial Examiner 07/25/2015 POWER OF A TTORNEY Care Teams Air Carrier Inspector Relationship Specialty Start Date End Date Kamille Medina MD [address] [facility] [place] [address] PCP - General 05/20/10 documented as of this encounter
--- OUTSIDE RECORDS SUMMARY | 2023-10-09 14:21 | External Medical Summary | Summary of Care ---
Author Name Unknown Organization [facility] Address [address] [place] [address] Phone [phone] Care Team Providers Care Buggy Ladle Tender Name Role Phone Kamille Medina MD Primary Care Provider + Reason for Visit * Reason Onset Date Comments Test Results 05/02/2023 Encounter Details Date Type Department Care Team Description 05/02/2023 Telephone General Internal Medicine [facility] [address] [facility] [place] [address] Isabela Mars MD [address] [facility] [address] Test Results Allergies Active Allergy Reactions Severity Noted Date Comments Aripiprazole 08/25/2018 Aripiprazole 06/28/2013 Moxifloxacin Hcl In Nacl 02/08/2010 Rash/severe diarrhea Cortisone Acetate 05/20/2010 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[place] 05/20/2010 Hives lethargic Moxifloxacin Hydrochloride 0 Hives [...] group A, by GOLD 2017 classification ([facility]) INHALE 1 PUFF BY MOUTH EVERY DAY 60 Each 5 06/03/2022 Active Albuterol Sulfate HFA 108 (90 Base) MCG/ACT Inhalation Aerosol SolutionIndications:C OPD, group A, by GOLD 2017 classification ([facility]) INHALE 2 PUFFS BY MOUTH EVERY 4 [...] [facility] DETECT Study: Project # [id number], Administrative Associate: Inocencio Dan, PhD. SUMMARY: Goal: Establish test [...] contact study staff at ; after hours Administrative Associate via the [facility] hospital felt cutting machine operator . Please contact study team before resolving/deleting from patients problem list. Study phone number: [phone]. Diagnosis changed due to Research Module. Go to Snapshot for study details. Encounter for examination fo r normal comparison and control in clinical research program 05/17/2018 06/12/2022 Overview: DO NOT DELETE - [facility] Study: Project # [id number], Administrative Associate: Dominic Lockhart, MS, MPH. SUMMARY: Goal: Establish [...] contact study staff at ; after hours Administrative Associate via the [facility] hospital felt cutting machine operator . - Please contact study team before resolving/deleting from patients problem list. Study phone number: [phone]. Diagnosis changed due to Research Module. Go to Snapshot for study details. Abnormal lung function test 06/09/201707/13 longterm current use of non -steroidal anti-inflammatories (NSAID) [...] was started on HCTZ by provider at [place] on 12/30/2022, --recent calcium was high, vitamin-D [...] be started on amlodipine. Keep appt [facility] * Telephone Encounter - Dominic Hawkins LPN [...] Medicine Kamille Medina MD [address] [place] [address] 06/12/2023 Hospital Encounter Endoscopy Dior Navarro MD [address] [place] [address] 06/12/2023 Surgery Endoscopy Dior Navarro MD [address] [place] [address] COLONOSCOPY FLEXIBLE PROXIMAL DIAGNOSTIC 07/20/2023 Office Visit Gastroenterology Maggi Calles CRNP [address] [place] [address] 07/27/2023 Nutrition Services Nutrition Services Susu Patel RDN [address] [place] [address] 09/15/2023 Office Visit Internal Medicine Kamille Medina MD [address] [place] [address] Scheduled Procedures Name Priority Associated Diagnoses Date/Ti [...] 023, 07/02/2020, 01/17/2019 CKD PHOS USE SMARTSET 97182 11/20/2023 02/0 06/2023, 01/04/2021, 08/12/2019 Depression Screening, Annual for Pts 12 and Over 11/20/2023 11/20/2022 HbA1c 11/20/2023 11/20/2022, 09/12, 01/04/2021, Additional history exists CKD HGB USE SMARTSET 40384 04/30/202404/30, 04/30/2023, 11/20/2022, Additional history exists O2 [...] Documents on File Type Date Recorded Patient Sulfide Head Operator Expl anation Power of Merchandise Planner 12/08/2022 AGATA Ramirez PARENTAL ACCESS REQUEST Advance Directives and Living Will 07/25/2015 ADVANCE DIRECTIVE / LIVING WILL Power of Merchandise Planner 07/25/2015 POWER OF A TTORNEY Care Teams Buggy Ladle Tender Relationship Specialty Start Date End Date Kamille Medina MD [address] [facility] [place] [address] PCP - General 05/20/10 documented as of this encounter
--- OUTSIDE RECORDS SUMMARY | 2023-10-09 14:21 | External Medical Summary ---
Author Name Unknown Address Unknown Organization K01:[facility] - [address] [place] [address] Laboratory Report Ordering Provider Test Date Status JATINDER GUSMAN 04/30/2023 11:47:48 Final Deficient: <20 ng/mL
Ins ufficient: 20-29 ng/mL
Recommended/Optimum:30-50 ng/mL

Vitamin D intoxication is rare. If suspicious of Vitamin D toxicity, evaluation of serum Calcium and PTH is recommended. Observation Date Value Abnormality Reference (Units ) Status 25-OH Vitamin D total 04/30/2023 11:47:48 62 >19 (ng/mL) Final Performing Location LAB[facility]ATORY [facility] - [address] [place] [address]
--- OUTSIDE RECORDS SUMMARY | 2023-10-09 14:21 | External Medical Summary | Summary of Care ---
Author Name Unknown Organization [facility] Address [address] [place] [address] Phone [phone] Care Team Providers Care Rolfer Name Role Phone Kamille Medina MD Primary Care Provider + Reason for Visit * Reason Comments Outpatient Testing Encounter Details Date Type Department Care Team Description 04/30/2023 Laboratory Laboratory [address] [place] Serina [place] [address] [place] [address] [place], Lab Scen[address] [facility] [place] [address] Hyperlipidemia with target LDL less than 130; Hyponatremia; Leukopenia, unspecified type Allergies Active Allergy Reactions Severity Noted Date Comments Aripiprazole 08/25/2018 Aripiprazole 06/28/2013 Moxifloxacin Hcl In Nacl 02/08/2010 Rash/severe diarrhea Cortisone Acetate 05/20/2010 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[place] 05/20/2010 Hives lethargic Moxifloxacin Hydrochloride 0 Hives [...] program 05/17/2018 05/14/2020 Overview: DO NOT DELETE [facility] DETECT Study: Project # [id number], Marine Mechanic: Inocencio Dan, PhD. SUMMARY: Goal: Establish test [...] contact study staff at ; after hours Marine Mechanic via the [facility] hospital combining machine operator . Please contact study team before resolving/deleting from patients problem list. Study phone number: [phone]. Diagnosis changed due to Research Module. Go to Snapshot for study details. Encounter for examination fo r normal comparison and control in clinical research program 05/17/2018 06/12/2022 Overview: DO NOT DELETE - [facility] Study: Project # [id number], Marine Mechanic: Dominic Lockhart, MS, MPH. SUMMARY: Goal: Establish [...] contact study staff at ; after hours Marine Mechanic via the [facility] hospital combining machine operator . - Please contact study team before resolving/deleting from patients problem list. Study phone number: [phone]. Diagnosis changed due to Research Module. Go to Snapshot for study details. Abnormal lung function test 06/09/201707/13 long term care administrator current use of non -steroidal anti-inflammatories (NSAID) [...] Medicine Kamille Medina MD [address] [place] [address] 06/12/2023 Hospital Encounter Endoscopy Dior Navraro MD [address] [place] [address] 06/12/2023 Surgery Endoscopy Dior Navarro MD [address] [place] [address] COLONOSCOPY FLEXIBLE PROXIMAL DIAGNOSTIC 07/20/2023 Office Visit Gastroenterology Maggi Calles CRNP [address] [place] [address] 07/27/2023 Nutrition Services Nutrition Services Susu Patel RDN [address] [place] [address] 09/15/2023 Office Visit Internal Medicine Kamille Medina MD [address] [place] [address] Pending Results Name Type Priority Associated Diagnoses Date /Time LIPID PANEL WITH DIRECT LDL IF TG IS HIGH Lab Routine Hyperlipidemia with target LDL less than 130 04/30/2023 11:47 AM EDT BASIC METABOLIC PANEL Lab Routine Hyponatremia 04/30/2023 11:47 AM EDT CBC WITH WBC DIFFERENTIAL AND ANEMIA REFLEX WORKUP Lab Routine Leukopenia, unspecified type 04/30/2023 11:47 AM EDT ANEMIA CBC Lab Routine Leukopenia, unspecified type 04/30/2023 11:47 AM EDT DIFFERENTIAL, AUTOMATED Lab Routine Leukopenia, unspecified type 04/30/2023 11:47 AM EDT ANEMIA REFLEX CHEMISTRY HOLD Lab Routine Leukopenia, unspecified type 04/30/2023 11:47 AM EDT Scheduled Procedures Name Priority Associated Diagnoses Date/Ti [...] 023, 07/02/2020, 01/17/2019 CKD HGB USE SMARTSET 24408 11/20/202311/20, 11/20/2022, 10/24/2022, Additional history exists CKD PHOS USE SMARTSET 55003 11/20/2023 02/0 06/2023, 01/04/2021, 08/12/2019 Depression Screening, [...] as of this encounter Visit Diagnoses Diagnosis Hyperlipidemia with target LDL less than 130 Other and unspecified hyperlipidemia Hyponatremia Hyposmolality and/or hyponatremia Leukopenia, unspecified type History of colon polyps Personal history of colonic polyps Special screening for malignant neoplasms, colon documented in this encounter Advance Directives Documents on File Type Date Recorded Patient Band Straightener Expl anation Power of Independent Freight Agent 12/08/2022 AGATA Ramirez PARENTAL ACCESS REQUEST Advance Directives and Living Will 07/25/2015 ADVANCE DIRECTIVE / LIVING WILL Power of Independent Freight Agent 07/25/2015 POWER OF A TTORNEY Care Teams Rolfer Relationship Specialty Start Date End Date Kamille Medina MD [address] [place] [address] PCP - General 05/20/10 documented as of this encounter
--- OUTSIDE RECORDS SUMMARY | 2023-10-09 14:21 | External Medical Summary | Summary of Care ---
Author Name Unknown Organization [facility] Address [address] [place] [facility] [place] [address] Phone [phone] Care Team Providers Care Duralumin Mechanic Name Role Phone Kamille Medina MD Primary Care Provider + Reason for Visit * Reason Comments Hospital Follow-Up Encounter Details Date Type Department Care Team Description 04/30/2023 Office Visit General Internal Medicine [facility] [place] [address] [facility] [place] [id number] Uzma Mars MD [address] [facility] [address] Dizziness*; Post-nasal drip; Non-rheumatic aortic sclerosis; Bipolar 2 disorder (HCC); Acquired hypothyroidism; HTN, goal below 150/90; Leukopenia, unspecified type; Hyponatremia; Hypercalcemia Allergies Active Allergy Reactions Severity Noted Date Comments Aripiprazole 08/25/2018 Aripiprazole 06/28/2013 Moxifloxacin Hcl In Nacl 02/08/2010 Rash/severe diarrhea Cortisone Acetate 05/20/2010 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 Hives lethargic Moxifloxacin Hydrochloride 0 Hives diarrhea documented as of this encounter (statuses as of 05/02/2023) Medications Medication Sig Dispensed Refills Start Date [...] :COPD, group A, by GOLD 2017 classification ([facility]) INHALE 1 PUFF BY MOUTH EVERY DAY 60 Each 5 2 Active Albuterol Sulfate HFA 108 (90 Base) MCG/ACT Inhalation Aerosol SolutionIndication s:COPD, group A, by GOLD 2017 classification ([facility]) INHALE 2 PUFFS BY MOUTH EVERY [...] as of this encounter (statuses as of 05/02/2023) Active Problems Problem Noted Date Prediabetes 10/21/2021 [...] as of this encounter (statuses as of 05/02/2023) Resolved Problems Problem Noted Date Resolved Date [...] DELETE [facility] DETECT Study: Project # [id number], Finisher Card Tender: Inocencio Dan, PhD. SUMMARY: Goal: Establish [...] contact study staff at ; after hours Finisher Card Tender via the [facility] flex o writer operator . Please contact study team before resolving/deleting from patients problem list. Study phone number: [phone]. Diagnosis changed due to Research Module. Go to Snapshot for study details. Encounter for examination fo r normal comparison and control in clinical research program 05/17/2018 06/12/2022 Overview: DO NOT DELETE - [facility] JODI Study: Project # [id number], Finisher Card Tender: Dominic Lockhart, MS, MPH. SUMMARY: Goal: [...] contact study staff at ; after hours Finisher Card Tender via the [facility] flex o writer operator . - Please contact study team before resolving/deleting from patients problem list. Study phone number: [phone]. Diagnosis changed due to Research Module. Go to [employer] for study details. Abnormal lung function test 06/09/201707/13 alf current use of non -steroidal anti-inflammatories (NSAID) [...] as of this encounter (statuses as of 05/02/2023) Immunizations Name Administration Dates Next Due COVID-19 [...] documented in this encounter Progress Notes * Uzma Mars MD - 04/30/2023 10:11 AM EDT [...] dizziness, they checked her blood pressure at [place] has been running in the 140/80 range. [...] states that was prescribed by provider at [place], unsure of the date when it was [...] B, by GOLD 2017 classification ([facility]) J44.9 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 Stage [...] Nacl] Rash/severe diarrhea Cortisone Acetate 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[place] Hives lethargic Moxifloxacin Hydrochloride Hives diarrhea OBJECTIVE: [...] states that was prescribed by provider at [place], unsure of the date when it was [...] instructions and agrees with plan of care. Uzma Mars MD 04/30/2023 documented in this encounter [...] have been negative. documented in this encounter Miscellaneous Notes * Addendum Note - Uzma Mars MD - 05/02/2023 1:09 PM EDTAddended by: UZMA MARS on: 05/02/2023 01:09 PM Modules accepted: Orders documented in this encounter Plan of Treatment Upcoming Encounters Date Type Specialty Care Team Description 05/27/2023 Office Visit Internal Medicine Kamille Medina MD [address] [place] [address] 06/12/2023 Hospital Encounter Endoscopy Dior Navarro MD [address] [place] [address] 06/12/2023 Surgery Endoscopy Dior Navarro MD [address] [place] [address] COLONOSCOPY FLEXIBLE PROXIMAL DIAGNOSTIC 07/20/2023 Office Visit Gastroenterology Maggi Calles CRNP [address] [place] [address] 07/27/2023 Nutrition Services Nutrition Services Susu Patel, SUSIE [address] [place] [address] 09/15/2023 Office Visit Internal Medicine [facility] [address] Scheduled Orders Name Type Priority Associated Diagnoses Orde r Schedule 3 POSITIONAL BLOOD PRESSURE Procedures Routine Dizziness Ordered: 04/30/2023 CALCIUM, IONIZED Lab Routine Hypercalcemia Expected: 06/02/2023 (Approximate), Expires: 05/01/2024 PTH Lab Routine Hypercalcemia Expected: 06/02/2023 (Approximate), Expires: 05/01/2024 25-HYDROXY VITAMIN D Lab Routine Hypercalcemia Expected: 06/02/2023 (Approximate), Expires: 05/01/2024 Scheduled Procedures Name Priority Associated Diagnoses Date/Ti [...] 023, 07/02/2020, 01/17/2019 CKD PHOS USE SMARTSET 65913 11/20/2023 02/0 06/2023, 01/04/2021, 08/12/2019 Depression Screening, Annual for Pts 12 and Over 11/20/2023 11/20/2022 HbA1c 11/20/2023 11/20/2022, 1211/2020, 01/04/2021, Additional history exists CKD HGB USE SMARTSET 63816 04/30/202404/30, 04/30/2023, 11/20/2022, Additional history exists O2 [...] 20 mg/dL 04/30/2023 12:57 PM EDT [facility] 56-02 Creatinine 1.2(H) 0.5 - 1.0 mg/dL 04/30/2023 12:57 PM EDT [facility] [place] 56-02 Estimated Glomerular Filtration Rate 44(L) >=60 mL/min 04/30/2023 12:57 PM EDT [facility] 56-02 Comment:eGFR is calculated b ased on the CKD-EPI 2020 equation Sodium 138 135 - 146 mmol/L 04/30/2023 12:57 PM EDT [facility] 56 Potassium 3.7 3.5 - 5.1 mmol/L 04/30/2023 12:57 PM EDT [facility] 56 Chloride 98 98 - 107 mmol/L 04/30/2023 12:57 PM EDT [facility] 56 CO2 27 22 - 32 mmol/L 04/30/2023 12:57 PM EDT [facility] 56 Anion Gap 13 7 - 15 mmol/L 04/30/2023 12:57 PM EDT [facility] 56 Glucose 104 70 - 120 mg/dL 04/30/2023 12:57 PM EDT [place] [address] Calcium 11.0(H) 8.4 - 10.2 mg/dL 04/30/2023 12:57 PM EDT [facility] 56 Blood Venous blood specimen / Unknown Venipuncture / Unknown 04/30/2023 11:47 AM EDT 04/30/2023 11:47 AM EDT Uzma Mars MD LAB BLOOD ORDERABLES [facility] [address] [place] [address] documented in this encounter Visit Diagnoses Diagnosis Dizziness- Primary Dizziness and giddiness Post-nasal drip Postnasal drip Non-rheumatic aortic sclerosis Atherosclerosis of aorta Bipolar 2 disorder (HCC) Other bipolar disorders Acquired hypothyroidism Unspecified hypothyroidism HTN, goal below 150/90 Leukopenia, unspecified type Hyponatremia Hyposmolality and/or hyponatremia Hypercalcemia History of colon polyps Personal history of colonic polyps Special screening for malignant neoplasms, colon documented in this encounter Advance Directives Documents on File Type Date Recorded Patient Oncology Social Worker Expl anation Power of Renewals Manager 12/08/2022 AGATA Ramirez PARENTAL ACCESS REQUEST Advance Directives and Living Will 07/25/2015 ADVANCE DIRECTIVE / LIVING WILL Power of Renewals Manager 07/25/2015 POWER OF A TTORNEY Care Teams Duralumin Mechanic Relationship Specialty Start Date End Date Kamille Medina MD [address] [facility] [address] PCP - General 05/20/10 documented as of this encounter"
--- OUTSIDE RECORDS SUMMARY | 2023-10-09 14:21 | External Medical Summary | Summary of Care ---
Author Name Unknown Organization [facility] Address [address] [place] [address] Phone [phone] Care Team Providers Care Floriculturist Name Role Phone Kamille Medina MD Primary Care Provider + Reason for Visit * Reason Onset Date Comments Test Results 05/02/2023 Encounter Details Date Type Department Care Team Description 05/02/2023 Telephone General Internal Medicine [facility] [place] [address] [facility] [place] [address] Isabela Mars MD 200 [facility] [address] Test Results Allergies Active Allergy Reactions Severity Noted Date Comments Aripiprazole 08/25/2018 Aripiprazole 06/28/2013 Moxifloxacin Hcl In Nacl 02/08/2010 Rash/severe diarrhea Cortisone Acetate 05/20/2010 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[place] 05/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 SUMMARY: Goal: Establish test [...] contact study staff at ; after hours Supervisor Drying via the [facility] coal equipment operator . Please contact study team before resolving/deleting from patients problem list. Study phone number: [phone]. Diagnosis changed due to Research Module. Go to Snapshot for study details. Encounter for examination fo r normal comparison and control in clinical research program 05/17/2018 06/12/2022 Overview: DO NOT DELETE - [facility] JODI Study: Project # [id number], Supervisor Drying: Dominic Lockhart, MS, MPH. SUMMARY: Goal: Establish [...] contact study staff at ; after hours Supervisor Drying via the [facility] coal equipment operator . - Please contact study team before resolving/deleting from patients problem list. Study phone number: [phone]. Diagnosis changed due to Research Module. Go to Snapshot for study details. Abnormal lung function test 06/09/201707/13 detention current use of non -steroidal anti-inflammatories (NSAID) [...] Visit Internal Medicine Kamille Medina MD 200 [facility] [place] [address] 06/12/2023 Hospital Encounter Endoscopy Dior Navarro MD [address] [facility] [place] [address] 06/12/2023 Surgery Endoscopy Dior Navarro MD [address] [place] [address] COLONOSCOPY FLEXIBLE PROXIMAL DIAGNOSTIC 07/20/2023 Office Visit Gastroenterology Maggi Calles CRNP [address] [place] [address] 07/27/2023 Nutrition Services Nutrition Services Susu Patel RDN [address] [place] [address] 09/15/2023 Office Visit Internal Medicine Kamille Medina MD 200 [place] [address] Scheduled Procedures Name Priority Associated Diagnoses Date/Ti [...] 023, 07/02/2020, 01/17/2019 CKD PHOS USE SMARTSET 31493 11/20/2023 02/0 06/2023, 01/04/2021, 08/12/2019 Depression Screening, Annual for Pts 12 and Over 11/20/2023 11/20/2022 HbA1c 11/20/2023 11/20/2022, 12/11/2020, 01/04/2021, Additional history exists CKD HGB USE SMARTSET 26617 04/30/202404/30, 04/30/2023, 11/20/2022, Additional history exists O2 [...] Documents on File Type Date Recorded Patient Sugar Cane Farm Manager Expl anation Power of Industrial Servicer 12/08/2022 AGATA Ramirez PARENTAL ACCESS REQUEST Advance Directives and Living Will 07/25/2015 ADVANCE DIRECTIVE / LIVING WILL Power of Industrial Servicer 07/25/2015 POWER OF A TTORNEY Care Teams Floriculturist Relationship Specialty Start Date End Date Kamille Medina MD [address] [place] [address] PCP - General 05/20/10 documented as of this encounter
--- OUTSIDE RECORDS SUMMARY | 2023-10-09 14:21 | External Medical Summary | Summary of Care ---
Author Name Unknown Organization [facility] Address [address] [place] [address] Phone [phone] Care Team Providers Care Evaporator Name Role Phone Kamille Medina MD Primary Care Provider + Reason for Visit * Reason Onset Date Comments Test Results 05/02/2023 Encounter Details Date Type Department Care Team Description 05/02/2023 Telephone General Internal Medicine [facility] [place] [address] [facility] [place] [address] Isabela Mars MD 200 [facility] [address] Test Results Allergies Active Allergy Reactions Severity Noted Date Comments Aripiprazole 08/25/2018 Aripiprazole 06/28/2013 Moxifloxacin Hcl In Nacl 02/08/2010 Rash/severe diarrhea Cortisone Acetate 05/20/2010 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[place]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/2010 Hives lethargic Moxifloxacin Hydrochloride 0 Hives diarrhea documented as of this encounter (statuses as of 05/05/2023) Medications Medication Sig Dispensed Refills Start Date [...] rol)Indications:COPD, group A, by GOLD 2017 classification ([facility]) INHALE 1 PUFF BY MOUTH EVERY DAY 60 Each 5 06/03/2022 Active Albuterol Sulfate HFA 108 (90 Base) MCG/ACT Inhalation Aerosol SolutionIndications:C OPD, group A, by GOLD 2017 classification ([facility]) INHALE 2 PUFFS BY MOUTH [...] as of this encounter (statuses as of 05/05/2023) Active Problems Problem Noted Date Prediabetes 10/21/2021 [...] as of this encounter (statuses as of 05/05/2023) Resolved Problems Problem Noted Date Resolved Date [...] 05/14/2020 Overview: DO NOT DELETE [facility] DETECT Study: Project # [id number], Electrical Line Mechanic: Inocencio Dan, PhD. SUMMARY: Goal: Establish [...] contact study staff at ; after hours Electrical Line Mechanic via the [facility] lumber tying machine operator . Please contact study team before resolving/deleting from patients problem list. Study phone number: [phone]. Diagnosis changed due to Research Module. Go to Snapshot for study details. Encounter for examination fo r normal comparison and control in clinical research program 05/17/2018 06/12/2022 Overview: DO NOT DELETE - [facility] JODI Study: Project # [id number], Electrical Line Mechanic: Dominic Lockhart, MS, MPH. SUMMARY: Goal: [...] contact study staff at ; after hours Electrical Line Mechanic via the [facility] hospital lumber tying machine operator . - Please contact study team before resolving/deleting from patients problem list. Study phone number: [phone]. Diagnosis changed due to Research Module. Go to Snapshot for study details. Abnormal lung function test 06/09/201707/13 FDC current use of non -steroidal anti-inflammatories (NSAID) [...] as of this encounter (statuses as of 05/05/2023) Immunizations Name Administration Dates Next Due COVID-19 [...] Miscellaneous Notes * Telephone Encounter - HONG Pierce - 05/05/2023 9:41 AM EDT Advised pt. * Telephone Encounter - Isabela Mars MD - 05/04/2023 4:04 PM EDT Per other encounter she was started on HCTZ by provider at [place] on 12/30/2022, --recent calcium was high, vitamin-D [...] started on amlodipine. Keep appt PCP 05/27 [id number]-Saroj. * Telephone Encounter - Dominic Hawkins LPN [...] Medicine Kamille Medina MD [address] [place], [place] [address] 06/12/2023 Hospital Encounter Endoscopy Dior Navarro MD [address] [place] [address] 06/12/2023 Surgery Endoscopy Dior Navarro MD [address] [place] [address] COLONOSCOPY FLEXIBLE PROXIMAL DIAGNOSTIC 07/20/2023 Office Visit Gastroenterology Maggi Calles CRNP [address] [place] [address] 07/27/2023 Nutrition Services Nutrition Services Susu Patel RDN [address] [place] [address] 09/15/2023 Office Visit Internal Medicine Kamille Medina MD [address] [place] [address] Scheduled Procedures Name Priority Associated Diagnoses Date/Ti [...] 023, 07/02/2020, 01/17/2019 CKD PHOS USE SMARTSET 28316 11/20/2023 02/0 06/2023, 01/04/2021, 08/12/2019 Depression Screening, Annual for Pts 12 and Over 11/20/2023 11/20/2022 HbA1c 11/20/2023 11/20/2022, 09/12, 01/04/2021, Additional history exists CKD HGB USE SMARTSET 25673 04/30/202404/30, 04/30/2023, 11/20/2022, Additional history exists O2 [...] on File Type Date Recorded Patient Manager Practice Expl anation Power of Percher 12/08/2022 AGATA Ramirez PARENTAL ACCESS REQUEST Advance Directives and Living Will 07/25/2015 ADVANCE DIRECTIVE / LIVING WILL Power of Percher 07/25/2015 POWER OF A TTORNEY Care Teams Evaporator Relationship Specialty Start Date End Date Kamille Medina MD 200 [facility] [place] [address] PCP - General 05/20/10 documented as of this encounter
--- OUTSIDE RECORDS SUMMARY | 2023-10-09 14:21 | External Medical Summary ---
Author Name Unknown Address Unknown Organization K09:[facility] [place] [address] Laboratory Report Ordering Provider Test Date Status JATINDER GUSMAN 04/30/2023 11:47:48 Final Observation Date Value Abnormality Reference (Units ) Status BUN 04/30/2023 11:47:48 16 6-20 (mg/dL) Final Creatinine 04/30/2023 11:47:48 1.2 Above high normal 0.5-1.0 (mg/dL) Final Glomerular filtration rate/1.73 sq M.predicted [Volume Rate/Area] in Serum, Plasma or Blood by Creatinine-based formula (CKD-EPI) 04/30/2023 11:47:48 44 Below low normal >=60 (mL/min) Final eGFR is calculated based on the CKD-EPI 2020 equation SODIUM 04/30/2023 11:47:48 138 135-146 (m mol/L) Final Potassium 04/30/2023 11:47:48 3.7 3.5-5.1 (m mol/L) Final Cl 04/30/2023 11:47:48 98 98-107 (mm ol/L) Final CO2 04/30/2023 11:47:48 27 22-32 (mmo l/L) Final Anion gap 04/30/2023 11:47:48 13 7-15 (mmol /L) Final Glucose 04/30/2023 11:47:48 104 70-120 (mg /dL) Final Calcium 04/30/2023 11:47:48 11.0 Above high normal 8. 4-10.2 (mg/dL) Final Performing Location [facility] [place] [address]
--- OUTSIDE RECORDS SUMMARY | 2023-10-09 14:21 | External Medical Summary ---
Author Name Unknown Address Unknown Organization K01:[facility] - [address] [place] [address] Laboratory Report Ordering Provider Test Date Status JATINDER GUSMAN 04/30/2023 11:47:48 Final Observation Date Value Abnormality Reference (Units ) Status WBC, Total 04/30/2023 11:47:48 4.26 4.00-10.8 0 (K/uL) Final RBC 04/30/2023 11:47:48 3.67 3.85-5.15 (M/uL) Final Hemoglobin 04/30/2023 11:47:48 12.0 12.0-15.3 (g/dL) Final Anemia reflex testing trigge rs on a HGB < 12.0 for Females and HGB < 13.0 for Males in accordance with the WHO Anemia Guidelines
Anemia reflex testing triggers on a HGB < 12.0 for Females and HGB < 13.0 for Males in accordance with the WHO Anemia Guidelines HCT 04/30/2023 11:47:48 36.5 36.0-45.2 (%) Final MCV 04/30/2023 11:47:48 99.5 81.5-97.5 (fL) Final MCH 04/30/2023 11:47:48 32.7 27.0-34.0 (pg) Final MCHC 04/30/2023 11:47:48 32.9 32.0-36.0 (g/dL) Final RDW 04/30/2023 11:47:48 13.5 11.5-15.5 (%) Final Platelets 04/30/2023 11:47:48 250 140-400 (K /uL) Final MPV 04/30/2023 11:47:48 9.9 6.6-11.1 ( fL) Final Nucleated erythrocytes/100 leukocytes [Ratio] in Blood by Automated count 04/30/2023 11:47:48 0 <=0 (/100 WBCs) Critical access hospital Performing Location [facility] [address] [facility] [address]
--- OUTSIDE RECORDS SUMMARY | 2023-10-09 14:22 | External Medical Summary | Summary of Care ---
Author Name Unknown Organization [facility] Address [address] [place] [address] Phone [phone] Care Team Providers Care Kinesiology Internship Name Role Phone Kamille Medina MD Primary Care Provider + Reason for Visit * Reason Onset Date Comments Medication Management 04/23/2023 Encounter Details Date Type Department Care Team Description 04/23/2023 Telephone General Internal Medicine [facility] [place] [address] [place] [address] Kamille Medina MD [address] [facility] [place] [address] Medication Management Allergies Active Allergy Reactions Severity Noted Date Comments Aripiprazole 08/25/2018 Aripiprazole 06/28/2013 Moxifloxacin Hcl In Nacl 02/08/2010 Rash/severe diarrhea Cortisone Acetate 05/20/2010 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[place] 05/20/2010 Hives lethargic Moxifloxacin Hydrochloride 0 Hives [...] rol)Indications:COPD, group A, by GOLD 2017 classification ([facility]) INHALE 1 PUFF BY MOUTH EVERY DAY 60 Each 5 06/03/2022 Active Albuterol Sulfate HFA 108 (90 Base) MCG/ACT Inhalation Aerosol SolutionIndications:C OPD, group A, by GOLD 2017 classification ([facility] [...] 05/14/2020 Overview: DO NOT DELETE [facility] DETECT Study: Project # [id number], Health And Safety Instructor: Inocencio Dan, PhD. SUMMARY: Goal: Establish test [...] contact study staff at ; after hours Health And Safety Instructor via the [facility] skates operator . Please contact study team before resolving/deleting from patients problem list. Study phone number: [phone]. Diagnosis changed due to Research Module. Go to Snapshot for study details. Encounter for examination fo r normal comparison and control in clinical research program 05/17/2018 06/12/2022 Overview: DO NOT DELETE [employer] DETECT Study: Project # [id number], Health And Safety Instructor: Dominic Lockhart, MS, MPH. SUMMARY: Goal: Establish [...] contact study staff at ; after hours Health And Safety Instructor via the [facility] skates operator . - Please contact study team before resolving/deleting from patients problem list. Study phone number: [phone]. Diagnosis changed due to Research Module. Go to Snapshot for study details. Abnormal lung function test 06/09/201707/13 intermodal customer service current use of non -steroidal anti-inflammatories (NSAID) [...] Miscellaneous Notes * Telephone Encounter - HONG Smith - 04/24/2023 10:05 AM EDT Pt stated she took a call yesterday, but couldn't understand what the male nurse was saying and asked Stephie to call on her behalf. Please advise * Telephone Encounter - Dominic Hawkins LPN - 04/23/2023 6:57 PM EDT Provider to address: Bhargavi Anderson MD [facility] staff was unavailable to take the phone call. Reason for Call: Medication Management Contact: Telephone Call Contact Type: Medication Outcome: patient informed and voiced understanding. Total Time including non face to face (minutes): 5 * Telephone Encounter - Bhargavi Anderson MD - 04/23/2023 3:27 PM EDT I am not clear from DR Medina note or medication list . If HTCZ for HTN needs to take daily Notify when PCP comes back in 1 week will double check * Telephone Encounter - HONG Kent - 04/23/2023 10:23 AM EDT Sameera from [facility] is calling in to get clarification on one of the pts medications. They need to know if the hydrochlorothiazide needs to be taken once daily or only as needed. Please call back at [phone] documented in this encounter Plan of Treatment Upcoming Encounters Date Type Specialty Care Team Description 04/30/2023 Office Visit Internal Medicine Isabela Mars MD [address] [facility] [place], [place] [address] 06/12/2023 Hospital Encounter Endoscopy Dior Navarro MD [address] [place] [address] 06/12/2023 Surgery Endoscopy Dior Navarro MD [address] [place] [address] COLONOSCOPY FLEXIBLE PROXIMAL DIAGNOSTIC 07/20/2023 Office Visit Gastroenterology Maggi Calles CRNP [address] [place] [address] 07/27/2023 Nutrition Services Nutrition Services Susu Patel RDN [address] [place] [address] 09/15/2023 Office Visit Internal Medicine Kamille Medina MD [address] [facility], [place] [address] Scheduled Procedures Name Priority Associated Diagnoses Date/Ti [...] 023, 07/02/2020, 01/17/2019 CKD HGB USE SMARTSET 31231 11/20/202311/20, 11/20/2022, 10/24/2022, Additional history exists CKD PHOS USE SMARTSET 80934 11/20/2023 02/0 06/2023, 01/04/2021, 08/12/2019 Depression Screening, [...] Documents on File Type Date Recorded Patient Loans Officer Expl anation Power of Insurance Claims Specialist 12/08/2022 AGATA Ramirez PARENTAL ACCESS REQUEST Advance Directives and Living Will 07/25/2015 ADVANCE DIRECTIVE / LIVING WILL Power of Insurance Claims Specialist 07/25/2015 POWER OF A TTORNEY Care Teams Kinesiology Internship Relationship Specialty Start Date End Date Kamille Medina MD [address] [place] [address] PCP - General 05/20/10 documented as of this encounter
--- OUTSIDE RECORDS SUMMARY | 2023-10-09 14:22 | External Medical Summary | Summary of Care ---
Author Name Unknown Organization [facility] Address [address] [facility] [place] [address] Phone [phone] Care Team Providers Care Field Artillery Operations Man Name Role Phone Kamille Medina MD Primary Care Provider + Reason for Visit * Reason Comments Medical Nutrition Therapy Follow Up Encounter Details Date Type Department Care Team Description 04/20/2023 Nutrition Services Nutrition, [facility] [address] [place] [address] Susu Patel RDN [address] [place] [address] Poor appetite*; Dietary counseling and surveillance Allergies Active Allergy Reactions Severity Noted Date Comments Aripiprazole 08/25/2018 Aripiprazole 06/28/2013 Moxifloxacin Hcl In Nacl 02/08/2010 Rash/severe diarrhea Cortisone Acetate 05/20/2010 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[place] 05/20/2010 Hives lethargic Moxifloxacin Hydrochloride 0 Hives diarrhea documented as of this encounter (statuses as of 04/20/2023) Medications Medication Sig Dispensed Refills Start Date [...] rol)Indications:COPD, group A, by GOLD 2017 classification ([facility]) INHALE 1 PUFF BY MOUTH EVERY DAY 60 Each 5 06/03/2022 Active Albuterol Sulfate HFA 108 (90 Base) MCG/ACT Inhalation Aerosol SolutionIndications:C OPD, group A, by GOLD 2017 classification ([facility]) INHALE 2 PUFFS BY MOUTH [...] as of this encounter (statuses as of 04/20/2023) Active Problems Problem Noted Date Prediabetes 10/21/2021 [...] as of this encounter (statuses as of 04/20/2023) Resolved Problems Problem Noted Date Resolved Date [...] [facility] DETECT Study: Project # [id number], Air Pollution Control Engineer: Inocencio Dan, PhD. SUMMARY: Goal: Establish [...] contact study staff at ; after hours Air Pollution Control Engineer via the [facility] hospital plasma table operator . Please contact study team before resolving/deleting from patients problem list. Study phone number: [phone]. Diagnosis changed due to Research Module. Go to Snapshot for study details. Encounter for examination fo r normal comparison and control in clinical research program 05/17/2018 06/12/2022 Overview: DO NOT DELETE [facility] DETECT Study: Project # [id number], Air Pollution Control Engineer: Dominic Lockhart, MS, MPH. SUMMARY: Goal: [...] contact study staff at ; after hours Air Pollution Control Engineer via the [facility] hospital plasma table operator . - Please contact study team before resolving/deleting from patients problem list. Study phone number: [phone]. Diagnosis changed due to Research Module. Go to Snapshot for study details. 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 Patient will take MVI for older adults daily. Patient will continue consuming a high-protein food at each main meal-eggs, cheese, fish. Patient will continue drinking at least 40 ounces daily. documented in this encounter Progress Notes * Susu Patel RDN - 04/20/2023 2:13 PM EDT NUTRITION FOLLOW-UP NOTE - OUTPATIENT [facility] Name: Fabricio Nunez [facility]: 04[facility]20[facility] Time: 2:13 PM Patient was identified by name and date. Patient was seen [id number] in the clinic. Reason for Nutrition Follow-up: General good nutrition NUTRITION ASSESSMENT: Client History Patient (prefers to be called Brett) is a 77 year old female being seen for above issue. She is again accompanied by her cousin. Patient continues to live in [facility]. Support System: cousin Barriers to Learning: Cognitive impairment and Confused/Altered Mental Status Special Education Needs: Instruct caregiver Physical Activity: Not assessed Food/Nutrition-Related History Describes typical diet history/24 hr recall Breakfast: Cheese omelet, small amount of pino, raisin toast-dry, cranberry juice, coffee with cream and artificial sweetener Snacks: None Lunch: cup of soup baked potato soup, lemon cake, water Snacks: Sometimes cookies or yogurt or Boost Dinner: Fish & chips or grilled cheese or motion picture commentator's salad with cheese with raspberry vinaigrette, water Snacks: None Drinks: Water, coffee in AM, occasional adali ernesto Restaurant meals: once a week at least, sometimes twice a week Alcohol: Less than weekly Diet Recall/Food Logs Indicate: AREAS FOR IMPROVEMENT: Inadequate fluid intake Inadequate protein intake POSITIVE: Portion control Uses calorie free beverages Food and Nutrient Intake and other pertinent information: Patient reports having increased anxiety lately. She admits to somewhat decreased appetite since last visit (December 17, 2022). She denies otherchanges in her health or med regimen. Medications Changes/Updates: pt reports dosage of ativan was increased due to increased anxiety Nutrition-Focused Physical Findings Deferred Anthropometric Measurements Current Weight: Wt Readings from Last 1 Encounters: 04/20/23 58.5 kg (128 lb 14.4 oz) Wt Readings from Last 4 Encounters: 04/20/23 58.5 kg (128 lb 14.4 oz) 04/06/23 59.7 kg (131 lb 11.2 oz) 03/05/23 62.5 kg (137 lb 11.2 oz) 12/17/22 61 kg (134 lb 6.4 oz) Weight Change: decreased by 6 pounds in the past 4 months, 9 lbs in past 2 months per Epic review (4.5% and 6.5% respectively) BMI Readings from Last 1 Encounters: 04/20/23 22.83 kg/m Biochemical Data, Medical Tests, and Procedures No current labs since last visit Previous Nutrition Diagnosis: Food and nutrition-related knowledge deficit related to recent acute illness with decreased oral intake at that time as evidenced by Reported diet recall Progress towards goals: Patient will continue with present meal regimen, including 3 meals daily, snack as desired, and at least 1-2 servings of Boost supplement daily. MET Patient will drink at least 32 ounces of water daily (not including coffee or juice). MET Patient will take a multi-vitamin supplement for people over 50 daily (such as Centrum Silver). NOTMET Patient will consume a high-protein food at most all meals-breakfast, lunch, and dinner. Partially MET CURRENT NUTRITION DIAGNOSIS Suboptimal oral intake related to Inadequate protein intake with increased anxiety as evidenced by Reported diet and/or activity recall Unintentional weight loss related to decreased oral intake as evidenced by weight loss of 4+ lbs inpast 4 months per Epic review. NUTRITION INTERVENTION: NUTRITION EDUCATION Initial/brief nutrition education NUTRITION COUNSELING Strategies Nutrition Prescription: Diet: Good Nutrition High calorie/High protein Daily Calorie Needs: 0933-4634 Kcals Daily Protein Needs: 60 Grams protein Current Goals: Patient will continue consuming at least 1 serving of Boost supplement daily. Patient will take MVI for older adults daily. Patient will continue consuming a high-protein food at each main meal-eggs, cheese, fish. Patient will continue drinking at least 40 ounces daily. Dietitian Action: Encouraged patient to continue consuming a high-protein food at each main meal and to continue drinking a high-protein supplement daily. Encouraged her to ask for a high-protein food-entree when she dislikes the meat offered at the assisted living facility-beef (will eat fish, eggs, and dairy). She continues to complain of food she is offered there. She and cousin note this is aconstant issue; she and other residents there have complained to staff about the quality of some ofthe meals. Encouraged pt to start taking a MVI supplement and aim for 40 ounces of fluid daily. Recommendations to Ordering Provider: Continue current plan of nutrition care. NUTRITION MONITORING AND EVALUATION: The following will be monitored and evaluated at the next visit: Monitor weight. Monitor goals and progress. Plan: Patient scheduled to return in 3 months 30 minutes Medical Nutrition Therapy Time In: 1409 (04/20/23 1704) Time Out: 1444 (04/20/23 1704) Susu Patel RDN NUTRITION [facility] [facility] documented in this encounter Plan of Treatment Upcoming Encounters Date Type Specialty Care Team Description 06/12/2023 Hospital Encounter Endoscopy Dior Navarro MD [address] [place] [address] 06/12/2023 Surgery Endoscopy Dior Navarro MD [address] [place] [address] COLONOSCOPY FLEXIBLE PROXIMAL DIAGNOSTIC 07/20/2023 Office Visit Gastroenterology Maggi Calles CRNP [address] [place] [address] 07/27/2023 Nutrition Services Nutrition Services Susu Patel RDN [address] [place] [address] 09/15/2023 Office Visit Internal Medicine Kamille Medina MD [address] [facility] [place] [address] Scheduled Procedures Name Priority Associated Diagnoses Date/Ti [...] 023, 07/02/2020, 01/17/2019 CKD HGB USE SMARTSET 10892 11/20/202311/20, 11/20/2022, 10/24/2022, Additional history exists CKD PHOS USE SMARTSET 39220 11/20/2023 02/0 06/2023, 01/04/2021, 08/12/2019 Depression Screening, [...] as of this encounter Visit Diagnoses Diagnosis Poor appetite- Primary Anorexia Dietary counseling and surveillance Dietary surveillance and counseling History of colon polyps Personal history of colonic polyps Special screening for malignant neoplasms, colon documented in this encounter Advance Directives Documents on File Type Date Recorded Patient Sterile Processing Technician Expl anation Power of Manager Unit 12/08/2022 AGATA Ramirez PARENTAL ACCESS REQUEST Advance Directives and Living Will 07/25/2015 ADVANCE DIRECTIVE / LIVING WILL Power of Manager Unit 07/25/2015 POWER OF A TTORNEY Care Teams Field Artillery Operations Man Relationship Specialty Start Date End Date Kamille Medina MD [address] [place] [address] PCP - General 05/20/10 documented as of this encounter
--- OUTSIDE RECORDS SUMMARY | 2023-10-09 14:22 | External Medical Summary | Summary of Care ---
Author Name Unknown Organization [facility] Address [address] [place] [address] Phone [phone] Care Team Providers Care Maxillofacial Prosthodontist Name Role Phone Prashant Medina MD Primary Care Provider + Reason for Visit * Reason Comments eRx-Medication Refill Encounter Details Date Type Department Care Team Description 04/15/2023 Refill General Internal Medicine [facility] [place] [address] [place] [address] Prashant Medina MD [address] [place] [address] Hyperlipidemia with target LDL less than 130 Allergies Active Allergy Reactions Severity Noted Date Comments Aripiprazole 08/25/2018 Aripiprazole 06/28/2013 Moxifloxacin Hcl In Nacl 02/08/2010 Rash/severe diarrhea Cortisone Acetate 05/20/2010 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[place] 05/20/2010 Hives lethargic Moxifloxacin Hydrochloride 0 Hives diarrhea documented as of this encounter (statuses as of 04/15/2023) Medications Medication Sig Dispensed Refills Start Date [...] EVERY DAY 90 Tablet 0 04/15/2023 Active Atorvastatin Calcium 20 MG Oral Tablet (Lipitor)Indication s:Hyperlipidemia with target LDL less than 130 TAKE 1 TABLET BY MOUTH EVERY DAY 90 Tablet 0 01/07/2023 04/15/20 23 Discontinued Hospital, Clinic, or Other Facility Administered Medication Ordered Dose Route Frequency Start Date End Date Status albuterol sulfate (PROVENTIL) (2.5 MG/3ML) 0.083% inhalation solution 2.5 mgIndications:COPD, mild (HCC),Pulmonary emphysema, unspecified emphysema type (HCC) 2.5 mg NEBULIZER Q4H PRN 06/09/2017 Acti ve documented as of this encounter (statuses as of 04/15/2023) Active Problems Problem Noted Date Prediabetes 10/21/2021 [...] as of this encounter (statuses as of 04/15/2023) Resolved Problems Problem Noted Date Resolved Date [...] DELETE [facility] DETECT Study: Project # [id number], Podiatric Technician: Inocencio Dan, PhD. SUMMARY: Goal: Establish test [...] contact study staff at ; after hours Podiatric Technician via the [facility] punch press operator . Please contact study team before resolving/deleting from patients problem list. Study phone number: [phone]. Diagnosis changed due to Research Module. Go to Snapshot for study details. Encounter for examination fo r normal comparison and control in clinical research program 05/17/2018 06/12/2022 Overview: DO NOT DELETE - [facility] DETECT Study: Project # [id number], Podiatric Technician: Dominic Lockhart, MS, MPH. SUMMARY: Goal: Establish [...] contact study staff at ; after hours Podiatric Technician via the [facility] punch press operator . - Please contact study team before resolving/deleting from patients problem list. Study phone number: [phone]. Diagnosis changed due to Research Module. Go to Snapshot for study details. Abnormal lung function test 06/09/201707/13 intermediate current use of non -steroidal anti-inflammatories (NSAID) [...] as of this encounter (statuses as of 04/15/2023) Immunizations Name Administration Dates Next Due COVID-19 [...] encounter Miscellaneous Notes * Telephone Encounter - Maite Romero RPh - 04/15/2023 2:00 PM EDT Signed Prescriptions: Disp Refills Atorvastatin Calcium 20 MG Oral Tablet (Li*90 Tab*0 Sig: TAKE 1 TABLET BY MOUTH EVERY DAYAuthorizing Provider: PRASHANT MEDINA User: MAITE ROMERO * Telephone Encounter - Maite Romero RP - 04/15/2023 1:59 PM EDT Patient will be contacted in 01/07/2023 encounter regarding needing OV and/or lab work. 1 refill approved. Thank you, Maite Romero, PharmD Clinical Pharmacist [facility] ([facility]) (formerly Telepharmacy) 04/15/23 1:59 PM [phone] documented in this encounter Plan of Treatment Upcoming Encounters Date Type Specialty Care Team Description 04/20/2023 Nutrition Services Nutrition Services Susu Patel, RDN [address] [place] [address] 06/12/2023 Hospital Encounter Endoscopy Dior Navarro MD [address] [place] [address] 06/12/2023 Surgery Endoscopy Dior Navarro MD [address] [place] [address] COLONOSCOPY FLEXIBLE PROXIMAL DIAGNOSTIC 07/20/2023 Office Visit Gastroenterology Maggi Calles CRNP [address] [place] [address] 09/15/2023 Office Visit Internal Medicine Prashant Medina MD [address] [place] [address] Scheduled Procedures Name Priority Associated Diagnoses Date/Ti [...] 023, 07/02/2020, 01/17/2019 CKD HGB USE SMARTSET 49667 11/20/202311/20, 11/20/2022, 10/24/2022, Additional history exists CKD PHOS USE SMARTSET 97881 11/20/2023 02/0 06/2023, 01/04/2021, 08/12/2019 Depression Screening, [...] less than 130 Other and unspecified hyperlipidemia History of colon polyps Personal history of colonic polyps Special screening for malignant neoplasms, colon documented in this encounter Advance Directives Documents on File Type Date Recorded Patient Bandage Maker Expl anation Power of Primary Grade Teacher 12/08/2022 AGATA Ramirez PARENTAL ACCESS REQUEST Advance Directives and Living Will 07/25/2015 ADVANCE DIRECTIVE / LIVING WILL Power of Primary Grade Teacher 07/25/2015 POWER OF A TTORNEY Care Teams Maxillofacial Prosthodontist Relationship Specialty Start Date End Date Prashant Medina MD [address] [place] [address] PCP - General 05/20/10 documented as of this encounter
--- OUTSIDE RECORDS SUMMARY | 2023-10-09 14:22 | External Medical Summary | Summary of Care ---
Author Name Unknown Organization [facility] Address [address] [place] [address] Phone [phone] Care Team Providers Care Customs Consultant Name Role Phone Kamille Medina MD Primary Care Provider + Reason for Visit * Reason Onset Date Comments Medication Management 04/23/2023 Encounter Details Date Type Department Care Team Description 04/23/2023 Telephone General Internal Medicine [facility] [place] [address] [place] [address] Kamille Medina MD [address] [facility] [place] [address] Medication Management Allergies Active Allergy Reactions Severity Noted Date Comments Aripiprazole 08/25/2018 Aripiprazole 06/28/2013 Moxifloxacin Hcl In Nacl 02/08/2010 Rash/severe diarrhea Cortisone Acetate 05/20/2010 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[place] 05/20/2010 Hives lethargic Moxifloxacin Hydrochloride 0 Hives diarrhea documented as of this encounter (statuses as of 04/23/2023) Medications Medication Sig Dispensed Refills Start Date [...] rol)Indications:COPD, group A, by GOLD 2017 classification ([facility]) INHALE 1 PUFF BY MOUTH EVERY DAY 60 Each 5 06/03/2022 Active Albuterol Sulfate HFA 108 (90 Base) MCG/ACT Inhalation Aerosol SolutionIndications:C OPD, group A, by GOLD 2017 classification ([facility]) INHALE 2 PUFFS BY MOUTH EVERY 4 [...] as of this encounter (statuses as of 04/23/2023) Active Problems Problem Noted Date Prediabetes 10/21/2021 [...] as of this encounter (statuses as of 04/23/2023) Resolved Problems Problem Noted Date Resolved Date [...] 05/17/2018 05/14/2020 Overview: DO NOT DELETE [facility] DETECT Study: Project # [id number], Steel Worker: Inocencio Dan, PhD. SUMMARY: Goal: Establish test [...] contact study staff at ; after hours Steel Worker via the [facility] hospital graphite mill operator . Please contact study team before resolving/deleting from patients problem list. Study phone number: [phone]. Diagnosis changed due to Research Module. Go to Snapshot for study details. Encounter for examination fo r normal comparison and control in clinical research program 05/17/2018 06/12/2022 Overview: DO NOT DELETE [employer] DETECT Study: Project # [id number], Steel Worker: Dominic Lockhart, MS, MPH. SUMMARY: Goal: Establish [...] contact study staff at ; after hours Steel Worker via the [facility] hospital graphite mill operator . - Please contact study team before resolving/deleting from patients problem list. Study phone number: [phone]. Diagnosis changed due to Research Module. Go [...] as of this encounter (statuses as of 04/23/2023) Immunizations Name Administration Dates Next Due COVID-19 [...] 04/23/2023 6:57 PM EDT Provider to address: MD Joesph Bucioy staff was unavailable to take the phone [...] Kent - 04/23/2023 10:23 AM EDT Sameera herrera [place] is calling in to get clarification on one of the pts medications. They need to know if the hydrochlorothiazide needs to be taken once daily or only as needed. Please call back at [phone] documented in this encounter Plan of Treatment Upcoming Encounters Date Type Specialty Care Team Description 06/12/2023 Hospital Encounter Endoscopy Dior Navarro MD [address] [facility] [place] [address] 06/12/2023 Surgery Endoscopy Dior Navarro MD [address] [place] [address] COLONOSCOPY FLEXIBLE PROXIMAL DIAGNOSTIC 07/20/2023 Office Visit Gastroenterology Maggi Calles CRNP [address] [place] [address] 07/27/2023 Nutrition Services Nutrition Services Susu Patel, SUSIE [address] [place] [address] 09/15/2023 Office Visit Internal Medicine Kamille Medina MD [address] [place] [address] Scheduled Procedures Name Priority Associated Diagnoses Date/Ti [...] 023, 07/02/2020, 01/17/2019 CKD HGB USE SMARTSET 99818 11/20/202311/20, 11/20/2022, 10/24/2022, Additional history exists CKD PHOS USE SMARTSET 89903 11/20/2023 02/0 06/2023, 01/04/2021, 08/12/2019 Depression Screening, [...] Documents on File Type Date Recorded Patient Ux Specialist Expl anation Power of Cruise Staff Member 12/08/2022 AGATA Ramirez PARENTAL ACCESS REQUEST Advance Directives and Living Will 07/25/2015 ADVANCE DIRECTIVE / LIVING WILL Power of Cruise Staff Member 07/25/2015 POWER OF A TTORNEY Care Teams Customs Consultant Relationship Specialty Start Date End Date Kamille Medina MD [address] [facility] [place] [address] PCP - General 05/20/10 documented as of this encounter
--- OUTSIDE RECORDS SUMMARY | 2023-10-09 14:22 | External Medical Summary | Summary of Care ---
Author Name Unknown Organization [facility] Address [address] [place] [address] Phone [phone] Care Team Providers Care Security Intelligence Analyst Name Role Phone Kamille Medina MD Primary Care Provider + Reason for Visit * Reason Onset Date Comments Medication Management 04/23/2023 Encounter Details Date Type Department Care Team Description 04/23/2023 Telephone General Internal Medicine [facility] [place] [address] [place] [address] Kamille Medina MD [address] [facility] [place] [address] Medication Management Allergies Active Allergy Reactions Severity Noted Date Comments Aripiprazole 08/25/2018 Aripiprazole 06/28/2013 Moxifloxacin Hcl In Nacl 02/08/2010 Rash/severe diarrhea Cortisone Acetate 05/20/2010 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[place] 05/20/2010 Hives lethargic Moxifloxacin Hydrochloride 0 Hives [...] [facility] DETECT Study: Project # [id number], Ash Conveyor Operator: Inocencio Dan, PhD. SUMMARY: Goal: Establish [...] contact study staff at ; after hours Ash Conveyor Operator via the [facility] hospital conditioner tumbler operator . Please contact study team before resolving/deleting from patients problem list. Study phone number: [phone]. Diagnosis changed due to Research Module. Go to Snapshot for study details. Encounter for examination fo r normal comparison and control in clinical research program 05/17/2018 06/12/2022 Overview: DO NOT DELETE [employer] DETECT Study: Project # [id number], Ash Conveyor Operator: Dominic Lockhart, MS, MPH. SUMMARY: Goal: [...] contact study staff at ; after hours Ash Conveyor Operator via the [facility] hospital conditioner tumbler operator . - Please contact study team before resolving/deleting from patients problem list. Study phone number: [phone]. Diagnosis changed due to Research Module. Go to Snapshot for study details. 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 She will be bringing patient to an appt on 04/30/2023 and will have all meds ordered and sent to new pharmacy. Thank you, Malu Jorge CPhT [facility]formerly telepharmacy) 04/24/2023,10:16 AM * Telephone Encounter - HONG Smith - 04/24/2023 10:05 AM EDT Pt stated she took a call yesterday, but couldn't understand what the male nurse was saying and asked Stephie to call on her behalf. Please advise * Telephone Encounter - Dominic Hawkins LPN - 04/23/2023 6:57 PM EDT Provider to address: Bhargavi Anderson MD [facility] staff was unavailable to take the phone [...] - 04/23/2023 10:23 AM EDT Sameera from [facility] is calling in to get clarification on one of the pts medications. They need to know if the hydrochlorothiazide needs to be taken once daily or only as needed. Please call back at [phone] documented in this encounter Plan of Treatment Upcoming Encounters Date Type Specialty Care Team Description 04/30/2023 Office Visit Internal Medicine Isabela Mars MD [address] [place] [address] 06/12/2023 Hospital Encounter Endoscopy Dior Navarro MD [address] [place] [address] 06/12/2023 Surgery Endoscopy Dior Navarro MD [address] [place] [address] COLONOSCOPY FLEXIBLE PROXIMAL DIAGNOSTIC 07/20/2023 Office Visit Gastroenterology Maggi Calles CRNP [address] [place] [address] 07/27/2023 Nutrition Services Nutrition Services Susu Patel RDN [address] [place] [address] 09/15/2023 Office Visit Internal Medicine Kamille Medina MD [address] [place] [address] [phone] (work) Scheduled Procedures Name Priority Associated Diagnoses Date/Ti [...] 023, 07/02/2020, 01/17/2019 CKD HGB USE SMARTSET 70690 11/20/202311/20, 11/20/2022, 10/24/2022, Additional history exists CKD PHOS USE SMARTSET 15044 11/20/2023 02/0 06/2023, 01/04/2021, 08/12/2019 Depression Screening, [...] Documents on File Type Date Recorded Patient Marketing Strategy Manager Expl anation Power of Medication Aid 12/08/2022 AGATA Ramirez PARENTAL ACCESS REQUEST Advance Directives and Living Will 07/25/2015 ADVANCE DIRECTIVE / LIVING WILL Power of Medication Aid 07/25/2015 POWER OF A TTORNEY Care Teams Security Intelligence Analyst Relationship Specialty Start Date End Date Kamille Medina MD [address] [place] [address], [place] [address] PCP - General 05/20/10 documented as of this encounter
[2023-10-09] MEDS ORDERED: hydrALAZINE HCL 20 MG/ML VIAL IV STA (15:09)
[2023-10-09] MEDS: hydrOXYzine HCl 10 MG TAB PO PRN (15:45)
--- NOTE | 2023-10-09 17:01 | Communication Note ---
Date of Service: October 09, 2023 Appears when patient admitted in October for anxiety she had elevated BP readings which improved with ativan. Of note, appears had been started on HCTZ/ losartan during that admission but not continued at discharge. Currently BP 168/88 and did get dose of vistaril. Appears this had been 25mg TID prn previously w/ buspar discontinued at that time and utilized ativan in it's place. May benefit from utilization of ativan 2-3x daily vs klonopin. --> Will discuss further with patient at tx. Consider psych eval while inpatient [facility] navigator notified of [facility] PCP and they are arranging outpatient transition of care follow up at discharge.
[2023-10-09] MEDS ORDERED: lamoTRIgine 100 MG TAB PO SCH (21:00)
[2023-10-09] MEDS ORDERED: traZODone HCL 50 MG TAB PO SCH (21:00)
[2023-10-09] MEDS ORDERED: ASPIRIN 81 MG ECTAB PO SCH (21:00)
[2023-10-09] MEDS ORDERED: ATORVASTATIN 20 MG TAB PO SCH (21:00)
[2023-10-10] MEDS: LEVOTHYROXINE SODIUM 25 MCG TABLET PO SCH (05:51)
[2023-10-10 06:16] LABS: Hematocrit (blood only) 35.9 % (37.0-47.0); Hemoglobin 12.5 g/dl (12.0-16.0); Mean Corpuscular Hemoglobin 31.5 pg (25.0-34.0); Mean Corpuscular Hgb Conc 34.8 g/dL (32.0-36.0); Mean Corpuscular Volume 90.4 fL (80.0-100.0); Mean Platelet Volume 9.3 fL (9.4-12.4); Platelet Count 231 K/uL (130-400); RDW Coefficient of Variation 11.9 % (11.5-14.5); RDW Standard Deviation 39.3 fL (36.4-46.3); Red Blood Count 3.97 M/uL (4.20-5.40); White Blood Count 4.81 K/ul (4.8-10.8)
[2023-10-10 06:32] LABS: BUN Creatinine Ratio 15.8 (10-20); Calcium 9.5 mg/dl (8.6-10.3); Creatinine Clr Calc Pharmacy 33.5 ml/min; Est GFR (Non-African American) 45.7 ml/min; Magnesium 2.2 mg/dl (1.7-2.4); Potassium 3.8 mmol/L (3.5-5.1)
--- NOTE | 2023-10-10 07:56 | Discharge Summary ---
Date of Service October 10, 2023 Admission HPI Per Admitting Provider Fabricio Nunez is a 77yo female presenting from [facility] with report of ongoing hypertension. Patient has had elevated blood pressures 180's - 200's systolic over the last several weeks. She has also been experiencing increased anxiety. She was started on Clonidine 0.1mg po BID on 10/01/23 in hopes of managing both hypertension and anxiety. She has been taking it as instructed but has not had any improvement in her blood pressure. She has begun having some orthostatic symptoms as well as mild dizziness. She was started on Lisinopril 10mg po daily on 10/08/23 prior to her arrival to the ER but has not yet taken this medication. She is overall a poor historian and does not offer many complaints. She denies headache, visual changes, chest pain, palpitations, back or flank pain, focal numbness/tingling/weakness or shortness of breath. No report of pain. No vomiting. She has been taking her medications as prescribed. In [facility] ER she is hypertensive 200/120's. ER Course: NSS x 500mL Lisinopril 10mg Amlodipine 5mg Admission Exam Per Admitting Provider General: patient anxious in appearance, answers some questions but is mostly quiet during encounter Skin: warm, dry, intact, no rashes or lesions HEENT: NC/AT, PERRL, EOMI, anicteric sclera, conjunctiva without injection, external ear normal to inspection and nontender, nares patent, moist mucus membranes, dentition intact, no oropharyngeal lesions, neck supple, trachea midline, no LAD, no thyromegaly, no JVD Heart: +S1/S2, regular, 2/6 DAISY across precordium. Blood pressure equal in bilateral UEs - 182/98 in LUE and 181/94 in RUE Lungs: equal air entry bilaterally, no rales/rhonchi/wheezes Abd: +BS, soft, NT/ND, no masses/organomegaly/ascites Ext: warm, 2+ pulses in UE/LE bilaterally, no clubbing/cyanosis or edema Neuro: nonfocal. 5/5 strength in UE/LE bilaterally Principal Diagnosis Hypertension Discharge Exam General: WD/WN female sitting up in bed, cousin at bedside, appears less anxious, excited about discharge back to [facility] Head normocephalic, atrauamtic, mmm, trachea midline Resp even/unlabored, no significant w/c/r, on room air CV: rrr, systolic murmur, no pitting edema/calf tenderness, pulses palpable GI: +BS, soft/NT : no rosenberg MSK/Neuro/Psych: no focal deficits, no slurred speech, answering questions appropriately mild cognitive deficit at baseline and answering questions appropriately, alert/oriented to place/year, pleasant/cooperative Discharge Data Allergies Allergy/AdvReac Type Severity Reaction Status Date / Time aripiprazole Allergy Unknown PARKINSON Verified 08/05/23 11:36 SYMPTOMS cortisone Allergy Unknown PRECIPITATED Verified 08/05/23 11:36 MANIC EPISODE/ STEROID PSYCHOSIS lithium Allergy Unknown SKIN Verified 08/05/23 11:36 RASHES, EXTREME DROWSINESS AND LETHARGY moxifloxacin Allergy Unknown HIVES/ Verified 08/05/23 11:36 DIARRHEA brimonidine AdvReac Unknown Verified 08/05/23 11:36 Consultations 10/09/23 05:33 ED Decision to Admit Stat Ordered Studies Chest X-Ray 10/08/23 19:42 SINGLE VIEW CHEST CLINICAL HISTORY: Atypical chest pain FINDINGS: A PA chest radiograph is compared to study dated 03/12/2010. The cardiomediastinal silhouette is unremarkable noting atherosclerotic calcification of the thoracic aorta. The lungs and pleural spaces are clear. No pneumothorax is seen. The skeletal structures are osteopenic. The bony thorax is grossly intact. Cholecystectomy clips are noted in the right upper quadrant. IMPRESSION: No active disease in the chest. ACT 112: Negative or not required by law. Electronically signed by: Shahbaz Watkins M.D. 10/08/2023 9:[address] 10/09/23 00:10 Exam(s): CT HEAD Without Contrast EXAM: CT Head Without Intravenous Contrast CLINICAL HISTORY: Reason for exam: dizzy,htn. TECHNIQUE: Axial computed tomography images of the head/brain without intravenous contrast. CTDI is 38.17 mGy and DLP is 624.41 mGy-cm. Automated exposure control was utilized for the study. A dose lowering technique was utilized adhering to the principles of ALARA. COMPARISON: Comparison made to prior brain MRI from October 19, 2022. FINDINGS: Brain: Unremarkable. No hemorrhage. Moderate nonspecific white matter changes. No edema. Ventricles: Unremarkable. No ventriculomegaly. Bones/joints: Hyperostosis frontalis interna. No acute fracture. Soft tissues: Bilateral lens replacements. Sinuses: Unremarkable as visualized. No acute sinusitis. Mastoid air cells: Unremarkable as visualized. No mastoid effusion. IMPRESSION: No evidence of acute intracranial pathology. Electronically signed by: Susan Polanco MD 10/09/23 04:05 AM Renal Artery Duplex 10/09/23 10:35 US duplex renal artery HISTORY: 77 years-old Female hypertesnion acute hypertension. COMPARISON: None TECHNIQUE: Multiple real-time sonographic images of the renal vascular structures were obtained assessing grayscale appearance, color spectral flow FINDINGS: Normal wave forms in the abdominal aorta, peak systolic velocities measuring up to 75 cm/s. Patent bilateral renal arteries and veins. No significantly elevated peak systolic velocities to suggest high-grade stenosis. Resistive indices measure up to 0.74 on the right and 0.75 on the left. IMPRESSION: No evidence of renal arterial stenosis. ACT 112: Negative or not required by law. The above report was generated using voice recognition software. It may contain grammatical, syntax or spelling errors. Electronically signed by: Ramon Cheung M.D. 10/09/2023 12:34 PM Hospital Course (1) HTN (hypertension): Blood pressure poorly controlled over the last month. Recently started clonidine by psych for anxiety symptoms and suspect could have some rebound from such BP elevated 218/106 on admission. No MANCUSO/CP/SOB reported, just anxious appearing 10/09 CT head negative for acute CVA. No focal deficits on exam. Jack had been admitted in the past in October for anxiety she had elevated BP readings which improved with ativan. (Of note, jack had been started on HCTZ/losartan during that admission but not continued at discharge) EKG w/o ischemic changes. Trop 19.2 and patient DENIED chest pain. NSR on telemetry TSH wnl, cortisol wnl. Alcon level pending at vt Renal US on admission negative for RADAMES Hydralazine/labetaolol available prn Increased lisinopril to 20mg daily, added amlodipine 5mg daily and DISCONTINUED her clonidine (reports started in the past week by Dr Alonso) Discussed ativan 2-3 x/daily for anxiety and can discuss about posisble klonopin with psych in follow up for longer lasting anxiety control. Did get 1x dose vistaril 10mg however appears they had previously discontinued this and again, discussed benzos for her anxiety BP much improved w interventions and since overnight has been 139/69, 109/60, 124/70, 124/70, 139/69 prior to discharge. Discussed to continue monitoring BPs at discharge and f/u primary care provider and psych. Discussed plan w/ patient and cousin at bedside who will transport back to [facility]. [facility] navigator arranging follow up/transition of care as patient with PCP Dr Medina from [facility] (2) Anxiety: Chronic, recently NOT controlled as above w/ new rx for clonidine which has been DISCONTINUE Continued home Fluoxetine 30mg po daily, trazodone, ativan prn once daily (however cousin did note she can get 2-3 x at [place]). As above, f/u psych for ongoing discussion, ?klonopin for longer lasting effect vs more frequent dosing (3) Mild cognitive impairment: Chronic, stable/improved. Continued on memantine 5mg BID B12 prior earlier this year in 180s, repeat >1500 TSH wnl Frequent orientation, sleep/wake cycles encouraged Cousin at bedside reports she was GREAT this morning (morning of dc) (4) Hypothyroidism: Chronic TSH wnl -Continued Synthroid 25mcg po daily (5) COPD (chronic obstructive pulmonary disease): Chronic. Stable and remained on room air. Continued home anoro/albuterol HFA (6) Bipolar 2 disorder: Chronic -Continued Lamictal 200mg po qHS Total Time Total Time Spent Total Time Spent (In Minutes): 35 Discharge Plan Discharge Items Patient Disposition: Personal [facility] Reason For Visit: PERSISTENT HYPERTENSION Discharge Diagnosis: Hypertension Goals: You have been hospitalized for an acute medical problem. During your stay at [facility], we have made an effort to correct the problem that brought you to the hospital while keeping you as comfortable as possible. Medications were used to bring your condition under control and your discharge instructions will include directions for any medications you should take after leaving the hospital. Please make sure you see your Primary Care Provider as part of your follow up plan. Activity: Resume your previous activity Non-emergency contact: Primary Care Provider Call non-emergency contact if: you have any medication questions and your symptoms worsen Follow-up/Referrals: Kamille Medina MD [Outside Practitioners] - (Date & Time 10/14/2023 11:00 AM Provider Bhargavi Anderson MD Department General Internal Medicine [facility] ) [place] [place] [Primary Care Provider] - Diet: Heart Healthy Addtl Attending Provider Instructions: You have been hospitalized for elevated blood pressure. Imaging of the head was negative as well as renal artery ultrasound for any narrowing. As discussed, suspect anxiety driving a component of this and recommend discussing using ativan 2-3 times daily for better control and discussing about possible use of klonopin for longer lasting anxiety control in the future. Your blood pressure medications at discharge are as follows: - Lisinopril 20mg daily - Amlodipine 5mg daily Clonidine has been DISCONTINUED. You should continue to monitor your blood pressures at discharge and alert primary care provider if remaining elevated. Please return to the ER with any significant elevations, chest pain, shortness of breath, or headache. It has been a pleasure being a part of the medical team providing for you while you have been in the hospital. Take care! Pending Studies at Discharge: Yes (Renin, ALdosterone) Stand-Alone Forms: My Datalink, Smoking Cessation Skilled Items Patient informed of condition?: Yes DNR: No Discharge Level of Care: Other Communicable Disease: No Discharge Prognosis: Stable Lines: None Urinary Catheter: No Medications and DC Order Prescriptions: New amlodipine [Norvasc] 5 mg Tablet 5 mg PO QAM Qty: 30 0RF Continued docusate sodium 100 mg capsule 100 mg PO DAILY PRN (Reason: Constipation) fluocinonide 0.05 % solution 1 applic topical BID PRN (Reason: as directed) Benefiber Sugar Free (dextrin) 3 gram/3.8 gram powder 1.5 g PO DAILY Rx Instructions: mix into at least 4 oz water or juice before administering famotidine 20 mg tablet 20 mg PO DAILY acetaminophen [Mapap Arthritis Pain] 650 mg tablet extended release 1,300 mg PO DAILY memantine 5 mg tablet 5 mg PO BID Qty: 60 5RF aspirin 81 mg Tablet,Delayed Release (Dr/Ec) 81 mg PO HS Qty: 30 0RF lorazepam 0.5 mg Tablet 0.25 mg PO DAILY PRN (Reason: anxiety) Qty: 10 0RF cyanocobalamin (vitamin B-12) 500 mcg Tablet 2,000 mcg PO QAM Qty: 120 0RF atorvastatin 20 mg Tablet 20 mg PO HS Qty: 30 0RF lamotrigine 200 mg Tablet 200 mg PO HS Qty: 30 0RF trazodone 50 mg Tablet 50 mg PO HS Qty: 30 0RF levothyroxine 25 mcg Tablet 25 mcg PO QAM Qty: 30 0RF benzonatate 100 mg Capsule 100 mg PO UD PRN (Reason: COUGHING) Qty: 20 0RF albuterol sulfate [ProAir HFA] 90 mcg/actuation Hfa Aerosol Inhaler 2 inh INHALATION Q4H PRN (Reason: COPD) Qty: 8.5 0RF fluoxetine [Prozac] 20 mg Capsule 20 mg PO QAM Qty: 30 0RF dorzolamide 2 % Drops 1 drp OPHTHALMIC (EYE) BID Qty: 10 0RF Lumigan 0.01 % Drops 1 drp OPHTHALMIC (EYE) HS Qty: 7.5 0RF Caltrate 600 plus D 600 mg (1,500 mg)-800 unit Tablet,Chewable 1 tab PO BID Qty: 30 0RF Anoro Ellipta 62.5-25 mcg/actuation Blister With Device 1 inh INHALATION DAILY Qty: 60 0RF fluoxetine 10 mg capsule 10 mg PO DAILY Changed lisinopril 10 mg tablet 20 mg PO DAILY Qty: 60 0RF Rx Instructions: Has not yet started Discontinued clonidine HCl 0.1 mg tablet 0.1 mg PO BID lisinopril 10 mg tablet hydrochlorothiazide 12.5 mg tablet 12.5 mg PO DAILY Discharge Orders: Discharge Order (Routine); Ordered 10/10/23 Ordered By: Wendi Beaver Admission Data Admit Date/Time: 10/09/23 06:21 Attending Provider: Herbie Damon Admit Provider: Herbie Damon Primary Care Provider: [facility] [place] Other Providers: Tamica Zepeda Other Interventions: Discharge Summary Assessment (RN) Last Done: 10/10/23 10:05 Supervising Physician Co-Signing Physician Notes The patient was not seen by me. The chart was reviewed. Case discussed with MIGUEL Borja. Agree with assessment and plan Coding Level of Care Code 08368 INP/OBS DISCH >30 MIN Diagnoses HTN (hypertension) I10 Anxiety F41.9 Mild cognitive impairment G31.84 Hypothyroidism E03.9 COPD (chronic obstructive pulmonary disease) J44.9 Bipolar 2 disorder F31.81
[2023-10-10] MEDS ORDERED: amLODIPine BESYLATE 5 MG TAB PO SCH (09:00)
[2023-10-10] MEDS: hydrOXYzine HCl 10 MG TAB PO PRN (09:32)
[2023-10-10] MEDS: amLODIPine BESYLATE 5 MG TAB PO SCH (09:34)
[2023-10-10] MEDS: DORZOLAMIDE HCL 2% OPH SOLN 10 ML BTL OP SCH (09:34)
[2023-10-10] MEDS: MEMANTINE HCL 5 MG TAB PO SCH (09:35)
[2023-10-10] MEDS: lisinopril 20 MG TAB PO SCH (09:35)
[2023-10-10] MEDS: FAMOTIDINE 20 MG TAB PO SCH (09:35)
[2023-10-10] MEDS: UMECLIDINIUM/VILANTEROL 62.5/25MCG 7 PUFFS/INHALER INH SCH (09:35)
[2023-10-10] MEDS: FLUoxetine HCL 10 MG CAP PO SCH (09:35)
[2023-10-10] MEDS: FLUoxetine HCL 20 MG CAP PO SCH (09:35)
== END 2023-10-10 11:54 | disposition home or self-care (01) ==
LOC: SUATTDRO → EDINP 18:50 → ED 18:50 → 2E 10-09 09:42